=== PATIENT | male | born 1955 | race Caucasian/White ===

== ENCOUNTER 2016-08-14 07:10 | Inpatient (IN) ==
[2016-08-14] MEDS ORDERED: 0.9 % Sodium Chloride 1,000 ML IVC SCH (07:45)
[2016-08-14] MEDS ORDERED: *HR* Heparin 10,000 UNIT/10 ML VIAL ONE (08:08)
[2016-08-14] MEDS ORDERED: 0.9 % Sodium Chloride 1,000 ML ONE (08:08)
[2016-08-14] MEDS ORDERED: Nitroglycerin 1,000 MCG/10 ML VIAL IV ONE (08:08)
[2016-08-14] MEDS ORDERED: Heparin 1,000 UNITS/500 mL NS 0 ML ONE (08:08)
--- NOTE | 2016-08-14 08:40 | History & Physical Report ---
Date of Encounter: 08/14/16 Time of Encounter: 08:40 24 Hour HP Update - Instructions Instructions: If the History and Physical is less than 30 days old and was completed prior to A.M. admission and or procedure and has NOT been updated on calendar day of procedure please complete this update prior to performing procedure. - Update Patient reports changes in Medical Condition: No Changes in examination, assessment, or condition: No Changes in Medication: No Preop tests/diagnostics Reviewed: Yes Surgery Remains Indicated: Yes Consent for Planned Operative Procedure(s) Verified: Yes - Pre-Operative Checklist Preoperative Checklist Indicated: No Prophylactic Antibiotic Ordered: No Home Medications Include Beta Merle: Yes Beta Merle Taken Today (Day of Surgery): Yes Beta Merle Taken Yesterday (Day Prior to Surgery): Yes Is VTE Prophylaxis Indicated?: NO
[2016-08-14] MEDS ORDERED: *HR* FentaNYL (PF) 100 MCG/2 ML VIAL ONE (08:41)
[2016-08-14] MEDS ORDERED: *HR* Bivalirudin 250 MG VIAL IVC ONE (08:41)
[2016-08-14] MEDS ORDERED: *HR* Midazolam HCl 2 MG/2 ML VIAL ONE (08:41)
--- NOTE | 2016-08-14 08:41 | Pre-Sedation Evaluation ---
Pre-sedation evaluation - Pre-sedation checklist Date of procedure: 08/14/16 Procedure: [facility] Recent Vitals: Last Vital Signs Temp 98.1 F 08/14/16 07:47 Pulse 67 08/14/16 07:47 Resp 16 08/14/16 07:47 BP 175/89 08/14/16 07:47 Pulse Ox 99 08/14/16 07:47 H&P (including ROS) documented in medical record: Yes Previous reaction to sedatives/anesthetics: No Dietary Status: NPO after Midnight Airway Assessment: Patient can open mouth completely, TMJ function normal, Micrognathia (under-bite, receding chin) absent, Neck with adequate range of motion Dentition: No loose teeth or bridges Possible difficult airway: No ASA Classification *see protocol: CLASS II-Mild systemic disease Plan of Care: Pt appropriate candidate for procedure/moderate/conscious sedation , Risks/benefits of procedure/sedation discussed w/ patient/family
[2016-08-14] MEDS ORDERED: Ondansetron 4 MG/2 ML VIAL IVP PRN (09:34)
[2016-08-14] MEDS ORDERED: Acetaminophen 325 MG TABLET PO PRN (09:34)
[2016-08-14] MEDS ORDERED: Nitroglycerin 0.4 MG TAB.SUBL SL PRN (09:34)
[2016-08-14] MEDS ORDERED: Dextrose Gel 15 GM PO PRN ×2 (09:35)
[2016-08-14] MEDS ORDERED: *HR* Dextrose 50 % in Water (Syg) 50 ML SYRINGE IVP PRN (09:35)
[2016-08-14] MEDS ORDERED: D5% in Water 1,000 ML IVC PRN (09:35)
[2016-08-14] MEDS ORDERED: Nitroglycerin 25 MG/250 ML INFUS..BTL IVC SCH (09:45)
--- NOTE | 2016-08-14 10:59 | Invasive Diagnostic Lab ---
Name: Tai Bearden Date of Study: 08/14/2016 Date: 1955 Ht: 170.2 cm /67.0 in Medical Record#: [id number] Age: 61 Wt: 99.8 kg / 220.00 lb Account/Order#: [id number] Gender: Male BSA: 2.11 Order #: [id number] Fluoro Dose: 243 mGy BMI: 34.46 Procedure Physician: Elis Medina MD, FACC Referring MD: Scarlett Calles DO Referring MD: Procedures Performed: LEFT HEART CATH Indications: Unstable Angina Impressions: There is severe three vessel coronary artery disease. The left ventricle is normal and has normal contractility EF 60% Recommendations: Optimal medical therapy of patient's disease. Aggressive risk factor modification. Evaluate for coronary artery bypass surgery. History/Risk Factors: edema proteinuria dm bladder CA Diabetes Hypertension Dyslipidemia Procedure Access obtained in the right Femoral artery by percutaneous puncture Complications: None, None Contrast: Isovue 65ml Closure Device: MynxGrip Hemodynamics: Pressures Site Systolic/ A Wave Diastolic/ V Wave End Diastolic/ Mean HR AO 155 89 114 59 AO 157 84 112 58 AO 176 101 135 66 LV 148 19 18 68 LV 141 26 27 68 AO 145 74 110 67 AO 190 74 118 66 LV Ventriculography Ejection Method: LV Gram Ejection Fraction: 60% Wall Motion: ALEJANDRE Anterobasal Normal Anterolateral Normal Apical: Normal Inferoapical Normal Inferobasal Normal Coronary Dominance: right Lesion Findings/Interventions * Left Main Coronary Artery There is a 30% stenosis in the LMCA. * Left Anterior Descending There is a 95% stenosis in the Ostial LAD. There is a 85% stenosis in the Proximal LAD. There is a 30% stenosis in the Mid LAD. There is a 90% stenosis in the 1st Diagonal- large vessel. * Circumflex There is a 30% stenosis in the Proximal Circumflex. There is a 60% stenosis in the Mid Circumflex. * Right Coronary Artery There is a 40% stenosis in the Proximal RCA. There is a 100% stenosis in the Distal RCA- [employer]. R PDA fills via L to R collaterals. Updated by RT Rakesh (R) on 08/14/2016 9:33:01 AM Elis Medina MD, FACC electronically signed on 08/14/2016 10:54:03 AM with status of Final
--- NOTE | 2016-08-14 13:10 | Cardiothoracic Consult Note ---
Date of Encounter: 08/14/16 Time of Encounter: 13:01 Assessment and Plan (1) Coronary artery disease Current Visit: No Status: Ruled-out The patient is a 61-year-old type II diabetic, hypertensive man with hypercholesterolemia and a 6 month history of progressive shortness of breath and dyspnea on exertion. The patient underwent cardiac catheterization today was found to have severe three-vessel CAD an LVEF 60-65% (per echocardiogram). The patient has been recommended for CABG. I concur with this recommendation. The patient understands the procedure, alternatives, benefits, and risks and gives his informed consent. 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 No decision office for as timing of the operation has been determined as yet. The assessment and plan as outlined above was discussed with the patient and/or family members who expressed understanding and agreement. All questions were answered. Qualifiers: Coronary Disease-Associated Artery/Lesion type: [place] artery [place] vs. transplanted heart: [place] heart Associated angina: with stable angina Qualified Code(s): I25.118 - Atherosclerotic heart disease of [place] coronary artery with other forms of angina pectoris - History of Present Illness Consult date: 08/14/16 Requesting physician: Elis Medina Consult reason: CABG evaluation. Chief complaint: Shortness of breath. History of present illness: Mr. Bearden is a 61 year old type II diabetic, hypertensive man with hypercholesterolemia who has experienced increasing shortness of breath and dyspnea on exertion for the last several months. The patient underwent an echocardiogram in January 2016 which revealed an LVEF 60-65% with normal left ventricular size and systolic function. Subsequent stress test performed February 15, 2016 revealed an LVEF 67% with no definitive evidence of ischemia or infarct. 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 He underwent 2 cervical spine procedures to clear the osteomyelitis. He has had persistent shortness of breath and currently cannot climb one flight of stairs without experiencing profound shortness of breath and dyspnea on exertion. He denies any substernal chest pain , pressure, squeezing, or tightness. He also denies any diaphoresis, nausea, vomiting, or syncope. The patient underwent cardiac catheterization today was found to have severe three-vessel CAD. In particular the patient has a 95 percent ostial LAD lesion, an 85% proximal LAD lesion, a 90% proximal D1 lesion, 60% mid LCx lesion, and a completely occluded distal RCA which fills the PDA via [id number] collaterals and patient has been recommended for CABG. Past Med Surg Social Fam HX - Past Medical History Medical history: cancer, diabetes, hyperlipidemia, hypertension, peripheral artery disease, renal disease (CKD, Stage IIIB), venous stasis, other Psychiatric history: anxiety - Past Surgical History Surgical History: cancer surgery, orthopedic, other (C4/C5 corpectomy, C4-C7 anterior fusion), other (Left second and third toe amputation) - Social History Smoking Status: Former smoker Smokeless Tobacco Status: No Alcohol use: rarely Drug use: none Occupational status: employed Current living situation: Home - Independent Activity Level: Independent ambulation Recent Out of Country Travel Within the Last 8 Weeks: No Exposure or Possible Exposure to Illness During Travel: No - Family History Father Living Status: Hx Family Endocrine Disorder: Yes (DM) Mother Living Status: Hx Family Cardiac Disorders: No Hx Family Respiratory Disorders: No Hx Family Cancer: Yes (thyroid) Hx Family GI Disorders: No Hx Family Endocrine Disorder: No Medications and Allergies Atenolol [Tenormin] 50 mg PO BID 11/08/14 [History] Simvastatin [Zocor] 20 mg PO HS 11/08/14 [History] Furosemide [Lasix] 40 mg PO BID 01/26/16 [History] Gabapentin [Neurontin] 100 mg PO TID 01/26/16 [History] Insulin LISPRO [HumaLOG] 0 units SQ TIDAC vial 02/28/16 [Rx] Ammonium Lactate [Amlactin] 225 gm TP BID 08/14/16 [History] Insulin Glargine [Lantus] 20 unit SQ BID 08/14/16 [History] Loratadine [Claritin] 10 mg PO DAILY 08/14/16 [History] Allergies No Known Allergies Allergy (Verified 03/23/16 17:00) All Systems Review: A 10-system review of systems was performed and is negative for pertinent findings except as documented above in the HPI. Physical Examination General: Conversant, No Apparent Distress HEENT: Atraumatic, Normocephaly, Trachea midline Neck: No JVD, Normal carotid pulses Cardiac: Reg Rate and Rhythm, Normal S1 and S2, No Murmur Lungs: Normal Breath Sounds, No Wheeze, Rales, Rhonchi Neuro: Alert and responsive, No focal deficits noted Vascular: Normal capillary refill Abdomen: Soft, Non-tender Musculoskeletal: No Chest Wall Tenderness Extremities: No Clubbing, No Cyanosis, Other (2-3+ pitting edema from the knees to the toes in both lower extremities) Consult Discharge Plan - Plan Referrals: Eloy Calles DO [Primary Care Provider] -
--- NOTE | 2016-08-14 16:16 | Invasive Diagnostic Lab Proc ---
Name: Tai Bearden Date of Study: 08/14/2016 Date: 1955 Ht: 67.0in Medical Record#: [id number] Age: 61 Wt: 220.00lb Gender: Male BSA: 2.11 Order #: [id number] BMI: 34.46 Physicians Procedure Physician: Elis Medina MD, FACC Referring MD: Scarlett Calles DO Referring MD: Staff Name Position Time In Maryan Mercer RN Garde Manger 08:42 AM Carly Jimenez RN Nurse 08:42 AM Viji Villarreal RT (R) Monitor 08:42 AM Kira Cunningham RT (R) Scrub 08:42 AM Indications Indication Unstable Angina Procedures Performed Procedure L HRT ARTERY/VENTRICLE ANGIO Pre-Procedure Checklist Informed consent is complete signed and on chart. H\\T\\P is on chart. ID band is on and ID verified with patient. Patient NPO for procedure The procedure was described for the patient and questions were answered. Blood Pressure: 175/89 ECG is on chart. Rhythm: NSR Plan of Care Patient will tolerate the procedure without complications. Adequate level of comfort will be maintained. Hemodynamics will remain stable Patient will recover from procedure without complications. Respiratory function will be maintained. Cardiac rhythm will remain stable. Patient temperature will be maintained. Patient and/or family have verbalized understanding of the procedure. Patient Education Chief Complaint/Reason for Test: Cardiac Cath Developmental Category: Adult (18-64 years) Developmentally Appropriate for Age: Yes Learning Barriers: None Education Needs: Procedure Education Method: Verbal Information Taught: Cardiac Cath Educational Evaluation: Able to repeat information Intravenous Access Time IV Size Location DC'd Fluid/Drip Rate Units RN 08:12 AM Started with 20g 1 1/4" Lt Antecubital 0.9NaCl 100 ml/hr Renzo Scott RN Allergies No Known Allergies Vital Signs Time BP (mmHg) HR (bpm) O2 Sat. RR (bpm) LOC 08:12 AM 175 / 89 67 99 % 16 5 = Fully awake and oriented or at pre-proc level 08:45 AM / % 5 = Fully awake and oriented or at pre-proc level 08:45 AM / % 5 = Fully awake and oriented or at pre-proc level 09:00 AM / % 5 = Fully awake and oriented or at pre-proc level 08:49 AM 203 / 105 65 100 % 19 08:53 AM 186 / 102 63 99 % 26 08:58 AM 184 / 87 62 100 % 27 09:03 AM 184 / 86 57 100 % 33 09:09 AM 197 / 96 65 99 % 32 09:13 AM 207 / 107 66 99 % 32 09:16 AM 202 / 104 68 98 % 23 09:18 AM 206 / 95 % 09:30 AM 157 / 69 69 98 % 18 5 = Fully awake and oriented or at pre-proc level 10:00 AM 161 / 80 68 99 % 18 5 = Fully awake and oriented or at pre-proc level 10:36 AM 172 / 89 68 98 % 18 5 = Fully awake and oriented or at pre-proc level 10:51 AM 162 / 79 68 98 % 18 5 = Fully awake and oriented or at pre-proc level 11:00 AM 158 / 83 71 98 % 18 5 = Fully awake and oriented or at pre-proc level 11:18 AM 164 / 80 69 98 % 18 5 = Fully awake and oriented or at pre-proc level 11:41 AM 158 / 73 70 98 % 18 5 = Fully awake and oriented or at pre-proc level 12:00 PM 166 / 83 69 99 % 18 5 = Fully awake and oriented or at pre-proc level 12:30 PM 177 / 109 72 % 18 5 = Fully awake and oriented or at pre-proc level 01:00 PM 186 / 96 70 % 18 5 = Fully awake and oriented or at pre-proc level 02:00 PM 187 / 85 75 % 18 5 = Fully awake and oriented or at pre-proc level 02:50 PM 175 / 92 73 % 18 5 = Fully awake and oriented or at pre-proc level 03:00 PM 166 / 64 76 % 18 5 = Fully awake and oriented or at pre-proc level 04:00 PM 126 / 82 72 % 18 5 = Fully awake and oriented or at pre-proc level Procedural Medications Time Medication Dose Units Method Given By 08:43 AM Oxygen 2 L/min nasal cannula Maryan Mercer RN 08:45 AM Versed 2 mg Intravenous Maryan Mercer RN 08:45 AM Fentanyl 50 mcg Intravenous Maryan Mercer RN 09:00 AM Lidocaine 2% 10 ml Subcutaneous Elis Medina MD, FACC 09:12 AM Hydralazine 10 mg Intravenous Maryan Mercer RN 09:19 AM Hydralazine 10 mg Intravenous Ruslan, Maryan RN 03:05 PM Tylenol 650 mg Orally Soco Andrade RN Guillermo Score Preprocedure Postprocedure Activity 2- Moves 4 extremities sustained head lift Activity 2- Moves 4 extremities sustained head lift Circulation 2- SBP +/= 20 points of pre-anesthetic level Circulation 2- SBP +/= 20 points of pre-anesthetic level Consciousness 2- Awake and alert oriented x 3 Consciousness 2- Awake and alert oriented x 3 O2 Saturation 2- Able to maintain O2 satruation of 92% on room air O2 Saturation 2- Able to maintain O2 satruation of 92% on room air Respiratory 2- Able to deep breathe and cough well Respiratory 2- Able to deep breathe and cough well Total Score 10 Total Score 10 Contrast Agent: Isovue Diagnostic Contrast: 65 ml Total Contrast: 65 ml Fluoro Dose: 243 mGy Procedure Log Time Note Enter By 08:21 AM Risk for fall? Yes, Medications (change in amt./frequency,newly prescribed,potential combinations) [email or web address] 08:21 AM Evidence of mental, physical, or emotional abuse? No kkallner 08:21 AM Does patient have suicidal ideations? No kkallner 08:40 AM Maryan Mercer RN Position: Garde Manger Time in: 08:40 [email or web address] 08:40 AM Carly Jimenez RN Position: Nurse Time in: 08:40 dspell 08:40 AM Viji Villarreal RT (R) Position: Monitor Time in: 08:40 dspell 08:40 AM Kira Cunningham RT (R) Position: Scrub Time in: 08:40 dspellman 08:41 AM Case Start 08:41 AM Pt arrived to [facility] 2 at 08:41 dspellman 08:41 AM Physician arrived 08:41 dspell 08:41 AM Meet and greet completed dspell 08:41 AM Sign in performed according to hospital policy. dspell 08:41 AM Procedure start 08:41 dspell 08:42 AM Patient charges- Angio tray pack, Navilyst 3mm J, Pulse Oximetry and ACIST tubing and transducer dspell 08:42 AM IV Supplies used: J loop Angio Cath. dspell 08:43 AM Time: 08:43 Oxygen on at 2 L/min per nasal cannula by Maryan Mercer RN dspell 08:43 AM CathStat 08:45 AM Time: 08:45 Patient comfortable and pain free: Yes [email or web address] 08:45 AM Time: 08:45LOC: 5 = Fully awake and oriented or at pre-proc level dspellmarion 08:45 AM Time: 08:45 Versed 2 mg Intravenous [facility] AM Time: 08:45 Fentanyl 50 mcg Intravenous Given by Maryan Mercer RN [facility] 08:46 AM Vitals capture started with the following parameters, Patient=Adult, Interval=5 min, Initial Dhvzravr=285 mmHg, Deflation Rate=5 mmHg, Cuff placed on Left Arm 08:46 AM Recorded ECG: HR=66 Condition=Condition 1 08:47 AM Vitals capture stopped. 08:47 AM Vitals capture started with the following parameters, Patient=Adult, Interval=5 min, Initial Javrupqx=731 mmHg, Deflation Rate=5 mmHg, Cuff placed on Left Arm 08:48 AM Clinical Presentation: [facility] AM Noted: 3+ pitting edema bilateral lower extremities [facility] 08[facility]49 AM HR=65 bpm, AYQC=689/105 mmhg, YvQ9=267.0 %, Resp=19 B/min, Comment=NSR 08:52 AM NIBP STAT measurement started. 08:53 AM HR=63 bpm, VZXA=318/102 mmhg, SpO2=99.0 %, Resp=26 B/min, Comment=NSR 08:58 AM HR=62 bpm, STDK=388/87 mmhg, VnO5=198.0 %, Resp=27 B/min, Comment=NSR 09:00 AM Time: 08:45LOC: 5 = Fully awake and oriented or at pre-proc level [facility] AM Time: 08:45 Patient comfortable and pain free: Yes [facility] 09:00 AM Time out performed according to hospital policy [facility] 09:01 AM Time: 09:00 10 ml Lidocaine 2% to right groin Subcutaneous Given by Elis Medina MD, [facility] 09:01 AM Access obtained by percutaneous puncture. 5Fr 10cm Terumo [place] sheath placed in right Femoral artery. [id number] [facility] 09:01 AM 5Fr FL 4 catheter inserted over the wire [facility] 09:01 AM 0.035 145cm Navilyst 3mmJ wire [id number] dspell 09:01 AM LCA angiography performed in multiple views. dspell 09:02 AM Recorded Pressure: Ao, HR=59, Condition=Condition 1 (Aorta) Ao 155/89/114 09:02 AM Recorded Pressure: Ao, HR=58, Condition=Condition 1 (Aorta) Ao 157/84/112 09:03 AM Catheter removed dspell 09:03 AM HR=57 bpm, MUDR=647/86 mmhg, IyK2=412.0 %, Resp=33 B/min, Comment=NSR 09:03 AM 5Fr FR 4 catheter inserted over the wire [facility] ell 09:04 AM RCA angiography performed in multiple views. dspell 09:04 AM Recorded Pressure: Ao, HR=66, Condition=Condition 1 (Aorta) Ao 176/101/135 09:05 AM Catheter removed dspell 09:05 AM 5Fr Pigtail catheter inserted over the wire [facility] 09:06 AM Pressure channel 1 zeroed. 09:06 AM Recorded Pressure: LV, HR=68, Condition=Condition 1 (Left Ventricle) LV 148/19/18 09:06 AM Recorded Pressure: LV, Ao, HR=67, Condition=Condition 1 (Left Ventricle) LV 141/26/27, (Aorta) Ao 145/74/110 09:07 AM Bolus angiogram of left Ventricle complete: 8 ml/sec for a total of 24 [facility]ls ell 09:07 AM Catheter selectively placed in left ventricle dspell 09:07 AM Catheter removed dspell 09:08 AM Recorded Pressure: Ao, HR=66, Condition=Condition 1 (Aorta) Ao 190/74/118 09:08 AM Bolus angiogram of right Femoral complete: 4 ml/sec for a total of 7 mls [facility] 09:09 AM Procedure completed at 09:09 dspellmarion 09:09 AM HR=65 bpm, MGLQ=195/96 mmhg, SpO2=99.0 %, Resp=32 B/min, Comment=NSR 09:[address] [facility] AM Sign out completed: Radiation Dose 243.44 mGy Fluoro Time: 1.1 Isovue 370 - 200ml contrast 65 ml given by Elis Medina MD, [facility]. Complications: NoneCardiac Rehab Consult needed: YesConfirmed administered medications: Yes 09:11 AM Isovue 370 - 200ml,1 Bottle(s) used. dsp 09:11 AM Arterial sheath pulled, Mynx closure device used and was Successful [id number]. 09:11 AM Post ECG NSR dsp 09:12 AM Post Blood Pressure 197/96 dspell 09:12 AM Time: 09:12 Hydralazine 10 mg Intravenous Given by Maryan Mercer RN 09:13 AM HR=66 bpm, ZTYW=208/107 mmhg, SpO2=99.0 %, Resp=32 B/min, Comment=NSR 09:16 AM NIBP STAT measurement started. 09:16 AM HR=68 bpm, NPZF=480/104 mmhg, SpO2=98 %, Resp=23 B/min 09:17 AM Time: 09:00 Patient comfortable and pain free: Yes 09:17 AM Time: 09:00LOC: 5 = Fully awake and oriented or at pre-proc level dsp 09:17 AM Site status No bleeding/hematoma - Rt Groin as reported by Kira Cunningham RT (R) at 09:17 09:18 AM Opsite applied dsp 09:18 AM RLRX=708/95 mmhg 09:19 AM Time: 09:19 Hydralazine 10 mg Intravenous Given by Maryan Mercer RN 09:20 AM Information taught Cardiac Cath and Mynx 09:20 AM Education needs Procedure, Plan of Care, and Responsibilities of Patient in Care dspell 09:20 AM Learning barriers :None :20 AM Education Methods Verbal :20 AM Education evaluation Able to repeat information :21 AM Report given to Soco BROWN Pt taken to Holding room Room #1. 09:21 dspell 09:21 AM Patient out of room: 09:21 dspell 09:21 AM Family placed in no family available. dspell 09:21 AM Complications: None dsp 09:21 AM Fluoro Time: 1.1 dsp 09:21 AM Isovue 370 - 200ml contrast 65 ml given by [facility] 09:21 AM Radiation Dose 243.44 mGy dspellman 09:23 AM Coronary Dominance: right dspellman 09:23 AM Lesion found in LMCA. Pre Stenosis: 30 Pre MIGUEL Flow: dspellman 09:23 AM Left Main Coronary Artery with 30% stenosis dspellman 09:23 AM Lesion found in Ostial LAD. Pre Stenosis: 95 Pre MIGUEL Flow: dspellman 09:23 AM Lesion found in Proximal LAD. Pre Stenosis: 85 Pre MIGUEL Flow: dspellman 09:23 AM Lesion found in Mid LAD. Pre Stenosis: 30 Pre MIGUEL Flow: dspellman 09:24 AM Lesion found in 1st Diagonal. Pre Stenosis: 90 Pre MIGUEL Flow: dspellman 09:24 AM Lesion found in Proximal Circumflex. Pre Stenosis: 30 Pre MIGUEL Flow: dspellman 09:25 AM Lesion found in Mid Circumflex. Pre Stenosis: 60 Pre MIGUEL Flow: dspellman 09:25 AM Lesion found in Proximal RCA. Pre Stenosis: 40 Pre MIGUEL Flow: dspellman 09:25 AM Lesion found in Distal RCA. Pre Stenosis: 100 Pre MIGUEL Flow: dspellman 09:25 AM Proximal Left Anterior Descending Coronary Artery with 85% stenosis. If graft is supplying this territory, 0 % stenosis. dspellman 09:26 AM Mid/Distal Left Anterior Descending Coronary Artery and diagonal branches with 95% stenosis. If graft is supplying this area, 0 % stenosis dspellman 09:26 AM Circumflex, Obtuse Marginal, Left Posterior Descending, and Left Posterolateral Coronary Arteries with 30 % stenosis. If graft is supplying this area, 0 % stenosis dspellman 09:27 AM Right Coronary, Right Posterior Descending Arteries with Right Posterolateral and Acute Marginal branches with 100 % stenosis. If graft is supplying this area, 0 % stenosis dspellman 12:[address] Morales at bedside mprater 01:30 PM Florina Gamboa present conducting CABG education mprater 01:[address] elis Medina at bedside. Dr Medina educated patient on risks of being discharged home. Dr medina recommends patient be admitted to have CABG as an inpatient vs outpatient. mprater 01:55 PM Pt dressed sitting on bed Florina in room for education thenthorne 02:50 PM patient blood glucose 111. patient eating lunch tray. patient made a decision to stay an inpatient mprater 03:[address] Morales to inform him of patient willing to be admitted mprater 03:50 PM report called to Killian BROWN on 2NE mprater 04:09 PM Patient out of room: 16:09. Patient taken to his room in wheelchair by Juvenal Scott RN. Belongings with patient juana Complications Complication None None Hemodynamics Pressures Site Systolic/A Wave Diastolic/V Wave Mean AO 155 89 114 AO 157 84 112 AO 176 101 135 LV 148 19 18 LV 141 26 27 AO 145 74 110 AO 190 74 118 Post Procedure Information Blood Pressure: 197/96 mmHg Rhythm: NSR Post procedural instructions were given Surgery consult for CABG Closure Device Time Device Success/Fail 08/14/2016 9:27:00 AM MynxGrip Successful Site Checks Time Location Status Staff Sheath In? Note 09:17 AM Rt Groin No bleeding/hematoma Kira Cunningham RT (R) 09:28 AM Rt Groin No bleeding/ No Hematoma 10:00 AM Rt Groin No bleeding/ No Hematoma Renzo Scott RN 10:37 AM Rt Groin No bleeding/ No Hematoma Renzo Scott RN 10:50 AM Rt Groin No bleeding/ No Hematoma Renzo Scott RN 11:00 AM Rt Groin No bleeding/ No Hematoma Soco Andrade RN 11:18 AM Rt Groin No bleeding/ No Hematoma Soco Andrade RN 11:39 AM Rt Groin No bleeding/ No Hematoma Renzo Scott RN 12:10 PM Rt Groin No bleeding/ No Hematoma Soco Andrade RN 12:30 PM Rt Groin No bleeding/ No Hematoma Soco Andrade RN 01:00 PM Rt Groin No bleeding/ No Hematoma Soco Andrade RN 01:30 PM Rt Groin No bleeding/ No Hematoma Soco Andrade RN 02:04 PM Rt Groin No bleeding/ No Hematoma Renzo Scott RN 02:25 PM Rt Groin No bleeding/ No Hematoma Soco Andrade RN 02:50 PM Rt Groin No bleeding/ No Hematoma Soco Andrade RN 03:00 PM Rt Groin No bleeding/ No Hematoma Soco Andrade RN 04:00 PM Rt Groin No bleeding/ No Hematoma Soco Andrade RN Pulses Time Site Pre-Procedure Post-Procedure Note 08/14/2016 8:13:00 AM Bilateral radial 1+ 08/14/2016 8:14:00 AM Bilateral DP \\T\\ PT Doppler 08/14/2016 9:29:00 AM Bilateral DP \\T\\ PT Doppler 08/14/2016 10:00:00 AM Bilateral DP \\T\\ PT Doppler 08/14/2016 10:36:00 AM Bilateral DP \\T\\ PT Doppler 08/14/2016 10:50:00 AM Bilateral DP \\T\\ PT Doppler 08/14/2016 11:00:00 AM Bilateral DP \\T\\ PT Doppler 08/14/2016 11:18:00 AM Bilateral DP \\T\\ PT Doppler 08/14/2016 11:40:00 AM Bilateral DP \\T\\ PT Doppler 08/14/2016 1:00:00 PM Bilateral DP \\T\\ PT Doppler 08/14/2016 1:30:00 PM Bilateral DP \\T\\ PT Doppler 08/14/2016 3:00:00 PM Bilateral DP \\T\\ PT Doppler 08/14/2016 4:00:00 PM Bilateral DP \\T\\ PT Doppler Updated by Maryan Mercer RN on 08/14/2016 4:10:39 PM Maryan Mercer RN electronically signed on 08/14/2016 4:11:16 PM with status of Final
[2016-08-14] MEDS ORDERED: ceFAZolin 2,000 MG in D5% in Water 100 ML IVPB ONE (16:50)
[2016-08-14 17:44] LABS: Basophils # 0.1 K/mcL (0.0-0.2); Basophils % 0.6 %; Eosinophils # 0.1 K/mcL (0.0-0.6); Eosinophils % 1.1 %; Hematocrit 34.9 % (37.5-50.1); Hemoglobin 11.7 g/dL (12.9-16.9); Immature Granulocytes % 0.4 % (0-4); Lymphocytes # 0.8 K/mcL (0.6-4.6); Lymphocytes % 9.2 %; Mean Corpuscular HGB Conc 33.5 g/dL (31.6-35.5); Mean Corpuscular Volume 83.5 fL (83.0-100.0); Mean Platelet Volume 10.4 fL (9.4-12.4); Monocytes # 0.7 K/mcL (0.0-1.3); Monocytes % 8.6 %; Neutrophils # 6.7 K/mcL (1.6-8.9); Platelet Count 253 K/mcL (140-400); Red Blood Count 4.18 M/mcL (4.19-5.50); Segmented Neutrophils % 80.1 %
[2016-08-14 17:48] LABS: Chol/HDL Ratio 4.9 (0-4.9)
[2016-08-14] MEDS: *HR* Heparin 5,000 UNIT/ML VIAL SQ SCH (17:48)
[2016-08-14] MEDS: Insulin LISPRO 300 UNITS/3 ML VIAL SQ SCH ×2 (17:48)
[2016-08-14 17:59] LABS: INR 1.2; Prothrombin Time 13.3 Seconds (9.4-12.1)
[2016-08-14 18:07] LABS: Hemoglobin A1C 9.2 %
[2016-08-15] MEDS: *HR* Heparin 5,000 UNIT/ML VIAL SQ SCH ×2 (05:19→16:48)
[2016-08-15 05:28] LABS: Basophils # 0.1 K/mcL (0.0-0.2); Basophils % 0.6 %; Eosinophils # 0.1 K/mcL (0.0-0.6); Eosinophils % 1.4 %; Hemoglobin 11.9 g/dL (12.9-16.9); Immature Granulocytes % 0.4 % (0-4); Lymphocytes % 12.8 %; Mean Corpuscular HGB Conc 33.1 g/dL (31.6-35.5); Mean Corpuscular Hemoglobin 27.6 pg (28.0-33.3); Mean Corpuscular Volume 83.5 fL (83.0-100.0); Mean Platelet Volume 10.1 fL (9.4-12.4); Monocytes # 0.8 K/mcL (0.0-1.3); Monocytes % 10.4 %; Neutrophils # 5.9 K/mcL (1.6-8.9); Platelet Count 268 K/mcL (140-400); Red Blood Count 4.31 M/mcL (4.19-5.50); Red Cell Distribution Width 15.1 % (11.5-14.5); Segmented Neutrophils % 74.4 %
[2016-08-15 05:40] LABS: BUN/Creatinine Ratio 21 (6-26); Blood Urea Nitrogen 29 mg/dL (8-26); Calcium 8.8 mg/dL (8.6-10.8); Carbon Dioxide 18 mEq/L (19-29); Chloride 114 mEq/L (98-109); Glucose 71 mg/dL (70-99); Osmolality,Calculated 296 (280-300); Potassium 3.8 mEq/L (3.5-4.5); Sodium 141 mEq/L (136-145); eGFR For African Americans > 60 (> 60); eGFR For Non-African Americans 51 (> 60)
[2016-08-15] MEDS ORDERED: ceFAZolin 2,000 MG in D5% in Water 100 ML IVPB ONE (06:00)
--- NOTE | 2016-08-15 08:11 | Cardiothoracic Progress Note ---
Date of Encounter: 08/15/16 Time of Encounter: 08:10 - Assessment and plan (1) Coronary artery disease Current Visit: No Status: Ruled-out The patient is a 61-year-old type II diabetic, hypertensive man with hypercholesterolemia and a 6 month history of progressive shortness of breath and dyspnea on exertion. The patient underwent cardiac catheterization today was found to have severe three-vessel CAD an LVEF 60-65% (per echocardiogram). The patient has been recommended for CABG. I concur with this recommendation. The patient understands the procedure, alternatives, benefits, and risks and gives his informed consent. His creatinine remains stable after the cardiac catheterization. The CABG is tentatively scheduled for tomorrow morning. The assessment and plan as outlined above was discussed with the patient and/or family members who expressed understanding and agreement. All questions were answered. Qualifiers: Coronary Disease-Associated Artery/Lesion type: [place] artery [place] vs. transplanted heart: [place] heart Associated angina: with stable angina Qualified Code(s): I25.118 - Atherosclerotic heart disease of [place] coronary artery with other forms of angina pectoris - Subjective Interval history: The patient is resting comfortably in his hospital bed. He has no complaints of substernal chest pain or shortness of breath last night. Vital Signs, Last 4 Hours Temp Pulse Resp BP Pulse Ox 08/15/16 07:06 98.3 F 69 16 177/91 96 Clinical Data, last 8 Hours Output, Urine Amount 0 Weight 08/13/16 08/14/16 08/15/16 23:59 23:59 23:59 Weight 101.7 kg 102.2 kg - Physical Examination General: Conversant, No Apparent Distress Neck: No JVD, Normal carotid pulses Cardiac: Reg Rate and Rhythm, Normal S1 and S2, No Murmur Lungs: Normal Breath Sounds, No Wheeze, Rales, Rhonchi Neuro: Alert and responsive, No focal deficits noted Vascular: Normal capillary refill Extremities: No Clubbing, No Cyanosis, No Edema - Labs 08/15/16 05:03 08/15/16 05:03 Lab Results, Last 24 hours 08/14/16 08/14/16 08/15/16 17:21 17:21 05:03 WBC 8.4 8.0 Hgb 11.7 L 11.9 L Hct 34.9 L 36.0 L Plt Count 253 268 INR 1.2 APTT 28.0 Sodium Potassium Chloride Carbon Dioxide BUN Creatinine Glucose Calcium 08/15/16 05:03 WBC Hgb Hct Plt Count INR APTT Sodium 141 Potassium 3.8 Chloride 114 H Carbon Dioxide 18 L BUN 29 H Creatinine 1.41 H Glucose 71 Calcium 8.8 Consult Discharge Plan - Plan Referrals: Eloy Calles DO [Primary Care Provider] -
[2016-08-15] MEDS ORDERED: Chlorhexidine Rinse 15 ML MOUTHWASH MM SCH ×2 (09:00→21:00)
--- NOTE | 2016-08-15 10:52 | Cardiology Progress Note ---
Date of Encounter: 08/15/16 Time of Encounter: 10:45 Assessment and Plan (1) Coronary artery disease Current Visit: No Status: Ruled-out [facility] yesterday howed severe three-vessel CAD. 95% percent ostial LAD lesion, 85% proximal LAD lesion, 90% proximal D1 lesion, 60% mid LCx lesion, and occluded distal RCA which fills the PDA via [id number] collaterals. Seen by CT surgery, plan for CABG tomorrow. Pt denies any questions. Denies chest pain currently. Right femoral access site healing well. No bleeding, hematoma or ecchymosis noted. Continue ASA, Statin, BB, nitrate. Will schedule follow-up in 4-6 weeks. Qualifiers: Coronary Disease-Associated Artery/Lesion type: [place] artery [place] vs. transplanted heart: [place] heart Associated angina: with stable angina Qualified Code(s): I25.118 - Atherosclerotic heart disease of [place] coronary artery with other forms of angina pectoris (2) Chronic kidney disease, stage III (moderate) Current Visit: No Status: Chronic Renal function appears near baseline. Creatinine 1.41 s/p [facility]. (3) Essential hypertension Current Visit: Yes Status: Acute BP uncontrolled. Systolic BP 160s-180s/80s-100s. Will start Norvasc. Adjust antihypertensives as necessary. Discussion w patient/family: The assessment and plan as outlined above was discussed with the patient and/or family members who expressed understanding and agreement. All questions were answered. Thank you for involving us in the care of your patient. Please call with any questions. I will discuss all the above with Dr. Ang Medina and make changes as necessary. Subjective Principal diagnosis: CAD Interval history: Pt is s/p outpt [facility] yesterday--found to have severe [address] surgery consulted, planned for CABG tomorrow. Pt denies any chest pain. Denies any acute complaints this AM. Objective Vital Signs, Last 4 Hours Temp Pulse Resp BP Pulse Ox 08/15/16 07:06 98.3 F 69 16 177/91 96 Vital Signs Temp Pulse Resp BP Pulse Ox 08/15/16 07:06 98.3 F 69 16 177/91 96 08/15/16 04:00 98.4 F 66 16 160/78 98 08/15/16 00:07 97.8 F 69 16 171/66 97 08/14/16 19:48 97.6 F 71 16 166/86 96 08/14/16 16:30 97.9 F 68 16 160/102 97 Intake and Output 08/14/16 08/15/16 08/15/16 23:59 07:59 15:59 Intake Total 0 / 0 120 / 120 Output Total 0 / 0 Balance 0 / 0 120 / 120 Intake: Oral 0 / 0 120 / 120 Output: Urine 0 / 0 Other: Meal Breakfast Percent of Meal Consumed 100% Weight 101.7 kg 102.2 kg Blood Glucose* 264 81 Patient Weight 08/15/16 23:59 Weight 102.2 kg General: Conversant, No Apparent Distress HEENT: Atraumatic, Normocephaly, Mucus Membranes Moist Neck: No JVD, Normal carotid pulses Cardiac: Reg Rate and Rhythm, Normal S1 and S2, No Murmur Lungs: Normal Breath Sounds, No Wheeze, Rales, Rhonchi Neuro: Alert and responsive, No focal deficits noted Abdomen: Soft, Non-Tender Skin: Other (right femoral access site healing well. No bleeding, hematoma or ecchymosis noted.) Musculoskeletal: No Chest Wall Tenderness Extremities: No Clubbing, No Cyanosis, No Edema, Normal Pulses Results 08/15/16 05:03 08/15/16 05:03 Lab Results 08/14/16 08/14/16 08/15/16 17:21 17:21 05:03 WBC 8.4 8.0 Hgb 11.7 L 11.9 L Hct 34.9 L 36.0 L Plt Count 253 268 INR 1.2 APTT 28.0 Sodium Potassium Chloride Carbon Dioxide BUN Creatinine Glucose Calcium 08/15/16 05:03 WBC Hgb Hct Plt Count INR APTT Sodium 141 Potassium 3.8 Chloride 114 H Carbon Dioxide 18 L BUN 29 H Creatinine 1.41 H Glucose 71 Calcium 8.8 Short CBC 08/15/16 08/14/16 Range/Units 05:03 17:21 WBC 8.0 8.4 (4.3-11.1) K/mcL Hgb 11.9 L 11.7 L (12.9-16.9) g/dL Hct 36.0 L 34.9 L (37.5-50.1) % Plt Count 268 253 (140-400) K/mcL Neutrophils # 5.9 6.7 (1.6-8.9) K/mcL BMP 08/15/16 Range/Units 05:03 Sodium 141 (136-145) mEq/L Potassium 3.8 (3.5-4.5) mEq/L Chloride 114 H (98-109) mEq/L Carbon Dioxide 18 L (19-29) mEq/L BUN 29 H (8-26) mg/dL Creatinine 1.41 H (0.72-1.25) mg/dL Glucose 71 (70-99) mg/dL Calcium 8.8 (8.6-10.8) mg/dL Impressions Chest X-Ray 08/14/16 16:50 IMPRESSION: No evidence of acute cardiopulmonary disease. Borderline heart size. D/ / 08/14/2016 17:15:24 Danie Kirkland MD / dara Interpreting Provider: Danie Kirkland MD Active Medications Acetaminophen (Tylenol) 650 mg PO Q6HR PRN PRN Reason: Mild Pain Stop: 02/13/17 09:35 Aspirin (Aspirin) 81 mg PO DAILY [facility] Stop: 02/14/17 09:01 Atorvastatin Calcium (Lipitor) 80 mg PO HS [facility] Stop: 02/13/17 21:01 Last Admin: 08/14/16 20:06 Dose: 80 mg Chlorhexidine Gluconate (Chlorhexidine Rinse) 15 ml MM BID HER[facility]O Stop: 08/15/16 21:01 Dextrose/Water (Dextrose 50% (Syg)) 25 ml IVP AD PRN PRN Reason: Hypoglycemia Stop: 02/13/17 09:36 Glucagon (Glucagen) 1 mg IM ONCE PRN PRN Reason: Hypoglycemia Stop: 02/13/17 09:36 Glucose (Gluctose) 15 gm PO ONCE PRN PRN Reason: Hypoglycemia Stop: 02/13/17 09:36 Glucose (Gluctose) 30 gm PO ONCE PRN PRN Reason: Hypoglycemia Stop: 02/13/17 09:36 Heparin Sodium (Porcine) (Heparin) 5,000 unit SQ Q12HR HERMILO Stop: 02/13/17 18:01 Last Admin: 08/15/16 05:19 Dose: 5,000 unit Dextrose (Dextrose 5%) 1,000 mls @ 100 mls/hr IVC .Q10H PRN PRN Reason: HYPOGLYCEMIA Stop: 02/13/17 09:36 Insulin Human Lispro (Humalog) 0 units SQ TIDAC HERMILO PRN Reason: Protocol Stop: 02/13/17 11:31 Last Admin: 08/14/16 17:48 Dose: 10 units Isosorbide Mononitrate (Imdur) 30 mg PO DAILY [facility] Stop: 02/14/17 09:01 Metoprolol Tartrate (Lopressor) 25 mg PO BID [facility] Stop: 02/13/17 21:01 Last Admin: 08/14/16 20:06 Dose: 25 mg Nitroglycerin (Nitroglycerin) 0.4 mg SL Q5MIN PRN PRN Reason: Chest Pain Stop: 02/13/17 09:35 Ondansetron HCl (Zofran) 4 mg IVP Q6HR PRN; Protocol PRN Reason: Nausea And Vomiting Stop: 02/13/17 09:35 - Imaging and Cardiology Cardiac cath: report reviewed - EKG Interpretation EKG results cardiology: other (24 hour tele AVG HR 69, no significant pauses noted.) Consult Discharge Plan - Plan Referrals: Eloy Calles DO [Primary Care Provider] -
[2016-08-15] MEDS: Aspirin 81 MG TAB.CHEW PO SCH (12:21)
[2016-08-15] MEDS: Insulin LISPRO 300 UNITS/3 ML VIAL SQ SCH ×3 (12:21→16:47)
[2016-08-15] MEDS: Isosorbide MONOnitrate (24 HR) 30 MG TAB.ER.24H PO SCH (12:22)
[2016-08-15] MEDS: amLODIPine 5 MG TABLET PO SCH (12:22)
[2016-08-15 15:49] LABS: Hemoglobin A1C 9.1 %
--- NOTE | 2016-08-15 21:32 | Carotid Imaging Report ---
Carotid Duplex Patient Name:Tai Bearden Order Number:[id number] Procedure Date:08/15/2016 Date:4Age:61 yrs Gender:Male Lt BP:160 / 78 mmHg Rt.BP:162 / 80 mmHgHeart Rate: Location:[facility] Room #: 2NE27 Supervisor Logging:Ed Verenice Referring MD:Elis Medina MD, FACC Reading MD:Camilo García MD , FACS Primary Indications:Preoperation exam CABG Risk Factors Yes/No Hypertension Yes Diabetes Yes Hypercholesterolemia Yes Smoker Previous Yes Hx of CVA Yes Impressions: Findings: Right proximal ICA and mid ICA has a moderate, 40-59% stenosis. Findings: Left bifurcation has nonstenotic plaque. Recommendations: After imaging the patient returned to their room. Findings Carotid Duplex: Right: There is nonstenotic plaque in the right bifurcation. There is smooth homogeneous plaque. There is 40-59% stenosis in the right proximal internal carotid artery. There is smooth homogeneous plaque. There is 40-59% stenosis in the right mid internal carotid artery. Left: There is nonstenotic plaque in the left bifurcation. There is smooth homogeneous plaque. Carotid Results Right PSV EDV Assessment Proximal CCA 85 12 Mid CCA 71 13 Distal CCA 75 15 Bifurcation 83 19 Non Stenotic Plaque Proximal ICA 116 36 40-59% stenosis Mid ICA 116 38 40-59% stenosis Distal ICA 109 36 ECA 216 22 Vertebral Artery 41 12 Left PSV EDV Assessment Proximal CCA 75 16 Mid CCA 76 17 Distal CCA 77 15 Bifurcation 56 12 Non Stenotic Plaque Proximal ICA 79 18 Mid ICA 89 22 Distal ICA 71 23 ECA 165 13 Vertebral Artery 45 15 Ratio's Right ICA/CCA Ratio: 1.64 ICA/CCA Values: 116/71 Left ICA/CCA Ratio: 1.04 ICA/CCA Values: 79/76 Updated by Camilo García MD, FACS on 08/15/2016 9:28:30 PM Camilo García MD electronically signed on 08/15/2016 9:29:09 PM with status of Final
[2016-08-16] MEDS ORDERED: ceFAZolin 2,000 MG in D5% in Water 100 ML IVPB ONE ×2 (06:00)
[2016-08-16 06:39] LABS: Calcium 8.6 mg/dL (8.6-10.8); Potassium 4.1 mEq/L (3.5-4.5)
[2016-08-16] MEDS: *HR* Heparin 5,000 UNIT/ML VIAL SQ SCH ×2 (08:43→17:37)
[2016-08-16] MEDS: Insulin LISPRO 300 UNITS/3 ML VIAL SQ SCH ×3 (08:43→17:37)
[2016-08-16] MEDS: Isosorbide MONOnitrate (24 HR) 30 MG TAB.ER.24H PO SCH (08:44)
[2016-08-16] MEDS: amLODIPine 5 MG TABLET PO SCH (08:44)
[2016-08-16] MEDS: Aspirin 81 MG TAB.CHEW PO SCH (08:44)
--- NOTE | 2016-08-16 09:33 | Cardiothoracic Progress Note ---
Date of Encounter: 08/16/16 Time of Encounter: 09:32 - Assessment and plan (1) Coronary artery disease Current Visit: No Status: Ruled-out The patient is a 61-year-old type II diabetic, hypertensive man with hypercholesterolemia and a 6 month history of progressive shortness of breath and dyspnea on exertion. The patient underwent cardiac catheterization today was found to have severe three-vessel CAD an LVEF 60-65% (per echocardiogram). The patient has been recommended for CABG. I concur with this recommendation. The patient understands the procedure, alternatives, benefits, and risks and gives his informed consent. His creatinine remains stable after the cardiac catheterization. The CABG is tentatively scheduled for Wednesday, August 17, 2016. The assessment and plan as outlined above was discussed with the patient and/or family members who expressed understanding and agreement. All questions were answered. Qualifiers: Coronary Disease-Associated Artery/Lesion type: [place] artery [place] vs. transplanted heart: [place] heart Associated angina: with stable angina Qualified Code(s): I25.118 - Atherosclerotic heart disease of [place] coronary artery with other forms of angina pectoris - Subjective Interval history: The patient is resting comfortably in his hospital bed. He has no complaints of substernal chest pain or shortness of breath last night. Vital Signs, Last 4 Hours Temp Pulse Resp BP Pulse Ox 08/16/16 07:38 99.1 F 78 16 157/78 98 Clinical Data, last 8 Hours Output, Urine Amount 300 Output, Urine Amount 300 Weight 08/14/16 08/15/16 08/16/16 23:59 23:59 23:59 Weight 101.7 kg 102.2 kg 101.1 kg - Physical Examination General: Conversant, No Apparent Distress Neck: No JVD, Normal carotid pulses Cardiac: Reg Rate and Rhythm, Normal S1 and S2, No Murmur Lungs: Normal Breath Sounds, No Wheeze, Rales, Rhonchi Neuro: Alert and responsive, No focal deficits noted Vascular: Normal capillary refill Musculoskeletal: No Chest Wall Tenderness Extremities: No Clubbing, No Cyanosis, No Edema - Labs 08/15/16 05:03 08/16/16 05:46 Lab Results, Last 24 hours 08/16/16 05:46 Sodium 140 Potassium 4.1 Chloride 112 H Carbon Dioxide 19 BUN 28 H Creatinine 1.48 H Glucose 170 H Calcium 8.6 Consult Discharge Plan - Plan Referrals: Eloy Calles, [Primary Care Provider] - (please make after open heart)
--- NOTE | 2016-08-16 09:49 | Cardiology Progress Note ---
Date of Encounter: 08/16/16 Time of Encounter: 09:00 Assessment and Plan (1) Coronary artery disease Current Visit: Yes Status: Ruled-out [facility] 08/14/16 showed severe three-vessel CAD. 95% percent ostial LAD lesion, 85% proximal LAD lesion, 90% proximal D1 lesion, 60% mid LCx lesion, and occluded distal RCA which fills the PDA via [id number] collaterals. Seen by CT surgery, plan for CABG on 08/17/[address] Heaton. Will make NPO after MN tonight. Pt denies any questions. Denies chest pain currently. Right femoral access site healing well. No bleeding, hematoma or ecchymosis noted. Continue ASA, Statin, BB, nitrate. Will schedule follow-up in 4-6 weeks. Qualifiers: Coronary Disease-Associated Artery/Lesion type: [place] artery [place] vs. transplanted heart: [place] heart Associated angina: with stable angina Qualified Code(s): I25.118 - Atherosclerotic heart disease of [place] coronary artery with other forms of angina pectoris (2) Essential hypertension Current Visit: Yes Status: Acute BP improved with addition of Norvasc. Continue to monitor closely. (3) Chronic kidney disease, stage III (moderate) Current Visit: Yes Status: Chronic Renal function appears near baseline. Creatinine 1.41 s/p [facility]. Discussion w patient/family: The assessment and plan as outlined above was discussed with the patient and/or family members who expressed understanding and agreement. All questions were answered. Thank you for involving us in the care of your patient. Please call with any questions. The patient was discussed and reviewed with Dr. Ang Medina. Subjective Principal diagnosis: CAD Interval history: Seen and examined. He has no complaints this morning upon exam including chest pain/discomfort, dyspnea, palpitations, or dizziness. No issues with right groin cath site. Denies questions or concerns this morning. Plan for OHS tomorrow with Dr. Heaton. Objective Vital Signs, Last 4 Hours Temp Pulse Resp BP Pulse Ox 08/16/16 07:38 99.1 F 78 16 157/78 98 General: Conversant, No Apparent Distress HEENT: Atraumatic, Normocephaly, Mucus Membranes Moist Cardiac: Reg Rate and Rhythm, Normal S1 and S2 Lungs: Normal Breath Sounds Neuro: Alert and responsive Abdomen: Soft Skin: No rashes noted on visualized skin Extremities: Other (BLE edema, +1-2 to mid wells. ) Results 08/15/16 05:03 08/16/16 05:46 Lab Results 08/16/16 05:46 Sodium 140 Potassium 4.1 Chloride 112 H Carbon Dioxide 19 BUN 28 H Creatinine 1.48 H Glucose 170 H Calcium 8.6 Active Medications Acetaminophen (Tylenol) 650 mg PO Q6HR PRN PRN Reason: Mild Pain Stop: 02/13/17 09:35 Last Admin: 08/16/16 08:44 Dose: 650 mg Amlodipine Besylate (Norvasc) 5 mg PO DAILY [facility]O PRN Reason: Protocol Stop: 02/14/17 11:16 Last Admin: 08/16/16 08:44 Dose: 5 mg Aspirin (Aspirin) 81 mg PO DAILY [facility] Stop: 02/14/17 09:01 Last Admin: 08/16/16 08:44 Dose: 81 mg Atorvastatin Calcium (Lipitor) 80 mg PO HS [facility] Stop: 02/13/17 21:01 Last Admin: 08/15/16 20:37 Dose: 80 mg Chlorhexidine Gluconate (Chlorhexidine Rinse) 15 ml MM BID [facility] Stop: 08/17/16 09:01 Dextrose/Water (Dextrose 50% (Syg)) 25 ml IVP AD PRN PRN Reason: Hypoglycemia Stop: 02/13/17 09:36 Glucagon (Glucagen) 1 mg IM ONCE PRN PRN Reason: Hypoglycemia Stop: 02/13/17 09:36 Glucose (Gluctose) 15 gm PO ONCE PRN PRN Reason: Hypoglycemia Stop: 02/13/17 09:36 Glucose (Gluctose) 30 gm PO ONCE PRN PRN Reason: Hypoglycemia Stop: 02/13/17 09:36 Heparin Sodium (Porcine) (Heparin) 5,000 unit SQ Q12HR [facility] Stop: 02/13/17 18:01 Last Admin: 08/16/16 08:43 Dose: 5,000 unit Hydralazine HCl (Hydralazine) 10 mg IVP Q6HR PRN PRN Reason: Hypertension Stop: 02/14/17 15:30 Last Admin: 08/15/16 16:48 Dose: 10 mg Dextrose (Dextrose 5%) 1,000 mls @ 100 mls/hr IVC .Q10H PRN PRN Reason: HYPOGLYCEMIA Stop: 02/13/17 09:36 Cefazolin Sodium 2,000 mg/ (Dextrose) 100 mls @ 200 mls/hr IVPB PREOP ONE PRN Reason: Protocol Stop: 08/17/16 06:29 Insulin Human Lispro (Humalog) 0 units SQ TIDAC HERMILO PRN Reason: Protocol Stop: 02/13/17 11:31 Last Admin: 08/16/16 08:43 Dose: 4 units Isosorbide Mononitrate (Imdur) 30 mg PO DAILY [facility] Stop: 02/14/17 09:01 Last Admin: 08/16/16 08:44 Dose: 30 mg Metoprolol Tartrate (Lopressor) 25 mg PO BID [facility] Stop: 02/13/17 21:01 Last Admin: 08/16/16 08:44 Dose: 25 mg Nitroglycerin (Nitroglycerin) 0.4 mg SL Q5MIN PRN PRN Reason: Chest Pain Stop: 02/13/17 09:35 Ondansetron HCl (Zofran) 4 mg IVP Q6HR PRN; Protocol PRN Reason: Nausea And Vomiting Stop: 02/13/17 09:35 - Imaging and Cardiology Echo: report reviewed Cardiac cath: report reviewed Other Results: 12 hour tele: avg HR=76 SR. No significant events noted. - EKG Interpretation EKG results cardiology: personally reviewed Consult Discharge Plan - Plan Referrals: Eloy Calles DO [Primary Care Provider] - (please make after open heart)
[2016-08-16] MEDS: Chlorhexidine Rinse 15 ML MOUTHWASH MM SCH (21:19)
[2016-08-17] MEDS: *HR* Heparin 5,000 UNIT/ML VIAL SQ SCH ×2 (03:44→18:20)
[2016-08-17] MEDS ORDERED: ceFAZolin 2,000 MG in D5% in Water 100 ML IVPB ONE (06:00)
[2016-08-17] MEDS: Chlorhexidine Rinse 15 ML MOUTHWASH MM SCH ×2 (06:19→22:08)
[2016-08-17] MEDS ORDERED: *HR* Midazolam HCl 5 MG/5 ML VIAL IVP ONE ×2 (07:07→22:46)
[2016-08-17] MEDS ORDERED: *HR* FentaNYL (PF) 1,000 MCG/20 ML VIAL ONE (07:07)
[2016-08-17] MEDS ORDERED: *HR* Rocuronium Bromide 50 MG/5 ML VIAL ONE ×5 (07:09→23:58)
[2016-08-17] MEDS ORDERED: *HR* Norepinephrine 4 MG/4 ML VIAL IVC ONE ×2 (07:09→22:29)
[2016-08-17] MEDS ORDERED: Ondansetron 4 MG/2 ML VIAL ONE (07:09)
[2016-08-17] MEDS ORDERED: Dexamethasone 4 MG/ML VIAL ONE (07:09)
[2016-08-17] MEDS ORDERED: 0.9 % Sodium Chloride 300 ML ONE ×2 (07:09→22:29)
[2016-08-17] MEDS ORDERED: Esmolol 100 MG/10 ML VIAL IVP ONE (07:10)
[2016-08-17] MEDS ORDERED: *HR* Etomidate 20 MG/10 ML AMPUL IVP ONE (07:10)
[2016-08-17] MEDS ORDERED: *HR* Phenylephrine 10 MG/ML VIAL ONE ×2 (07:19→22:29)
[2016-08-17] MEDS ORDERED: [UNRECOGNIZED DRUG - OTHER] IV ONE (07:21)
[2016-08-17] MEDS ORDERED: WATER FOR INJ IV ONE (07:21)
[2016-08-17] MEDS ORDERED: Verapamil 5 MG/2 ML VIAL ONE (07:32)
[2016-08-17] MEDS ORDERED: *HR* Nitroprusside 50 MG VIAL IVC ONE (07:39)
[2016-08-17] MEDS ORDERED: Nitroglycerin 25 MG/250 ML INFUS..BTL IVC ONE ×2 (07:39→08:57)
[2016-08-17] MEDS ORDERED: Insulin Regular, Human 100 UNIT/ML ONE (07:40)
[2016-08-17] MEDS ORDERED: *HR* Phenylephrine 10 MG/ML VIAL IVC ONE (08:13)
[2016-08-17] MEDS ORDERED: Lidocaine 2% Syringe 100 MG/5 ML IV ONE (08:13)
[2016-08-17] MEDS ORDERED: Mannitol 25% vial 12.5 GM/50 ML VIAL IVP ONE (08:13)
[2016-08-17] MEDS ORDERED: *HR* Heparin 10,000 UNIT/10 ML VIAL IV ONE (08:13)
[2016-08-17] MEDS ORDERED: *HR* Magnesium Sulfate 2 GM/50 ML PIGGYBACK IVPB ONE (08:13)
[2016-08-17] MEDS ORDERED: Sodium Bicarbonate 50 MEQ/50 ML VIAL IVC ONE (08:13)
[2016-08-17] MEDS ORDERED: Albumin Human 25% 25 GM/100 ML IV.SOLN IV ONE (08:13)
[2016-08-17] MEDS ORDERED: Water for inj. (sterile) 10 ML IV ONE (08:27)
[2016-08-17] MEDS ORDERED: Albumin Human 5% 50.0 GM/1,000 ML VIAL ONE (08:57)
[2016-08-17] MEDS ORDERED: Protamine Sulfate 50 MG/5 ML VIAL IVP ONE ×3 (10:28→11:40)
[2016-08-17] MEDS ORDERED: *HR* Midazolam HCl 2 MG/2 ML VIAL ONE (11:37)
[2016-08-17] MEDS ORDERED: *HR* Propofol 200 MG/20 ML VIAL IVP ONE (11:37)
[2016-08-17] MEDS ORDERED: *HR* FentaNYL (PF) 100 MCG/2 ML VIAL ONE (11:37)
[2016-08-17] MEDS ORDERED: Heparin 1,000 UNITS/500 mL NS 500 ML ONE (11:42)
[2016-08-17] MEDS ORDERED: Lidocaine -MPF 4% 5 ML AMPUL ONE (11:42)
[2016-08-17] MEDS ORDERED: Lidocaine -MPF 2% 2 ML VIAL ONE (11:45)
[2016-08-17] MEDS ORDERED: *HR* Promethazine 25 MG/ML VIAL IVP PRN (12:05)
[2016-08-17] MEDS ORDERED: Naloxone 0.4 MG/ML INJ IVP PRN (12:05)
[2016-08-17] MEDS ORDERED: Insulin Regular, Human 100 UNIT/ML IV PRN (12:05)
[2016-08-17] MEDS ORDERED: Ondansetron 4 MG/2 ML VIAL IVP PRN (12:05)
[2016-08-17] MEDS ORDERED: *HR* Dextrose 50 % in Water (Syg) 50 ML SYRINGE IVP PRN ×2 (12:05→16:56)
[2016-08-17] MEDS ORDERED: Potassium Chloride 40 MEQ/200 ML BAG IVPB PRN (12:05)
--- NOTE | 2016-08-17 12:33 | Operative Note ---
Date of procedure: 08/17/16 Procedure in Detail: August 17, 2016. Preoperative diagnosis. Coronary artery disease. Postoperative diagnosis. Same. Procedures. Coronary artery bypass grafting 3 with the left internal mammary artery to the LAD and the aorta to the diagonal branch and obtuse marginal branch of the circumflex with saphenous vein. Surgeon. Dr. Aquiles Heaton. Asst. Ang Holley. The patient is a 61-year-old gentleman with a history of diabetes. He presented with coronary artery disease. He does have mild chronic renal failure with creatinine up to 1.65. Cardiac catheterization revealed triple vessel disease and he was referred for surgery. He was brought to the operating room. A [place] catheter was placed and he did have pulmonary artery pressures as high as 65 systolic. He was prepped and draped in standard fashion. The right greater saphenous vein was harvested from below the right knee to the right groin. This was done through 2 small incisions using the scope. These incisions were subsequently closed with a deep layer of 0 Vicryl and 2-0 Vicryl subcuticular stitch. Standard median sternotomy was performed. The left internal mammary artery retractor was inserted and the left internal mammary artery was harvested in standard fashion using the [place] electrocoagulation. This was found to be an adequate vessel with adequate pulse and flow. Mammary retractor was removed and the standard sternal portfolio specialist was inserted. Pericardium was opened in the midline and suspended with 2-0 silk stay sutures. Double pursestring of 20 [place] was placed in the aorta for the aortic cannulation site. A pursestring of 20 [place] was placed in the right atrial appendage for the venous uptake. The patient was heparinized. The aorta was cannulated without difficulty. 2 stage venous uptake cannula was inserted through the right atrial appendage the patient was placed on cardiopulmonary bypass and cooled to 34.9. Pursestring of 4-0 silk was placed in the aorta and the cardioplegia needle was inserted through here. This was also used as an active and passive aortic vent. The aorta was crossclamped and a liter of cardioplegia was given antegrade. Topical cooling with iced saline slush was also done. Attention was first turned to the right coronary artery. The posterior descending branch was too small and diffusely diseased for grafting. Attention was next turned to the obtuse marginal branch of the circumflex. This was dissected free with the [place] blade and opened with a [place] blade and the [place] scissors. This had a lumen of 1-1/2 mm with mild to moderate diffuse disease. A standard end-to-side anastomosis was constructed using the saphenous vein and a 7-0 Prolene. At this point the patient received additional antegrade cardioplegia and topical cooling. Attention was next turned to the diagonal branch. This was dissected free with the [place] blade and opened with a [place] blade and the [place] scissors. This had a lumen of 1-1/2 mm with mild to moderate diffuse disease. Standard end-to-side anastomosis was constructed using the saphenous vein and a 7-0 Prolene. When this is completed, the patient received the last dose of antegrade cardioplegia and topical cooling with iced saline slush.attention was turned to the LAD. The LAD was dissected free with a [place] blade and opened with the [place] blade and the [place] scissors. This had a lumen of 1-1/2 mm with mild to moderate diffuse disease. Mammary pedicle was harvested. Tonsil clamp was placed distally and it was divided with the [place] scissors. Distal end was tied off with a 2-0 silk suture. Proximal end was trimmed and brought into the wound. A standard end-to-side anastomosis was constructed using the mammary artery and a 7-0 Prolene. When this is completed, the previously placed bulldog clamp was removed. Hemostasis was good. We did place FloSeal around the distal anastomosis. Pedicle was tacked to the surface of the heart using 2 interrupted 5-0 silk sutures. Cross-clamp was removed and rewarming was begun. Total cross-clamp time was 46 minutes. A side- biting clamp was placed on the aorta and the cardioplegia needle was removed. 2 holes were made in the aorta using the [place] blade and the 4.0 mm aortic punch. 2 proximal anastomoses were constructed in standard fashion using the saphenous veins and 5-0 Prolene's. The circumflex anastomosis was superior and the diagonal anastomosis was inferior. When this was completed, the side-biting clamp was removed. Grafts were de-aired using a #25-gauge needle and the previously placed bulldog clamps were removed. Distal anastomoses were inspected and found to be hemostatic. Proximal anastomoses were marked with a marker from [employer]. Atrial and ventricular pacing wires were left. The patient was paced in the DDD mode. A total of 3 chest tubes were left. A 32 right angle chest tube in the left pleural space. A 32 right chest tube in the pericardial well. A 42 mediastinal chest tube. The patient was weaned from bypass and protamine was given. Hemostasis was good and hemodynamics were good. Pericardium was left open. Sternum was closed with #7 sternal wires in simple and [id number] fashion. Fascia was run with #1 Vicryl. Subcutaneous tissues with 2-0 Vicryl. Skin was closed with a 3-0 Vicryl subcuticular stitch. The patient tolerated procedure well and was returned intensive care unit in satisfactory and stable condition. Total bypass time was 82 minutes. Total cross -clamp time was 46 minutes. He been cooled to 34.9.
[2016-08-17] MEDS: Nitroglycerin 25 MG/250 ML INFUS..BTL IVC SCH ×2 (12:45→20:27)
[2016-08-17 12:58] LABS: ABG Base Excess -2.1 mEq/L (-2.0 to 3.0); ABG HCO3 23.2 mEQ/L (21-27); ABG Oxygen Saturation 97 % (95-98); ABG PCO2 41 mmHg (35-45); ABG PO2 92 mmHg (85-104); ABG TCO2 24.5 mEq/L (20-26); Basophils % 0.1 %; Blood Gas FiO2 50 %; Blood Gas PEEP 5 cm H2O; Blood Gas Respiration Rate 10; Blood Gas VT 600 cc; Eosinophils % 0.2 %; Hematocrit 25.1 % (37.5-50.1); Hemoglobin 8.3 g/dL (12.9-16.9); Immature Granulocytes % 0.7 % (0-4); Lymphocytes # 0.5 K/mcL (0.6-4.6); Lymphocytes % 3.7 %; Mean Corpuscular HGB Conc 33.1 g/dL (31.6-35.5); Mean Corpuscular Hemoglobin 28.3 pg (28.0-33.3); Mean Corpuscular Volume 85.7 fL (83.0-100.0); Monocytes # 1.3 K/mcL (0.0-1.3); Monocytes % 9.3 %; Platelet Count 141 K/mcL (140-400); Red Blood Count 2.93 M/mcL (4.19-5.50); Red Cell Distribution Width 14.3 % (11.5-14.5)
[2016-08-17 13:01] LABS: ABG PH 7.36 pH Units (7.32-7.45)
[2016-08-17 13:05] LABS: INR 1.6
[2016-08-17 13:10] LABS: BUN/Creatinine Ratio 18 (6-26); Blood Urea Nitrogen 23 mg/dL (8-26); Calcium 7.4 mg/dL (8.6-10.8); Carbon Dioxide 22 mEq/L (19-29); Chloride 113 mEq/L (98-109); Glucose 104 mg/dL (70-99); Magnesium 2.4 mg/dL (1.6-2.6); Osmolality,Calculated 298 (280-300); Potassium 3.8 mEq/L (3.5-4.5); Sodium 142 mEq/L (136-145); eGFR For African Americans > 60 (> 60); eGFR For Non-African Americans 57 (> 60)
[2016-08-17 13:13] LABS: Prothrombin Time 17.4 Seconds (9.4-12.1)
[2016-08-17] MEDS: 0.9 % Sodium Chloride 1,000 ML IVC SCH (13:22)
[2016-08-17] MEDS: Insulin LISPRO 300 UNITS/3 ML VIAL SQ SCH ×3 (13:22→17:19)
[2016-08-17] MEDS: Isosorbide MONOnitrate (24 HR) 30 MG TAB.ER.24H PO SCH (13:23)
[2016-08-17] MEDS: amLODIPine 5 MG TABLET PO SCH (13:23)
[2016-08-17] MEDS: Aspirin 81 MG TAB.CHEW PO SCH (13:23)
[2016-08-17] MEDS: Insulin Human Regular 100 UNIT in 0.9 % Sodium Chloride 100 ML IVC SCH (13:45)
[2016-08-17 14:03] LABS: ABG PCO2 36 mmHg (35-45); ABG PH 7.41 pH Units (7.32-7.45); ABG PO2 526 mmHg (85-104)
[2016-08-17 14:04] LABS: ABG Base Excess -1.5 mEq/L (-2.0 to 3.0); ABG Glucose 240 mg/dL (60-95); ABG HCO3 22.8 mEQ/L (21-27); ABG Hematocrit 32 % (35-51); ABG Ionized Calcium 1.21 mmol/L (1.15-1.35); ABG Oxygen Saturation 100 % (95-98); ABG TCO2 23.9 mEq/L (20-26)
[2016-08-17 14:07] LABS: ABG Base Excess -2.7 mEq/L (-2.0 to 3.0); ABG Glucose 227 mg/dL (60-95); ABG HCO3 21.6 mEQ/L (21-27); ABG Hematocrit 26 % (35-51); ABG Oxygen Saturation 100 % (95-98); ABG PCO2 34 mmHg (35-45); ABG PH 7.41 pH Units (7.32-7.45); ABG PO2 525 mmHg (85-104); ABG TCO2 22.6 mEq/L (20-26)
[2016-08-17 14:08] LABS: ABG Ionized Calcium 1.18 mmol/L (1.15-1.35)
[2016-08-17] MEDS ORDERED: 0.9 % Sodium Chloride 500 ML ONE (14:08)
[2016-08-17 14:09] LABS: ABG HCO3 21.1 mEQ/L (21-27); ABG PCO2 34 mmHg (35-45); ABG PO2 513 mmHg (85-104); ABG TCO2 22.1 mEq/L (20-26)
[2016-08-17 14:10] LABS: ABG Base Excess -3.3 mEq/L (-2.0 to 3.0); ABG Glucose 211 mg/dL (60-95); ABG Hematocrit 24 % (35-51); ABG Ionized Calcium 1.14 mmol/L (1.15-1.35); ABG Oxygen Saturation 100 % (95-98)
[2016-08-17 14:12] LABS: ABG Base Excess -1.8 mEq/L (-2.0 to 3.0); ABG Glucose 210 mg/dL (60-95); ABG HCO3 22.9 mEQ/L (21-27); ABG Hematocrit 18 % (35-51); ABG Ionized Calcium 0.98 mmol/L (1.15-1.35); ABG Oxygen Saturation 100 % (95-98); ABG PCO2 37 mmHg (35-45); ABG PO2 555 mmHg (85-104)
[2016-08-17 14:14] LABS: ABG Base Excess -1.1 mEq/L (-2.0 to 3.0); ABG Glucose 218 mg/dL (60-95); ABG HCO3 23.5 mEQ/L (21-27); ABG Hematocrit 18 % (35-51); ABG Oxygen Saturation 100 % (95-98); ABG PCO2 37 mmHg (35-45); ABG PH 7.41 pH Units (7.32-7.45); ABG PO2 492 mmHg (85-104); ABG TCO2 24.6 mEq/L (20-26)
[2016-08-17 14:15] LABS: ABG Ionized Calcium 0.97 mmol/L (1.15-1.35)
[2016-08-17 14:16] LABS: ABG HCO3 23.6 mEQ/L (21-27); ABG PCO2 39 mmHg (35-45); ABG PH 7.39 pH Units (7.32-7.45); ABG PO2 397 mmHg (85-104); ABG TCO2 24.8 mEq/L (20-26)
[2016-08-17 14:17] LABS: ABG Base Excess -1.2 mEq/L (-2.0 to 3.0); ABG Glucose 164 mg/dL (60-95); ABG Hematocrit 23 % (35-51); ABG Ionized Calcium 0.99 mmol/L (1.15-1.35); ABG Oxygen Saturation 100 % (95-98)
[2016-08-17] MEDS ORDERED: DESMOPRESSIN IVPB STA (14:20)
[2016-08-17] MEDS ORDERED: SODIUM CHLORIDE 0.9% IVPB STA (14:20)
--- NOTE | 2016-08-17 14:55 | Anesthesia Evaluation Post Op ---
Date of Encounter: 08/17/16 Time of Encounter: 14:52 - Vital Signs Vital Signs: 95/50 On Levophed, transfusing - Lungs Lungs: Clear Ascult./Percussion, Rales - Airway Airway: Intubated - Cardiovascular Regular Rate - Mental Status Mental Status: Sedated - Nausea Vomiting Nausea Vomiting: Unable to assess - Hydration Hydration: Alexander catheter (Patient in in ICU. He is hypotensive on norepinephrine gtt. Chest X-Ray shows possible bleeding L chest. Increased chest tube output. Getting pRBC and FFP transfusions now. Will continue to follow. May need to go back to OR.)
[2016-08-17] MEDS ORDERED: 0.9 % Sodium Chloride 250 ML ONE ×4 (15:16→21:05)
[2016-08-17] MEDS ORDERED: Calcium Gluconate 1,000 MG in D5% in Water 100 ML IVPB STA (15:27)
[2016-08-17] MEDS: *HR* Morphine 2 MG/ML SYRINGE IVP PRN ×2 (15:38→20:44)
[2016-08-17 16:24] LABS: ABG Base Excess -5.5 mEq/L (-2.0 to 3.0); ABG Oxygen Saturation 99 % (95-98); ABG PCO2 38 mmHg (35-45); ABG PH 7.33 pH Units (7.32-7.45); ABG PO2 132 mmHg (85-104); ABG TCO2 21.2 mEq/L (20-26)
[2016-08-17 16:33] LABS: Blood Gas FiO2 50 %
[2016-08-17] MEDS: ceFAZolin 2,000 MG in D5% in Water 100 ML IVPB SCH (17:19)
[2016-08-17] MEDS: Norepinephrine 4 MG in D5% in Water 250 ML IVC SCH ×2 (17:20→22:46)
[2016-08-17 19:30] LABS: Basophils % 0.1 %; Hematocrit 23.5 % (37.5-50.1); Immature Granulocytes % 0.6 % (0-4); Lymphocytes # 0.5 K/mcL (0.6-4.6); Lymphocytes % 2.9 %; Mean Corpuscular Hemoglobin 29.1 pg (28.0-33.3); Mean Corpuscular Volume 85.5 fL (83.0-100.0); Mean Platelet Volume 9.7 fL (9.4-12.4); Monocytes # 1.4 K/mcL (0.0-1.3); Monocytes % 8.6 %; Neutrophils # 14.1 K/mcL (1.6-8.9); Platelet Count 268 K/mcL (140-400); Red Blood Count 2.75 M/mcL (4.19-5.50); Segmented Neutrophils % 87.8 %
[2016-08-17 19:35] LABS: INR 1.4; Prothrombin Time 15.3 Seconds (9.4-12.1)
[2016-08-17 19:38] LABS: Activated Partial Thrombo Time 28.8 Seconds (26.0-36.0)
[2016-08-17] MEDS ORDERED: Calcium Gluconate 1,000 MG in D5% in Water 100 ML IVPB ONE (19:39)
[2016-08-17] MEDS ORDERED: Furosemide 40 MG/4 ML VIAL ONE (19:40)
[2016-08-17] MEDS ORDERED: Furosemide 40 MG/4 ML VIAL IVP STA (19:40)
[2016-08-17 19:42] LABS: Calcium 7.8 mg/dL (8.6-10.8); Potassium 4.4 mEq/L (3.5-4.5)
[2016-08-17 20:27] LABS: ABG Base Excess -2.2 mEq/L (-2.0 to 3.0); ABG HCO3 22.2 mEQ/L (21-27); ABG Oxygen Saturation 97 % (95-98); ABG PCO2 35 mmHg (35-45); ABG PH 7.41 pH Units (7.32-7.45); ABG PO2 86 mmHg (85-104); ABG TCO2 23.3 mEq/L (20-26); Blood Gas FiO2 30 %
--- NOTE | 2016-08-17 20:39 | Event Note ---
Date of Encounter: 08/17/16 Time of Encounter: 20:36 The patient had oozing from his chest tubes. We did give the patient platelets, cryoprecipitate, fresh frozen plasma and desmopressin. The patient is in a sinus rhythm with a heart rate of 72. Pulmonary artery systolic pressures have come down from 65-50. Blood pressure is 130 to 140 systolic. Cardiac index is come up to 2.7. Chest x-ray is stable. The mediastinum is not widened. Hemoglobin is 8 and we will give 2 units of packed red blood cells. The patient is awake and alert and shows no signs of cardiac tamponade. I have watched the patient for over 2 hours and he is putting out less than 150 mL per hour. The patient is stable and shows no signs of cardiac tamponade. We will continue to monitor him.
[2016-08-17] MEDS ORDERED: Water for inj. (sterile) 20 ML IV ONE (23:16)
[2016-08-17] MEDS ORDERED: *HR* FentaNYL (PF) 250 MCG/5 ML VIAL ONE (23:28)
--- NOTE | 2016-08-18 00:03 | Anesthesia Evaluation PreOp ---
Date of Encounter: 08/17/16 Time of Encounter: 22:50 - Past History Cardiac History: AR, HTN, Cardiac Surgery, Pacemaker/ICD Pulmonary History: SANJUANITA Dx Other Medical History: Renal, Bleeding, Diabetes Type II Anesthesia History: No Prior Anesthetic Complications Alcohol Use: rarely Drug use: none Medications and Allergies Atenolol [Tenormin] 50 mg PO BID 11/08/14 [History] Simvastatin [Zocor] 20 mg PO HS 11/08/14 [History] Furosemide [Lasix] 40 mg PO DAILY 01/26/16 [History] Gabapentin [Neurontin] 100 mg PO TID 01/26/16 [History] Insulin LISPRO [HumaLOG] 0 units SQ TIDAC vial 02/28/16 [Rx] Ammonium Lactate [Amlactin] 1 appl TP BID 08/14/16 [History] Insulin Glargine [Lantus] 20 unit SQ BID 08/14/16 [History] Loratadine [Claritin] 10 mg PO DAILY 08/14/16 [History] Allergies No Known Allergies Allergy (Verified 03/23/16 17:00) - Meds/Allergy Pre-op Review Medications Reviewed: Yes Allergies Reviewed: Yes Beta Blockers on Current Med List: Yes Anesthesia Results - Labs 08/17/16 19:20 08/17/16 19:20 Anesthesia Exam 132/54, 100%, 85 Blood glucose: 116 NPO (# of Hours): >8h - HEENT Mallampati: Intubated - PRINTED CIRCUIT BOARDS LAMINATOR PRINTED CIRCUIT BOARDS LAMINATOR Motor: Normal RUE, Normal LUE, Normal RLE, Normal LLE - Cardiac Rhythm: Regular - Pulmonary Breath Sounds: bilateral Clear Respiratory Effort: Symmetrical Anesthesia Assess/Plan ASA Score: 4, E Modified Harrison Scale for Level of Consciousness: Cooperative, oriented, and tranquil Anesthetic Plan: General Autologous Blood: Yes Monitoring Plan: Standard Monitors, A-Line, CVC, PAC Recovery Plan: ICU Anes Supervising Prov Stmt: Sarai Howard
[2016-08-18 00:06] LABS: Basophils % 0.1 %; Hematocrit 23.3 % (37.5-50.1); Hemoglobin 7.8 g/dL (12.9-16.9); Immature Granulocytes % 0.3 % (0-4); Lymphocytes # 0.4 K/mcL (0.6-4.6); Lymphocytes % 3.3 %; Mean Corpuscular HGB Conc 33.5 g/dL (31.6-35.5); Mean Corpuscular Hemoglobin 28.9 pg (28.0-33.3); Mean Corpuscular Volume 86.3 fL (83.0-100.0); Mean Platelet Volume 10.3 fL (9.4-12.4); Monocytes # 1.5 K/mcL (0.0-1.3); Monocytes % 12.6 %; Neutrophils # 10.1 K/mcL (1.6-8.9); Platelet Count 149 K/mcL (140-400); Red Cell Distribution Width 14.2 % (11.5-14.5); Segmented Neutrophils % 83.7 %
[2016-08-18 00:12] LABS: INR 1.3
[2016-08-18 00:15] LABS: Activated Partial Thrombo Time 26.4 Seconds (26.0-36.0)
[2016-08-18 00:16] LABS: Prothrombin Time 14.6 Seconds (9.4-12.1)
--- NOTE | 2016-08-18 00:45 | Operative Note ---
Date of procedure: 08/18/16 Procedure in Detail: Preoperative diagnosis. Postoperative bleeding. Postoperative diagnosis. Same. Procedure. Reexplore chest with evacuation of clot. Surgeon. Dr. Aquiles Heaton. The patient is a 61-year-old gentleman with renal failure and pulmonary hypertension who earlier in the day underwent coronary artery bypass grafting, utilizing his left internal mammary artery. Postoperatively he had excessive bleeding. He did receive platelets, fresh frozen plasma, cryoprecipitate and desmopressin. He remained hemodynamically stable and showed no signs of cardiac tamponade. The bleeding appeared to slow. However, it picked up again and he was putting out over 200 mL an hour. Because of this, we elected to reexplore his chest. He was brought back to the operating room where he underwent a general anesthetic. The old chest tubes and pacing wires were removed. His chest was prepped and draped in standard fashion. The old incision was opened with a 10 blade. The sternal wires were cut and removed with the news wire photo operator. The patient had a small amount of clot in the mediastinum and around the heart. This was evacuated. All sites were inspected. There was no bleeding from the aortic cannulation site, the 2 proximal anastomoses, the venous uptake site, the pacing wire sites, the 3 distal anastomoses, the 2 vein grafts and the CHUN graft. The CHUN retractor was inserted. A large amount of clot was evacuated from the left chest. There was some oozing from the CHUN bed and this was controlled with the Bovie electrocoagulation. The CHUN retractor was removed and a thorough inspection was again done around the heart and no bleeding points were found. A pair of ventricular pacing wires was placed. 3 chest tubes were placed. A 32 angle chest tube to the left pleural space. A 32 right angle chest tube to the pericardial well. A 42 mediastinal chest tube. The sternal edges were bovied and bone wax was applied. There was some oozing from the sternal edges. The sternum was closed with #7 sternal wires in simple and figure -of-eight fashion. Fascia was run with #1 Vicryl. Subcutaneous tissues were closed with a 2-0 Vicryl. Skin was closed with a 3-0 Vicryl subcuticular stitch. The patient tolerated procedure well and was returned intensive care unit in satisfactory and stable condition.
[2016-08-18 01:00] LABS: ABG Base Excess -4.8 mEq/L (-2.0 to 3.0); ABG HCO3 20.5 mEQ/L (21-27); ABG Oxygen Saturation 97 % (95-98); ABG PCO2 38 mmHg (35-45); ABG PH 7.34 pH Units (7.32-7.45); ABG PO2 91 mmHg (85-104); ABG TCO2 21.7 mEq/L (20-26); Blood Gas FiO2 30 %; Hematocrit 28.7 % (37.5-50.1); Mean Corpuscular HGB Conc 33.8 g/dL (31.6-35.5); Mean Corpuscular Hemoglobin 28.8 pg (28.0-33.3); Mean Corpuscular Volume 85.2 fL (83.0-100.0); Mean Platelet Volume 10.1 fL (9.4-12.4); Platelet Count 125 K/mcL (140-400); Red Blood Count 3.37 M/mcL (4.19-5.50); Red Cell Distribution Width 14.1 % (11.5-14.5)
[2016-08-18] MEDS ORDERED: niCARdipine 40 MG/200 ML MLS IVC ONE (01:07)
[2016-08-18 01:11] LABS: INR 1.3; Prothrombin Time 14.1 Seconds (9.4-12.1)
[2016-08-18 01:12] LABS: Calcium 7.5 mg/dL (8.6-10.8)
[2016-08-18 01:14] LABS: Activated Partial Thrombo Time 43.8 Seconds (26.0-36.0)
[2016-08-18 01:18] LABS: Hemoglobin 9.7 g/dL (12.9-16.9)
[2016-08-18] MEDS: ceFAZolin 2,000 MG in D5% in Water 100 ML IVPB SCH (01:23)
[2016-08-18] MEDS: *HR* Morphine 2 MG/ML SYRINGE IVP PRN ×2 (01:24→04:00)
[2016-08-18] MEDS: niCARdipine 40 MG/200 ML MLS IVC SCH ×2 (01:24→15:58)
[2016-08-18] MEDS ORDERED: 0.9 % Sodium Chloride 250 ML ONE ×2 (01:26→02:11)
[2016-08-18 01:29] LABS: Lymphocytes # 0.7 K/mcL (0.6-4.6); Monocytes # 1.7 K/mcL (0.0-1.3); Neutrophils # 9.8 K/mcL (1.6-8.9); Platelet Estimate Normal (Normal)
[2016-08-18] MEDS: Insulin Human Regular 100 UNIT in 0.9 % Sodium Chloride 100 ML IVC SCH (01:39)
[2016-08-18] MEDS: 0.9 % Sodium Chloride 1,000 ML IVC SCH ×3 (03:12→23:17)
[2016-08-18] MEDS: Nitroglycerin 25 MG/250 ML INFUS..BTL IVC SCH ×2 (03:12→15:58)
[2016-08-18 04:09] LABS: Hematocrit 26.9 % (37.5-50.1); Hemoglobin 9.2 g/dL (12.9-16.9); Mean Corpuscular HGB Conc 34.2 g/dL (31.6-35.5); Mean Corpuscular Hemoglobin 29.3 pg (28.0-33.3); Mean Corpuscular Volume 85.7 fL (83.0-100.0); Mean Platelet Volume 10.7 fL (9.4-12.4); Platelet Count 136 K/mcL (140-400); Red Blood Count 3.14 M/mcL (4.19-5.50); Red Cell Distribution Width 14.6 % (11.5-14.5)
[2016-08-18 04:10] LABS: ABG Base Excess -6.1 mEq/L (-2.0 to 3.0); ABG HCO3 20.2 mEQ/L (21-27); ABG Oxygen Saturation 89 % (95-98); ABG PCO2 43 mmHg (35-45); ABG PH 7.28 pH Units (7.32-7.45); ABG PO2 64 mmHg (85-104); ABG TCO2 21.5 mEq/L (20-26)
[2016-08-18 04:11] LABS: Blood Gas FiO2 41 %
[2016-08-18 04:20] LABS: INR 1.3
[2016-08-18 04:22] LABS: Activated Partial Thrombo Time 25.9 Seconds (26.0-36.0)
[2016-08-18 04:27] LABS: Calcium 7.5 mg/dL (8.6-10.8); Magnesium 1.7 mg/dL (1.6-2.6); Potassium 5.3 mEq/L (3.5-4.5)
[2016-08-18 04:28] LABS: Prothrombin Time 13.8 Seconds (9.4-12.1)
[2016-08-18 04:40] LABS: Lymphocytes # 0.6 K/mcL (0.6-4.6); Monocytes # 1.1 K/mcL (0.0-1.3); Neutrophils # 12.2 K/mcL (1.6-8.9); Platelet Estimate Normal (Normal)
--- NOTE | 2016-08-18 05:22 | Anesthesia Evaluation Post Op ---
Date of Encounter: 08/18/16 Time of Encounter: 05:24 - Vital Signs Vital Signs: 140/65, 93%, 4L N/C - Lungs Lungs: Clear Ascult./Percussion - Airway Airway: Non-obstructed - Cardiovascular Regular Rate - Mental Status Mental Status: Alert & Oriented, Answers Appropriately - Pain Pain Scale: 3 - Nausea Vomiting Nausea Vomiting: Not Present - Hydration Hydration: Ice chips, Alexander catheter (Patient in in ICU. He is hypotensive on norepinephrine gtt. Chest X-Ray shows possible bleeding L chest. Increased chest tube output. Getting pRBC and FFP transfusions now. Will continue to follow. May need to go back to OR.) Notes: 08/18/16 05:20 Patient is doing well this morning. He self extubated some time ago. He has since done well on N/C but may need intermittent CPAP/BIPAP c/w diagnosis of SANJUANITA. He is now hemodynamically stable and off all vasopressors and dilators. He denies any recall of prior surgeries. He does recall time while intubated, which was difficult for him.
[2016-08-18] MEDS: *HR* Heparin 5,000 UNIT/ML VIAL SQ SCH (06:05)
--- NOTE | 2016-08-18 08:05 | Cardiothoracic Progress Note ---
Date of Encounter: 08/18/16 Time of Encounter: 08:03 - Assessment and plan (1) Diabetes mellitus Current Visit: Yes Status: Chronic The assessment and plan as outlined above was discussed with the patient and/or family members who expressed understanding and agreement. All questions were answered. We will leave the patient in the ICU today. We will maintain the insulin drip until tomorrow morning. We will remove the Lentner-Louis catheter. We will use intermittent BiPAP for presumed sleep apnea. We will start Lasix for fluid overload. The patient does have the usual, expected acute postoperative blood loss anemia and did received numerous blood products yesterday. Qualifiers: Diabetes mellitus type: type 2 Diabetes mellitus complication status: with skin complications Diabetes mellitus complication detail: with foot ulcer Diabetes mellitus superintendent terminal insulin use: with long-term use Qualified Code(s) : E11.621 - Type 2 diabetes mellitus with foot ulcer - Subjective Interval history: The patient is extubated and on no drips. He has no significant complaints other than mild postoperative pain. Vital Signs, Last 4 Hours Temp Pulse Resp BP Pulse Ox 08/18/16 07:44 98.2 F 98 26 124/53 100 08/18/16 06:51 98 26 118/52 100 08/18/16 06:03 100 08/18/16 06:00 98.2 F 103 28 120/53 100 08/18/16 05:48 26 119/54 100 08/18/16 05:00 98.1 F 105 26 119/57 93 08/18/16 04:22 105 Oxgyen Flow Rate Oxygen Flow Rate (LPM) 2.5 Clinical Data, last 8 Hours Output, Chest Tube Drainage 0 Amount [Mediastinal #1] Output, Chest Tube Drainage 0 Amount [Mediastinal #1] Output, Chest Tube Drainage 20 Amount [Mediastinal #1] Output, Chest Tube Drainage 50 Amount [Mediastinal #1] Output, Chest Tube Drainage 18 Amount [Mediastinal #1] Output, Chest Tube Drainage 0 Amount [Mediastinal #1] Output, Chest Tube Drainage 10 Amount [Mediastinal #1] Output, Chest Tube Drainage 25 Amount [Mediastinal #1] Output, Chest Tube Drainage 30 Amount [Mediastinal #1] Output, Chest Tube Drainage 85 Amount [Mediastinal #1] Output, Chest Tube Drainage 30 Amount [Mediastinal #1] Output, Chest Tube Drainage 10 Amount [Mediastinal #2] Output, Chest Tube Drainage 10 Amount [Mediastinal #2] Output, Chest Tube Drainage 30 Amount [Mediastinal #2] Output, Chest Tube Drainage 30 Amount [Mediastinal #2] Output, Chest Tube Drainage 40 Amount [Mediastinal #2] Output, Chest Tube Drainage 10 Amount [Mediastinal #2] Output, Chest Tube Drainage 16 Amount [Mediastinal #2] Output, Chest Tube Drainage 20 Amount [Mediastinal #2] Output, Chest Tube Drainage 10 Amount [Mediastinal #2] Output, Chest Tube Drainage 13 Amount [Mediastinal #2] Output, Chest Tube Drainage 15 Amount [Mediastinal #2] Output, Chest Tube Drainage 30 Amount [Mediastinal #3] Output, Chest Tube Drainage 70 Amount [Mediastinal #3] Output, Chest Tube Drainage 40 Amount [Mediastinal #3] Output, Chest Tube Drainage 40 Amount [Mediastinal #3] Output, Chest Tube Drainage 240 Amount [Mediastinal #3] Output, Chest Tube Drainage 30 Amount [Mediastinal #3] Output, Chest Tube Drainage 20 Amount [Mediastinal #3] Output, Chest Tube Drainage 16 Amount [Mediastinal #3] Output, Chest Tube Drainage 10 Amount [Mediastinal #3] Output, Chest Tube Drainage 10 Amount [Mediastinal #3] Output, Chest Tube Drainage 142 Amount [Mediastinal #3] Output, Urine Amount (Catheter 125 ) Weight 08/16/16 08/17/16 08/18/16 23:59 23:59 23:59 Weight 101.1 kg 100.4 kg Lungs are clear to percussion and auscultation. Heart is in a normal sinus rhythm. All incisions are healing well without signs of infection and the sternum is stable. Cardiac index is 2.7. Chest x-ray reveals no collections and no pneumothorax. Chest tube drainage is minimal. - Labs 08/18/16 04:00 08/18/16 04:00 Lab Results, Last 24 hours 08/17/16 08/17/16 08/17/16 12:45 12:45 12:45 WBC 14.0 H D Hgb 8.3 L D Hct 25.1 L Plt Count 141 INR 1.6 APTT 32.0 Sodium 142 Potassium 3.8 Chloride 113 H Carbon Dioxide 22 BUN 23 Creatinine 1.27 H Glucose 104 H Calcium 7.4 L Magnesium 2.4 08/17/16 08/17/16 08/17/16 19:20 19:20 19:20 WBC 16.1 H Hgb 8.0 L Hct 23.5 L Plt Count 268 D INR 1.4 APTT 28.8 Sodium 141 Potassium 4.4 Chloride 111 H Carbon Dioxide 21 BUN 28 H Creatinine 1.78 H Glucose 187 H Calcium 7.8 L Magnesium 08/17/16 08/17/16 08/18/16 23:45 23:45 00:48 WBC 12.1 H Hgb 7.8 L Hct 23.3 L Plt Count 149 INR 1.3 APTT 26.4 Sodium 141 Potassium 5.0 H Chloride 112 H Carbon Dioxide 18 L BUN 28 H Creatinine 1.69 H Glucose 144 H Calcium 7.5 L Magnesium 08/18/16 08/18/16 08/18/16 00:48 00:48 04:00 WBC 12.2 H 13.9 H Hgb 9.7 L D 9.2 L Hct 28.7 L 26.9 L Plt Count 125 L 136 L INR 1.3 APTT 43.8 H D Sodium Potassium Chloride Carbon Dioxide BUN Creatinine Glucose Calcium Magnesium 08/18/16 08/18/16 04:00 04:00 WBC Hgb Hct Plt Count INR 1.3 APTT 25.9 L Sodium 140 Potassium 5.3 H Chloride 110 H Carbon Dioxide 17 L BUN 29 H Creatinine 1.86 H Glucose 247 H Calcium 7.5 L Magnesium 1.7 - VTE Documentation of Mechanical Device: Graduated compression elastic hosiery Consult Discharge Plan - Plan Referrals: Malcom Ramírez CNP [Advanced Practice Nurse] - 09/19/16 1:00 pm (Cardiology Followup) Eloy Calles DO [Primary Care Provider] - (please make after open heart)
[2016-08-18] MEDS ORDERED: 0.9 % Sodium Chloride 500 ML ONE (08:13)
[2016-08-18] MEDS: amLODIPine 5 MG TABLET PO SCH (08:25)
[2016-08-18] MEDS: Isosorbide MONOnitrate (24 HR) 30 MG TAB.ER.24H PO SCH (08:25)
[2016-08-18] MEDS: Aspirin 81 MG TAB.CHEW PO SCH (08:25)
[2016-08-18] MEDS: Chlorhexidine Rinse 15 ML MOUTHWASH MM SCH ×2 (08:25→19:45)
[2016-08-18] MEDS: Insulin LISPRO 300 UNITS/3 ML VIAL SQ SCH ×3 (08:26→17:12)
[2016-08-18] MEDS: *HR* OxyCODONE/APAP 5/325 TABLET PO PRN (08:37)
[2016-08-18] MEDS: Furosemide 40 MG/4 ML VIAL IVP SCH ×2 (09:57→17:18)
[2016-08-18] MEDS: Norepinephrine 4 MG in D5% in Water 250 ML IVC SCH (17:12)
[2016-08-19 04:52] LABS: Hematocrit 20.7 % (37.5-50.1); Mean Corpuscular HGB Conc 32.4 g/dL (31.6-35.5); Mean Corpuscular Hemoglobin 28.5 pg (28.0-33.3); Mean Corpuscular Volume 88.1 fL (83.0-100.0); Mean Platelet Volume 10.9 fL (9.4-12.4); Platelet Count 132 K/mcL (140-400); Red Blood Count 2.35 M/mcL (4.19-5.50); Red Cell Distribution Width 15.5 % (11.5-14.5)
[2016-08-19 04:53] LABS: Nucleated Red Blood Cells 0.1 /100 WBC (0)
[2016-08-19 05:00] LABS: Hemoglobin 6.7 g/dL (12.9-16.9)
[2016-08-19 05:03] LABS: Potassium 4.9 mEq/L (3.5-4.5)
[2016-08-19 05:04] LABS: Calcium 7.7 mg/dL (8.6-10.8)
[2016-08-19 05:42] LABS: Lymphocytes # 0.5 K/mcL (0.6-4.6); Monocytes # 1.1 K/mcL (0.0-1.3); Neutrophils # 11.9 K/mcL (1.6-8.9); Platelet Estimate Normal (Normal)
[2016-08-19] MEDS: *HR* OxyCODONE/APAP 5/325 TABLET PO PRN ×2 (06:22→21:01)
[2016-08-19 07:00] LABS: Hematocrit 20.6 % (37.5-50.1); Hemoglobin 6.9 g/dL (12.9-16.9); Mean Corpuscular HGB Conc 33.5 g/dL (31.6-35.5); Mean Corpuscular Hemoglobin 29.5 pg (28.0-33.3); Mean Platelet Volume 11.5 fL (9.4-12.4); Nucleated Red Blood Cells 0.1 /100 WBC (0); Platelet Count 140 K/mcL (140-400); Red Blood Count 2.34 M/mcL (4.19-5.50); Red Cell Distribution Width 15.7 % (11.5-14.5)
[2016-08-19 07:18] LABS: Eosinophils # 0.3 K/mcL (0.0-0.6); Lymphocytes # 1.4 K/mcL (0.6-4.6); Monocytes # 0.3 K/mcL (0.0-1.3); Neutrophils # 11.9 K/mcL (1.6-8.9)
[2016-08-19 07:19] LABS: Anisocytosis 2+ (Not Present); Large Platelets Present (Not Present); Microcytosis Present (Not Present); Platelet Estimate Normal (Normal)
--- NOTE | 2016-08-19 08:30 | Cardiothoracic Progress Note ---
Date of Encounter: 08/19/16 Time of Encounter: 08:28 - Assessment and plan (1) Diabetes mellitus Current Visit: Yes Status: Chronic I discontinued the chest tubes. We will check a stat portable chest x-ray. I will discontinue his A-line, Alexander and IV fluids. We will give him 2 units packed red blood cells for hemoglobin of 6.9. We will leave him in the ICU today and hopefully transfer him to the floor tomorrow. Qualifiers: Diabetes mellitus type: type 2 Diabetes mellitus complication status: with skin complications Diabetes mellitus complication detail: with foot ulcer Diabetes mellitus group home insulin use: with group home use Qualified Code(s) : E11.621 - Type 2 diabetes mellitus with foot ulcer - Subjective Interval history: The patient is sitting in a chair and has no complaints. Vital Signs, Last 4 Hours Temp Pulse Resp BP Pulse Ox 08/19/16 08:09 87 14 114/48 93 08/19/16 07:36 98.3 F 08/19/16 06:00 89 14 103/53 93 08/19/16 05:00 85 15 120/48 98 Oxgyen Flow Rate Oxygen Flow Rate (LPM) 2 Clinical Data, last 8 Hours Output, Chest Tube Drainage 0 Amount [Mediastinal #1] Output, Chest Tube Drainage 0 Amount [Mediastinal #1] Output, Chest Tube Drainage 0 Amount [Mediastinal #2] Output, Chest Tube Drainage 30 Amount [Mediastinal #2] Output, Chest Tube Drainage 100 Amount [Mediastinal #3] Output, Chest Tube Drainage 50 Amount [Mediastinal #3] Weight 08/17/16 08/18/16 08/19/16 23:59 23:59 23:59 Weight 100.4 kg Lungs are clear to percussion and auscultation. Heart is in a normal sinus rhythm. All incisions are healing well without signs of infection and the sternum is stable. Chest tube drainage is minimal and there is no air leak. - Labs 08/19/16 06:37 08/19/16 04:40 Lab Results, Last 24 hours 08/19/16 08/19/16 08/19/16 04:40 04:40 06:37 WBC 13.5 H 13.8 H Hgb 6.7 L D 6.9 L Hct 20.7 L 20.6 L Plt Count 132 L 140 Sodium 139 Potassium 4.9 H Chloride 109 Carbon Dioxide 18 L BUN 40 H D Creatinine 2.16 H Glucose 142 H Calcium 7.7 L - VTE Documentation of Mechanical Device: Graduated compression elastic hosiery Consult Discharge Plan - Plan Referrals: Malcom Ramírez, SPARK TESTER [Advanced Practice Nurse] - 09/19/16 1:00 pm (Cardiology Followup) Eloy Calles DO [Primary Care Provider] - (please make after open heart)
[2016-08-19] MEDS ORDERED: Dextrose Gel 15 GM PO PRN ×2 (08:37)
[2016-08-19] MEDS ORDERED: *HR* Dextrose 50 % in Water (Syg) 50 ML SYRINGE IVP PRN (08:37)
[2016-08-19] MEDS ORDERED: D5% in Water 1,000 ML IVC PRN (08:37)
[2016-08-19] MEDS: niCARdipine 40 MG/200 ML MLS IVC SCH ×4 (08:45→17:10)
[2016-08-19] MEDS: Nitroglycerin 25 MG/250 ML INFUS..BTL IVC SCH ×3 (08:45→15:50)
[2016-08-19] MEDS ORDERED: Furosemide 40 MG/4 ML VIAL IVP ONE (09:02)
[2016-08-19] MEDS: Aspirin 81 MG TAB.CHEW PO SCH (09:06)
[2016-08-19] MEDS: Chlorhexidine Rinse 15 ML MOUTHWASH MM SCH ×2 (09:12→19:16)
[2016-08-19] MEDS ORDERED: 0.9 % Sodium Chloride 500 ML ONE (10:47)
[2016-08-19] MEDS: Insulin LISPRO 300 UNITS/3 ML VIAL SQ SCH ×2 (12:04→15:52)
--- NOTE | 2016-08-19 12:28 | Electrocardiograph Report ---
[address] [address] Test Date: 2016-08-17 Pat Name: Tai Bearden Department: 109 Room: [facility] Gender: M Control System Manager: HERNESTO : 1955 Requested By: Aquiles Heaton Order Number: [id number] Reading MD: Ang Medina Measurements Intervals Jennings Rate: 80 P: 131 IA: 167 QRS: 52 QRSD: 167 T: 246 QT: 485 QTc: 520 Interpretive Statements ELECTRONIC ATRIAL PACEMAKER ELECTRONIC VENTRICULAR PACEMAKER ABNORMAL RHYTHM ECG Electronically Signed On 08-19-2016 12:27:05 EDT by Ang Medina
--- NOTE | 2016-08-19 12:39 | Electrocardiograph Report ---
[address] [address] Test Date: 2016-08-18 Pat Name: Tai Bearden Department: 109 Room: [facility] Gender: M Hospice Case Manager: NADYA : 1955 Requested By: Aquiles Heaton Order Number: [id number] Reading MD: Ang Medina Measurements Intervals Viola Rate: 94 P: 50 OK: 189 QRS: -11 QRSD: 93 T: 29 QT: 403 QTc: 455 Interpretive Statements SINUS RHYTHM NONSPECIFIC T-WAVE ABNORMALITY Electronically Signed On 08-19-2016 12:37:38 EDT by Ang Medina
[2016-08-19] MEDS ORDERED: 0.9 % Sodium Chloride 250 ML ONE (14:08)
[2016-08-19] MEDS: Norepinephrine 4 MG in D5% in Water 250 ML IVC SCH (17:10)
[2016-08-19] MEDS ORDERED: Furosemide 20 MG/2 ML VIAL IVP ONE (17:12)
[2016-08-19] MEDS ORDERED: Furosemide 40 MG/4 ML VIAL ONE (17:14)
[2016-08-19] MEDS ORDERED: Insulin LISPRO 300 UNITS/3 ML VIAL SQ SCH (21:00)
[2016-08-19] MEDS ORDERED: Insulin DETEMIR 100 UNIT/ML X5UNITS SQ SCH (21:00)
[2016-08-20 05:32] LABS: Basophils # 0.1 K/mcL (0.0-0.2); Basophils % 0.4 %; Eosinophils # 0.2 K/mcL (0.0-0.6); Eosinophils % 1.3 %; Hematocrit 24.9 % (37.5-50.1); Hemoglobin 8.3 g/dL (12.9-16.9); Immature Granulocytes % 0.7 % (0-4); Lymphocytes # 0.9 K/mcL (0.6-4.6); Lymphocytes % 7.2 %; Mean Corpuscular HGB Conc 33.3 g/dL (31.6-35.5); Mean Corpuscular Hemoglobin 29.6 pg (28.0-33.3); Mean Corpuscular Volume 88.9 fL (83.0-100.0); Mean Platelet Volume 10.4 fL (9.4-12.4); Monocytes # 1.2 K/mcL (0.0-1.3); Monocytes % 10.3 %; Neutrophils # 9.6 K/mcL (1.6-8.9); Nucleated Red Blood Cells 0.3 /100 WBC (0); Platelet Count 134 K/mcL (140-400); Segmented Neutrophils % 80.1 %
[2016-08-20] MEDS: Nitroglycerin 25 MG/250 ML INFUS..BTL IVC SCH ×2 (07:53→07:56)
[2016-08-20] MEDS: Chlorhexidine Rinse 15 ML MOUTHWASH MM SCH ×3 (07:56→19:55)
[2016-08-20] MEDS: Aspirin 81 MG TAB.CHEW PO SCH ×2 (07:56→10:46)
[2016-08-20] MEDS: niCARdipine 40 MG/200 ML MLS IVC SCH (07:56)
[2016-08-20] MEDS: Insulin LISPRO 300 UNITS/3 ML VIAL SQ SCH ×4 (07:57→19:57)
--- NOTE | 2016-08-20 08:33 | Cardiothoracic Progress Note ---
Date of Encounter: 08/20/16 Time of Encounter: 08:31 - Assessment and plan (1) Diabetes mellitus Current Visit: Yes Status: Chronic Creatinine is stable at 2.16. Preoperatively, it had been as high as 1.65. I will increase the patient's Lopressor dosage to 50 mg by mouth twice a day. We will transfer the patient to the floor. Qualifiers: Diabetes mellitus type: type 2 Diabetes mellitus complication status: with skin complications Diabetes mellitus complication detail: with foot ulcer Diabetes mellitus telegraph repeater technician insulin use: with telegraph repeater technician use Qualified Code(s) : E11.621 - Type 2 diabetes mellitus with foot ulcer - Subjective Interval history: The patient has no complaints other than mild postoperative pain. Vital Signs, Last 4 Hours Temp Pulse Resp BP Pulse Ox 08/20/16 08:00 98.3 F 92 14 125/68 97 08/20/16 06:00 86 14 151/69 97 08/20/16 05:00 83 14 147/70 100 Oxgyen Flow Rate Oxygen Flow Rate (LPM) 2 Clinical Data, last 8 Hours Output, Urine Amount 350 Output, Urine Amount 300 Lungs are clear to percussion and auscultation. Heart is in a normal sinus rhythm. All incisions are healing well without signs of infection and the sternum is stable. Chest x-ray reveals no pneumothorax. - Labs 08/20/16 04:55 08/20/16 04:55 Lab Results, Last 24 hours 08/20/16 08/20/16 04:55 04:55 WBC 12.0 H Hgb 8.3 L Hct 24.9 L Plt Count 134 L Sodium 138 Potassium 4.0 Chloride 108 Carbon Dioxide 21 BUN 51 H D Creatinine 2.16 H Glucose 208 H Calcium 8.0 L - VTE Documentation of Mechanical Device: Graduated compression elastic hosiery Consult Discharge Plan - Plan Referrals: Malcom Ramírez, KAYLA [Advanced Practice Nurse] - 09/19/16 1:00 pm (Cardiology Followup) Eloy Calles DO [Primary Care Provider] - (please make after open heart)
[2016-08-20] MEDS ORDERED: Nitroglycerin 0.4 MG TAB.SUBL SL PRN (08:43)
[2016-08-20] MEDS ORDERED: Naloxone 0.4 MG/ML INJ IVP PRN (08:43)
[2016-08-20] MEDS ORDERED: *HR* Morphine 2 MG/ML SYRINGE IVP PRN (08:43)
[2016-08-20] MEDS ORDERED: Ondansetron 4 MG/2 ML VIAL IVP PRN (08:43)
[2016-08-20] MEDS ORDERED: Dextrose Gel 15 GM PO PRN ×2 (08:43)
[2016-08-20] MEDS ORDERED: D5% in Water 1,000 ML IVC PRN (08:43)
[2016-08-20] MEDS ORDERED: *HR* Dextrose 50 % in Water (Syg) 50 ML SYRINGE IVP PRN (08:43)
[2016-08-20] MEDS ORDERED: Acetaminophen 325 MG TABLET PO PRN (08:43)
[2016-08-20] MEDS: *HR* OxyCODONE/APAP 5/325 TABLET PO PRN ×3 (10:45→21:22)
[2016-08-20] MEDS: Gabapentin 100 MG CAPSULE PO SCH ×3 (10:52→19:55)
[2016-08-20] MEDS: Loratadine 10 MG TABLET PO SCH (10:52)
[2016-08-20] MEDS: *HR* Heparin 5,000 UNIT/ML VIAL SQ SCH (19:01)
[2016-08-20] MEDS ORDERED: Insulin DETEMIR 100 UNIT/ML X5UNITS SQ SCH (21:00)
[2016-08-21] MEDS: *HR* OxyCODONE/APAP 5/325 TABLET PO PRN ×3 (02:54→21:23)
[2016-08-21 04:14] LABS: Calcium 8.1 mg/dL (8.6-10.8); Potassium 4.3 mEq/L (3.5-4.5)
[2016-08-21 04:23] LABS: Basophils % 0.2 %; Eosinophils # 0.2 K/mcL (0.0-0.6); Eosinophils % 1.5 %; Hematocrit 25.7 % (37.5-50.1); Hemoglobin 8.3 g/dL (12.9-16.9); Immature Granulocytes % 0.7 % (0-4); Immature Platelets 6.2 % (1.1-6.1); Lymphocytes # 0.8 K/mcL (0.6-4.6); Lymphocytes % 6.1 %; Mean Corpuscular HGB Conc 32.3 g/dL (31.6-35.5); Mean Corpuscular Hemoglobin 28.8 pg (28.0-33.3); Mean Corpuscular Volume 89.2 fL (83.0-100.0); Mean Platelet Volume 10.6 fL (9.4-12.4); Monocytes # 1.3 K/mcL (0.0-1.3); Monocytes % 10.3 %; Neutrophils # 10.1 K/mcL (1.6-8.9); Nucleated Red Blood Cells 0.3 /100 WBC (0); Platelet Count 193 K/mcL (140-400); Red Blood Count 2.88 M/mcL (4.19-5.50); Red Cell Distribution Width 15.1 % (11.5-14.5); Segmented Neutrophils % 81.2 %
[2016-08-21] MEDS: *HR* Heparin 5,000 UNIT/ML VIAL SQ SCH ×2 (05:41→18:58)
--- NOTE | 2016-08-21 08:06 | Cardiothoracic Progress Note ---
Date of Encounter: 08/21/16 Time of Encounter: 08:04 - Assessment and plan (1) Diabetes mellitus Current Visit: Yes Status: Chronic Creatinine is trending back towards preoperative values. He was as high as 1.65 preoperatively and now is 1.79. The patient is awaiting a bed on the floor. Hopefully, he can be discharged to rehabilitation on or Saturday. Qualifiers: Diabetes mellitus type: type 2 Diabetes mellitus complication status: with skin complications Diabetes mellitus complication detail: with foot ulcer Diabetes mellitus senior care insulin use: with long term care administrator use Qualified Code(s) : E11.621 - Type 2 diabetes mellitus with foot ulcer - Subjective Interval history: The patient has no complaints. Vital Signs, Last 4 Hours Temp 08/21/16 04:46 97.9 F Oxgyen Flow Rate Oxygen Flow Rate (LPM) 2 Clinical Data, last 8 Hours Output, Urine Amount 200 Weight 08/19/16 08/20/16 08/21/16 23:59 23:59 23:59 Weight 108.499 kg Lungs are clear to percussion and auscultation. Heart is in a normal sinus rhythm. All incisions are healing well without signs of infection and the sternum is stable. - Labs 08/21/16 04:15 08/21/16 03:37 Lab Results, Last 24 hours 08/21/16 08/21/16 03:37 04:15 WBC 12.5 H Hgb 8.3 L Hct 25.7 L Plt Count 193 Sodium 136 Potassium 4.3 Chloride 107 Carbon Dioxide 21 BUN 48 H Creatinine 1.79 H Glucose 179 H Calcium 8.1 L - VTE Documentation of Mechanical Device: Graduated compression elastic hosiery Consult Discharge Plan - Plan Referrals: Malcom Ramírez CNP [Advanced Practice Nurse] - 09/19/16 1:00 pm (Cardiology Followup) Aquiles Heaton MD [Partnered Physician] - 09/20/16 1:00 pm Eloy Calles DO [Primary Care Provider] - (please make after open heart)
[2016-08-21] MEDS: Chlorhexidine Rinse 15 ML MOUTHWASH MM SCH ×2 (08:29→21:26)
[2016-08-21] MEDS: Gabapentin 100 MG CAPSULE PO SCH ×3 (08:33→21:24)
[2016-08-21] MEDS: Aspirin 81 MG TAB.CHEW PO SCH (08:34)
[2016-08-21] MEDS: Insulin LISPRO 300 UNITS/3 ML VIAL SQ SCH ×4 (08:35→21:25)
[2016-08-21] MEDS: Loratadine 10 MG TABLET PO SCH (08:40)
[2016-08-21 14:33] LABS: ABG Base Excess -2.9 mEq/L (-2.0 to 3.0); ABG Glucose 116 mg/dL (60-95); ABG HCO3 21.8 mEQ/L (21-27); ABG Hematocrit 22 % (35-51); ABG Ionized Calcium 1.08 mmol/L (1.15-1.35); ABG Oxygen Saturation 100 % (95-98); ABG PCO2 36 mmHg (35-45); ABG PH 7.39 pH Units (7.32-7.45); ABG PO2 431 mmHg (85-104); ABG TCO2 22.9 mEq/L (20-26)
[2016-08-21] MEDS: Insulin DETEMIR 100 UNIT/ML X5UNITS SQ SCH (21:43)
[2016-08-22 04:42] LABS: Basophils % 0.5 %; Eosinophils # 0.2 K/mcL (0.0-0.6); Eosinophils % 2.3 %; Hematocrit 25.6 % (37.5-50.1); Hemoglobin 8.2 g/dL (12.9-16.9); Immature Granulocytes % 0.8 % (0-4); Lymphocytes # 0.6 K/mcL (0.6-4.6); Lymphocytes % 7.6 %; Mean Corpuscular Hemoglobin 28.8 pg (28.0-33.3); Mean Corpuscular Volume 89.8 fL (83.0-100.0); Mean Platelet Volume 10.2 fL (9.4-12.4); Monocytes # 1.1 K/mcL (0.0-1.3); Monocytes % 14.6 %; Neutrophils # 5.5 K/mcL (1.6-8.9); Nucleated Red Blood Cells 0.3 /100 WBC (0); Platelet Count 215 K/mcL (140-400); Red Blood Count 2.85 M/mcL (4.19-5.50); Red Cell Distribution Width 14.8 % (11.5-14.5); Segmented Neutrophils % 74.2 %
[2016-08-22 04:55] LABS: Calcium 8.1 mg/dL (8.6-10.8); Potassium 3.8 mEq/L (3.5-4.5)
[2016-08-22] MEDS: *HR* Heparin 5,000 UNIT/ML VIAL SQ SCH ×2 (06:13→18:16)
[2016-08-22] MEDS: *HR* OxyCODONE/APAP 5/325 TABLET PO PRN ×2 (07:25→21:09)
[2016-08-22] MEDS: Gabapentin 100 MG CAPSULE PO SCH ×3 (07:25→21:10)
[2016-08-22] MEDS: Chlorhexidine Rinse 15 ML MOUTHWASH MM SCH ×2 (07:25→21:09)
[2016-08-22] MEDS: Loratadine 10 MG TABLET PO SCH (07:26)
[2016-08-22] MEDS: Aspirin 81 MG TAB.CHEW PO SCH (07:26)
[2016-08-22] MEDS: Insulin LISPRO 300 UNITS/3 ML VIAL SQ SCH ×4 (07:32→21:11)
--- NOTE | 2016-08-22 07:37 | Cardiothoracic Progress Note ---
Date of Encounter: 08/22/16 Time of Encounter: 07:36 - Assessment and plan (1) Diabetes mellitus Current Visit: Yes Status: Chronic I will give the patient 1 dose of IV Lasix. We will change his Lopressor to Tenormin which is what he was on at home. Hopefully, he can be discharged to an extended care facility in 1-2 days. Qualifiers: Diabetes mellitus type: type 2 Diabetes mellitus complication status: with skin complications Diabetes mellitus complication detail: with foot ulcer Diabetes mellitus jail insulin use: with watermaster use Qualified Code(s) : E11.621 - Type 2 diabetes mellitus with foot ulcer - Subjective Interval history: The patient complains of generalized weakness and fatigue. Vital Signs, Last 4 Hours Temp Pulse Resp BP Pulse Ox 08/22/16 07:26 98.9 F 84 18 156/84 97 08/22/16 04:55 16 100 08/22/16 04:08 98.1 F 73 18 144/79 100 08/22/16 04:00 78 Oxgyen Flow Rate Oxygen Flow Rate (LPM) 0 Clinical Data, last 8 Hours Output, Urine Amount 375 Weight 08/20/16 08/21/16 08/22/16 23:59 23:59 23:59 Weight 108.6 kg Lungs have scattered rhonchi. Heart is in a normal sinus rhythm. All incisions are healing well without signs of infection and the sternum is stable. Chest x- ray is improved. - Labs 08/22/16 04:10 08/22/16 04:10 Lab Results, Last 24 hours 08/22/16 08/22/16 04:10 04:10 WBC 7.4 Hgb 8.2 L Hct 25.6 L Plt Count 215 Sodium 137 Potassium 3.8 Chloride 108 Carbon Dioxide 23 BUN 44 H Creatinine 1.48 H Glucose 59 L Calcium 8.1 L - VTE Documentation of Mechanical Device: Graduated compression elastic hosiery Consult Discharge Plan - Plan Referrals: Malcom Ramírez CNP [Advanced Practice Nurse] - 09/19/16 1:00 pm (Cardiology Followup) Aquiles Heaton MD [Partnered Physician] - 09/20/16 1:00 pm Eloy Calles DO [Primary Care Provider] - (please make after open heart)
[2016-08-22] MEDS ORDERED: Furosemide 40 MG/4 ML VIAL IVP ONE (07:39)
[2016-08-22] MEDS: Insulin DETEMIR 100 UNIT/ML X5UNITS SQ SCH ×2 (08:47→21:11)
[2016-08-23 04:17] LABS: Hematocrit 25.4 % (37.5-50.1); Hemoglobin 8.2 g/dL (12.9-16.9); Lymphocytes # 0.7 K/mcL (0.6-4.6); Mean Corpuscular HGB Conc 32.3 g/dL (31.6-35.5); Mean Corpuscular Hemoglobin 29.1 pg (28.0-33.3); Mean Corpuscular Volume 90.1 fL (83.0-100.0); Mean Platelet Volume 10.2 fL (9.4-12.4); Nucleated Red Blood Cells 0.5 /100 WBC (0); Platelet Count 221 K/mcL (140-400); Red Blood Count 2.82 M/mcL (4.19-5.50); Red Cell Distribution Width 14.8 % (11.5-14.5)
[2016-08-23] MEDS: *HR* Heparin 5,000 UNIT/ML VIAL SQ SCH ×2 (05:13→18:30)
[2016-08-23 05:36] LABS: BUN/Creatinine Ratio 30 (6-26); Blood Urea Nitrogen 40 mg/dL (8-26); Carbon Dioxide 19 mEq/L (19-29); Chloride 113 mEq/L (98-109); Glucose 75 mg/dL (70-99); Osmolality,Calculated 298 (280-300); Potassium 3.5 mEq/L (3.5-4.5); Sodium 140 mEq/L (136-145); eGFR For African Americans > 60 (> 60); eGFR For Non-African Americans 55 (> 60)
[2016-08-23 06:04] LABS: Monocytes # 0.6 K/mcL (0.0-1.3); Neutrophils # 4.8 K/mcL (1.6-8.9); Platelet Estimate Normal (Normal)
[2016-08-23] MEDS: Insulin LISPRO 300 UNITS/3 ML VIAL SQ SCH ×4 (08:39→21:57)
[2016-08-23] MEDS: Aspirin 81 MG TAB.CHEW PO SCH (08:54)
[2016-08-23] MEDS: *HR* OxyCODONE/APAP 5/325 TABLET PO PRN (08:54)
[2016-08-23] MEDS: Loratadine 10 MG TABLET PO SCH (08:55)
[2016-08-23] MEDS: Gabapentin 100 MG CAPSULE PO SCH ×3 (08:55→21:56)
[2016-08-23] MEDS ORDERED: Furosemide 40 MG/4 ML VIAL IVP ONE (08:59)
[2016-08-23] MEDS ORDERED: MOM Conc 10 ML UD.LIQ PO PRN (09:00)
[2016-08-23] MEDS: Chlorhexidine Rinse 15 ML MOUTHWASH MM SCH ×2 (09:01→21:56)
--- NOTE | 2016-08-23 09:23 | Cardiothoracic Progress Note ---
Date of Encounter: 08/23/16 Time of Encounter: 09:21 - Assessment and plan (1) Diabetes mellitus Current Visit: Yes Status: Chronic Creatinine continues to improve. We will give him milk of magnesia for constipation. Hopefully, he can be discharged to an extended care facility tomorrow. Qualifiers: Diabetes mellitus type: type 2 Diabetes mellitus complication status: with skin complications Diabetes mellitus complication detail: with foot ulcer Diabetes mellitus custodial insulin use: with watermelon inspector use Qualified Code(s) : E11.621 - Type 2 diabetes mellitus with foot ulcer - Subjective Interval history: The patient complains of mild constipation. He is slowly gaining strength. Vital Signs, Last 4 Hours Temp Pulse Resp BP Pulse Ox 08/23/16 08:52 18 95 08/23/16 08:20 62 08/23/16 07:49 98.1 F 62 18 135/79 Oxgyen Flow Rate Oxygen Flow Rate (LPM) 0 Clinical Data, last 8 Hours Output, Urine Amount 150 Output, Urine Amount 0 Weight 08/21/16 08/22/16 08/23/16 23:59 23:59 23:59 Weight 108.6 kg 109 kg Lungs are clear to percussion and auscultation. Heart is in a normal sinus rhythm. All incisions are healing well without signs of infection and the sternum is stable. - Labs 08/23/16 03:20 08/23/16 03:20 Lab Results, Last 24 hours 08/23/16 08/23/16 03:20 03:20 WBC 6.2 Hgb 8.2 L Hct 25.4 L Plt Count 221 Sodium 140 Potassium 3.5 Chloride 113 H Carbon Dioxide 19 BUN 40 H Creatinine 1.32 H Glucose 75 Calcium 7.0 L - VTE Documentation of Mechanical Device: Graduated compression elastic hosiery Consult Discharge Plan - Plan Referrals: Malcom Ramírez CNP [Advanced Practice Nurse] - 09/19/16 1:00 pm (Cardiology Followup) Aquiles Heaton MD [Partnered Physician] - 09/20/16 1:00 pm Eloy Calles DO [Primary Care Provider] - (please make after open heart)
[2016-08-23] MEDS: Insulin DETEMIR 100 UNIT/ML X5UNITS SQ SCH ×2 (09:31→21:57)
[2016-08-24] MEDS: *HR* Heparin 5,000 UNIT/ML VIAL SQ SCH (05:36)
[2016-08-24 06:02] LABS: Basophils % 0.3 %; Eosinophils # 0.2 K/mcL (0.0-0.6); Eosinophils % 2.3 %; Hematocrit 27.5 % (37.5-50.1); Immature Granulocytes % 1.8 % (0-4); Lymphocytes # 0.7 K/mcL (0.6-4.6); Lymphocytes % 7.9 %; Mean Corpuscular HGB Conc 32.7 g/dL (31.6-35.5); Mean Corpuscular Volume 88.7 fL (83.0-100.0); Mean Platelet Volume 9.4 fL (9.4-12.4); Monocytes # 1.2 K/mcL (0.0-1.3); Monocytes % 12.8 %; Platelet Count 292 K/mcL (140-400); Red Cell Distribution Width 14.4 % (11.5-14.5); Segmented Neutrophils % 74.9 %
[2016-08-24 06:12] LABS: BUN/Creatinine Ratio 33 (6-26); Blood Urea Nitrogen 45 mg/dL (8-26); Carbon Dioxide 20 mEq/L (19-29); Chloride 109 mEq/L (98-109); Glucose 82 mg/dL (70-99); Osmolality,Calculated 299 (280-300); Sodium 139 mEq/L (136-145); eGFR For African Americans > 60 (> 60); eGFR For Non-African Americans 53 (> 60)
[2016-08-24 06:13] LABS: Calcium 8.4 mg/dL (8.6-10.8)
[2016-08-24] MEDS: Insulin LISPRO 300 UNITS/3 ML VIAL SQ SCH (07:51)
[2016-08-24] MEDS: Aspirin 81 MG TAB.CHEW PO SCH (08:05)
[2016-08-24] MEDS: Loratadine 10 MG TABLET PO SCH (08:05)
[2016-08-24] MEDS: Chlorhexidine Rinse 15 ML MOUTHWASH MM SCH (08:05)
[2016-08-24] MEDS: Gabapentin 100 MG CAPSULE PO SCH (08:05)
[2016-08-24 08:09] VITALS: BP 124/68
--- NOTE | 2016-08-24 08:48 | Discharge Summary ---
Date of Encounter: 08/24/16 Time of Encounter: 08:42 - Discharge Diagnosis (1) Diabetes mellitus Priority: Primary Status: Chronic Qualifiers: Diabetes mellitus type: type 2 Diabetes mellitus complication status: with skin complications Diabetes mellitus complication detail: with foot ulcer Diabetes mellitus termite renewal inspector insulin use: with detention use Qualified Code(s) : E11.621 - Type 2 diabetes mellitus with foot ulcer - Discharge Medications Prescriptions: OxyCODONE/APAP 5/325 [Percocet 5/325 MG] 1 each PO Q4HR PRN #30 tablet PRN Reason: Severe Pain Home Medications: Atenolol [Tenormin] 50 mg PO BID 11/08/14 [History] Simvastatin [Zocor] 20 mg PO HS 11/08/14 [History] Furosemide [Lasix] 40 mg PO DAILY 01/26/16 [History] Gabapentin [Neurontin] 100 mg PO TID 01/26/16 [History] Insulin LISPRO [HumaLOG] 0 units SQ TIDAC vial 02/28/16 [Rx] Ammonium Lactate [Amlactin] 1 appl TP BID 08/14/16 [History] Insulin Glargine [Lantus] 20 unit SQ BID 08/14/16 [History] Loratadine [Claritin] 10 mg PO DAILY 08/14/16 [History] Aspirin 81 mg PO DAILY tab.chew 08/24/16 [Rx] Insulin LISPRO [HumaLOG] 0 units SQ HS vial 08/24/16 [Rx] Insulin LISPRO [HumaLOG] 0 units SQ TIDAC vial 08/24/16 [Rx] OxyCODONE/APAP 5/325 [Percocet 5/325 MG] 1 each PO Q4HR PRN #30 tablet 08/24/16 [Rx] Allergies/Adverse Reactions: Allergies No Known Allergies Allergy (Verified 03/23/16 17:00) Date of admission: 08/15/16 15:17 Primary care physician: Eloy Calles Consults: 08/14/16 09:34 Consult to Cardiothoracic Surgery [CONS] Routine Consulting Provider: Cardiothoracic Surgery Benita Reason for Consult: 3VCAD, eval for CABG Call Completed: Yes 08/17/16 12:06 Consult to Cardiac Rehabilitation-Phase1 [CONS] Routine Comment: Reason for Consult: Post open heart Call Completed: Yes Consult to Boiler Technician [CONS] Routine Reason for SW Consult: open heart 08/20/16 08:43 Consult for Pharmacy Education [CONS] Routine Reason for Consult: Post-Op Heart Call Completed: Yes Consult to Occupational Therapy [CONS] Routine Comment: Evaluate, develop and implement POC Reason for Consult: Post-Op Heart Consult to Physical Therapy [CONS] Routine Comment: Evaluate, develop and implement POC Reason for Consult: Post open heart 08/20/16 18:05 Consult to Boiler Technician [CONS] Routine Reason for SW Consult: Discharge planning. Home has flight of 12 stairs Procedure(s) Performed: August 17, 2016. Coronary artery bypass grafting 3, utilizing the left internal mammary artery. Aug 18 2016. Return to the operating room for reexploration of the chest for postoperative bleeding. Discharging clinician: Aquiles Heaton Anticipated date of discharge: 08/24/16 - Patient Status Disposition: Transfer Inpatient Rehab Fac Condition: Fair Functional capacity at discharge: independent ambulation Overall status at discharge: patient is progressing back to baseline - Discharge Instructions Follow Up With: Malcom Ramírez CNP [Advanced Practice Nurse] - 09/19/16 1:00 pm (Cardiology Followup) Aquiles Heaton MD [Partnered Physician] - 09/20/16 1:00 pm Eloy Calles DO [Primary Care Provider] - (please make after open heart) - Hospital Course Hospital course: Mr. Bearden is a 61 year old male The patient is a 61-year-old gentleman with a history of diabetes on insulin, hypertension and hypercholesterolemia. He presented with shortness of breath and dyspnea on exertion. He did undergo a pulmonary workup. Cardiac catheterization was done and revealed triple-vessel disease. Preoperatively, his creatinine was as high as 1.65. On August 17, 2016, I took him to the operating room for coronary artery bypass grafting 3, utilizing his left internal mammary artery. Postoperatively, the patient had excessive bleeding. He did receive cryoprecipitate, fresh frozen plasma, platelets and desmopressin. He persisted with chest tube output of 200 mL per hour. On August, I took him back to the operating room for reexploration of the chest. He was found to have oozing from his sternum and mammary artery bed. Postoperatively, he did well. Creatinine went as high as 2.1, but by the time of discharge it was back under 1.4. He did have the usual, expected acute postoperative blood loss anemia. His chest tubes were removed and chest x-ray revealed no pneumothorax. He otherwise did well and on August 24 was discharged to an extended care facility. At that time, he was afebrile. Lungs were clear to percussion and auscultation. Heart was in a normal sinus rhythm. All incisions were healing well without signs of infection and the sternum was stable. It should be noted that when the [place] catheter was placed at the original surgery, he had pulmonary hypertension with PA systolic pressures of 65. The patient's prescriptions are on the [email or web address]. I did give him a prescription for Percocet for pain. I did check the [employer] automated Rx reporting system. I gave him a 1 week supply, with no refills. Appropriate precautions were given. He was to return to his previous diabetic diet. He was to avoid heavy lifting for a total of 3 months after surgery, but to walk as much as possible. He was to avoid driving for a total of 4 weeks after surgery. He was to follow up and see me in the office in 4 weeks as directed. He was to follow-up with his primary care doctor and supervisor drying and softening as directed. He was to call sooner for any difficulties. - Time Spent with Patient Total time spent providing and/or coordinating discharge services: Physical Examination Vital Signs, Last 4 Hours Temp Pulse Resp BP Pulse Ox 08/24/16 08:09 66 08/24/16 08:06 97.7 F 69 18 124/68 99 08/24/16 05:00 97.5 F L 66 19 124/61 98 Open Heart Registry Aspirin Cont/Prescribed at DC: Yes Beta Merle Cont/Prescribed at DC: Yes Statin Cont/Prescribed at DC: Yes WILLIAM/ARB Cont/Prescribed at DC: Not indicated - VTE Documentation of Mechanical Device: Graduated compression elastic hosiery
--- NOTE | 2016-08-24 08:59 | Physician Discharge Referral ---
ExtendedCare Referral Info Transfer To: [facility] Provider in Charge: Aquiles Heaton Provider in Charge after Transfer: Other Institutional Level of Care: Intermediate - MR - Diagnosis (1) Diabetes mellitus Priority: Primary Status: Chronic Expected Duration of Placement: 2-3 weeks Prognosis: Fair Aware of Diagnosis: Patient, Family Aware of Prognosis: Patient, Family - Transfer Medications Prescriptions: OxyCODONE/APAP 5/325 [Percocet 5/325 MG] 1 each PO Q4HR PRN #30 tablet PRN Reason: Severe Pain Home Medications: Atenolol [Tenormin] 50 mg PO BID 11/08/14 [History] Simvastatin [Zocor] 20 mg PO HS 11/08/14 [History] Furosemide [Lasix] 40 mg PO DAILY 01/26/16 [History] Gabapentin [Neurontin] 100 mg PO TID 01/26/16 [History] Insulin LISPRO [HumaLOG] 0 units SQ TIDAC vial 02/28/16 [Rx] Ammonium Lactate [Amlactin] 1 appl TP BID 08/14/16 [History] Insulin Glargine [Lantus] 20 unit SQ BID 08/14/16 [History] Loratadine [Claritin] 10 mg PO DAILY 08/14/16 [History] Aspirin 81 mg PO DAILY tab.chew 08/24/16 [Rx] Insulin LISPRO [HumaLOG] 0 units SQ HS vial 08/24/16 [Rx] Insulin LISPRO [HumaLOG] 0 units SQ TIDAC vial 08/24/16 [Rx] OxyCODONE/APAP 5/325 [Percocet 5/325 MG] 1 each PO Q4HR PRN #30 tablet 08/24/16 [Rx] Allergies/Adverse Reactions: Allergies No Known Allergies Allergy (Verified 03/23/16 17:00) - Respiratory Orders Smoking Cessation: Smoking cessation has been advised. For more information, call the [place] Tobacco Quit Line at 6-433-RZJP-NOW. - Ancillary Orders May use pressure relief devices daily prn, May go on ELYSSA w/family/respon republican w /meds at nurse discretion PRN, May have alcoholic beverages, May consult with Dentist, Ibm Mainframe Systems Programmer, Congressional Assistant PRN - Mobility Orders Ambulate - Rehabiliation Orders Rehab Potential: Good Rehab Orders: Sternal Precautions, ROM Exercises, Evaluation for Physical Therapy, Evaluation for Occupational Therapy - Treatments Skin tear care topically daily PRN per policy, May check for fecal impaction rectally daily PRN, Fleet enema rectally every other day PRN cleansing purposes - Diet Orders No Concentrated Sweets CERTIFICATION: I certify that the transfer of the above named patient to an Extended Care Facility is necessary for the continuing treatment of the diagnosis listed. The above information is true and accurate reflection of patient's current condition. Confidential - Redisclosure prohibited without a patient's written consent.
[2016-08-24] MEDS: Insulin DETEMIR 100 UNIT/ML X5UNITS SQ SCH (09:01)
== END 2016-08-24 11:31 | DRG 166 ==
LOC: INVDIALAB 07:10 → 2NENU 16:27 → ICNU 08-17 10:40 → 2NNU 08-21 14:06
PROVIDERS: ADMIT Internal Medicine Interventional Cardiology; ATTEND Thoracic Surgery (Cardiothoracic Vascular Surgery)

== ENCOUNTER 2016-12-20 10:36 | Inpatient (IN) ==
[2016-12-20] MEDS ORDERED: Lidocaine -MPF 1% 2 ML VIAL ID ONE (10:51)
[2016-12-20] MEDS ORDERED: Clindamycin 900 MG/50 ML 900 MG/50 ML IV.SOLN IVPB ONE (10:51)
[2016-12-20] MEDS ORDERED: Albuterol 2.5 MG/3 ML NEBULIZER ONE (10:53)
[2016-12-20] MEDS ORDERED: Ringers Solution, Lactated 1,000 ML IVC SCH (11:00)
[2016-12-20] MEDS ORDERED: *HR* FentaNYL (PF) 100 MCG/2 ML VIAL ONE (11:01)
[2016-12-20] MEDS ORDERED: *HR* Propofol 200 MG/20 ML VIAL IVP ONE (11:01)
[2016-12-20] MEDS ORDERED: Lidocaine -MPF 2% 2 ML VIAL ONE (11:01)
[2016-12-20] MEDS ORDERED: Ketorolac 30 MG/ML VIAL ONE (11:01)
[2016-12-20] MEDS ORDERED: *HR* Midazolam HCl 2 MG/2 ML VIAL ONE (11:01)
[2016-12-20] MEDS ORDERED: Dexamethasone 4 MG/ML VIAL ONE (11:01)
[2016-12-20] MEDS ORDERED: Ondansetron 4 MG/2 ML VIAL ONE (11:01)
--- NOTE | 2016-12-20 11:02 | Anesthesia Evaluation PreOp ---
Date of Encounter: 12/20/16 Time of Encounter: 11:00 - Past History Planned Operation: podiatry Cardiac History: [place], HTN, Hyperlipidemia, Cardiac Surgery (s/p CABG 08/2016) Pulmonary History: COPD, SANJUANITA Dx MEDICINE TECH History: Denies Any Significant HX Other Medical History: Renal (renal insufficiency, bladder CA), Diabetes Type II (Hgb A1C 9.1) Alcohol Use: rarely Drug use: none Medications and Allergies Atenolol [Tenormin] 50 mg PO BID 11/08/14 [History] Simvastatin [Zocor] 20 mg PO HS 11/08/14 [History] Furosemide [Lasix] 40 mg PO DAILY 01/26/16 [History] Gabapentin [Neurontin] 100 mg PO TID 01/26/16 [History] Insulin LISPRO [HumaLOG] 0 units SQ TIDAC vial 02/28/16 [Rx] Insulin Glargine [Lantus] 20 unit SQ BID 08/14/16 [History] Loratadine [Claritin] 10 mg PO DAILY 08/14/16 [History] Aspirin 81 mg PO DAILY tab.chew 08/24/16 [Rx] Insulin LISPRO [HumaLOG] 0 units SQ HS vial 08/24/16 [Rx] 3 Allergy/AdvReac Type Severity Reaction Status Date / Time No Known Allergies Allergy Verified 03/23/16 17:00 - Meds/Allergy Pre-op Review Medications Reviewed: Yes Allergies Reviewed: Yes Beta Blockers on Current Med List: Yes (2411) Anesthesia Results - Labs Laboratory Tests 11/02/16 12/05/16 12/05/16 11:03 08:45 12:50 WBC 8.0 Hgb 11.5 L Hct 37.1 L Sodium 137 Potassium 4.8 H Chloride 106 Carbon Dioxide 21 BUN 42 H Creatinine 2.27 H Glucose 311 H - Imaging EKG: report reviewed, image reviewed (sinus louann, 1st degree AV block) Additional studies: LVEF 60%, no ischemia, normal wall motion all segments Anesthesia Exam - HEENT Pupil (Motor): Pupils equal Mallampati: II Teeth: Normal Oral Opening: Greater than 3 - Cardiac Rhythm: Regular Murmur: None - Pulmonary Breath Sounds: bilateral Clear Respiratory Effort: Symmetrical Anesthesia Assess/Plan ASA Score: 3 Anesthetic Plan: General, MAC Monitoring Plan: Standard Monitors (Patient consented for both MAC and GA because it's uncertain what anesthetic requirements Dr. Cruz re) Recovery Plan: PACU
[2016-12-20] MEDS: Albuterol 2.5 MG/3 ML NEBULIZER IH ONE ×2 (11:03→11:04)
[2016-12-20] MEDS ORDERED: Bupivacaine/Clonidine Syringe 1 EACH SYRINGE ONE (12:28)
--- NOTE | 2016-12-20 12:29 | History & Physical Report ---
Date of Encounter: 12/20/16 Time of Encounter: 12:29 24 Hour HP Update - Instructions Instructions: If the History and Physical is less than 30 days old and was completed prior to A.M. admission and or procedure and has NOT been updated on calendar day of procedure please complete this update prior to performing procedure. - Update Patient reports changes in Medical Condition: No Changes in examination, assessment, or condition: No Changes in Medication: No Preop tests/diagnostics Reviewed: Yes Pre-Op MRSA Screen: Negative Surgery Remains Indicated: Yes Consent for Planned Operative Procedure(s) Verified: Yes
[2016-12-20] MEDS ORDERED: Propofol 500 MG/50 ML INFUS..BTL ONE (12:58)
--- NOTE | 2016-12-20 14:46 | Orthopedic Operative Note ---
Date of procedure: 12/20/16 Pre-op diagnosis: Deformity of metatarsal #2 left foot with associated foot ulcer Post-op diagnosis: same Procedure: 12/20/16 14:37 #1: Resection of distal aspect metatarsal #2, left foot #2 debridement of ulceration down to deep fascia and placement of wound VAC left foot Implants: None Complications: None Anesthesia: MAC, local Local Anesthetics: 0.25% Sensorcaine HCL SubQ (cc) Surgeon: nAg Cruz Estimated blood loss (cc): 5 Tourniquet Time (Minutes): 0 Specimen: Tissue cultures and swab cultures left foot Condition: stable Disposition: floor Procedure in Detail: 12/20/16 14:39 Details in summary of procedure: Patient presents today for resection of the distal aspect the second metatarsal left foot to resolve the ulceration unfortunately the ulcer on the plantar aspect of his left foot has regressed with necrotic tissue within the center of the wound and odor but without obvious cellulitis or purulence. I observed animal hair soiled contaminants etc. within the wound. Patient also presented with a wound on the distal aspect of the fourth toe left foot which is a recent development within last 24 hours. Patient states he did blister and he remove the "top of it". Left foot hygiene is suboptimal. We discussed risks versus benefits as well as alternatives to surgical intervention today again, in light of recent developments regression of the ulceration. Patient was brought to the surgical suite in a sign in procedure was performed. The left foot is elevated on a foam block. The patient was positioned properly safely securely. Anesthetic timeout was taken. Left ankle was prepped with alcohol 3 times and it ankle block was carried out without difficulty. No tourniquet was used. The left foot was then prepped and draped in usual sterile manner. Surgical timeout was taken. That juncture the foot was dried with sterile towel leading the Betadine intact. Skin prep was used to prepare the skin around the periwound area the plantar aspect of the distal left forefoot. An OpSite was then placed to seal the wound. At that juncture Lezius incision was made over the dorsal distal aspect of the second metatarsal sharpened down to the periosteum. Distal aspect was exposed using a McGlamry elevator and tenotomy scissors and pickups. An osteotomy was made dorsal to plantar using a command power saw. The bone was of normal color texture density that remained. Distal portion of the bone was unremarkable. The wound was flushed copious amounts sterile saline. There is no evidence of communication to the plantar ulceration. The wound was thoroughly irrigated. At that juncture the wound was dried and suctioned afforded complete visualization of the anatomic structures/capsule the distal metatarsal. No purulent drainage or evidence of deep infection was noted. That juncture the wound was sprayed with PRP and the deep fascia was closed with several interrupted sutures of 3-0 Vicryl and skin closed with 20 and 3-0 Prolene. The OpSite on plantar aspect left foot was then removed. The wound was irrigated with saline. Using a pickup and scissor all necrotic tissue was debrided down to the deep fascia. Remaining wound was then aggressively debrided with an ultrasonic Misonix debrider. The wound was notably freely without necessitating use of Bovie ligature. Satisfied with a very clean wound with granulation tissue the wound was thoroughly irrigated again and inspected. It was then sprayed with PRP and platelet poor plasma. It was held intact with a dry Ray-Kayla sponge for 5 minutes. That juncture a wound VAC was applied according to protocol and found to function properly. Contents of the ulceration was sent for tissue culture as well as swab cultures which are performed immediately after debridement of the wound. There was no evidence of abscess formation or active purulent drainage. Estimated blood loss less than 5 mL hemostasis was achieved with both wounds prior to closure. There was no active bleeding necessitating use of a ligature and only judicious use of a Bovie. Wound was dressed dorsally with 4 x 4's Kerlix. Wound VAC was noted to function properly. Patient tolerated procedure well and was sent to holding room in good condition with vital signs stable. Estimated blood loss less than 5 mL
[2016-12-20] MEDS: Clindamycin 600 MG/50 ML 600 MG/50 ML IV.SOLN IVPB SCH ×2 (17:17→23:37)
[2016-12-20] MEDS ORDERED: Ondansetron 4 MG/2 ML VIAL IVP PRN (19:11)
[2016-12-20] MEDS ORDERED: *HR* Morphine 2 MG/ML SYRINGE IVP PRN (19:11)
[2016-12-20] MEDS ORDERED: Naloxone 0.4 MG/ML INJ IVP PRN (19:11)
[2016-12-20] MEDS ORDERED: *HR* HYDROcodone/Acet 5/325 mg TABLET PO PRN (19:11)
[2016-12-20] MEDS ORDERED: Acetaminophen 325 MG TABLET PO PRN (19:11)
[2016-12-20] MEDS ORDERED: Dextrose Gel 15 GM PO PRN ×2 (19:16)
[2016-12-20] MEDS ORDERED: *HR* Dextrose 50 % in Water (Syg) 50 ML SYRINGE IVP PRN (19:16)
[2016-12-20] MEDS ORDERED: D5% in Water 1,000 ML IVC PRN (19:16)
[2016-12-20] MEDS: Gabapentin 100 MG CAPSULE PO SCH (20:31)
[2016-12-20] MEDS: Pantoprazole 40 MG VIAL IVP SCH (20:31)
[2016-12-20] MEDS ORDERED: SIMVASTATIN 20 MG PO SCH (21:00)
[2016-12-20] MEDS ORDERED: Insulin LISPRO 300 UNITS/3 ML VIAL SQ SCH (21:00)
--- NOTE | 2016-12-20 21:29 | Internal Medicine Consult Note ---
<BarrerajosecatrachoFrank curry - Last Filed: 12/20/16 22:11> Date of Encounter: 12/20/16 Time of Encounter: 20:00 - Assessment and Plan (1) Diabetic foot ulcer Current Visit: Yes Status: Chronic Assessment and plan: Patient presents post-operatively with surgical intervention on left foot from diabetic foot ulcer on the plantar aspect which was found to have necrotic tissue in the center of the wound with odor but without obvious cellulitis or purulence. Patient was also found to have a wound on the distal aspect of the fourth toe of the left foot which is reportedly a recent development last 24 hours. Patient placed on IV clindamycin with IV Linezolid added for infection coverage. Patient has hx of MRSA previously. Patient to be followed by Dr. Cruz. Qualifiers: Diabetic foot ulcer location: midfoot Diabetes mellitus type: type 2 Laterality: left Non-pressure ulcer stage: with necrosis of muscle Qualified Code(s): E11.621 - Type 2 diabetes mellitus with foot ulcer; L97.423 - Non-pressure chronic ulcer of left heel and midfoot with necrosis of muscle (2) HTN (hypertension) Current Visit: Yes Status: Chronic Assessment and plan: Patient presents with history of chronic HTN. Will monitor patient and VS and continue Lopressor. Will hold Vasotec for 24-48 hours to monitor renal function. Qualifiers: Hypertension type: essential hypertension Qualified Code(s): I10 - Essential (primary) hypertension (3) HLD (hyperlipidemia) Current Visit: Yes Status: Chronic Assessment and plan: Patient presents wth history of chronic hyperlipidemia. Lipid panel ordered in a.m. labs and will continue patient's Zocor. Qualifiers: Hyperlipidemia type: pure hypercholesterolemia Qualified Code(s): E78.00 - Pure hypercholesterolemia, unspecified; E78.0 - Pure hypercholesterolemia (4) Diabetes Current Visit: Yes Status: Chronic Assessment and plan: Patient presents with history of chronic diabetes that is not well-controlled. Will continue patient's insulin and add low-dose correction sliding scale and hypoglycemia protocol. Blood glucose monitoring ACHS. A1c ordered in a.m. labs. Diabetic diet ordered. Diabetic education consult placed. Qualifiers: Diabetes mellitus type: type 2 Diabetes mellitus complication status: with circulatory complication Diabetes mellitus complication detail: with peripheral angiopathy with gangrene Diabetes mellitus alf insulin use: with alf use Qualified Code(s): E11.52 - Type 2 diabetes mellitus with diabetic peripheral angiopathy with gangrene; Z79.4 - USP (current) use of insulin (5) Anemia Current Visit: Yes Status: Chronic Assessment and plan: Patient presents with history of chronic anemia. Patient denies any unusual bleeding or blood loss. Will monitor H/H in follow-up labs. Qualifiers: Anemia type: other cause Other causes of anemia: other cause, not classified Qualified Code(s): D64.89 - Other specified anemias (6) Chronic kidney disease, stage III (moderate) Current Visit: Yes Status: Chronic Assessment and plan: Patient presents with CKD, stage III wit current GFR of 29. Will use IV fluids judiciously if warranted and avoid nephrotoxic agents. Will hold patient's lasix , potassium, and Vasotec to monitor renal function over the next 24-48 hours. Nephrology consult placed. (7) Coronary artery disease Current Visit: Yes Status: Chronic Assessment and plan: Patient presents with history of chronic coronary artery disease. Patient placed on continuous cardiac telemetry and we will continue patient's metoprolol , Zocor and aspirin therapy.. Qualifiers: Coronary Disease-Associated Artery/Lesion type: [place] artery [place] vs. transplanted heart: [place] heart Associated angina: with stable angina Qualified Code(s): I25.118 - Atherosclerotic heart disease of [place] coronary artery with other forms of angina pectoris (8) DVT prophylaxis Current Visit: Yes Status: Acute Assessment and plan: Bilateral SCDs placed on patient's LEs for DVT prophylaxis post-surgery. Internal Medicine - CN: HPI - Data of Consult Patient: new to practice Consult date: 12/20/16 Requesting Physician: Ang Cruz, - Consult Narrative Reason for consult: Medical Management History of present illness: Mr. Bearden is a 61 year old male with medical history of diabetes controlled by insulin, hypertension, COPD, CAD bladder cancer, and chronic decubitus ulcers presents for direct admit following surgical procedure on his left foot from diabetic foot ulcer on the plantar aspect which was found to have necrotic tissue in the center of the wound with odor but without obvious cellulitis or purulence. Patient was also found to have a wound on the distal aspect of the fourth toe of the left foot which is reportedly a recent development last 24 hours. Patient reports constipation but denies chest pain, dyspnea, fatigue, weakness, recent illness, palpitations, fever, chills, nausea, vomiting, dizziness, lightheadedness, abdominal pain, vision changes, presyncope, or syncope. On examination, patient's heart rate is RRR lungs are clear on auscultation. Patient's vital signs were 90 8.6F, heart rate of 75 bpm, respiratory rate of 18, BP 150/69, and SPO2 99% on room air. Patient was placed on IV clindamycin by Dr. Cruz post-procedure for infection coverage. Patient has previous history of MRSA but was found to be negative in pre-op testing. Patient is hemodynamically stable and reports no acute distress on examination. Information taken from patient, chart reviewed, previous medical records and imaging. Mr. Bearden is at high risk for infection based on status of the wound, history of MRSA, and risk factors and will be placed as inpatient status. Time spent with patient greater than 40 minutes. Past Med Surg Social Fam HX - Past Medical History Source: patient, old records reviewed Medical history: cancer, COPD, coronary artery disease, diabetes, hyperlipidemia , hypertension, renal disease, other Psychiatric history: no psych history - Past Surgical History Surgical History: cancer surgery, coronary bypass (CABG), orthopedic, other, other (Podiatric surgery to left foot) - Social History Smoking Status: Never smoker Smokeless Tobacco Status: No Alcohol use: occasionally Drug use: none Current living situation: Home Activity Level: Independent ambulation Recent Out of Country Travel Within the Last 8 Weeks: No Exposure or Possible Exposure to Illness During Travel: No - Family History Father Adopted: No Race: Family Member Ethnicity: Non- Living Status: Age at : 79 Cause of : Stroke Hx Family Cardiac Disorders: Yes (Stroke, HTN) Hx Family Endocrine Disorder: Yes (DM) Hx Family Neuromuscular Disorders: Yes Mother Race: Family Member Ethnicity: Non- Living Status: Age at : 82 Cause of : Stroke Hx Family Cardiac Disorders: Yes (Stroke) Hx Family Neurologic Disorders: Yes (CVA) Hx Family Medical Disorders: Yes (Obesity) Brother Race: Family Member Ethnicity: Non- Living Status: Still Living Hx Family Endocrine Disorder: Yes (DM) - Constitutional Constitutional: as per HPI - EENT Eyes: as per HPI Ears: as per HPI Nose, mouth and throat: as per HPI - Breasts Breasts: as per HPI - Cardiovascular Cardiovascular ROS IM: as per HPI - Respiratory Respiratory: as per HPI - Gastrointestinal Gastrointestinal: as per HPI, constipation - Genitourinary Genitourinary ROS male: as per HPI - Musculoskeletal Musculoskeletal ROS IM: as per HPI - Integumentary Integumentary IM: skin ulcer (Left foot) - Neurological Neurological ROS: as per HPI - Psychiatric Psychiatric: as per HPI - Endocrine Endocrine IM: as per HPI - Hematologic/Lymphatic Hematologic/Lymphatic: as per HPI - Allergic/Immunologic Allergic/Immunologic: as per HPI Internal Medicine - CN: Meds Simvastatin [Zocor] 20 mg PO HS 11/08/14 [History] Gabapentin [Neurontin] 100 mg PO TID 01/26/16 [History] Insulin LISPRO [HumaLOG] 0 units SQ TIDAC vial 02/28/16 [Rx] Aspirin 81 mg PO DAILY tab.chew 08/24/16 [Rx] Albuterol Sulfate [Ventolin Hfa] 2 puff IH Q4-6H PRN 12/20/16 [History] Enalapril Maleate [Vasotec] 2.5 mg PO DAILY 12/20/16 [History] Furosemide [Lasix] 40 mg PO BID 12/20/16 [History] Insulin Glargine,Hum.rec.anlog [Basaglar Kwikpen U-100] 24 unit SQ BID 12/20/16 [History] Metoprolol Succinate 100 mg PO DAILY 12/20/16 [History] Potassium Chloride 20 meq PO DAILY 12/20/16 [History] Tiotropium [place] [Spiriva Respimat] 1 puff IH DAILY 12/20/16 [History] 3 Allergy/AdvReac Type Severity Reaction Status Date / Time No Known Allergies Allergy Verified 12/20/16 12:11 Internal Medicine - CN: Exam - Constitutional Vitals: Temp Pulse Resp BP Pulse Ox 98.6 F 75 18 150/69 99 12/20/16 19:15 12/20/16 19:15 12/20/16 19:15 12/20/16 19:15 12/20/16 19:15 General appearance IM: Present: cooperative, A&O X 3, pleasant, no acute distress, obese, answers questions appropriately - Head Head exam: Present: atraumatic - Eye Eye exam: Present: normal appearance, PERRL, conjuntiva pink, sclera anicteric Pupils: Present: normal accommodation, PERRL - ENT ENT exam: Present: mucous membranes dry, normal exam - Expanded ENT Exam Mouth exam: Present: normal external inspection Throat exam: Present: normal inspection - Neck Neck exam general surgery: Present: normal inspection, supple, trachea midline - Respiratory Respiratory exam: Present: CTAB - Cardiovascular Cardiovascular exam IM: Present: irregular rhythm, +S1, +S2 - GI/Abdominal GI/Abdominal exam IM: Present: normal bowel sounds, soft, no peritoneal signs - Rectal Rectal exam: Present: deferred - Additional comments: exam deferred. - Extremities Exam Extremities exam IM: Present: warm, radial pulses palpable and symmetrical - Expanded Lower Extremities Exam Foot/Toe exam: Present: swelling, tenderness (Distal aspect of the second metatarsal of the left foot) - Back Exam Back exam: Present: normal inspection - Neurological Exam Neurological exam: Present: CN II-XII intact, oriented X3, no focal deficits, strengths equal and symetr throughout - Psychiatric Psychiatric exam: Present: normal affect, normal mood - Skin Skin exam IM: Present: dry, intact Internal Medicine - CN: Reslt - Impressions Impressions Foot X-Ray 12/20/16 14:32 IMPRESSION: No osseous destructive changes of osteomyelitis. Scattered soft tissue gas within the stump distal to the 2nd metatarsal may be postoperative. Soft tissue swelling dorsally. Otherwise stable left foot series. D/ / Ole Zaidi MD / Ole Zaidi MD Interpreting Provider: Ole Zaidi MD - Diagnostic Studies Other Images Additional comments: Impressions Foot X-Ray 12/20/16 14:32 IMPRESSION: No osseous destructive changes of osteomyelitis. Scattered soft tissue gas within the stump distal to the 2nd metatarsal may be postoperative. Soft tissue swelling dorsally. Otherwise stable left foot series. D/ / Ole Zaidi MD / Ole Zaidi MD Interpreting Provider: Ole Zaidi MD Consult Discharge Plan - Plan Referrals: Eloy Calles, [Primary Care Provider] - <Juan Luis Chávez - Last Filed: 12/20/16 23:50> Date of Encounter: 12/20/16 Time of Encounter: 22:55 Internal Medicine - CN: HPI - Data of Consult Requesting Physician: Ang Cruz, Internal Medicine - CN: Exam - Constitutional Vitals: Temp Pulse Resp BP Pulse Ox 98.6 F 75 18 150/69 99 12/20/16 19:15 12/20/16 19:15 12/20/16 19:15 12/20/16 19:15 12/20/16 19:15 General appearance IM: Present: cooperative, A&O X 3, pleasant, no acute distress - Respiratory Respiratory exam: Present: CTAB. Absent: chest wall tenderness, rales, rhonchi , wheezes - Cardiovascular Cardiovascular exam IM: Present: +S1, +S2. Absent: systolic murmur - GI/Abdominal GI/Abdominal exam IM: Present: normal bowel sounds, soft. Absent: hepatomegaly , splenomegaly, tenderness - Extremities Exam Extremities exam IM: Present: warm. Absent: calf tenderness, pedal edema Additional comments: left foot with wound vac in place and post-op dressing - Psychiatric Psychiatric exam: Present: normal affect, normal mood - Skin Skin exam IM: Present: dry, warm Internal Medicine - CN: Reslt - EKG Data -: EKG Interpreted by Myself EKG shows normal: sinus rhythm - EKG Data Prior EKG available for review: no EKG comments: 12/20/16 23:41 Sinus rhythm; subtle ST-T depression laterally; borderline LVH/high voltage criteria - Impressions Impressions Foot X-Ray 12/20/16 14:32 IMPRESSION: No osseous destructive changes of osteomyelitis. Scattered soft tissue gas within the stump distal to the 2nd metatarsal may be postoperative. Soft tissue swelling dorsally. Otherwise stable left foot series. D/ / Ole Zaidi MD / Ole Zaidi MD Interpreting Provider: Ole Zaidi MD - Attending Attestation I discussed the patient [place], PMH, ROS, lab data, and exam findings with Otoniel Idzakovich, [employer]. I also reviewed old records and particularly his old wound culture results. I then saw and examined patient independently as well. He feels well post-op and denies any issues. He is refusing to wear his telemetry , but after reviewing his EKG and cardiac history, I was able to convince him to wear telemetry. He denies any cardiac issues, particularly no chest pain or SOB. He had CABG this past August and feels "great" since his surgery. I agree with the antibiotic choices, and we can deescalate once culture results are available. I recommend holding off Vancomycin right now until culture results available. I also agree with nephrology consultation as his kidney function is worse than baseline (12/05/16). No labs have been drawn yet today, but we will order them and follow his kidney function. Other than my above comments and noted exam findings, I agree with Otoniel's assessment and plan.
[2016-12-20] MEDS: Insulin DETEMIR 100 UNIT/ML X5UNITS SQ SCH (21:32)
[2016-12-21 04:48] LABS: Basophils % 0.3 %; Eosinophils # 0.1 K/mcL (0.0-0.6); Eosinophils % 1.1 %; Hematocrit 32.3 % (37.5-50.1); Hemoglobin 10.7 g/dL (12.9-16.9); Immature Granulocytes % 0.2 % (0-4); Lymphocytes % 9.1 %; Mean Corpuscular HGB Conc 33.1 g/dL (31.6-35.5); Mean Corpuscular Hemoglobin 27.1 pg (28.0-33.3); Mean Corpuscular Volume 81.8 fL (83.0-100.0); Mean Platelet Volume 10.2 fL (9.4-12.4); Monocytes # 1.2 K/mcL (0.0-1.3); Monocytes % 11.6 %; Neutrophils # 8.2 K/mcL (1.6-8.9); Platelet Count 226 K/mcL (140-400); Red Blood Count 3.95 M/mcL (4.19-5.50); Red Cell Distribution Width 13.9 % (11.5-14.5); Segmented Neutrophils % 77.7 %
[2016-12-21 04:57] LABS: INR 1.3; Prothrombin Time 14.3 Seconds (9.4-12.1)
[2016-12-21 05:00] LABS: Activated Partial Thrombo Time 28.1 Seconds (26.0-36.0)
[2016-12-21 05:03] LABS: Calcium 8.5 mg/dL (8.6-10.8); Potassium 4.3 mEq/L (3.5-4.5)
[2016-12-21 05:05] LABS: Chol/HDL Ratio 4.2 (0-4.9)
[2016-12-21] MEDS: Clindamycin 600 MG/50 ML 600 MG/50 ML IV.SOLN IVPB SCH ×2 (07:39→16:32)
[2016-12-21] MEDS ORDERED: NON-FORMULARY MEDICATION 1 EACH EACH (Metoprolol Succinate [Metoprolol Succinate] 100 MG) PO SCH (09:00)
[2016-12-21] MEDS ORDERED: NON-FORMULARY MEDICATION 1 EACH EACH (Tiotropium Bromide [Spiriva Respimat] 1 PUFF) IH SCH (09:00)
[2016-12-21] MEDS: Pantoprazole 40 MG VIAL IVP SCH (09:09)
[2016-12-21] MEDS: Gabapentin 100 MG CAPSULE PO SCH ×3 (09:09→22:30)
[2016-12-21] MEDS: Aspirin 81 MG TAB.CHEW PO SCH (09:10)
[2016-12-21] MEDS: Metoprolol XL (24 HR) Succ 50 MG TAB.ER.24H PO SCH (09:10)
[2016-12-21] MEDS: Insulin LISPRO 300 UNITS/3 ML VIAL SQ SCH ×4 (09:11→22:30)
[2016-12-21] MEDS: SPIRIVA RESPIMAT IH SCH (09:24)
[2016-12-21] MEDS: Insulin DETEMIR 100 UNIT/ML X5UNITS SQ SCH ×2 (09:27→22:30)
--- NOTE | 2016-12-21 10:25 | Nephrology Consult Note ---
Date of Encounter: 12/21/16 Time of Encounter: 09:55 Assessment and Plan (1) Chronic kidney disease, stage III (moderate) Current Visit: Yes Status: Chronic S/P I&D and wound vac placement on left foot yesterday. Currently on Clindamycin coverage. CKD 3, baseline creatinine 1.3-1.6 in setting of diabetes. Today creat 1.46. Will monitor, avoid nephrotoxins. History of Present Illness - Reason for Consult Chronic Kidney Disease - History of Present Illness Mr. Bearden is a 61 year old male with CKD 3, baseline creatinine 1.3-1.6 in setting of diabetes, just seen in office in past few weeks. Other PMH- hypertension, COPD, CAD bladder cancer, and chronic decubitus foot ulcer, prior history of MRSA, recent testing negative. Mr. Bearden presented as direct admit for surgical procedure of left foot ulcer. S/P I&D and wound vac placement on left foot yesterday. Currently on Clindamycin coverage. This morning creatinine at patients baseline 1.46, GFR 49. Documented urine output 775cc. He states his pain is under good control. Past Med Surg Social Fam HX - Past Medical History Medical history: cancer, COPD, coronary artery disease, diabetes, hyperlipidemia , hypertension, renal disease, other Psychiatric history: no psych history - Past Surgical History Surgical History: cancer surgery, coronary bypass (CABG), orthopedic, other, other (Podiatric surgery to left foot) - Social History Smoking Status: Never smoker Smokeless Tobacco Status: No Alcohol use: occasionally Drug use: none - Family History Brother Race: Family Member Ethnicity: Non- Living Status: Still Living Hx Family Endocrine Disorder: Yes (DM) Father Adopted: No Race: Family Member Ethnicity: Non- Living Status: Age at : 79 Cause of : Stroke Hx Family Cardiac Disorders: Yes (Stroke, HTN) Hx Family Respiratory Disorders: No Hx Family Cancer: No Hx Family GI Disorders: Yes (Gastric bypass) Hx Family Endocrine Disorder: Yes (DM) Hx Family Neuromuscular Disorders: Yes Hx Family Neurologic Disorders: Yes (CVA) Hx Family HEENT Disorders: No Hx Family Autoimmune Disorders: No Mother Race: Family Member Ethnicity: Non- Living Status: Age at : 82 Cause of : Stroke Hx Family Cardiac Disorders: Yes (Stroke) Hx Family Respiratory Disorders: No Hx Family Cancer: Yes (thyroid) Hx Family GI Disorders: No Hx Family Endocrine Disorder: No Hx Family Neurologic Disorders: Yes (CVA) Hx Family Medical Disorders: Yes (Obesity) Medications and Allergies Simvastatin [Zocor] 20 mg PO HS 11/08/14 [History] Gabapentin [Neurontin] 100 mg PO TID 01/26/16 [History] Insulin LISPRO [HumaLOG] 0 units SQ TIDAC vial 02/28/16 [Rx] Aspirin 81 mg PO DAILY tab.chew 08/24/16 [Rx] Albuterol Sulfate [Ventolin Hfa] 2 puff IH Q4-6H PRN 12/20/16 [History] Enalapril Maleate [Vasotec] 2.5 mg PO DAILY 12/20/16 [History] Furosemide [Lasix] 40 mg PO BID 12/20/16 [History] Insulin Glargine,Hum.rec.anlog [Basaglar Kwikpen U-100] 24 unit SQ BID 12/20/16 [History] Metoprolol Succinate 100 mg PO DAILY 12/20/16 [History] Potassium Chloride 20 meq PO DAILY 12/20/16 [History] Tiotropium [place] [Spiriva Respimat] 1 puff IH DAILY 12/20/16 [History] 3 Allergy/AdvReac Type Severity Reaction Status Date / Time No Known Allergies Allergy Verified 12/20/16 12:11 Review of Systems All Systems: reviewed and no additional remarkable complaints except as stated Exam - Vital Signs Vital signs: Initial Vital Signs Resp Pulse Ox 18 97 12/20/16 11:04 12/20/16 11:04 Vital Signs - Last 8 Hours Temp Pulse Resp BP Pulse Ox 12/21/16 09:06 98.9 F 68 14 131/69 12/21/16 05:37 100.1 F H 88 17 117/78 97 Intake and Output 12/20/16 12/21/16 12/21/16 23:59 07:59 15:59 Intake Total 850 / 850 150 / 150 50 / 50 Output Total 775 / 775 450 / 450 Balance 75 / 75 -300 / -300 50 / 50 Intake: IV Fluids 350 / 350 50 / 50 50 / 50 Cleocin Premix 600 MG/50 50 / 50 50 / 50 50 / 50 ML 600 mg In 50 ml @ 50 mls/hr IVPB Q8HR [facility] Rx#: [id number] Zyvox Premix 600mg/300mL 300 / 300 600 mg In 300 ml @ 150 mls/hr IVPB Q12H HERMILO Rx#: [id number] Oral 500 / 500 100 / 100 Output: Urine 775 / 775 425 / 425 Wound Drainage Left Foot Other: Blood Glucose* 241 120 - General Appearance General appearance: well-developed, well-nourished, appears started age EENT: mucous membranes moist Neck: no JVD Respiratory: clear Cardiology: no edema, regular rate, regular rhythm Gastrointestinal: normoactive bowel sounds, no tenderness Integumentary: warm and dry Neurologic: alert and oriented x3 Psychiatric: mood/affect appropriate, cooperative Results - Lab Results 12/21/16 04:32 12/21/16 04:32 Most recent lab results Calcium 8.5 mg/dL (8.6-10.8) L 12/21/16 04:32 Magnesium 2.0 mg/dL (1.6-2.6) 12/21/16 04:32 Consult Discharge Plan - Plan Referrals: Eloy Calles DO [Primary Care Provider] -
--- NOTE | 2016-12-21 12:04 | Event Note ---
Date of Encounter: 12/21/16 Time of Encounter: 11:55 Notified diabetic management at 11:55 regarding patient's placement status. Patient's original status was outpatient in a bed and was changed to inpatient status due to being placed on clindamycin IV post surgical intervention for infection coverage for necrotic foot ulcer. Patient also has history of MRSA in the past. IV linezolid added to patient's medications for infection coverage in addition to IV clindamycin. Patient was started on linezolid late yesterday evening. Patient changed to observation status and will not be discharged today due to concerns regarding efficacy from continuation of IV antibiotic therapy and the risks for increasing infection stemming from early discontinuation of this antibiotic therapy.
--- NOTE | 2016-12-21 13:35 | Internal Med Progress Note ---
Date of Encounter: 12/21/16 Time of Encounter: 13:34 - Assessment and plan (1) Diabetic foot ulcer Current Visit: Yes Status: Chronic Assessment and plan: POD #1: resection of distal aspect of metatarsal #2 of left foot continue IV abx f/u wound cultures consider ID consult for longterm abx management pain control wound care as per podiatry Qualifiers: Diabetic foot ulcer location: midfoot Diabetes mellitus type: type 2 Laterality: left Non-pressure ulcer stage: with necrosis of muscle Qualified Code(s): E11.621 - Type 2 diabetes mellitus with foot ulcer; L97.423 - Non-pressure chronic ulcer of left heel and midfoot with necrosis of muscle (2) Diabetes mellitus Current Visit: No Status: Chronic Assessment and plan: noted to remain hyperglycemic increased to medium dose insulin sliding scale algorithm monitor FS and BG ADA diet Qualifiers: Diabetes mellitus type: type 2 Diabetes mellitus complication status: with skin complications Diabetes mellitus complication detail: with foot ulcer Diabetes mellitus 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 transplanted heart: [place] heart Associated angina: with stable angina Qualified Code(s): I25.118 - Atherosclerotic heart disease of [place] coronary artery with other forms of angina pectoris (4) Chronic kidney disease, stage III (moderate) Current Visit: Yes Status: Chronic Assessment and plan: renal function at baseline nephrology on board (5) HTN (hypertension) Current Visit: Yes Status: Chronic Assessment and plan: BP within acceptable range continue home medications Qualifiers: Hypertension type: essential hypertension Qualified Code(s): I10 - Essential (primary) hypertension (6) Obesity (BMI 30.0-34.9) Current Visit: No Status: Acute (7) DVT prophylaxis Current Visit: Yes Status: Acute Assessment and plan: Heparin SQ - Subjective Interval history: Pateint is 61y/o male admitted for left foot surgery. Medicine was consulted for management of patient's co-morbidities. Patient seen and examined at bedside. Resting comfortably in bed and reports of feeling well at this time. POD #1: resection of distal aspect of metatarsal #2 of left foot. Tolerated the procedure well and denies any pain at this time. No overnight issues reported. - Constitutional Vitals: Temp Pulse Resp BP Pulse Ox 98.7 F 65 14 116/64 95 12/21/16 13:25 12/21/16 13:25 12/21/16 13:25 12/21/16 13:25 12/21/16 13:25 General appearance: Present: cooperative, A&O X 3, pleasant, no acute distress, obese - Head Head exam: Present: atraumatic, normocephalic - Eye Eye exam: Present: conjuntiva pink, sclera anicteric - Respiratory Respiratory exam: Present: CTAB. Absent: respiratory distress, wheezes - Cardiovascular Cardiovascular exam: Present: RRR, +S1, +S2. Absent: diastolic murmur, gallop, rubs, systolic murmur - GI/Abdominal GI/Abdominal exam: Present: normal bowel sounds, soft, no peritoneal signs. Absent: distended, tenderness - Extremities Exam Extremities exam: Present: warm, radial pulses palpable and symmetrical (left foot wound vac intact). Absent: calf tenderness - Neurological Exam Neurological exam: Present: alert, oriented X3 - Psychiatric Psychiatric exam: Present: normal affect, normal mood Internal Medicine: Result - Labs CBC & Chem 7: 12/21/16 04:32 12/21/16 04:32 Labs: Short CBC 12/21/16 Range/Units 04:32 WBC 10.6 (4.3-11.1) K/mcL Hgb 10.7 L (12.9-16.9) g/dL Hct 32.3 L (37.5-50.1) % Plt Count 226 (140-400) K/mcL Neutrophils # 8.2 (1.6-8.9) K/mcL BMP 12/21/16 04:32 Sodium 133 L Potassium 4.3 Chloride 104 Carbon Dioxide 22 BUN 37 H Creatinine 1.46 H Glucose 87 Calcium 8.5 L - ABG Interpretation ABG results: PT/INR, D-dimer PT 14.3 Seconds (9.4-12.1) H 12/21/16 04:32 - Impressions Impressions Foot X-Ray 12/20/16 14:32 IMPRESSION: No osseous destructive changes of osteomyelitis. Scattered soft tissue gas within the stump distal to the 2nd metatarsal may be postoperative. Soft tissue swelling dorsally. Otherwise stable left foot series. D/ / Ole Zaidi MD / Ole Zaidi MD Interpreting Provider: Ole Zaidi MD - VTE Documentation of Mechanical Device: Intermittent pneumatic compression device Consult Discharge Plan - Plan Referrals: Eloy Calles DO [Primary Care Provider] -
[2016-12-21] MEDS: *HR* Heparin 5,000 UNIT/ML VIAL SQ SCH (16:53)
--- NOTE | 2016-12-21 17:44 | Podiatry Progress Note ---
Date of Encounter: 12/21/16 Time of Encounter: 12:30 - Assessment and Plan (1) Diabetic foot ulcer associated with type 2 diabetes mellitus Current Visit: No Status: Acute Assessment: Postoperative day #1, no nausea, vomiting fever chills. No complaints of pain. Wound VAC functioning properly wound healing uneventfully cultures pending. Plan: Continue broad spectrum antibiotics until such time cultures are returned and confirmed and we can refine her antibiotic therapy accordingly , with an eye toward his overall kidney function. Will change wound VAC, tomorrow 12/22/2016 and evaluate wound at that time. Patient will likely need long-term intravenous antibiotics 3-6 weeks depending upon his response. He will also likely need use of a wound VAC or 3-6 weeks as well. Qualifiers: Diabetic foot ulcer location: other Laterality: left Non-pressure ulcer stage: with necrosis of muscle Qualified Code(s): E11.621 - Type 2 diabetes mellitus with foot ulcer; L97.523 - Non-pressure chronic ulcer of other part of left foot with necrosis of muscle Subjective Principal diagnosis: Postoperative day #1 Interval history: #1 patient underwent debridement of distal metatarsal, #2 metatarsal left foot #2 debridement of ulceration plantar aspect #2 metatarsal, left foot #3 placement of wound VAC #4 cultures were taken intraoperatively tissue and swab pending Objective - Vital Signs Vital Signs: Vital Signs Temp Pulse Resp BP Pulse Ox 12/21/16 15:36 98.2 F 63 15 124/68 97 12/21/16 13:25 98.7 F 65 14 116/64 95 12/21/16 09:06 98.9 F 68 14 131/69 12/21/16 05:37 100.1 F H 88 17 117/78 97 12/20/16 23:15 100.9 F H 82 19 166/77 98 12/20/16 19:15 98.6 F 75 18 150/69 99 Intake and Output 12/21/16 12/21/16 12/21/16 07:59 15:59 23:59 Intake Total 150 / 150 350 / 350 50 / 50 Output Total 450 / 450 275 / 275 Balance -300 / -300 350 / 350 -225 / -225 Intake: IV Fluids 50 / 50 350 / 350 50 / 50 Cleocin Premix 600 MG/50 50 / 50 50 / 50 50 / 50 ML 600 mg In 50 ml @ 50 mls/hr IVPB Q8HR [facility] Rx#: [id number] Zyvox Premix 600mg/300mL 300 / 300 600 mg In 300 ml @ 150 mls/hr IVPB Q12H [facility] Rx#: [id number] Oral 100 / 100 Output: Urine 425 / 425 250 / 250 Wound Drainage Left Foot Other: Blood Glucose* 192 196 - Exam Exam: #1 wound VAC intact functioning properly Incision: Present: healing, clean and dry Capillary Refill: less than 3 seconds - Lab Result Diagrams: 12/21/16 04:32 12/21/16 04:32 Labs: Abnormal lab results RBC 3.95 M/mcL (4.19-5.50) L 12/21/16 04:32 Hgb 10.7 g/dL (12.9-16.9) L 12/21/16 04:32 Hct 32.3 % (37.5-50.1) L 12/21/16 04:32 MCV 81.8 fL (83.0-100.0) L 12/21/16 04:32 MCH 27.1 pg (28.0-33.3) L 12/21/16 04:32 ESR 109 mm/hr (0-10) H 12/21/16 04:32 PT 14.3 Seconds (9.4-12.1) H 12/21/16 04:32 Sodium 133 mEq/L (136-145) L 12/21/16 04:32 BUN 37 mg/dL (8-26) H 12/21/16 04:32 Creatinine 1.46 mg/dL (0.72-1.25) H 12/21/16 04:32 Est GFR ( Amer) 59 (> 60) L 12/21/16 04:32 Est GFR (Non-Af Amer) 49 (> 60) L 12/21/16 04:32 POC Glucose 241 (58-89) H 12/20/16 20:46 Calcium 8.5 mg/dL (8.6-10.8) L 12/21/16 04:32 HDL Cholesterol 26 mg/dL (40-59) L 12/21/16 04:32 Microbiology, Last 48 Hours 12/20/16 16:48 Wound Culture - Preliminary Left Foot 12/20/16 16:48 Surgical Biopsy Culture - Preliminary Left Foot Proteus mirabilis - VTE Documentation of Mechanical Device: Intermittent pneumatic compression device Consult Discharge Plan - Plan Referrals: Eloy Calles DO [Primary Care Provider] -
[2016-12-22] MEDS: Clindamycin 600 MG/50 ML 600 MG/50 ML IV.SOLN IVPB SCH ×3 (00:42→15:44)
[2016-12-22] MEDS: *HR* Heparin 5,000 UNIT/ML VIAL SQ SCH ×2 (05:14→17:24)
[2016-12-22 05:30] LABS: Basophils % 0.4 %; Eosinophils # 0.2 K/mcL (0.0-0.6); Eosinophils % 2.7 %; Hematocrit 27.8 % (37.5-50.1); Immature Granulocytes % 0.3 % (0-4); Lymphocytes # 0.9 K/mcL (0.6-4.6); Lymphocytes % 13.1 %; Mean Corpuscular HGB Conc 32.7 g/dL (31.6-35.5); Mean Corpuscular Volume 82.5 fL (83.0-100.0); Mean Platelet Volume 9.6 fL (9.4-12.4); Monocytes # 0.8 K/mcL (0.0-1.3); Monocytes % 11.1 %; Neutrophils # 4.9 K/mcL (1.6-8.9); Platelet Count 190 K/mcL (140-400); Red Blood Count 3.37 M/mcL (4.19-5.50); Red Cell Distribution Width 13.8 % (11.5-14.5); Segmented Neutrophils % 72.4 %
[2016-12-22 05:32] LABS: Hemoglobin 9.1 g/dL (12.9-16.9)
[2016-12-22 06:08] LABS: Calcium 8.6 mg/dL (8.6-10.8); Phosphorous 3.4 mg/dL (2.3-4.7); Potassium 4.2 mEq/L (3.5-4.5)
[2016-12-22] MEDS: Insulin LISPRO 300 UNITS/3 ML VIAL SQ SCH ×4 (07:49→21:21)
[2016-12-22] MEDS: Furosemide 40 MG TABLET PO SCH ×2 (09:07→09:08)
[2016-12-22] MEDS: Aspirin 81 MG TAB.CHEW PO SCH (09:07)
[2016-12-22] MEDS: Metoprolol XL (24 HR) Succ 50 MG TAB.ER.24H PO SCH (09:07)
[2016-12-22] MEDS: Pantoprazole 40 MG VIAL IVP SCH (09:07)
[2016-12-22] MEDS: Gabapentin 100 MG CAPSULE PO SCH ×3 (09:07→21:21)
[2016-12-22] MEDS: SPIRIVA RESPIMAT IH SCH (09:08)
[2016-12-22] MEDS: Insulin DETEMIR 100 UNIT/ML X5UNITS SQ SCH ×2 (09:08→21:21)
--- NOTE | 2016-12-22 09:10 | Nephrology Progress Note ---
Date of Encounter: 12/22/16 Time of Encounter: 08:30 - Assessment and Plan (1) Chronic kidney disease, stage III (moderate) Current Visit: Yes Status: Chronic S/P I&D and wound vac placement left foot. Currently on Clindamycin coverage. CKD 3, baseline creatinine 1.3-1.6 in setting of diabetes. Today creat 1.95, documented urine output 675 cc. Will monitor, if renal fct continues to worsen will start IV hydration. Avoid nephrotoxins. Subjective Principal diagnosis: Postoperative day #1 Interval history: S/P I&D left foot. Eating breakfast. States pain controlled. No new complaints. Objective - Vital Signs Vital signs: Vital Signs Temp Pulse Resp BP Pulse Ox 12/22/16 07:14 98.6 F 60 14 136/75 98 12/22/16 05:26 98.6 F 60 18 123/60 95 12/22/16 01:17 97.8 F 61 19 132/67 97 12/21/16 20:53 98.1 F 64 18 131/61 94 12/21/16 15:36 98.2 F 63 15 124/68 97 12/21/16 13:25 98.7 F 65 14 116/64 95 Intake and Output 12/21/16 12/22/16 12/22/16 23:59 07:59 15:59 Intake Total 50 / 50 500 / 500 480 / 480 Output Total 275 / 275 900 / 900 Balance -225 / -225 -400 / -400 480 / 480 Intake: IV Fluids 50 / 50 Cleocin Premix 600 MG/50 50 / 50 ML 600 mg In 50 ml @ 50 mls/hr IVPB Q8HR [facility] Rx#: [id number] Oral 500 / 500 480 / 480 Output: Urine 250 / 250 900 / 900 Wound Drainage 25 / 25 Left Foot 25 / 25 Other: Meal Breakfast Percent of Meal Consumed 100% Blood Glucose* 168 63 - General Appearance General appearance: Present: well-developed, well-nourished, appears started age EENT: Present: mucous membranes moist Neck: Present: no JVD Respiratory: Present: clear Cardiology: Present: edema, regular rate, regular rhythm Additional Comments: mild edema LE Gastrointestinal: Present: normoactive bowel sounds, no tenderness Integumentary: Present: warm and dry Neurologic: Present: alert and oriented x3 Psychiatric: Present: mood/affect appropriate, cooperative - Lab 12/22/16 05:20 12/22/16 05:20 Most recent lab results Calcium 8.6 mg/dL (8.6-10.8) 12/22/16 05:20 Phosphorus 3.4 mg/dL (2.3-4.7) 12/22/16 05:20 Magnesium 2.0 mg/dL (1.6-2.6) 12/22/16 05:20 - VTE Documentation of Mechanical Device: Intermittent pneumatic compression device Consult Discharge Plan - Plan Referrals: Eloy Calles DO [Primary Care Provider] -
--- NOTE | 2016-12-22 09:15 | Podiatry Progress Note ---
Date of Encounter: 12/22/16 Time of Encounter: 09:12 - Assessment and Plan (1) Diabetic foot ulcer associated with type 2 diabetes mellitus Current Visit: No Status: Acute Assessment: Postoperative day #1, no nausea, vomiting fever chills. No complaints of pain. Wound VAC functioning properly wound healing uneventfully cultures pending. Plan: Continue broad spectrum antibiotics until such time cultures are returned and confirmed and we can refine her antibiotic therapy accordingly , with an eye toward his overall kidney function. Will change wound VAC, tomorrow 12/22/2016 and evaluate wound at that time. Patient will likely need long-term intravenous antibiotics 3-6 weeks depending upon his response. He will also likely need use of a wound VAC or 3-6 weeks as well. Dictation for 12/22/2016 Assessment: #1 postoperative day #2 wound VAC functioning properly. Minimal edema. No nausea vomiting fever chills chest pain or shortness of breath #2 initial cultures revealed Proteus with gram-positive cocci identification pending. Proteus mirabilis is pansensitive. Plan: #1 change wound VAC out today #2 continue present broad-spectrum antibiotic therapy until identification of gram-positive cocci. #3 patient will likely need post discharge intravenous antibiotics and wound care and possibly wound VAC. Qualifiers: Diabetic foot ulcer location: other Laterality: left Non-pressure ulcer stage: with necrosis of muscle Qualified Code(s): E11.621 - Type 2 diabetes mellitus with foot ulcer; L97.523 - Non-pressure chronic ulcer of other part of left foot with necrosis of muscle Subjective Principal diagnosis: Postoperative day 2 Interval history: #1 patient underwent debridement of distal metatarsal, #2 metatarsal left foot #2 debridement of ulceration plantar aspect #2 metatarsal, left foot #3 placement of wound VAC #4 cultures were taken intraoperatively tissue and swab pending Patient without complaints of pain nausea vomiting fever chills shortness of breath. Objective - Vital Signs Vital Signs: Vital Signs Temp Pulse Resp BP Pulse Ox 12/22/16 07:14 98.6 F 60 14 136/75 98 12/22/16 05:26 98.6 F 60 18 123/60 95 12/22/16 01:17 97.8 F 61 19 132/67 97 12/21/16 20:53 98.1 F 64 18 131/61 94 12/21/16 15:36 98.2 F 63 15 124/68 97 12/21/16 13:25 98.7 F 65 14 116/64 95 Intake and Output 12/21/16 12/22/16 12/22/16 23:59 07:59 15:59 Intake Total 50 / 50 500 / 500 480 / 480 Output Total 275 / 275 900 / 900 Balance -225 / -225 -400 / -400 480 / 480 Intake: IV Fluids 50 / 50 Cleocin Premix 600 MG/50 50 / 50 ML 600 mg In 50 ml @ 50 mls/hr IVPB Q8HR [facility] Rx#: [id number] Oral 500 / 500 480 / 480 Output: Urine 250 / 250 900 / 900 Wound Drainage Left Foot Other: Meal Breakfast Percent of Meal Consumed 100% Blood Glucose* 168 63 - Exam Exam: Wound VAC intact functioning properly will need to be changed out today. Cultures revealed Proteus gram-positive cocci identification pending Incision: Present: clean and dry - Lab Result Diagrams: 12/22/16 05:20 12/22/16 05:20 Labs: Abnormal lab results RBC 3.37 M/mcL (4.19-5.50) L 12/22/16 05:20 Hgb 9.1 g/dL (12.9-16.9) L D 12/22/16 05:20 Hct 27.8 % (37.5-50.1) L 12/22/16 05:20 MCV 82.5 fL (83.0-100.0) L 12/22/16 05:20 MCH 27.0 pg (28.0-33.3) L 12/22/16 05:20 ESR >= 130 mm/hr (0-10) H 12/22/16 05:20 PT 14.3 Seconds (9.4-12.1) H 12/21/16 04:32 Sodium 133 mEq/L (136-145) L 12/22/16 05:20 BUN 37 mg/dL (8-26) H 12/22/16 05:20 Creatinine 1.95 mg/dL (0.72-1.25) H 12/22/16 05:20 Est GFR ( Amer) 42 (> 60) L 12/22/16 05:20 Est GFR (Non-Af Amer) 35 (> 60) L 12/22/16 05:20 POC Glucose 120 (58-89) H 12/21/16 09:05 HDL Cholesterol 26 mg/dL (40-59) L 12/21/16 04:32 Microbiology, Last 48 Hours 12/20/16 16:48 Surgical Biopsy Culture - Preliminary Left Foot Proteus mirabilis 12/20/16 16:48 Wound Culture - Preliminary Left Foot - VTE Documentation of Mechanical Device: Intermittent pneumatic compression device Consult Discharge Plan - Plan Referrals: Eloy Calles DO [Primary Care Provider] -
--- NOTE | 2016-12-22 14:18 | Internal Med Progress Note ---
Date of Encounter: 12/22/16 Time of Encounter: 14:16 - Assessment and plan (1) Diabetic foot ulcer Current Visit: Yes Status: Chronic Assessment and plan: POD #2: resection of distal aspect of metatarsal #2 of left foot continue IV abx f/u wound cultures consider ID consult for usp abx management pain control wound care as per podiatry Qualifiers: Diabetic foot ulcer location: midfoot Diabetes mellitus type: type 2 Laterality: left Non-pressure ulcer stage: with necrosis of muscle Qualified Code(s): E11.621 - Type 2 diabetes mellitus with foot ulcer; L97.423 - Non-pressure chronic ulcer of left heel and midfoot with necrosis of muscle (2) Diabetes mellitus Current Visit: No Status: Chronic Assessment and plan: BG better controlled continue medium dose insulin sliding scale algorithm monitor FS and BG ADA diet Qualifiers: Diabetes mellitus type: type 2 Diabetes mellitus complication status: with skin complications Diabetes mellitus complication detail: with foot ulcer Diabetes mellitus dedicated intermodal truck driver insulin use: with dedicated intermodal truck driver use Qualified Code(s) : E11.621 - Type 2 diabetes mellitus with foot ulcer (3) Coronary artery disease Current Visit: Yes Status: Chronic Assessment and plan: continue home medications Qualifiers: Coronary Disease-Associated Artery/Lesion type: [place] artery [place] vs. transplanted heart: [place] heart Associated angina: with stable angina Qualified Code(s): I25.118 - Atherosclerotic heart disease of [place] coronary artery with other forms of angina pectoris (4) Chronic kidney disease, stage III (moderate) Current Visit: Yes Status: Chronic Assessment and plan: renal function at baseline nephrology on board continue to hold Lisinopril (5) HTN (hypertension) Current Visit: Yes Status: Chronic Assessment and plan: BP within acceptable range despite holding lisinopril will continue to monitor Qualifiers: Hypertension type: essential hypertension Qualified Code(s): I10 - Essential (primary) hypertension (6) Obesity (BMI 30.0-34.9) Current Visit: No Status: Acute (7) DVT prophylaxis Current Visit: Yes Status: Acute Assessment and plan: Heparin SQ - Subjective Interval history: Pateint is 61y/o male admitted for left foot surgery. Medicine was consulted for management of patient's co-morbidities. Patient seen and examined at bedside. Resting comfortably in bed and reports of feeling well at this time. POD #2: resection of distal aspect of metatarsal #2 of left foot. No overnight issues reported. Pt encouraged to get out of bed to chair. Patient may need usp abx therapy and states he would not like to go to ECF after discharge even if he needs IV abx. - Constitutional Vitals: Temp Pulse Resp BP Pulse Ox 98.6 F 57 18 112/59 98 12/22/16 11:51 12/22/16 11:51 12/22/16 11:51 12/22/16 11:51 12/22/16 11:51 General appearance: Present: cooperative, A&O X 3, pleasant, no acute distress, obese - Head Head exam: Present: atraumatic, normocephalic - Eye Eye exam: Present: conjuntiva pink, sclera anicteric - Respiratory Respiratory exam: Absent: respiratory distress, wheezes - Cardiovascular Cardiovascular exam: Present: RRR, +S1, +S2. Absent: diastolic murmur, gallop, rubs, systolic murmur - GI/Abdominal GI/Abdominal exam: Present: normal bowel sounds, soft, no peritoneal signs. Absent: distended, tenderness - Extremities Exam Extremities exam: Present: pedal edema, warm, radial pulses palpable and symmetrical. Absent: calf tenderness (left foot wound vac intact ) - Neurological Exam Neurological exam: Present: alert, oriented X3 - Psychiatric Psychiatric exam: Present: normal affect, normal mood Internal Medicine: Result - Labs CBC & Chem 7: 12/22/16 05:20 12/22/16 05:20 Labs: Short CBC 12/22/16 Range/Units 05:20 WBC 6.7 (4.3-11.1) K/mcL Hgb 9.1 L D (12.9-16.9) g/dL Hct 27.8 L (37.5-50.1) % Plt Count 190 (140-400) K/mcL Neutrophils # 4.9 (1.6-8.9) K/mcL BMP 12/22/16 05:20 Sodium 133 L Potassium 4.2 Chloride 104 Carbon Dioxide 22 BUN 37 H Creatinine 1.95 H Glucose 78 Calcium 8.6 - ABG Interpretation ABG results: PT/INR, D-dimer PT 14.3 Seconds (9.4-12.1) H 12/21/16 04:32 - VTE Documentation of Mechanical Device: Intermittent pneumatic compression device Consult Discharge Plan - Plan Referrals: Eloy Calles DO [Primary Care Provider] -
[2016-12-23 04:51] LABS: Basophils % 0.6 %; Eosinophils # 0.2 K/mcL (0.0-0.6); Eosinophils % 2.7 %; Hemoglobin 10.4 g/dL (12.9-16.9); Immature Granulocytes % 0.2 % (0-4); Lymphocytes # 0.9 K/mcL (0.6-4.6); Lymphocytes % 13.3 %; Mean Corpuscular HGB Conc 33.5 g/dL (31.6-35.5); Mean Corpuscular Hemoglobin 27.3 pg (28.0-33.3); Mean Corpuscular Volume 81.4 fL (83.0-100.0); Mean Platelet Volume 10.4 fL (9.4-12.4); Monocytes # 0.7 K/mcL (0.0-1.3); Neutrophils # 4.8 K/mcL (1.6-8.9); Platelet Count 230 K/mcL (140-400); Red Blood Count 3.81 M/mcL (4.19-5.50); Red Cell Distribution Width 13.5 % (11.5-14.5); Segmented Neutrophils % 72.2 %
[2016-12-23 05:02] LABS: Calcium 8.5 mg/dL (8.6-10.8); Magnesium 2.2 mg/dL (1.6-2.6); Phosphorous 3.9 mg/dL (2.3-4.7); Potassium 4.4 mEq/L (3.5-4.5)
[2016-12-23] MEDS: SPIRIVA RESPIMAT IH SCH (08:42)
--- NOTE | 2016-12-23 08:42 | Nephrology Progress Note ---
Date of Encounter: 12/23/16 Time of Encounter: 08:15 - Assessment and Plan (1) Chronic kidney disease, stage III (moderate) Current Visit: Yes Status: Chronic S/P I&D and wound vac placement left foot. Currently on Clindamycin coverage. ERIN/CKD 3, baseline creatinine 1.3-1.6 in setting of diabetes. Today creat 1.98 , documented urine output 2050 cc. Will monitor, if renal fct continues to worsen will start IV hydration. Avoid nephrotoxins. Subjective Principal diagnosis: Postoperative day 2 Interval history: S/P I&D left foot. States pain controlled. No new complaints. Objective - Vital Signs Vital signs: Vital Signs Temp Pulse Resp BP Pulse Ox 12/23/16 04:06 26 99 12/23/16 01:52 26 98 12/23/16 00:48 98.1 F 56 17 127/64 99 12/22/16 20:37 97.5 F L 62 15 143/61 98 12/22/16 15:41 97.8 F 62 14 144/84 98 12/22/16 11:51 98.6 F 57 18 112/59 98 Intake and Output 12/22/16 12/23/16 12/23/16 23:59 07:59 15:59 Intake Total 290 / 290 Output Total 900 / 900 0 / 0 Balance -610 / -610 0 / 0 Intake: Oral 290 / 290 Output: Urine 900 / 900 Wound Drainage 0 / 0 Left Foot 0 / 0 Other: Meal Dinner Percent of Meal Consumed 100% Weight 98.883 kg Blood Glucose* 258 Patient Weight 12/23/16 23:59 Weight 98.883 kg - General Appearance General appearance: Present: well-developed, well-nourished, appears started age EENT: Present: mucous membranes moist Neck: Present: no JVD Respiratory: Present: clear Cardiology: Present: edema, regular rate, regular rhythm Additional Comments: mild pitting LE Gastrointestinal: Present: normoactive bowel sounds, no tenderness Integumentary: Present: warm and dry Neurologic: Present: alert and oriented x3 Psychiatric: Present: mood/affect appropriate, cooperative - Lab 12/23/16 04:00 12/23/16 04:00 Most recent lab results Calcium 8.5 mg/dL (8.6-10.8) L 12/23/16 04:00 Phosphorus 3.9 mg/dL (2.3-4.7) 12/23/16 04:00 Magnesium 2.2 mg/dL (1.6-2.6) 12/23/16 04:00 - VTE Documentation of Mechanical Device: Intermittent pneumatic compression device Consult Discharge Plan - Plan Referrals: Eloy Calles DO [Primary Care Provider] -
[2016-12-23] MEDS: Insulin LISPRO 300 UNITS/3 ML VIAL SQ SCH ×4 (08:49→23:10)
[2016-12-23] MEDS: *HR* Heparin 5,000 UNIT/ML VIAL SQ SCH ×2 (08:49→17:18)
[2016-12-23] MEDS: Aspirin 81 MG TAB.CHEW PO SCH (08:49)
[2016-12-23] MEDS: Metoprolol XL (24 HR) Succ 50 MG TAB.ER.24H PO SCH (08:50)
[2016-12-23] MEDS: Gabapentin 100 MG CAPSULE PO SCH ×3 (08:50→23:09)
[2016-12-23] MEDS: Furosemide 40 MG TABLET PO SCH ×2 (08:50→23:09)
[2016-12-23] MEDS: Pantoprazole 40 MG VIAL IVP SCH (08:50)
[2016-12-23] MEDS: Insulin DETEMIR 100 UNIT/ML X5UNITS SQ SCH ×2 (10:27→23:09)
--- NOTE | 2016-12-23 11:42 | Podiatry Progress Note ---
Date of Encounter: 12/23/16 Time of Encounter: 11:38 - Assessment and Plan (1) Diabetic foot ulcer associated with type 2 diabetes mellitus Current Visit: No Status: Acute Assessment: Postoperative day #1, no nausea, vomiting fever chills. No complaints of pain. Wound VAC functioning properly wound healing uneventfully cultures pending. Plan: Continue broad spectrum antibiotics until such time cultures are returned and confirmed and we can refine her antibiotic therapy accordingly , with an eye toward his overall kidney function. Will change wound VAC, tomorrow 12/22/2016 and evaluate wound at that time. Patient will likely need long-term intravenous antibiotics 3-6 weeks depending upon his response. He will also likely need use of a wound VAC or 3-6 weeks as well. Dictation for 12/22/2016 Assessment: #1 postoperative day #2 wound VAC functioning properly. Minimal edema. No nausea vomiting fever chills chest pain or shortness of breath #2 initial cultures revealed Proteus with gram-positive cocci identification pending. Proteus mirabilis is pansensitive. Plan: #1 change wound VAC out today #2 continue present broad-spectrum antibiotic therapy until identification of gram-positive cocci. #3 patient will likely need post discharge intravenous antibiotics and wound care and possibly wound VAC. Dictation for 12/23/2016 Assessment: #1 postoperative day #3. No complications healing uneventfully. We have 5 separate bacteria that are identified except for gram-positive cocci identification. Hopefully this will be MSSA and we can rifle antibiotics to single agent, with minimum nephrotoxicity. #2 patient will need long-term IV antibiotics at home with wound VAC changes Saturday #3 anticipated identification of gram-positive cocci with the next 24 hours Qualifiers: Diabetic foot ulcer location: other Laterality: left Non-pressure ulcer stage: with necrosis of muscle Qualified Code(s): E11.621 - Type 2 diabetes mellitus with foot ulcer; L97.523 - Non-pressure chronic ulcer of other part of left foot with necrosis of muscle Subjective Principal diagnosis: Postoperative day 3 Interval history: No complaints of chest pain or shortness of breath fever chills nausea or vomiting. Wound VAC functioning. Objective - Vital Signs Vital Signs: Vital Signs Temp Pulse Resp BP Pulse Ox 12/23/16 10:30 98.4 F 63 18 121/67 98 09/17/17 08:40 98 12/23/16 08:39 98.7 F 60 17 143/77 98 12/23/16 04:06 26 99 12/23/16 01:52 26 98 12/23/16 00:48 98.1 F 56 17 127/64 99 12/22/16 20:37 97.5 F L 62 15 143/61 98 12/22/16 15:41 97.8 F 62 14 144/84 98 12/22/16 11:51 98.6 F 57 18 112/59 98 Intake and Output 12/22/16 12/23/16 12/23/16 23:59 07:59 15:59 Intake Total 590 / 590 480 / 480 Output Total 900 / 900 0 / 0 Balance -310 / -310 0 / 0 480 / 480 Intake: IV Fluids 300 / 300 Zyvox Premix 600mg/300mL 300 / 300 600 mg In 300 ml @ 150 mls/hr IVPB Q12H [facility] Rx#: [id number] Oral 290 / 290 480 / 480 Output: Urine 900 / 900 Wound Drainage 0 / 0 Left Foot 0 / 0 Other: Meal Dinner Breakfast Percent of Meal Consumed 100% 100% Weight 98.883 kg Blood Glucose* 258 123 Patient Weight 12/23/16 23:59 Weight 98.883 kg - Exam Exam: Decreased edema and erythema of the left foot since surgery. Wound VAC intact. Small superficial abrasion toe #4 healing uneventfully - Lab Result Diagrams: 12/23/16 04:00 12/23/16 04:00 Labs: Abnormal lab results RBC 3.81 M/mcL (4.19-5.50) L 12/23/16 04:00 Hgb 10.4 g/dL (12.9-16.9) L 12/23/16 04:00 Hct 31.0 % (37.5-50.1) L 12/23/16 04:00 MCV 81.4 fL (83.0-100.0) L 12/23/16 04:00 MCH 27.3 pg (28.0-33.3) L 12/23/16 04:00 ESR >= 130 mm/hr (0-10) H 12/22/16 05:20 PT 14.3 Seconds (9.4-12.1) H 12/21/16 04:32 Sodium 131 mEq/L (136-145) L 12/23/16 04:00 BUN 39 mg/dL (8-26) H 12/23/16 04:00 Creatinine 1.98 mg/dL (0.72-1.25) H 12/23/16 04:00 Est GFR ( Amer) 42 (> 60) L 12/23/16 04:00 Est GFR (Non-Af Amer) 34 (> 60) L 12/23/16 04:00 Glucose 219 mg/dL (70-99) H 12/23/16 04:00 POC Glucose 258 (58-89) H 12/22/16 20:32 Calcium 8.5 mg/dL (8.6-10.8) L 12/23/16 04:00 HDL Cholesterol 26 mg/dL (40-59) L 12/21/16 04:32 Microbiology, Last 48 Hours 12/20/16 16:48 Surgical Biopsy Culture - Preliminary Left Foot Proteus mirabilis Enterobacter cloacae complex Aeromonas hydrophila/caviae Corynebacterium striatum Gram Positive Cocci 12/20/16 16:48 Wound Culture - Preliminary Left Foot - VTE Documentation of Mechanical Device: Intermittent pneumatic compression device Consult Discharge Plan - Plan Referrals: Eloy Calles DO [Primary Care Provider] -
--- NOTE | 2016-12-23 13:39 | Internal Med Progress Note ---
Date of Encounter: 12/23/16 Time of Encounter: 13:37 - Assessment and plan (1) Diabetic foot ulcer Current Visit: Yes Status: Chronic Assessment and plan: POD #3: resection of distal aspect of metatarsal #2 of left foot continue IV abx f/u wound cultures consider ID consult for residential abx management pain control wound care as per podiatry Qualifiers: Diabetic foot ulcer location: midfoot Diabetes mellitus type: type 2 Laterality: left Non-pressure ulcer stage: with necrosis of muscle Qualified Code(s): E11.621 - Type 2 diabetes mellitus with foot ulcer; L97.423 - Non-pressure chronic ulcer of left heel and midfoot with necrosis of muscle (2) Diabetes mellitus Current Visit: No Status: Chronic Assessment and plan: Noted to be hyperglycemic today increased to high dose sliding scale insulin algorithm monitor FS and BG ADA diet will adjust levemir dosage as per the 24 hour required insulin coverage Qualifiers: Diabetes mellitus type: type 2 Diabetes mellitus complication status: with skin complications Diabetes mellitus complication detail: with foot ulcer Diabetes mellitus medical terminologist insulin use: with residential use Qualified Code(s) : E11.621 - Type 2 diabetes mellitus with foot ulcer (3) Coronary artery disease Current Visit: Yes Status: Chronic Assessment and plan: continue home medications Qualifiers: Coronary Disease-Associated Artery/Lesion type: [place] artery [place] vs. transplanted heart: [place] heart Associated angina: with stable angina Qualified Code(s): I25.118 - Atherosclerotic heart disease of [place] coronary artery with other forms of angina pectoris (4) Chronic kidney disease, stage III (moderate) Current Visit: Yes Status: Chronic Assessment and plan: renal function worsened from previous day nephrology on board continue to hold Lisinopril (5) HTN (hypertension) Current Visit: Yes Status: Chronic Assessment and plan: BP within acceptable range despite holding lisinopril will continue to monitor Qualifiers: Hypertension type: essential hypertension Qualified Code(s): I10 - Essential (primary) hypertension (6) Obesity (BMI 30.0-34.9) Current Visit: No Status: Chronic (7) DVT prophylaxis Current Visit: Yes Status: Acute Assessment and plan: Heparin SQ - Subjective Interval history: Pateint is 61y/o male admitted for left foot surgery. Medicine was consulted for management of patient's co-morbidities. Patient seen and examined at bedside. Resting comfortably in chair and reports of feeling well at this time. POD #3: resection of distal aspect of metatarsal # 2 of left foot. No overnight issues reported. Patient may need medical terminologist abx therapy and states he would not like to go to ECF after discharge even if he needs IV abx. - Constitutional Vitals: Temp Pulse Resp BP Pulse Ox 98.4 F 63 18 121/67 98 12/23/16 10:30 12/23/16 10:30 12/23/16 10:30 12/23/16 10:30 12/23/16 10:30 General appearance: Present: cooperative, A&O X 3, pleasant, no acute distress, obese - Head Head exam: Present: atraumatic, normocephalic - Eye Eye exam: Present: conjuntiva pink, sclera anicteric - Respiratory Respiratory exam: Present: CTAB. Absent: accessory muscle use, rales, rhonchi, wheezes - Cardiovascular Cardiovascular exam: Present: RRR, +S1, +S2. Absent: diastolic murmur, gallop, rubs, systolic murmur - GI/Abdominal GI/Abdominal exam: Present: normal bowel sounds, soft, no peritoneal signs. Absent: distended, tenderness - Extremities Exam Extremities exam: Present: pedal edema, warm, radial pulses palpable and symmetrical. Absent: calf tenderness (left foot wound vac intact ) - Neurological Exam Neurological exam: Present: alert, oriented X3 - Psychiatric Psychiatric exam: Present: normal affect, normal mood Internal Medicine: Result - Labs CBC & Chem 7: 12/23/16 04:00 12/23/16 04:00 Labs: Short CBC 12/23/16 Range/Units 04:00 WBC 6.6 (4.3-11.1) K/mcL Hgb 10.4 L (12.9-16.9) g/dL Hct 31.0 L (37.5-50.1) % Plt Count 230 (140-400) K/mcL Neutrophils # 4.8 (1.6-8.9) K/mcL BMP 12/23/16 04:00 Sodium 131 L Potassium 4.4 Chloride 102 Carbon Dioxide 22 BUN 39 H Creatinine 1.98 H Glucose 219 H Calcium 8.5 L - ABG Interpretation ABG results: PT/INR, D-dimer PT 14.3 Seconds (9.4-12.1) H 12/21/16 04:32 - VTE Documentation of Mechanical Device: Intermittent pneumatic compression device Consult Discharge Plan - Plan Referrals: Eloy Calles DO [Primary Care Provider] -
[2016-12-23] MEDS: Linezolid 600 MG TABLET PO SCH (23:09)
[2016-12-24] MEDS: *HR* Heparin 5,000 UNIT/ML VIAL SQ SCH ×2 (04:56→17:32)
[2016-12-24 06:07] LABS: Basophils % 0.4 %; Eosinophils # 0.2 K/mcL (0.0-0.6); Eosinophils % 2.8 %; Hematocrit 32.7 % (37.5-50.1); Hemoglobin 10.7 g/dL (12.9-16.9); Immature Granulocytes % 0.3 % (0-4); Lymphocytes # 0.9 K/mcL (0.6-4.6); Lymphocytes % 13.3 %; Mean Corpuscular HGB Conc 32.7 g/dL (31.6-35.5); Mean Corpuscular Hemoglobin 26.6 pg (28.0-33.3); Mean Corpuscular Volume 81.3 fL (83.0-100.0); Mean Platelet Volume 9.8 fL (9.4-12.4); Monocytes # 0.7 K/mcL (0.0-1.3); Monocytes % 10.3 %; Platelet Count 258 K/mcL (140-400); Red Blood Count 4.02 M/mcL (4.19-5.50); Red Cell Distribution Width 13.4 % (11.5-14.5); Segmented Neutrophils % 72.9 %
[2016-12-24 06:16] LABS: Calcium 8.7 mg/dL (8.6-10.8); Magnesium 2.1 mg/dL (1.6-2.6); Phosphorous 3.7 mg/dL (2.3-4.7); Potassium 4.7 mEq/L (3.5-4.5)
[2016-12-24] MEDS: Insulin LISPRO 300 UNITS/3 ML VIAL SQ SCH ×3 (08:18→17:32)
--- NOTE | 2016-12-24 09:04 | Nephrology Progress Note ---
Date of Encounter: 12/24/16 Time of Encounter: 08:50 - Assessment and Plan (1) Chronic kidney disease, stage III (moderate) Current Visit: Yes Status: Chronic S/P I&D and wound vac placement left foot. Currently on Clindamycin coverage. ERIN/CKD 3, baseline creatinine 1.3-1.6 in setting of diabetes. Today creat 1.95 , documented urine output 2050 cc. Will monitor. Avoid nephrotoxins. Subjective Principal diagnosis: Postoperative day 3 Interval history: S/P I&D left foot. States pain controlled. No new complaints. Objective - Vital Signs Vital signs: Vital Signs Temp Pulse Resp BP Pulse Ox 12/24/16 04:07 98.0 F 71 18 141/73 96 12/24/16 00:29 98.4 F 66 18 150/70 96 12/23/16 20:09 98.2 F 61 18 154/70 98 12/23/16 15:56 98.1 F 61 16 113/64 98 12/23/16 10:30 98.4 F 63 18 121/67 98 Intake and Output 12/23/16 12/24/16 12/24/16 23:59 07:59 15:59 Intake Total 200 / 200 200 / 200 240 / 240 Balance 200 / 200 200 / 200 240 / 240 Intake: Oral 200 / 200 200 / 200 240 / 240 Other: Meal Breakfast Percent of Meal Consumed 95% # Voids 1 Weight 99 kg Blood Glucose* 226 108 Patient Weight 12/24/16 23:59 Weight 99 kg - General Appearance General appearance: Present: well-developed, well-nourished, appears started age EENT: Present: mucous membranes moist Neck: Present: no JVD Respiratory: Present: clear Cardiology: Present: edema, regular rate, regular rhythm Additional Comments: mild Gastrointestinal: Present: normoactive bowel sounds, no tenderness Integumentary: Present: warm and dry Neurologic: Present: alert and oriented x3 Psychiatric: Present: mood/affect appropriate, cooperative - Lab 12/24/16 05:52 12/24/16 05:52 Most recent lab results Calcium 8.7 mg/dL (8.6-10.8) 12/24/16 05:52 Phosphorus 3.7 mg/dL (2.3-4.7) 12/24/16 05:52 Magnesium 2.1 mg/dL (1.6-2.6) 12/24/16 05:52 - VTE Documentation of Mechanical Device: Intermittent pneumatic compression device Consult Discharge Plan - Plan Referrals: Eloy Calles DO [Primary Care Provider] -
[2016-12-24] MEDS: Gabapentin 100 MG CAPSULE PO SCH ×2 (09:47→17:32)
[2016-12-24] MEDS: Linezolid 600 MG TABLET PO SCH (09:47)
[2016-12-24] MEDS: Aspirin 81 MG TAB.CHEW PO SCH (09:48)
[2016-12-24] MEDS: Metoprolol XL (24 HR) Succ 50 MG TAB.ER.24H PO SCH (09:48)
[2016-12-24] MEDS: Insulin DETEMIR 100 UNIT/ML X5UNITS SQ SCH (09:48)
[2016-12-24] MEDS: SPIRIVA RESPIMAT IH SCH (09:48)
[2016-12-24] MEDS: Furosemide 40 MG TABLET PO SCH (09:49)
--- NOTE | 2016-12-24 15:14 | Podiatry Progress Note ---
Date of Encounter: 12/24/16 Time of Encounter: 12:30 - Assessment and Plan (1) Diabetic foot ulcer Current Visit: Yes Status: Chronic Assessment: Postoperative day #4. Wound vac changed at bedside, no complications, healing uneventfully. 25 mls of brown drainage observed to canister. Small black simplace wound vac sponge applied, connected to intermittent suction, Rise 2 minutes, Fall 10 minutes. WBC: 6.3, a febrile Wound culture: Proteus mirabilis, Enterobacter Cloacae, Aeromonas Hydrophila/ Caviae, Corynebacterium Striatum, Enterococcus Avium. Plan: Patient will need long-term IV antibiotics at home with wound VAC changes Saturday. Wound vac changed today. Infectious disease consulted for antibiotic therapy. Will need a 1 week follow up in wound care with Dr. Cruz. Qualifiers: Qualified Code(s): E11.621 - Type 2 diabetes mellitus with foot ulcer; L97.423 - Non-pressure chronic ulcer of left heel and midfoot with necrosis of muscle (2) Cellulitis and abscess of foot Current Visit: No Status: Acute (3) Diabetes Current Visit: Yes Status: Chronic Qualifiers: Qualified Code(s): E10.621 - Type 1 diabetes mellitus with foot ulcer; L97.509 - Non-pressure chronic ulcer of other part of unspecified foot with unspecified severity Subjective Principal diagnosis: Postoperative day 3 Interval history: Patient is s/p Resection of distal aspect metatarsal #2, left foot and debridement of ulceration down to deep fascia and placement of wound VAC left foot by Dr. Cruz on 12/20/16. Patient is sitting up in chair with wound vac intact to left foot, 25 mls of brown drainage observed to canister. No c/o pain , no fever or chills. Objective - Vital Signs Vital Signs: Vital Signs Temp Pulse Resp BP Pulse Ox 12/24/16 11:09 98.7 F 59 18 129/76 97 12/24/16 09:07 98.7 F 74 15 117/57 98 12/24/16 04:07 98.0 F 71 18 141/73 96 12/24/16 00:29 98.4 F 66 18 150/70 96 12/23/16 20:09 98.2 F 61 18 154/70 98 12/23/16 15:56 98.1 F 61 16 113/64 98 Intake and Output 12/23/16 12/24/16 12/24/16 23:59 07:59 15:59 Intake Total 200 / 200 200 / 200 360 / 360 Balance 200 / 200 200 / 200 360 / 360 Intake: Oral 200 / 200 200 / 200 360 / 360 Other: Meal Lunch Percent of Meal Consumed 100% # Voids 1 Weight 99 kg Blood Glucose* 226 250 Patient Weight 12/24/16 23:59 Weight 99 kg - Exam Exam: General appearance: alert awake oriented X 3. Calm and pleasant, no acute distress.. Vascular: Non palpable pedal pulse secondary to swelling, No evidence of cyanosis, pallor or rubor, Edema graded at 2+/4, Skin Temperature warm, No calf pain with manual compression. capillary refill time is immediate to digits. Postop Exam: S/P Sutures intact to incision line, no signs of dehiscence. Full-thickness ulceration to sub #2 metatarsal head measuring 1.7 cm in length by 1cm in width by 1 cm in depth, base of wound is red, surrounding edges are connected, no probe to bone, no ligament or tendon, no periwound erythema, no streaking, no ascending cellulitis. - Lab Result Diagrams: 12/24/16 05:52 12/24/16 05:52 Labs: Abnormal lab results RBC 4.02 M/mcL (4.19-5.50) L 12/24/16 05:52 Hgb 10.7 g/dL (12.9-16.9) L 12/24/16 05:52 Hct 32.7 % (37.5-50.1) L 12/24/16 05:52 MCV 81.3 fL (83.0-100.0) L 12/24/16 05:52 MCH 26.6 pg (28.0-33.3) L 12/24/16 05:52 ESR >= 130 mm/hr (0-10) H 12/22/16 05:20 PT 14.3 Seconds (9.4-12.1) H 12/21/16 04:32 Sodium 135 mEq/L (136-145) L 12/24/16 05:52 Potassium 4.7 mEq/L (3.5-4.5) H 12/24/16 05:52 BUN 42 mg/dL (8-26) H 12/24/16 05:52 Creatinine 1.95 mg/dL (0.72-1.25) H 12/24/16 05:52 Est GFR ( Amer) 42 (> 60) L 12/24/16 05:52 Est GFR (Non-Af Amer) 35 (> 60) L 12/24/16 05:52 Glucose 153 mg/dL (70-99) H 12/24/16 05:52 POC Glucose 226 (58-89) H 12/23/16 20:50 HDL Cholesterol 26 mg/dL (40-59) L 12/21/16 04:32 Microbiology, Last 48 Hours 12/20/16 16:48 Wound Culture - Final Left Foot Proteus mirabilis Enterobacter cloacae complex Aeromonas hydrophila/caviae 12/20/16 16:48 Surgical Biopsy Culture - Preliminary Left Foot Proteus mirabilis Enterobacter cloacae complex Aeromonas hydrophila/caviae Corynebacterium striatum Enterococcus avium - VTE Documentation of Mechanical Device: Intermittent pneumatic compression device Consult Discharge Plan - Plan Referrals: Eloy Calles DO [Primary Care Provider] -
--- NOTE | 2016-12-24 15:31 | Infectious Disease Consult ---
Date of Encounter: 12/24/16 Time of Encounter: 15:31 Assessment and Plan (1) Left foot infection Status: Acute Assessment and plan: Location: Left foot. Causative organism: P. mirabilis, Enterobacter cloacae, Aeromonas hydrophilia, and Corynebacterium striatum. Secondary to non-healing foot ulcer. Status post resection of the distal aspect of metatarsal #2 left foot and debridement of ulceration to deep fascia with wound VAC placement 12/20/[address] Cruz. Operative note reviewed. Will discuss with Dr. Cruz. ESR >130. CRP not checked. Discontinue Zyvox. Start Vancomycin IV. Pharmacy to dose. Goal trough ~15. Start Levaquin 750mg IV daily. Duration of treatment depends on the clinical picture. Monitor renal function and for drug toxicity and dose-adjust antibiotics. Will likely need a few weeks of IV Vancomycin, but we can probably switch the Levaquin to PO when ready for discharge. (2) Toe ulcer due to DM Status: Acute Assessment and plan: Location: Left foot 4th toe. Status post debridement 12/20/[address] Cruz. Continue wound care per Podiatry's recommendations. Qualifiers: Diabetes mellitus type: type 2 Laterality: left Non-pressure ulcer stage : limited to breakdown of skin Qualified Code(s): E11.621 - Type 2 diabetes mellitus with foot ulcer; L97.521 - Non-pressure chronic ulcer of other part of left foot limited to breakdown of skin (3) Diabetic foot ulcer associated with type 2 diabetes mellitus Status: Acute Assessment and plan: Uncontrolled. HgbA1C 9% in November. Recommend aggressive glucose monitoring and control to promote wound healing and prevent re-infection. Management per the hospitalist team. Qualifiers: Diabetic foot ulcer location: other Laterality: left Non-pressure ulcer stage: with necrosis of muscle Qualified Code(s): E11.621 - Type 2 diabetes mellitus with foot ulcer; L97.523 - Non-pressure chronic ulcer of other part of left foot with necrosis of muscle (4) Obesity (BMI 30.0-34.9) Status: Acute Infectious Disease HPI - Data of Consult Patient: known to practice within the last 3 years Consult date: 12/24/16 Requesting Physician: Ang Cruz, Primary Care Provider: Eloy Calles - Consult Narrative Reason for consult: Left foot infection History of present illness: Mr. Bearden is a 61 year old male with a past medical history of COPD, CAD, diabetes, hyperlipidemia, chronic kidney disease stage III. The patient was managed the hospital December 20 for left foot infection. We are consulted December 24 for antibiotic recommendations regarding left foot infection. The patient's a 61-year-old male, well-nourished infectious disease service as we were consulted on his case back in 2015. That time, the patient had right foot necrotizing fasciitis and was treated with 6 weeks of IV antibiotics followed by 6 weeks of oral antibiotics. The patient states that he has had a chronic wound to the distal aspect of metatarsal #2 on the left foot. He's been following with Dr. Solaresle was scheduled for an osteotomy on the day of admission. Apparently, there was noted to be wound regression of a left foot plantar wound and a new wound to the distal aspect of the fourth toe. He underwent resection of the distal aspect of metatarsal #2 of the left foot and debridement of ulceration to deep fascia with wound VAC placement. Upon arrival, patient was afebrile. He did spike a low -grade fever 100.9 postoperatively. He has been afebrile since then. His revealed a normal white blood cell count. He does have chronic kidney disease and nephrology has been consulted and is following. His renal function has remained at baseline. On admission, the patient started on IV clindamycin and IV Zyvox. Clindamycin was discontinued 2 days ago, but he continues to be on Zyvox. Intraoperative cultures were obtained And grew Proteus mirabilis, Enterobacter cloacae, Aeromonas hydrophila, corynebacterium striatum, and enterococcus avium. We've been asked to evaluate and make further recommendations. During my exam today, the patient states that overall he feels well. He denies any fevers or chills or rigors. He denies any headache or neck pain. He denies any congestion, earache, or sore throat. He denies any chest pain, shortness of breath, or cough. He denies any nausea, vomiting, diarrhea, or constipation. He denies abdominal pain or appetite changes. He denies any urinary complaints. He denies any pain at surgical site and states the dressing was just changed by the podiatry team. He denies any odor or drainage prior to surgery. He states that the wound was caused by an overgrowth of bone and has been there for some time now. CC: Ang Cruz, Past Med Surg Social Fam HX - Past Medical History Attestation: Yes The following information was validated with the patient. Source: patient, old records reviewed, nursing notes reviewed Medical history: cancer, COPD, coronary artery disease, diabetes, hyperlipidemia , hypertension, renal disease, other Psychiatric history: no psych history - Past Surgical History Surgical History: cancer surgery, coronary bypass (CABG), orthopedic, other, other (Podiatric surgery to left foot) - Social History Smoking Status: Never smoker Smokeless Tobacco Status: No Alcohol use: occasionally Drug use: none Occupational status: unemployed Current living situation: Home - Independent Activity Level: Independent ambulation Recent Out of Country Travel Within the Last 8 Weeks: No Exposure or Possible Exposure to Illness During Travel: No - Family History Brother Race: Family Member Ethnicity: Non- Living Status: Still Living Hx Family Endocrine Disorder: Yes (DM) Father Adopted: No Race: Family Member Ethnicity: Non- Living Status: Age at : 79 Cause of : Stroke Hx Family Cardiac Disorders: Yes (Stroke, HTN) Hx Family Respiratory Disorders: No Hx Family Cancer: No Hx Family GI Disorders: Yes (Gastric bypass) Hx Family Endocrine Disorder: Yes (DM) Hx Family Neuromuscular Disorders: Yes Hx Family Neurologic Disorders: Yes (CVA) Hx Family HEENT Disorders: No Hx Family Autoimmune Disorders: No Mother Race: Family Member Ethnicity: Non- Living Status: Age at : 82 Cause of : Stroke Hx Family Cardiac Disorders: Yes (Stroke) Hx Family Respiratory Disorders: No Hx Family Cancer: Yes (thyroid) Hx Family GI Disorders: No Hx Family Endocrine Disorder: No Hx Family Neurologic Disorders: Yes (CVA) Hx Family Medical Disorders: Yes (Obesity) Infectious Disease-CN:Meds Simvastatin [Zocor] 20 mg PO HS 11/08/14 [History] Gabapentin [Neurontin] 100 mg PO TID 01/26/16 [History] Insulin LISPRO [HumaLOG] 0 units SQ TIDAC vial 02/28/16 [Rx] Aspirin 81 mg PO DAILY tab.chew 08/24/16 [Rx] Albuterol Sulfate [Ventolin Hfa] 2 puff IH Q4-6H PRN 12/20/16 [History] Enalapril Maleate [Vasotec] 2.5 mg PO DAILY 12/20/16 [History] Furosemide [Lasix] 40 mg PO BID 12/20/16 [History] Insulin Glargine,Hum.rec.anlog [Basaglar Kwikpen U-100] 24 unit SQ BID 12/20/16 [History] Metoprolol Succinate 100 mg PO DAILY 12/20/16 [History] Potassium Chloride 20 meq PO DAILY 12/20/16 [History] Tiotropium [place] [Spiriva Respimat] 1 puff IH DAILY 12/20/16 [History] 3 Allergy/AdvReac Type Severity Reaction Status Date / Time No Known Allergies Allergy Verified 12/20/16 12:11 All systems: reviewed and no additional remarkable complaints except as stated Exam - Constitutional Vitals: Temp Pulse Resp BP Pulse Ox 98.7 F 59 18 129/76 97 12/24/16 11:09 12/24/16 11:09 12/24/16 11:09 12/24/16 11:09 12/24/16 11:09 General appearance: cooperative, no acute distress, obese - Head Head exam: Present: atraumatic, normal inspection, normocephalic - Eye Eye exam: Present: EOMI, normal appearance, PERRL Pupils: Present: normal accommodation - ENT ENT exam: Present: mucous membranes moist - Neck Neck exam: Present: normal inspection - Respiratory Respiratory exam: Present: CTAB. Absent: rales, respiratory distress, rhonchi, wheezes - Cardiovascular Cardiovascular exam: Present: RRR, +S1, +S2 - GI/Abdominal GI/Abdominal exam: Present: distended (obese), normal bowel sounds, soft. Absent: tenderness - Extremities Exam Extremities exam: Present: pedal edema (1+ BLE). Absent: joint swelling, tenderness Additional comments: Left foot wound VAC dressing intact. Sponge well-compressed. No drainage noted. No tenderness noted on palpation. - Neurological Exam Neurological exam: Present: alert, oriented X3, no focal deficits - Psychiatric Psychiatric exam: Present: normal affect, normal mood - Skin Skin exam: Present: dry, intact, normal color, warm Infectious Disease CN: Results - Labs CBC & Chem 7: 12/25/16 07:34 12/25/16 07:34 Cultures: Cultures 12/20/16 16:48 Wound Culture - Final Left Foot Proteus mirabilis Enterobacter cloacae complex Aeromonas hydrophila/caviae 12/20/16 16:48 Surgical Biopsy Culture - Preliminary Left Foot Proteus mirabilis Enterobacter cloacae complex Aeromonas hydrophila/caviae Corynebacterium striatum Enterococcus avium - VTE Documentation of Mechanical Device: Intermittent pneumatic compression device Consult Discharge Plan - Plan Referrals: Eloy Calles DO [Primary Care Provider] -
--- NOTE | 2016-12-24 16:16 | Internal Med Progress Note ---
Date of Encounter: 12/24/16 Time of Encounter: 16:13 - Assessment and plan (1) Diabetic foot ulcer Current Visit: Yes Status: Chronic Assessment and plan: POD #4: resection of distal aspect of metatarsal #2 of left foot continue IV abx f/u wound cultures ID on board pain control wound care as per podiatry Qualifiers: Diabetic foot ulcer location: midfoot Diabetes mellitus type: type 2 Laterality: left Non-pressure ulcer stage: with necrosis of muscle Qualified Code(s): E11.621 - Type 2 diabetes mellitus with foot ulcer; L97.423 - Non-pressure chronic ulcer of left heel and midfoot with necrosis of muscle (2) Diabetes mellitus Current Visit: No Status: Chronic Assessment and plan: BG better controlled continue high dose sliding scale insulin algorithm monitor FS and BG ADA diet Qualifiers: Diabetes mellitus type: type 2 Diabetes mellitus complication status: with skin complications Diabetes mellitus complication detail: with foot ulcer 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 transplanted heart: [place] heart Associated angina: with stable angina Qualified Code(s): I25.118 - Atherosclerotic heart disease of [place] coronary artery with other forms of angina pectoris (4) Chronic kidney disease, stage III (moderate) Current Visit: Yes Status: Chronic Assessment and plan: renal function unchanged from previous day nephrology on board continue to hold Lisinopril (5) HTN (hypertension) Current Visit: Yes Status: Chronic Assessment and plan: BP within acceptable range despite holding lisinopril will continue to monitor Qualifiers: Hypertension type: essential hypertension Qualified Code(s): I10 - Essential (primary) hypertension (6) Obesity (BMI 30.0-34.9) Current Visit: No Status: Chronic (7) DVT prophylaxis Current Visit: Yes Status: Acute Assessment and plan: Heparin SQ - Subjective Interval history: Pateint is 61y/o male admitted for left foot surgery. Medicine was consulted for management of patient's co-morbidities. Patient seen and examined at bedside. Resting comfortably in chair and reports of feeling well at this time. POD #4: resection of distal aspect of metatarsal # 2 of left foot. No overnight issues reported. Patient may need retirement abx therapy and states he would not like to go to ECF after discharge even if he needs IV abx. - Constitutional Vitals: Temp Pulse Resp BP Pulse Ox 98.7 F 59 18 129/76 97 12/24/16 11:09 12/24/16 11:09 12/24/16 11:09 12/24/16 11:09 12/24/16 11:09 General appearance: Present: cooperative, A&O X 3, pleasant, no acute distress, obese - Head Head exam: Present: atraumatic, normocephalic - Eye Eye exam: Present: conjuntiva pink, sclera anicteric - Respiratory Respiratory exam: Present: CTAB. Absent: respiratory distress, wheezes - Cardiovascular Cardiovascular exam: Present: RRR, +S1, +S2. Absent: diastolic murmur, gallop, rubs, systolic murmur - GI/Abdominal GI/Abdominal exam: Present: normal bowel sounds, soft, no peritoneal signs. Absent: distended, tenderness - Extremities Exam Extremities exam: Present: warm, radial pulses palpable and symmetrical (left foot wound vac intact). Absent: calf tenderness - Neurological Exam Neurological exam: Present: alert, oriented X3 - Psychiatric Psychiatric exam: Present: normal affect, normal mood Internal Medicine: Result - Labs CBC & Chem 7: 12/24/16 05:52 12/24/16 05:52 Labs: Short CBC 12/24/16 Range/Units 05:52 WBC 6.8 (4.3-11.1) K/mcL Hgb 10.7 L (12.9-16.9) g/dL Hct 32.7 L (37.5-50.1) % Plt Count 258 (140-400) K/mcL Neutrophils # 5.0 (1.6-8.9) K/mcL BMP 12/24/16 05:52 Sodium 135 L Potassium 4.7 H Chloride 108 Carbon Dioxide 20 BUN 42 H Creatinine 1.95 H Glucose 153 H Calcium 8.7 - ABG Interpretation ABG results: PT/INR, D-dimer PT 14.3 Seconds (9.4-12.1) H 12/21/16 04:32 - VTE Documentation of Mechanical Device: Intermittent pneumatic compression device Consult Discharge Plan - Plan Referrals: Eloy Calles DO [Primary Care Provider] -
[2016-12-24] MEDS ORDERED: Vancomycin 1,500 MG in D5% in Water 250 ML IVPB SCH (17:00)
[2016-12-24] MEDS ORDERED: Vancomycin 1,250 MG in D5% in Water 250 ML IVPB SCH (17:00)
[2016-12-24] MEDS: Levofloxacin 750 MG/150 ML 750 MG/150 ML BAG IVPB SCH (17:32)
--- NOTE | 2016-12-24 21:01 | Electrocardiograph Report ---
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
[2016-12-25] MEDS: Furosemide 40 MG TABLET PO SCH ×3 (00:30→17:39)
[2016-12-25] MEDS: Insulin LISPRO 300 UNITS/3 ML VIAL SQ SCH ×5 (00:30→21:19)
[2016-12-25] MEDS: Gabapentin 100 MG CAPSULE PO SCH ×4 (00:30→21:18)
[2016-12-25] MEDS: Insulin DETEMIR 100 UNIT/ML X5UNITS SQ SCH ×3 (00:30→21:20)
[2016-12-25] MEDS: *HR* Heparin 5,000 UNIT/ML VIAL SQ SCH ×2 (06:39→17:25)
[2016-12-25 08:05] LABS: Calcium 8.8 mg/dL (8.6-10.8); Phosphorous 3.8 mg/dL (2.3-4.7); Potassium 5.1 mEq/L (3.5-4.5)
[2016-12-25 08:10] LABS: Basophils % 0.5 %; Eosinophils # 0.1 K/mcL (0.0-0.6); Eosinophils % 1.8 %; Hematocrit 32.9 % (37.5-50.1); Hemoglobin 10.6 g/dL (12.9-16.9); Immature Granulocytes % 0.4 % (0-4); Lymphocytes # 0.8 K/mcL (0.6-4.6); Lymphocytes % 10.5 %; Mean Corpuscular HGB Conc 32.2 g/dL (31.6-35.5); Mean Corpuscular Hemoglobin 26.5 pg (28.0-33.3); Mean Corpuscular Volume 82.3 fL (83.0-100.0); Mean Platelet Volume 9.8 fL (9.4-12.4); Monocytes # 0.6 K/mcL (0.0-1.3); Monocytes % 8.7 %; Neutrophils # 5.7 K/mcL (1.6-8.9); Platelet Count 286 K/mcL (140-400); Red Cell Distribution Width 13.5 % (11.5-14.5); Segmented Neutrophils % 78.1 %
[2016-12-25] MEDS: Aspirin 81 MG TAB.CHEW PO SCH (09:51)
[2016-12-25] MEDS: Metoprolol XL (24 HR) Succ 50 MG TAB.ER.24H PO SCH (09:51)
[2016-12-25] MEDS: SPIRIVA RESPIMAT IH SCH (09:52)
--- NOTE | 2016-12-25 09:55 | Nephrology Progress Note ---
Date of Encounter: 12/25/16 Time of Encounter: 09:15 - Assessment and Plan (1) Chronic kidney disease, stage III (moderate) Current Visit: Yes Status: Chronic S/P I&D and wound vac placement left foot. I&D on board. Currently on Levaquin and Vanco coverage. ERIN/CKD 3, baseline creatinine 1.3-1.6 in setting of diabetes. Rnal fct slowly improving, creat 1.77, documented urine output 775 cc. Will monitor. Avoid nephrotoxins. Subjective Principal diagnosis: Postoperative day 3 Interval history: S/P I&D left foot. States pain controlled. No new complaints. Objective - Vital Signs Vital signs: Vital Signs Temp Pulse Resp BP Pulse Ox 12/25/16 07:03 98.5 F 65 18 123/57 98 12/25/16 05:02 97.9 F 63 15 147/81 98 12/24/16 20:50 98.4 F 58 15 136/78 99 12/24/16 16:32 98.7 F 62 15 135/78 97 12/24/16 11:09 98.7 F 59 18 129/76 97 Intake and Output 12/24/16 12/25/16 12/25/16 23:59 07:59 15:59 Intake Total 240 / 240 480 / 480 Output Total 500 / 500 750 / 750 Balance -260 / -260 -750 / -750 480 / 480 Intake: Oral 240 / 240 480 / 480 Output: Urine 500 / 500 750 / 750 Wound Drainage 0 / 0 Left Foot 0 / 0 Other: Meal Dinner Breakfast Percent of Meal Consumed 100% 100% Blood Glucose* 202 71 - General Appearance General appearance: Present: well-developed, well-nourished, appears started age EENT: Present: mucous membranes moist Neck: Present: no JVD Respiratory: Present: clear Cardiology: Present: edema, regular rate, regular rhythm Gastrointestinal: Present: normoactive bowel sounds, no tenderness Integumentary: Present: warm and dry Neurologic: Present: alert and oriented x3 Psychiatric: Present: mood/affect appropriate, cooperative - Lab 12/25/16 07:34 12/25/16 07:34 Most recent lab results Calcium 8.8 mg/dL (8.6-10.8) 12/25/16 07:34 Phosphorus 3.8 mg/dL (2.3-4.7) 12/25/16 07:34 Magnesium 2.0 mg/dL (1.6-2.6) 12/25/16 07:34 - VTE Documentation of Mechanical Device: Venous foot pump, device Consult Discharge Plan - Plan Referrals: Eloy Calles DO [Primary Care Provider] -
--- NOTE | 2016-12-25 14:42 | Infectious Disease Progress No ---
Date of Encounter: 12/25/16 Time of Encounter: 14:40 - Assessment and Plan (1) Left foot infection Current Visit: Yes Status: Acute Location: Left foot. Causative organism: P. mirabilis, Enterobacter cloacae, Aeromonas hydrophilia, and Corynebacterium striatum. Anaerobic culture is positive as well. Secondary to non-healing foot ulcer. Status post resection of the distal aspect of metatarsal #2 left foot and debridement of ulceration to deep fascia with wound VAC placement 12/20/[address] Cruz. Operative note reviewed. Will discuss with Dr. Cruz. ESR >130. CRP not checked. Continue Vancomycin IV. Pharmacy to dose. Goal trough ~15. Continue Levaquin 750mg IV daily. Start metronidazole 500mg PO TID. Duration of treatment depends on the clinical picture. I spoke with Dr. Cruz regarding intra-operative findings. No evidence of OM, but more likely extensive soft tissue infection. Monitor renal function and for drug toxicity and dose-adjust antibiotics. Will likely need a few weeks of IV Vancomycin, but we can probably switch the Levaquin to PO when ready for discharge. Wound care and activity restrictions per the podiatry team. client services specialist consulted for discharge planning. (2) Toe ulcer due to DM Current Visit: No Status: Acute Location: Left foot 4th toe. Status post debridement 12/20/[address] Cruz. Continue wound care per Podiatry's recommendations. Qualifiers: Diabetes mellitus type: type 2 Laterality: left Non-pressure ulcer stage : limited to breakdown of skin Qualified Code(s): E11.621 - Type 2 diabetes mellitus with foot ulcer; L97.521 - Non-pressure chronic ulcer of other part of left foot limited to breakdown of skin (3) Diabetic foot ulcer associated with type 2 diabetes mellitus Current Visit: No Status: Acute Uncontrolled. HgbA1C 9% in November. Recommend aggressive glucose monitoring and control to promote wound healing and prevent re-infection. Management per the hospitalist team. Qualifiers: Diabetic foot ulcer location: other Laterality: left Non-pressure ulcer stage: with necrosis of muscle Qualified Code(s): E11.621 - Type 2 diabetes mellitus with foot ulcer; L97.523 - Non-pressure chronic ulcer of other part of left foot with necrosis of muscle (4) Obesity (BMI 30.0-34.9) Current Visit: No Status: Acute - Subjective Interval history: Patient seen and examined. No acute events noted overnight. Patient resting quietly in the bedside chair. Denies complaints. Denies fevers or chills. Denies chest pain, shortness of breath, or cough. Denies nausea, vomiting, or diarrhea. Denies abdominal pain or urinary complaints. States his appetite is good. Denies pain at the surgical site. Denies oral thrush. Infect Dis PN-Objective Data - Labs CBC & Chem 7: 12/25/16 07:34 12/25/16 07:34 Labs: Laboratory Results - last 24 hr 12/24/16 12/24/16 12/24/16 08:06 11:11 20:58 WBC RBC Hgb Hct MCV MCH MCHC RDW Plt Count MPV Immature Gran % Seg Neutrophils % Lymphocytes % Monocytes % Eosinophils % Basophils % Neutrophils # Lymphocytes # Monocytes # Eosinophils # Basophils # Sodium Potassium Chloride Carbon Dioxide BUN Creatinine Est GFR ( Amer) Est GFR (Non-Af Amer) BUN/Creatinine Ratio Glucose POC Glucose 108 H 250 H 202 H Calculated Osmolality Calcium Phosphorus Magnesium 12/25/16 12/25/16 12/25/16 07:04 07:34 07:34 WBC 7.4 RBC 4.00 L Hgb 10.6 L Hct 32.9 L MCV 82.3 L MCH 26.5 L MCHC 32.2 RDW 13.5 Plt Count 286 MPV 9.8 Immature Gran % 0.4 Seg Neutrophils % 78.1 Lymphocytes % 10.5 Monocytes % 8.7 Eosinophils % 1.8 Basophils % 0.5 Neutrophils # 5.7 Lymphocytes # 0.8 Monocytes # 0.6 Eosinophils # 0.1 Basophils # 0.0 Sodium 137 Potassium 5.1 H Chloride 108 Carbon Dioxide 20 BUN 37 H Creatinine 1.77 H Est GFR ( Amer) 47 L Est GFR (Non-Af Amer) 39 L BUN/Creatinine Ratio 21 Glucose 97 POC Glucose 71 Calculated Osmolality 293 Calcium 8.8 Phosphorus 3.8 Magnesium 2.0 Cultures: Cultures 12/20/16 16:48 Surgical Biopsy Culture - Preliminary Left Foot Proteus mirabilis Enterobacter cloacae complex Aeromonas hydrophila/caviae Corynebacterium striatum Enterococcus avium 12/20/16 16:48 Wound Culture - Final Left Foot Proteus mirabilis Enterobacter cloacae complex Aeromonas hydrophila/caviae 12/20/16 16:48 Anaerobic Culture - Preliminary Left Foot Anaerobic Gram Negative [place] Anaerobic Gram Negative Gas[place]#2 Exam - Constitutional Vitals: Temp Pulse Resp BP Pulse Ox 98.5 F 60 18 134/77 97 12/25/16 11:29 12/25/16 11:29 12/25/16 11:29 12/25/16 11:29 12/25/16 11:29 General appearance: cooperative, no acute distress, obese - Head Head exam: Present: atraumatic, normal inspection, normocephalic - Eye Eye exam: Present: EOMI, normal appearance, PERRL Pupils: Present: normal accommodation - ENT ENT exam: Present: mucous membranes moist - Neck Neck exam: Present: normal inspection - Respiratory Respiratory exam: Present: CTAB. Absent: rales, respiratory distress, rhonchi, wheezes - Cardiovascular Cardiovascular exam: Present: RRR, +S1, +S2 - GI/Abdominal GI/Abdominal exam: Present: normal bowel sounds, soft. Absent: distended, tenderness - Extremities Exam Extremities exam: Present: pedal edema (1+ BLE) Additional comments: Left foot wound VAC noted with dressing intact and sponge well-compressed. - Neurological Exam Neurological exam: Present: alert, oriented X3, no focal deficits - Psychiatric Psychiatric exam: Present: normal affect, normal mood - Skin Skin exam: Present: dry, intact, normal color, warm - Additional findings Additional findings: Midline noted to the RUE with transparent dressing C/D/I. - VTE Documentation of Mechanical Device: Intermittent pneumatic compression device Consult Discharge Plan - Plan Referrals: Eloy Calles DO [Primary Care Provider] -
--- NOTE | 2016-12-25 16:20 | Podiatry Progress Note ---
Date of Encounter: 12/25/16 Time of Encounter: 12:00 - Assessment and Plan (1) Diabetic foot ulcer Current Visit: Yes Status: Chronic Assessment: Postoperative day #5. Wound intact to left foot, surrounding skin is pink warm and dry. WBC: 7.4, a febrile Wound culture: Proteus mirabilis, Enterobacter Cloacae, Aeromonas Hydrophila/ Caviae, Corynebacterium Striatum, Enterococcus Avium. Plan: Patient will need long-term IV antibiotics at home with wound VAC changes Saturday. Wound vac due to be changed tomorrow. Infectious disease following, currently on IV Vancomycin and IV Levaquin. Upon discharge ID recommends continuing IV Vancomycin and IV Levaquin can most likely be switched to oral Levaquin Will need a 1 week follow up in wound care with Dr. Cruz. kennel worker coordinating discharge planning. Patient would like to go home with home health care. Awaiting insurance authorization, insurance may only approve ECF. Qualifiers: Diabetic foot ulcer location: midfoot Diabetes mellitus type: type 2 Laterality: left Non-pressure ulcer stage: with necrosis of muscle Qualified Code(s): E11.621 - Type 2 diabetes mellitus with foot ulcer; L97.423 - Non-pressure chronic ulcer of left heel and midfoot with necrosis of muscle (2) Cellulitis and abscess of foot Current Visit: No Status: Acute (3) Diabetes Current Visit: Yes Status: Chronic Qualifiers: Diabetes mellitus type: type 1 Diabetes mellitus complication status: with skin complications Diabetes mellitus complication detail: with foot ulcer Qualified Code(s): E10.621 - Type 1 diabetes mellitus with foot ulcer; L97.509 - Non-pressure chronic ulcer of other part of unspecified foot with unspecified severity Subjective Principal diagnosis: Postoperative day 3 Interval history: Patient is s/p Resection of distal aspect metatarsal #2, left foot and debridement of ulceration down to deep fascia and placement of wound VAC left foot by Dr. Cruz on 12/20/16. Patient is sitting up in chair with wound vac intact to left foot, no drainage observed to canister. No c/o pain, no fever or chills. Objective - Vital Signs Vital Signs: Vital Signs Temp Pulse Resp BP Pulse Ox 12/25/16 15:29 98.9 F 60 18 155/82 98 12/25/16 11:29 98.5 F 60 18 134/77 97 12/25/16 07:03 98.5 F 65 18 123/57 98 12/25/16 05:02 97.9 F 63 15 147/81 98 12/24/16 20:50 98.4 F 58 15 136/78 99 12/24/16 16:32 98.7 F 62 15 135/78 97 Intake and Output 12/25/16 12/25/16 12/25/16 07:59 15:59 23:59 Intake Total 600 / 600 Output Total 750 / 750 625 / 625 Balance -750 / -750 -25 / -25 Intake: Oral 600 / 600 Output: Urine 750 / 750 625 / 625 Other: Meal Lunch Percent of Meal Consumed 100% Blood Glucose* 71 211 - Exam Exam: General appearance: alert awake oriented X 3. Calm and pleasant, no acute distress.. Vascular: Non palpable pedal pulse secondary to swelling, No evidence of cyanosis, pallor or rubor, Edema graded at 2+/4, Skin Temperature warm, No calf pain with manual compression. capillary refill time is immediate to digits. Postop Exam: S/P Sutures intact to incision line, no signs of dehiscence. Wound vac, small black simplace intact to left foot, scant amount of serous drainage observed to tubing, no periwound erythema, no streaking, no ascending cellulitis. - Lab Result Diagrams: 12/25/16 07:34 12/25/16 07:34 Labs: Abnormal lab results RBC 4.00 M/mcL (4.19-5.50) L 12/25/16 07:34 Hgb 10.6 g/dL (12.9-16.9) L 12/25/16 07:34 Hct 32.9 % (37.5-50.1) L 12/25/16 07:34 MCV 82.3 fL (83.0-100.0) L 12/25/16 07:34 MCH 26.5 pg (28.0-33.3) L 12/25/16 07:34 ESR >= 130 mm/hr (0-10) H 12/22/16 05:20 PT 14.3 Seconds (9.4-12.1) H 12/21/16 04:32 Potassium 5.1 mEq/L (3.5-4.5) H 12/25/16 07:34 BUN 37 mg/dL (8-26) H 12/25/16 07:34 Creatinine 1.77 mg/dL (0.72-1.25) H 12/25/16 07:34 Est GFR ( Amer) 47 (> 60) L 12/25/16 07:34 Est GFR (Non-Af Amer) 39 (> 60) L 12/25/16 07:34 HDL Cholesterol 26 mg/dL (40-59) L 12/21/16 04:32 Microbiology, Last 48 Hours 12/20/16 16:48 Surgical Biopsy Culture - Preliminary Left Foot Proteus mirabilis Enterobacter cloacae complex Aeromonas hydrophila/caviae Corynebacterium striatum Enterococcus avium 12/20/16 16:48 Wound Culture - Final Left Foot Proteus mirabilis Enterobacter cloacae complex Aeromonas hydrophila/caviae 12/20/16 16:48 Anaerobic Culture - Preliminary Left Foot Anaerobic Gram Negative Gas[place] Anaerobic Gram Negative Gasper#2 - VTE Documentation of Mechanical Device: Intermittent pneumatic compression device Consult Discharge Plan - Plan Referrals: Eloy Calles DO [Primary Care Provider] -
[2016-12-25] MEDS: Vancomycin 1,500 MG in D5% in Water 250 ML IVPB SCH (17:25)
[2016-12-25] MEDS: metroNIDAZOLE 500 MG TABLET PO SCH ×2 (17:25→21:20)
[2016-12-26] MEDS: *HR* Heparin 5,000 UNIT/ML VIAL SQ SCH ×2 (06:17→17:39)
[2016-12-26] MEDS: Metoprolol XL (24 HR) Succ 50 MG TAB.ER.24H PO SCH (10:04)
[2016-12-26] MEDS: Gabapentin 100 MG CAPSULE PO SCH ×3 (10:04→20:58)
[2016-12-26] MEDS: metroNIDAZOLE 500 MG TABLET PO SCH ×3 (10:04→20:58)
[2016-12-26] MEDS: Furosemide 40 MG TABLET PO SCH ×2 (10:04→20:58)
[2016-12-26] MEDS: Aspirin 81 MG TAB.CHEW PO SCH (10:04)
--- NOTE | 2016-12-26 10:49 | Nephrology Progress Note ---
Date of Encounter: 12/26/16 Time of Encounter: 10:47 - Assessment and Plan (1) Acute kidney injury Current Visit: No Status: Acute Patient has acute kidney injury superimposed on stage III chronic kidney disease. His renal function is improved back to his previous baseline. He has mild hyperkalemia. I am going to discontinue his potassium supplement. (2) Diabetic foot ulcer associated with type 2 diabetes mellitus Current Visit: No Status: Acute Qualifiers: Diabetic foot ulcer location: other Laterality: left Non-pressure ulcer stage: with necrosis of muscle Qualified Code(s): E11.621 - Type 2 diabetes mellitus with foot ulcer; L97.523 - Non-pressure chronic ulcer of other part of left foot with necrosis of muscle (3) Chronic kidney disease, stage III (moderate) Current Visit: Yes Status: Chronic Subjective Principal diagnosis: Postoperative day 3 Interval history: Patient has no new complaints. From a renal perspective he is close to his baseline. His serum creatinine is improved steadily over the past few days. He has a mild elevation in his potassium. Objective - Vital Signs Vital signs: Vital Signs Temp Pulse Resp BP Pulse Ox 12/26/16 06:59 97.9 F 66 18 136/78 98 12/26/16 04:25 97.5 F L 62 18 126/66 98 12/26/16 00:47 97.9 F 69 17 111/52 98 12/25/16 19:16 98.3 F 62 18 136/60 97 12/25/16 15:29 98.9 F 60 18 155/82 98 12/25/16 11:29 98.5 F 60 18 134/77 97 Intake and Output 12/25/16 12/26/16 12/26/16 23:59 07:59 15:59 Intake Total 800 / 800 Output Total 175 / 175 1949 Balance -175 / -175 -1150 / -1150 Intake: Oral 800 / 800 Output: Urine 175 / 175 1949 Other: # Bowel Movements 1 Blood Glucose* 223 85 - General Appearance Exam: Patient is alert and oriented. In no acute distress. Vital signs are stable. Lungs clear to auscultation. Heart regular rate and rhythm. Abdomen is benign. There is some lower extremity swelling. There is a wound VAC on the left foot. - Lab 12/25/16 07:34 12/25/16 07:34 Most recent lab results Calcium 8.8 mg/dL (8.6-10.8) 12/25/16 07:34 Phosphorus 3.8 mg/dL (2.3-4.7) 12/25/16 07:34 Magnesium 2.0 mg/dL (1.6-2.6) 12/25/16 07:34 - VTE Documentation of Mechanical Device: Intermittent pneumatic compression device Consult Discharge Plan - Plan Referrals: Eloy Calles DO [Primary Care Provider] -
[2016-12-26] MEDS: Insulin LISPRO 300 UNITS/3 ML VIAL SQ SCH ×5 (11:48→21:07)
[2016-12-26] MEDS: SPIRIVA RESPIMAT IH SCH (11:48)
[2016-12-26] MEDS: Insulin DETEMIR 100 UNIT/ML X5UNITS SQ SCH ×2 (11:55→21:02)
--- NOTE | 2016-12-26 13:44 | Infectious Disease Progress No ---
Date of Encounter: 12/26/16 Time of Encounter: 13:42 - Assessment and Plan (1) Left foot infection Current Visit: Yes Status: Acute Location: Left foot. Causative organism: P. mirabilis, Enterobacter cloacae, Aeromonas hydrophilia, and Corynebacterium striatum. Anaerobic culture is positive as well. Secondary to non-healing foot ulcer. Status post resection of the distal aspect of metatarsal #2 left foot and debridement of ulceration to deep fascia with wound VAC placement 12/20/[address] Cruz. Operative note reviewed. Will discuss with Dr. Cruz. ESR >130. CRP not checked. Continue Vancomycin IV. Pharmacy to dose. Goal trough ~15. Continue Levaquin 750mg IV daily. Continue metronidazole 500mg PO TID. Duration of treatment depends on the clinical picture. I spoke with Dr. Cruz regarding intra-operative findings. No evidence of OM, but more likely extensive soft tissue infection. Monitor renal function and for drug toxicity and dose-adjust antibiotics. Will likely need a few weeks of IV Vancomycin, but we can probably switch the Levaquin to PO when ready for discharge. Wound care and activity restrictions per the podiatry team. financial services representative consulted for discharge planning. (2) Toe ulcer due to DM Current Visit: No Status: Acute Location: Left foot 4th toe. Status post debridement 12/20/[address] Cruz. Continue wound care per Podiatry's recommendations. Qualifiers: Diabetes mellitus type: type 2 Laterality: left Non-pressure ulcer stage : limited to breakdown of skin Qualified Code(s): E11.621 - Type 2 diabetes mellitus with foot ulcer; L97.521 - Non-pressure chronic ulcer of other part of left foot limited to breakdown of skin (3) Diabetic foot ulcer associated with type 2 diabetes mellitus Current Visit: No Status: Acute Uncontrolled. HgbA1C 9% in November. Recommend aggressive glucose monitoring and control to promote wound healing and prevent re-infection. Management per the hospitalist team. Qualifiers: Diabetic foot ulcer location: other Laterality: left Non-pressure ulcer stage: with necrosis of muscle Qualified Code(s): E11.621 - Type 2 diabetes mellitus with foot ulcer; L97.523 - Non-pressure chronic ulcer of other part of left foot with necrosis of muscle (4) Obesity (BMI 30.0-34.9) Current Visit: No Status: Acute - Subjective Interval history: Patient seen and examined. No acute events noted overnight. Patient resting quietly in the bedside chair. Denies complaints. Denies fevers or chills. Denies chest pain, shortness of breath, or cough. Denies nausea, vomiting, or diarrhea. Denies abdominal pain or urinary complaints. States his appetite is good. Denies pain at the surgical site. Denies oral thrush. Infect Dis PN-Objective Data - Labs CBC & Chem 7: 12/25/16 07:34 12/25/16 07:34 Labs: Laboratory Results - last 24 hr 12/24/16 12/25/16 12/25/16 16:18 11:30 20:43 POC Glucose 151 H 211 H 223 H Cultures: Cultures 12/20/16 16:48 Surgical Biopsy Culture - Preliminary Left Foot Proteus mirabilis Enterobacter cloacae complex Aeromonas hydrophila/caviae Corynebacterium striatum Enterococcus avium 12/20/16 16:48 Wound Culture - Final Left Foot Proteus mirabilis Enterobacter cloacae complex Aeromonas hydrophila/caviae 12/20/16 16:48 Anaerobic Culture - Preliminary Left Foot Anaerobic Gram Negative Gasper Anaerobic Gram Negative Gasper#2 Exam - Constitutional Vitals: Temp Pulse Resp BP Pulse Ox 98.6 F 58 18 129/76 97 12/26/16 11:21 12/26/16 11:21 12/26/16 11:21 12/26/16 11:21 12/26/16 11:21 General appearance: cooperative, no acute distress, obese - Head Head exam: Present: atraumatic, normal inspection, normocephalic - Eye Eye exam: Present: EOMI, normal appearance, PERRL Pupils: Present: normal accommodation - ENT ENT exam: Present: mucous membranes moist - Neck Neck exam: Present: normal inspection - Respiratory Respiratory exam: Present: CTAB. Absent: rales, respiratory distress, rhonchi, wheezes - Cardiovascular Cardiovascular exam: Present: RRR, +S1, +S2 - GI/Abdominal GI/Abdominal exam: Present: distended (obese), normal bowel sounds, soft. Absent: tenderness - Extremities Exam Extremities exam: Present: pedal edema (2+ BLE). Absent: joint swelling, tenderness Additional comments: Left foot surgical site with wound VAC dressing intact and sponge well- compressed. Scant dark serous drainage noted in the tubing. No erythema, tenderness, or warmth noted. 2+ edema of the left foot noted. - Neurological Exam Neurological exam: Present: alert, oriented X3, no focal deficits - Psychiatric Psychiatric exam: Present: normal affect, normal mood - Skin Skin exam: Present: dry, intact, normal color, warm - VTE Documentation of Mechanical Device: Intermittent pneumatic compression device Consult Discharge Plan - Plan Referrals: Eloy Calles DO [Primary Care Provider] -
--- NOTE | 2016-12-26 15:28 | Internal Med Progress Note ---
Date of Encounter: 12/26/16 Time of Encounter: 15:00 - Assessment and plan (1) Diabetic foot ulcer Status: Acute Assessment and plan: Patient presented with left second toe diabetic foot ulcer. Podiatry on board, underwent Resection of distal aspect metatarsal #2, left foot, debridement of ulceration down to deep fascia and placement of wound VAC left foot. Intraoperative wound culture grows Proteus, Enterobacter, enterococcus avium and anaerobic gram-negative rods. Infectious diseases is on board, recommend few weeks of IV vancomycin along with Levaquin and Flagyl, which can be changed to oral forms at discharge. Local wound care and wound vac instructions per primary team Qualifiers: Diabetic foot ulcer location: midfoot Diabetes mellitus type: type 2 Laterality: left Non-pressure ulcer stage: with necrosis of muscle Qualified Code(s): E11.621 - Type 2 diabetes mellitus with foot ulcer; L97.423 - Non-pressure chronic ulcer of left heel and midfoot with necrosis of muscle (2) Diabetes mellitus Status: Chronic Assessment and plan: Patient noted to have uncontrolled diabetes with elevated blood sugars. Continue basal bolus insulin regimen, we will add nutritional insulin to his regimen. Noted to have tightly controlled fasting blood glucose. Diabetic diet. Qualifiers: Diabetes mellitus type: type 2 Diabetes mellitus complication status: with skin complications Diabetes mellitus complication detail: with foot ulcer Diabetes mellitus watermelon inspector insulin use: with watermelon inspector use Qualified Code(s) : E11.621 - Type 2 diabetes mellitus with foot ulcer (3) Hypertension Status: Chronic Qualifiers: Hypertension type: essential hypertension Qualified Code(s): I10 - Essential (primary) hypertension (4) Hyperlipidemia Status: Chronic Qualifiers: Hyperlipidemia type: unspecified Qualified Code(s): E78.5 - Hyperlipidemia , unspecified (5) Obesity (BMI 30.0-34.9) Status: Chronic (6) Chronic kidney disease, stage III (moderate) Status: Chronic Assessment and plan: Serum creatinine noted to be at baseline. Nephrology follow-up noted. (7) Coronary artery disease Status: Chronic Qualifiers: Coronary Disease-Associated Artery/Lesion type: [place] artery [place] vs. transplanted heart: [place] heart Associated angina: with stable angina Qualified Code(s): I25.118 - Atherosclerotic heart disease of [place] coronary artery with other forms of angina pectoris - Subjective Interval history: Denies new complaints; no chest pain, dyspnea; reports having elevated blood sugars at home, difficult to control; on wound vac to left foot; left foot pain is controlled and he is able to ambulate; - Constitutional Vitals: Temp Pulse Resp BP Pulse Ox 97.8 F 65 18 125/77 99 12/26/16 15:03 12/26/16 15:03 12/26/16 15:03 12/26/16 15:03 12/26/16 15:03 General appearance: Present: cooperative, A&O X 3, obese, answers questions appropriately - Respiratory Respiratory exam: Present: CTAB. Absent: accessory muscle use, rales, rhonchi, wheezes - Cardiovascular Cardiovascular exam: Present: RRR, +S1, +S2. Absent: diastolic murmur, gallop, rubs, systolic murmur - GI/Abdominal GI/Abdominal exam: Present: normal bowel sounds, soft, no peritoneal signs. Absent: distended, tenderness - Extremities Exam Extremities exam: Present: warm, radial pulses palpable and symmetrical. Absent : calf tenderness, cyanotic, pedal edema Additional comments: left foot- s/p 2nd and 3rd toe amputation with wound vac in place, draining minimal serosanguineous fluid; surrounding edema and erythema; Internal Medicine: Result - Labs CBC & Chem 7: 12/25/16 07:34 12/27/16 01:26 - ABG Interpretation ABG results: PT/INR, D-dimer PT 14.3 Seconds (9.4-12.1) H 12/21/16 04:32 - VTE Documentation of Mechanical Device: Intermittent pneumatic compression device Consult Discharge Plan - Plan Additional Instructions: If symptoms worsen, you develop fever or you have any concerns, please call your home care nurse, your PCP or 's office. Referrals: Jennifer Anderson CNP [Advanced Practice Nurse] - 01/03/17 8:00 am Ang Cruz DPM [Partnered Physician] - 01/04/17 3:25 pm Eloy Calles DO [Primary Care Provider] - 01/03/17 10:00 am Prescriptions: Levofloxacin [Levaquin] 500 mg PO Q48H #4 tablet metroNIDAZOLE [Flagyl] 500 mg PO TID #21 tablet Vancomycin [Vancocin] 1,250 mg IV Q24H #3 vial
--- NOTE | 2016-12-26 15:31 | Internal Med Progress Note ---
Date of Encounter: 12/25/16 Time of Encounter: 16:45 - Assessment and plan (1) Diabetic foot ulcer Current Visit: Yes Status: Chronic Assessment and plan: Patient presented with left second toe diabetic foot ulcer. Podiatry on board, underwent Resection of distal aspect metatarsal #2, left foot, debridement of ulceration down to deep fascia and placement of wound VAC left foot. Intraoperative wound culture grows Proteus, Enterobacter, enterococcus avium and gram-negative rods. Infectious diseases is on board, recommend few weeks of IV vancomycin along with Levaquin and Flagyl, which can be changed to oral forms at discharge. Continue supportive care and pain control. Qualifiers: Diabetic foot ulcer location: midfoot Diabetes mellitus type: type 2 Laterality: left Non-pressure ulcer stage: with necrosis of muscle Qualified Code(s): E11.621 - Type 2 diabetes mellitus with foot ulcer; L97.423 - Non-pressure chronic ulcer of left heel and midfoot with necrosis of muscle (2) Diabetes mellitus Current Visit: Yes Status: Chronic Assessment and plan: Patient noted to have uncontrolled diabetes with elevated blood sugars. We will increase basal insulin, increase sliding scale to high dose regimen and continue close monitoring of blood sugars. Diabetic diet. Qualifiers: Diabetes mellitus type: type 2 Diabetes mellitus complication status: with skin complications Diabetes mellitus complication detail: with foot ulcer Diabetes mellitus moth exterminator insulin use: with moth exterminator use Qualified Code(s) : E11.621 - Type 2 diabetes mellitus with foot ulcer (3) Hypertension Current Visit: Yes Status: Chronic Qualifiers: Hypertension type: essential hypertension Qualified Code(s): I10 - Essential (primary) hypertension (4) Hyperlipidemia Current Visit: Yes Status: Chronic Qualifiers: Hyperlipidemia type: unspecified Qualified Code(s): E78.5 - Hyperlipidemia , unspecified (5) Obesity (BMI 30.0-34.9) Current Visit: Yes Status: Chronic (6) Chronic kidney disease, stage III (moderate) Current Visit: Yes Status: Chronic Assessment and plan: Serum creatinine noted to be at baseline. Nephrology follow-up noted. (7) Coronary artery disease Current Visit: Yes Status: Chronic Qualifiers: Coronary Disease-Associated Artery/Lesion type: [place] artery [place] vs. transplanted heart: [place] heart Associated angina: with stable angina Qualified Code(s): I25.118 - Atherosclerotic heart disease of [place] coronary artery with other forms of angina pectoris - Subjective Interval history: No fever, chills, chest pain or dyspnea. Left foot pain is well controlled. Patient wishes to be discharged home with home health versus prison. - Constitutional Vitals: Temp Pulse Resp BP Pulse Ox 97.8 F 65 18 125/77 99 12/26/16 15:03 12/26/16 15:03 12/26/16 15:03 12/26/16 15:03 12/26/16 15:03 General appearance: Present: cooperative, A&O X 3, obese, answers questions appropriately - Respiratory Respiratory exam: Present: CTAB. Absent: accessory muscle use, rales, rhonchi, wheezes - Cardiovascular Cardiovascular exam: Present: RRR, +S1, +S2. Absent: diastolic murmur, gallop, rubs, systolic murmur - GI/Abdominal GI/Abdominal exam: Present: normal bowel sounds, soft, no peritoneal signs. Absent: distended, tenderness - Extremities Exam Extremities exam: Present: pedal edema, warm, radial pulses palpable and symmetrical. Absent: calf tenderness, cyanotic Additional comments: Left foot surgical dressing intact - Neurological Exam Neurological exam: Present: CN II-XII intact, oriented X3, no focal deficits. Absent: pronater drift, facial droop, speech deficit Internal Medicine: Result - Labs CBC & Chem 7: 12/25/16 07:34 12/25/16 07:34 - ABG Interpretation ABG results: PT/INR, D-dimer PT 14.3 Seconds (9.4-12.1) H 12/21/16 04:32 - VTE Documentation of Mechanical Device: Intermittent pneumatic compression device Consult Discharge Plan - Plan Referrals: Eloy Calles DO [Primary Care Provider] -
[2016-12-26] MEDS: Vancomycin 1,500 MG in D5% in Water 250 ML IVPB SCH (17:41)
[2016-12-26] MEDS: Levofloxacin 750 MG/150 ML 750 MG/150 ML BAG IVPB SCH (17:42)
--- NOTE | 2016-12-26 21:44 | Podiatry Progress Note ---
Date of Encounter: 12/26/16 Time of Encounter: 16:30 - Assessment and Plan (1) Diabetic foot ulcer Current Visit: Yes Status: Chronic Assessment: Postoperative day #6. Wound intact to left foot, surrounding skin is pink warm and dry. Wound vac changed at bedside, incision line well approximated, ulcer is healing, no complications. Wound culture: Proteus mirabilis, Enterobacter Cloacae, Aeromonas Hydrophila/ Caviae, Corynebacterium Striatum, Enterococcus Avium. Plan: Patient will need long-term IV antibiotics at home with wound VAC changes Saturday. Wound vac changed today. Infectious disease following, currently on IV Vancomycin, IV Levaquin, PO Flagyl. Upon discharge ID recommends continuing IV Vancomycin, PO Flagyl and IV Levaquin can most likely be switched to oral Levaquin Will need a 1 week follow up in wound care with Dr. Cruz. head worker coordinating discharge planning. Patient would like to go home with home health care. Awaiting insurance authorization. Qualifiers: Diabetic foot ulcer location: midfoot Diabetes mellitus type: type 2 Laterality: left Non-pressure ulcer stage: with necrosis of muscle Qualified Code(s): E11.621 - Type 2 diabetes mellitus with foot ulcer; L97.423 - Non-pressure chronic ulcer of left heel and midfoot with necrosis of muscle (2) Cellulitis and abscess of foot Current Visit: No Status: Acute (3) Diabetes Current Visit: Yes Status: Chronic Qualifiers: Diabetes mellitus type: type 1 Diabetes mellitus complication status: with skin complications Diabetes mellitus complication detail: with foot ulcer Qualified Code(s): E10.621 - Type 1 diabetes mellitus with foot ulcer; L97.509 - Non-pressure chronic ulcer of other part of unspecified foot with unspecified severity Subjective Principal diagnosis: Postoperative day 3 Interval history: Patient is s/p Resection of distal aspect metatarsal #2, left foot and debridement of ulceration down to deep fascia and placement of wound VAC left foot by Dr. Cruz on 12/20/16. Patient is sitting up in chair with wound vac intact to left foot, 20 mls of serous drainage observed to canister. No c/o pain , no fever or chills. Patient states he fells well and wants to go home. Objective - Vital Signs Vital Signs: Vital Signs Temp Pulse Resp BP Pulse Ox 12/26/16 18:49 98.7 F 70 17 157/70 99 12/26/16 15:03 97.8 F 65 18 125/77 99 12/26/16 11:21 98.6 F 58 18 129/76 97 12/26/16 06:59 97.9 F 66 18 136/78 98 12/26/16 04:25 97.5 F L 62 18 126/66 98 12/26/16 00:47 97.9 F 69 17 111/52 98 Intake and Output 12/26/16 12/26/16 12/26/16 07:59 15:59 23:59 Intake Total 800 / 800 440 / 440 240 / 240 Output Total 1949 300 / 300 575 / 575 Balance -1150 / -1150 140 / 140 -335 / -335 Intake: Oral 800 / 800 440 / 440 240 / 240 Output: Urine 1949 300 / 300 500 / 500 Wound Drainage 75 / 75 Left Foot 75 / 75 Other: Meal Lunch Dinner Percent of Meal Consumed 100% 100% Blood Glucose* 85 299 188 - Lab Result Diagrams: 12/25/16 07:34 12/25/16 07:34 Labs: Abnormal lab results RBC 4.00 M/mcL (4.19-5.50) L 12/25/16 07:34 Hgb 10.6 g/dL (12.9-16.9) L 12/25/16 07:34 Hct 32.9 % (37.5-50.1) L 12/25/16 07:34 MCV 82.3 fL (83.0-100.0) L 12/25/16 07:34 MCH 26.5 pg (28.0-33.3) L 12/25/16 07:34 ESR >= 130 mm/hr (0-10) H 12/22/16 05:20 PT 14.3 Seconds (9.4-12.1) H 12/21/16 04:32 Potassium 5.1 mEq/L (3.5-4.5) H 12/25/16 07:34 BUN 37 mg/dL (8-26) H 12/25/16 07:34 Creatinine 1.77 mg/dL (0.72-1.25) H 12/25/16 07:34 Est GFR ( Amer) 47 (> 60) L 12/25/16 07:34 Est GFR (Non-Af Amer) 39 (> 60) L 12/25/16 07:34 POC Glucose 155 (58-89) H 12/26/16 16:17 HDL Cholesterol 26 mg/dL (40-59) L 12/21/16 04:32 Microbiology, Last 48 Hours 12/20/16 16:48 Surgical Biopsy Culture - Preliminary Left Foot Proteus mirabilis Enterobacter cloacae complex Aeromonas hydrophila/caviae Corynebacterium striatum Enterococcus avium 12/20/16 16:48 Wound Culture - Final Left Foot Proteus mirabilis Enterobacter cloacae complex Aeromonas hydrophila/caviae 12/20/16 16:48 Anaerobic Culture - Preliminary Left Foot Anaerobic Gram Negative Gas[place] Anaerobic Gram Negative [place]#2 - VTE Documentation of Mechanical Device: Intermittent pneumatic compression device Consult Discharge Plan - Plan Referrals: Eloy Calles DO [Primary Care Provider] -
[2016-12-27 02:02] LABS: Albumin 2.8 g/dL (3.5-5.0); Albumin/Globulin Ratio 0.6 (1.1-2.2); Bilirubin,Total 0.3 mg/dL (0.2-1.2); Globulin 4.6 g/dL (2.4-3.5); Potassium 4.5 mEq/L (3.5-4.5); Total Protein 7.4 g/dL (6.0-8.3)
[2016-12-27] MEDS: *HR* Heparin 5,000 UNIT/ML VIAL SQ SCH ×3 (06:11→17:44)
--- NOTE | 2016-12-27 09:13 | Sepsis Event Note ---
Sepsis Event Note - Evaluation Sepsis Screen: No Definite Risk - Focused Exam Vital Signs: Vital Signs Temp Pulse Resp BP Pulse Ox 12/27/16 07:07 98.1 F 67 16 133/77 99 12/27/16 04:23 98.0 F 60 17 123/64 99 12/26/16 23:31 98.0 F 62 17 157/74 100
[2016-12-27] MEDS: Insulin LISPRO 300 UNITS/3 ML VIAL SQ SCH ×7 (09:25→20:30)
[2016-12-27] MEDS: Gabapentin 100 MG CAPSULE PO SCH ×3 (09:34→20:33)
[2016-12-27] MEDS: Metoprolol XL (24 HR) Succ 50 MG TAB.ER.24H PO SCH (09:34)
[2016-12-27] MEDS: metroNIDAZOLE 500 MG TABLET PO SCH ×3 (09:34→20:33)
[2016-12-27] MEDS: Aspirin 81 MG TAB.CHEW PO SCH (09:34)
[2016-12-27] MEDS: Furosemide 40 MG TABLET PO SCH ×2 (09:41→20:33)
[2016-12-27] MEDS: Insulin DETEMIR 100 UNIT/ML X5UNITS SQ SCH ×2 (09:41→20:33)
[2016-12-27] MEDS: SPIRIVA RESPIMAT IH SCH (09:43)
--- NOTE | 2016-12-27 10:43 | Nephrology Progress Note ---
Date of Encounter: 12/27/16 Time of Encounter: 10:25 - Assessment and Plan (1) Chronic kidney disease, stage III (moderate) Current Visit: Yes Status: Chronic S/P I&D and wound vac placement left foot. I&D on board. ERIN/CKD 3, baseline creatinine 1.3-1.6 in setting of diabetes. Rnal fct slowly improving, creat 1.80 , Will monitor. Avoid nephrotoxins. Will follow in office if discharged. Subjective Principal diagnosis: Postoperative day 3 Interval history: S/P I&D left foot. States thinks will be discharged home today. Objective - Vital Signs Vital signs: Vital Signs Temp Pulse Resp BP Pulse Ox 12/27/16 07:07 98.1 F 67 16 133/77 99 12/27/16 04:23 98.0 F 60 17 123/64 99 12/26/16 23:31 98.0 F 62 17 157/74 100 12/26/16 18:49 98.7 F 70 17 157/70 99 12/26/16 15:03 97.8 F 65 18 125/77 99 12/26/16 11:21 98.6 F 58 18 129/76 97 Intake and Output 12/26/16 12/27/16 12/27/16 23:59 07:59 15:59 Intake Total 240 / 240 600 / 600 760 / 760 Output Total 575 / 575 300 / 300 Balance -335 / -335 300 / 300 760 / 760 Intake: IV Fluids 400 / 400 Levaquin Premix 750mg/150 mL 150 / 150 750 mg In 150 ml @ 100 mls/hr IVPB Q48H [facility] Rx#:[id number] Vancocin 1,500 MG In Dextrose 5 250 / 250 % 250 ML @ 166.67 mls/hr IVPB Q24H [facility] Rx#:[id number] Oral 240 / 240 600 / 600 360 / 360 Output: Urine 500 / 500 300 / 300 Wound Drainage 75 / 75 Left Foot 75 / 75 Other: Meal Dinner Breakfast Percent of Meal Consumed 100% 100% # Voids 2 Blood Glucose* 188 65 - General Appearance General appearance: Present: well-developed, well-nourished, appears started age EENT: Present: mucous membranes moist Neck: Present: no JVD Respiratory: Present: clear Cardiology: Present: edema, regular rate, regular rhythm Additional Comments: 1+ Gastrointestinal: Present: normoactive bowel sounds, no tenderness Integumentary: Present: warm and dry Neurologic: Present: alert and oriented x3 Psychiatric: Present: mood/affect appropriate, cooperative - Lab 12/25/16 07:34 12/27/16 01:26 Most recent lab results Calcium 9.0 mg/dL (8.6-10.8) 12/27/16 01:26 Phosphorus 3.8 mg/dL (2.3-4.7) 12/25/16 07:34 Magnesium 2.0 mg/dL (1.6-2.6) 12/25/16 07:34 - VTE Documentation of Mechanical Device: Intermittent pneumatic compression device Consult Discharge Plan - Plan Referrals: Eloy Calles DO [Primary Care Provider] -
--- NOTE | 2016-12-27 16:13 | Internal Med Progress Note ---
Date of Encounter: 12/27/16 Time of Encounter: 16:10 - Assessment and plan (1) Diabetic foot ulcer Current Visit: Yes Status: Chronic Assessment and plan: Patient presented with left second toe diabetic foot ulcer. Podiatry on board, underwent Resection of distal aspect metatarsal #2, left foot, debridement of ulceration down to deep fascia and placement of wound VAC left foot. Intraoperative wound culture grows Proteus, Enterobacter, enterococcus avium and gram-negative rods. Infectious diseases is on board, recommend few weeks of IV vancomycin along with Levaquin and Flagyl, which can be changed to oral forms at discharge. Patient to be discharged on IV Vancomycin for at least 3 more weeks, to be followed by ID and Nephrology in clinic, to monitor renal function closely; Will need Levaquin PO 500mg [id number] and Flagyl 500mg PO TID for 1 week Local wound care and wound vac instructions per primary team Qualifiers: Diabetic foot ulcer location: midfoot Diabetes mellitus type: type 2 Laterality: left Non-pressure ulcer stage: with necrosis of muscle Qualified Code(s): E11.621 - Type 2 diabetes mellitus with foot ulcer; L97.423 - Non-pressure chronic ulcer of left heel and midfoot with necrosis of muscle (2) Diabetes mellitus Current Visit: Yes Status: Chronic Assessment and plan: Patient noted to have uncontrolled diabetes with elevated blood sugars. Blood sugars noted to be better controlled today; recommend to decrease night time dose of basal insulin to 18units, and increase day time basal insulin to 30units at home; continue sliding scale. Diabetic diet. 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 insulin use: with middle or intermediate school principal use Qualified Code(s) : E11.621 - Type 2 diabetes mellitus with foot ulcer (3) Hypertension Current Visit: Yes Status: Chronic Qualifiers: Hypertension type: essential hypertension Qualified Code(s): I10 - Essential (primary) hypertension (4) Hyperlipidemia Current Visit: Yes Status: Chronic Qualifiers: Hyperlipidemia type: unspecified Qualified Code(s): E78.5 - Hyperlipidemia , unspecified (5) Obesity (BMI 30.0-34.9) Current Visit: Yes Status: Chronic (6) Chronic kidney disease, stage III (moderate) Current Visit: Yes Status: Chronic (7) Coronary artery disease Current Visit: Yes Status: Chronic Qualifiers: Coronary Disease-Associated Artery/Lesion type: [place] artery [place] vs. transplanted heart: [place] heart Associated angina: with stable angina Qualified Code(s): I25.118 - Atherosclerotic heart disease of [place] coronary artery with other forms of angina pectoris - Subjective Interval history: No fever, chills, chest pain or dyspnea. Left foot pain is well controlled. Patient wishes to be discharged home today; wound vac has been changed yesterday ; - Constitutional Vitals: Temp Pulse Resp BP Pulse Ox 98.1 F 72 16 143/74 99 12/27/16 10:55 12/27/16 10:55 12/27/16 10:55 12/27/16 10:55 12/27/16 10:55 General appearance: Present: cooperative, A&O X 3, obese, answers questions appropriately - Respiratory Respiratory exam: Present: CTAB. Absent: accessory muscle use, rales, rhonchi, wheezes - Extremities Exam Extremities exam: Present: warm, radial pulses palpable and symmetrical. Absent : calf tenderness, cyanotic, pedal edema Additional comments: left foot dressing clean and dry, in surgical boot Internal Medicine: Result - Labs CBC & Chem 7: 12/25/16 07:34 12/27/16 01:26 Labs: BMP 12/27/16 01:26 Sodium 137 Potassium 4.5 Chloride 107 Carbon Dioxide 22 BUN 45 H Creatinine 1.80 H Glucose 80 Calcium 9.0 Liver Function 12/27/16 Range/Units 01:26 Total Bilirubin 0.3 (0.2-1.2) mg/dL AST 20 (5-34) Units/L ALT 22 (0-55) Units/L Alkaline Phosphatase 133 H (38-126) Units/L Albumin 2.8 L (3.5-5.0) g/dL - ABG Interpretation ABG results: PT/INR, D-dimer PT 14.3 Seconds (9.4-12.1) H 12/21/16 04:32 - VTE Documentation of Mechanical Device: Intermittent pneumatic compression device Consult Discharge Plan - Plan Referrals: Eloy Calles DO [Primary Care Provider] -
--- NOTE | 2016-12-27 16:17 | Discharge Summary ---
Date of Encounter: 12/27/16 Time of Encounter: 16:00 - Discharge Diagnosis (1) Left foot infection Priority: Primary Status: Acute Comments: Assessment: Patient s/p Plan: Patient will go home on wound vac therapy. Black graunfoam to be changed MWF per [facility] team. Patient to have sponge removed and wound bed to be cleansed with saline and reapplied. Intermittent suction rise 2 minutes fall 10. Patient will need 1 week follow up in wound care with [facility] and patient to monitor for signs and symptoms of infection or complication, call with any concerns Get weekly CBC, BUN/Cr, ESR, CRP, and Vanc trough every Saturday. Weekly midline care. Follow up with ID 01/03/17 at 0800 Patient to be discharged on IV Vancomycin for at least 3 more weeks, to be followed by ID and Nephrology in clinic, to monitor renal function closely; Will need Levaquin PO 500mg [id number] and Flagyl 500mg PO TID for 1 week Local wound care and wound vac instructions per primary team (2) Chronic kidney disease, stage III (moderate) Priority: Secondary Status: Chronic Comments: Will follow up with nephrology outpatient. Patient has baseline creatine 1.3-1.6 Stable at this time Please continue to avoid nephrotoxins (3) Diabetes mellitus Priority: Secondary Status: Chronic Comments: Strict glucose control to promote healing and prevent complication Patient noted to have uncontrolled diabetes with elevated blood sugars. Blood sugars noted to be better controlled today; recommend to decrease night time dose of basal insulin to 18units, and increase day time basal insulin to 30units at home; continue sliding scale. Diabetic diet. Qualifiers: Diabetes mellitus type: type 2 Diabetes mellitus complication status: with skin complications Diabetes mellitus complication detail: with foot ulcer Diabetes mellitus mcfp insulin use: with mcfp use Qualified Code(s) : E11.621 - Type 2 diabetes mellitus with foot ulcer (4) Diabetic foot ulcer Priority: Secondary Status: Acute Qualifiers: Diabetic foot ulcer location: midfoot Diabetes mellitus type: type 2 Laterality: left Non-pressure ulcer stage: with necrosis of muscle Qualified Code(s): E11.621 - Type 2 diabetes mellitus with foot ulcer; L97.423 - Non-pressure chronic ulcer of left heel and midfoot with necrosis of muscle - Discharge Medications Prescriptions: Levofloxacin [Levaquin] 500 mg PO Q48H #4 tablet metroNIDAZOLE [Flagyl] 500 mg PO TID #21 tablet Vancomycin [Vancocin] 1,250 mg IV Q24H #3 vial Home Medications: Simvastatin [Zocor] 20 mg PO HS 11/08/14 [History] Gabapentin [Neurontin] 100 mg PO TID 01/26/16 [History] Aspirin 81 mg PO DAILY tab.chew 08/24/16 [Rx] Albuterol Sulfate [Ventolin Hfa] 2 puff IH Q4-6H PRN 12/20/16 [History] Enalapril Maleate [Vasotec] 2.5 mg PO DAILY 12/20/16 [History] Furosemide [Lasix] 40 mg PO BID 12/20/16 [History] Insulin Glargine,Hum.rec.anlog [Basaglar Kwikpen U-100] 18 unit SQ BID 12/20/16 [History] Metoprolol Succinate 100 mg PO DAILY 12/20/16 [History] Potassium Chloride 20 meq PO DAILY 12/20/16 [History] Tiotropium [place] [Spiriva Respimat] 1 puff IH DAILY 12/20/16 [History] Vancomycin [Vancocin] 1,250 mg IV Q24H #3 vial 12/27/16 [Rx] Insulin LISPRO [HumaLOG] 30 units SQ TIDAC 12/28/16 [History] Levofloxacin [Levaquin] 500 mg PO Q48H #4 tablet 12/28/16 [Rx] metroNIDAZOLE [Flagyl] 500 mg PO TID #21 tablet 12/28/16 [Rx] Allergies/Adverse Reactions: 3 Allergy/AdvReac Type Severity Reaction Status Date / Time No Known Allergies Allergy Verified 12/20/16 12:11 Procedures and tests throughout hospitalization: 12/20 #1: Resection of distal aspect metatarsal #2, left foot #2 debridement of ulceration down to deep fascia and placement of wound VAC left foot. Microbiology 12/20/16 16:48 Left Foot Surgical Biopsy Culture - Final Proteus mirabilis Enterobacter cloacae complex Aeromonas hydrophila/caviae Corynebacterium striatum Enterococcus avium 12/20/16 16:48 Left Foot Wound Culture - Final Proteus mirabilis Enterobacter cloacae complex Aeromonas hydrophila/caviae 12/20/16 16:48 Left Foot Anaerobic Culture - Final Bacteroides ovatus Labs on day of discharge: Labs from last 24 hours 12/27/16 12/27/16 12/26/16 15:42 01:26 21:05 Sodium 137 Potassium 4.5 Chloride 107 Carbon Dioxide 22 BUN 45 H Creatinine 1.80 H Est GFR ( Amer) 47 L Est GFR (Non-Af Amer) 38 L BUN/Creatinine Ratio 25 Glucose 80 POC Glucose 188 H Calculated Osmolality 295 Calcium 9.0 Total Bilirubin 0.3 AST 20 ALT 22 Alkaline Phosphatase 133 H Serum Total Protein 7.4 Albumin 2.8 L Globulin 4.6 H Albumin/Globulin Ratio 0.6 L Vancomycin Trough 19.8 12/26/16 12/26/16 12/26/16 16:17 11:22 07:00 Sodium Potassium Chloride Carbon Dioxide BUN Creatinine Est GFR ( Amer) Est GFR (Non-Af Amer) BUN/Creatinine Ratio Glucose POC Glucose 155 H 299 H 85 Calculated Osmolality Calcium Total Bilirubin AST ALT Alkaline Phosphatase Serum Total Protein Albumin Globulin Albumin/Globulin Ratio Vancomycin Trough 12/25/16 16:30 Sodium Potassium Chloride Carbon Dioxide BUN Creatinine Est GFR ( Amer) Est GFR (Non-Af Amer) BUN/Creatinine Ratio Glucose POC Glucose 134 H Calculated Osmolality Calcium Total Bilirubin AST ALT Alkaline Phosphatase Serum Total Protein Albumin Globulin Albumin/Globulin Ratio Vancomycin Trough Preliminary micro results at discharge 12/20/16 16:48 Surgical Biopsy Culture - Preliminary Left Foot Proteus mirabilis Enterobacter cloacae complex Aeromonas hydrophila/caviae Corynebacterium striatum Enterococcus avium 12/20/16 16:48 Anaerobic Culture - Preliminary Left Foot Anaerobic Gram Negative Gasper Anaerobic Gram Negative Gasper#2 - Impressions ITS Impressions Foot X-Ray 12/20/16 14:32 IMPRESSION: No osseous destructive changes of osteomyelitis. Scattered soft tissue gas within the stump distal to the 2nd metatarsal may be postoperative. Soft tissue swelling dorsally. Otherwise stable left foot series. D/ / Ole Zaidi MD / Ole Zaidi MD Interpreting Provider: Ole Zaidi MD Date of admission: 12/26/16 14:53 Primary care physician: Eloy Calles Consults: 12/20/16 14:36 Consult to PICC team [Consult to Invasive Line Access Team] [CONS] Stat Reason for Consult: Diabetic foot ulcer Line Type: PICC PICC line indications: USP Med/Antibiotic Time Notified: 14:16 Call Completed: No 12/20/16 15:01 Consult to Pastoral Services [CONS] Routine Comment: 12/20/16 15:44 Consult to Anode Machine Operator [CONS] Routine Reason for SW Consult: Discharge needs 12/20/16 16:11 Consult to Hospitalist [CONS] Routine Consulting Provider: Hospitalist Jeet Reason for Consult: Medical management Call Completed: Yes 12/20/16 19:36 Consult to Correctional Classification Counselor [CONS] Routine Comment: Reason for Consult: Patient needs education regarding his diabetes and neuropathy relative to his current diabetic foot ulcer that required surgical intervention. 12/20/16 22:11 Consult to Nephrology [CONS] Routine Consulting Provider: Kidney & HTN Spclst YENNY Reason for Consult: Patient has hx of CKD stage III and current GFR of 29. Patient is post-surgery for diabetic foot ulcer and in need of nephrology assessment regarding continuation of patient's medications which may impact current renal status. Call Completed: No 12/21/16 12:50 Consult to Invasive Line Access Team [CONS] Routine Reason for Consult: detention medication zyvox and clindamycin-both with PH acceptable for midline. Line Type: Midline 12/21/16 13:30 Consult to Infectious Diseases [CONS] Routine Consulting Provider: Infectious Disease Benita Reason for Consult: infected foot ulcer Call Completed: Yes Discharging clinician: Radha Preciado Anticipated date of discharge: 12/27/16 - Patient Status Disposition: Home Health Service Condition: Good Functional capacity at discharge: uses cane/walker Overall status at discharge: patient is progressing back to baseline - Discharge Instructions Follow Up With: Jennifer Anderson CNP [Advanced Practice Nurse] - 01/03/17 8:00 am Ang Cruz DPM [Partnered Physician] - 01/04/17 3:25 pm Eloy Calles DO [Primary Care Provider] - 01/03/17 10:00 am Additional Instructions: If symptoms worsen, you develop fever or you have any concerns, please call your home care nurse, your PCP or 's office. - Diet and Activity Activity: other (May be protective partial weight bearing to heel only. Patient to wear post operative shoe with ambulation) Diet: diabetic diet - Hospital Course Hospital course: Mr. Bearden is a 61 year old male who was admitted on 12/20 for #1: Resection of distal aspect metatarsal #2, left foot #2 debridement of ulceration down to deep fascia and placement of wound VAC left foot. note states that "patient presents today for resection of the distal aspect the second metatarsal left foot to resolve the ulceration unfortunately the ulcer on the plantar aspect of his left foot has regressed with necrotic tissue within the center of the wound and odor but without obvious cellulitis or purulence. I observed animal hair soiled contaminants etc. within the wound. Patient also presented with a wound on the distal aspect of the fourth toe left foot which is a recent development within last 24 hours. Patient states he did blister and he remove the "top of it". Left foot hygiene is suboptimal. We discussed risks versus benefits as well as alternatives to surgical intervention today again, in light of recent developments regression of the ulceration. Patient underwent surgery and was released to floor for observation. Patient was stable. Internal medicine and nephrology was consulted to follow for medial care. Internal medicine assumed care of antibiotic coverage, DM monitoring and control as well as HTN, HLD, chronic anemia, CAD, hx DVT. Nephrology followed monitoring renal function which stayed stable and was slowly improving on discharge. Patient has known hx of CKD stage III. Patient was admitted to await cultures and monitor renal function as well as tightly control glucose. Patient was started on clindamycin IV and linezolid per internal medicine. Patient was started on high sliding scale insulin and better glucose control was noted. Patients wound vac was changed every MWF as documented and was without complication. ID was consulted for antibiotic management. 12/24 wound cultures were finalized and positive for : Proteus mirabilis, Enterobacter Cloacae, Aeromonas Hydrophila/Caviae, Corynebacterium Striatum, Enterococcus Avium. Jennifer Anderson CNP noted following ESR >130. CRP not checked. Zyvox discontinued. Continue Vancomycin IV. Pharmacy to dose. Goal trough ~15.Continue Levaquin 750mg IV daily. Continue metronidazole 500mg PO TID. Duration of treatment depends on the clinical picture. I spoke with Dr. Cruz regarding intra-operative findings. No evidence of OM, but more likely extensive soft tissue infection. Monitor renal function and for drug toxicity and dose-adjust antibiotics. Will likely need a few weeks of IV Vancomycin, but we can probably switch the Levaquin to PO when ready for discharge. Patient is stable. VS and labwork are stable. Patient has [facility] set up for IV antibiotic therapy and wound vac changes. Patient will be discharged on IV Vancomycin for at least 3 more weeks, Levaquin PO 500mg [id number] and Flagyl 500mg PO TID for 1 week. Prescriptions were provided. he will need weekly CBC, BUN/Cr, ESR, CRP, and Vanc trough every Saturday, which were ordered., Renal function will need to be monitored closely. Weekly midline care and to Follow up with ID 01/03/17 at 0800. Patient is to follow up with nephrology. Patient will need wound vac changes [facility] and these orders were also placed. Patient will follow up in wound care clinic. Recommendations were made to decrease night time dose of basal insulin to 18units, and increase day time basal insulin to 30units at home; continue sliding scale. Diabetic diet.Patient feels ready to go home and is without question or concerns. Time spent discussing smoking cessation with patient: more than 10 minutes - Time Spent with Patient Total time spent providing and/or coordinating discharge services: Less than 30 minutes - VTE Documentation of Mechanical Device: Intermittent pneumatic compression device
--- NOTE | 2016-12-27 16:47 | Physician Discharge Referral ---
Home Health/Hosp Referral Info Attending Provider: Nancy Provider in Charge Post Discharge: PCP - Diagnosis (1) Toe ulcer due to DM Status: Acute - Respiratory Orders Smoking Cessation: Smoking cessation has been advised. For more information, call the [place] Tobacco Quit Line at 7-763-EWDI-NOW. - Dressing/Wound Care Type of Dressing/Treatments w/Frequency: Black foam change mon, wed, fri. Intermittent suction 125mmhg. - Diet/Nutrition Diet/Nutrition Orders: Regular - Activity Activity Orders: Ambulate - Services Needed Following services are medically necessary services: Nursing, Home Infusion - Transfer Medications Home Medications: Simvastatin [Zocor] 20 mg PO HS 11/08/14 [History] Gabapentin [Neurontin] 100 mg PO TID 01/26/16 [History] Insulin LISPRO [HumaLOG] 0 units SQ TIDAC vial 02/28/16 [Rx] Aspirin 81 mg PO DAILY tab.chew 08/24/16 [Rx] Albuterol Sulfate [Ventolin Hfa] 2 puff IH Q4-6H PRN 12/20/16 [History] Enalapril Maleate [Vasotec] 2.5 mg PO DAILY 12/20/16 [History] Furosemide [Lasix] 40 mg PO BID 12/20/16 [History] Insulin Glargine,Hum.rec.anlog [Basaglar Kwikpen U-100] 24 unit SQ BID 12/20/16 [History] Metoprolol Succinate 100 mg PO DAILY 12/20/16 [History] Potassium Chloride 20 meq PO DAILY 12/20/16 [History] Tiotropium [place] [Spiriva Respimat] 1 puff IH DAILY 12/20/16 [History] Allergies/Adverse Reactions: 3 Allergy/AdvReac Type Severity Reaction Status Date / Time No Known Allergies Allergy Verified 12/20/16 12:11 Certification: Further, I certify that my clinical findings support that this patient is homebound (i.e. absences from home require considerable and taxing effort and are for medical reasons or episcopal services or infrequently or short duration when for other reasons) because: Homebound Reason: Patient requires assistance of a person or device to safely leave home Attestation: My signature below is to certify that this patient is under my care and that I, or nurse practitioner, or a physician's energy assistant working with me, has a face-to -face encounter with this patient.
[2016-12-27] MEDS ORDERED: Vancomycin 1,250 MG in D5% in Water 250 ML IVPB SCH (17:20)
[2016-12-28 04:59] VITALS: BP 113/69
[2016-12-28] MEDS: *HR* Heparin 5,000 UNIT/ML VIAL SQ SCH (05:04)
[2016-12-28] MEDS: Furosemide 40 MG TABLET PO SCH (09:41)
[2016-12-28] MEDS: Insulin LISPRO 300 UNITS/3 ML VIAL SQ SCH ×2 (09:41)
[2016-12-28] MEDS: SPIRIVA RESPIMAT IH SCH (09:42)
[2016-12-28] MEDS: Metoprolol XL (24 HR) Succ 50 MG TAB.ER.24H PO SCH (09:53)
[2016-12-28] MEDS: Aspirin 81 MG TAB.CHEW PO SCH (09:54)
[2016-12-28] MEDS: metroNIDAZOLE 500 MG TABLET PO SCH (09:54)
[2016-12-28] MEDS: Gabapentin 100 MG CAPSULE PO SCH (09:54)
[2016-12-28] MEDS: Insulin DETEMIR 100 UNIT/ML X5UNITS SQ SCH (09:54)
--- NOTE | 2016-12-28 10:07 | Infectious Disease Progress No ---
Date of Encounter: 12/28/16 Time of Encounter: 10:05 - Assessment and Plan (1) Left foot infection Current Visit: Yes Status: Acute Location: Left foot. Causative organism: P. mirabilis, Enterobacter cloacae, Aeromonas hydrophilia, and Corynebacterium striatum. Anaerobic culture is positive as well. Secondary to non-healing foot ulcer. Status post resection of the distal aspect of metatarsal #2 left foot and debridement of ulceration to deep fascia with wound VAC placement 12/20/[address] Cruz. Operative note reviewed. Will discuss with Dr. Cruz. ESR >130. CRP not checked. Continue Vancomycin IV. Pharmacy to dose. Goal trough ~15. Continue Levaquin 750mg IV daily. Continue metronidazole 500mg PO TID. Duration of treatment depends on the clinical picture. I spoke with Dr. Cruz regarding intra-operative findings. No evidence of OM, but more likely extensive soft tissue infection. Monitor renal function and for drug toxicity and dose-adjust antibiotics. Will likely need a few weeks of IV Vancomycin, but we can probably switch the Levaquin to PO when ready for discharge. Wound care and activity restrictions per the podiatry team. banking services officer consulted for discharge planning. Get weekly CBC, BUN/Cr, ESR, CRP, and Vanc trough every Saturday. Weekly midline care. Follow up with ID 01/03/17 at 0800. (2) Toe ulcer due to DM Current Visit: No Status: Acute Location: Left foot 4th toe. Status post debridement 12/20/[address] Cruz. Continue wound care per Podiatry's recommendations. Qualifiers: Diabetes mellitus type: type 2 Laterality: left Non-pressure ulcer stage : limited to breakdown of skin Qualified Code(s): E11.621 - Type 2 diabetes mellitus with foot ulcer; L97.521 - Non-pressure chronic ulcer of other part of left foot limited to breakdown of skin (3) Diabetic foot ulcer associated with type 2 diabetes mellitus Current Visit: No Status: Acute Uncontrolled. HgbA1C 9% in November. Recommend aggressive glucose monitoring and control to promote wound healing and prevent re-infection. Management per the hospitalist team. Qualifiers: Diabetic foot ulcer location: other Laterality: left Non-pressure ulcer stage: with necrosis of muscle Qualified Code(s): E11.621 - Type 2 diabetes mellitus with foot ulcer; L97.523 - Non-pressure chronic ulcer of other part of left foot with necrosis of muscle (4) Obesity (BMI 30.0-34.9) Current Visit: No Status: Acute - Subjective Interval history: Patient seen and examined. No acute events noted overnight. Patient resting quietly in the bedside chair. Denies complaints. Denies fevers or chills. Denies chest pain, shortness of breath, or cough. Denies nausea, vomiting, or diarrhea. States stools are loose. Denies abdominal pain or urinary complaints. States his appetite is good. Denies pain at the surgical site. Denies oral thrush. Infect Dis PN-Objective Data - Labs CBC & Chem 7: 12/25/16 07:34 12/27/16 01:26 Labs: Laboratory Results - last 24 hr 12/27/16 12/27/16 12/27/16 07:13 11:01 15:42 POC Glucose 65 182 H Vancomycin Trough 19.8 12/27/16 12/28/16 20:28 07:39 POC Glucose 280 H 61 Vancomycin Trough Cultures: Cultures 12/20/16 16:48 Anaerobic Culture - Final Left Foot Bacteroides ovatus 12/20/16 16:48 Surgical Biopsy Culture - Preliminary Left Foot Proteus mirabilis Enterobacter cloacae complex Aeromonas hydrophila/caviae Corynebacterium striatum Enterococcus avium 12/20/16 16:48 Wound Culture - Final Left Foot Proteus mirabilis Enterobacter cloacae complex Aeromonas hydrophila/caviae Exam - Constitutional Vitals: Temp Pulse Resp BP Pulse Ox 98.9 F 62 18 113/69 96 12/28/16 04:58 12/28/16 04:58 12/28/16 04:58 12/28/16 04:58 12/28/16 04:58 General appearance: average body habitus, cooperative, no acute distress - Head Head exam: Present: atraumatic, normal inspection, normocephalic - Eye Eye exam: Present: EOMI, normal appearance, PERRL Pupils: Present: normal accommodation - ENT ENT exam: Present: mucous membranes moist - Neck Neck exam: Present: normal inspection - Respiratory Respiratory exam: Present: CTAB. Absent: rales, respiratory distress, rhonchi, wheezes - Cardiovascular Cardiovascular exam: Present: RRR, +S1, +S2 - GI/Abdominal GI/Abdominal exam: Present: normal bowel sounds, soft. Absent: distended, tenderness - Extremities Exam Extremities exam: Present: pedal edema (1+ BLE). Absent: joint swelling, tenderness Additional comments: Wound VAC noted to the left foot with dressing intact and sponge well- compressed. - Neurological Exam Neurological exam: Present: alert, oriented X3, no focal deficits - Psychiatric Psychiatric exam: Present: normal affect, normal mood - Skin Skin exam: Present: dry, intact, normal color, warm - Additional findings Additional findings: Midline noted to the RUE with transparent dressing C/D/I. - VTE Documentation of Mechanical Device: Intermittent pneumatic compression device Consult Discharge Plan - Plan Referrals: Ang Cruz DPM [Partnered Physician] - Eloy Calles DO [Primary Care Provider] - Jennifer Anderson CNP [Advanced Practice Nurse] - 01/03/17 8:00 am Prescriptions: Vancomycin [Vancocin] 1,250 mg IV Q24H #3 vial
--- NOTE | 2016-12-28 12:03 | Nephrology Progress Note ---
Date of Encounter: 12/28/16 Time of Encounter: 11:25 - Assessment and Plan (1) Chronic kidney disease, stage III (moderate) Current Visit: Yes Status: Chronic S/P I&D and wound vac placement left foot. I&D on board. ERIN/CKD 3, baseline creatinine 1.3-1.6 in setting of diabetes. Will follow in office if discharged. Subjective Principal diagnosis: Postoperative day 3 Interval history: S/P I&D left foot. States to be discharged home today. Objective - Vital Signs Vital signs: Vital Signs Temp Pulse Resp BP Pulse Ox 12/28/16 04:58 98.9 F 62 18 113/69 96 12/28/16 00:22 98.7 F 71 16 156/75 95 12/27/16 19:26 97.8 F 64 17 129/81 12/27/16 16:23 98.1 F 73 16 155/76 98 Intake and Output 12/27/16 12/28/16 12/28/16 23:59 07:59 15:59 Intake Total 250 / 250 800 / 800 Output Total 475 / 475 700 / 700 0 / 0 Balance -225 / -225 100 / 100 0 / 0 Intake: IV Fluids 250 / 250 Vancocin 1,250 MG In Dextrose 5 250 / 250 % 250 ML @ 166.67 mls/hr IVPB Q24H [facility] Rx#:[id number] Oral 800 / 800 Output: Urine 475 / 475 700 / 700 Wound Drainage 0 / 0 0 / 0 Left Foot 0 / 0 Left Toe - 4th Digit 0 / 0 0 / 0 Other: Blood Glucose* 280 61 - General Appearance General appearance: Present: well-developed, well-nourished, appears started age EENT: Present: mucous membranes moist Neck: Present: no JVD Respiratory: Present: clear Cardiology: Present: edema, regular rate, regular rhythm Gastrointestinal: Present: normoactive bowel sounds, no tenderness Integumentary: Present: warm and dry Psychiatric: Present: mood/affect appropriate, cooperative - Lab 12/25/16 07:34 12/27/16 01:26 Most recent lab results Calcium 9.0 mg/dL (8.6-10.8) 12/27/16 01:26 Phosphorus 3.8 mg/dL (2.3-4.7) 12/25/16 07:34 Magnesium 2.0 mg/dL (1.6-2.6) 12/25/16 07:34 - VTE Documentation of Mechanical Device: Intermittent pneumatic compression device Consult Discharge Plan - Plan Referrals: Jennifer Anderson CNP [Advanced Practice Nurse] - 01/03/17 8:00 am Ang Cruz DPM [Partnered Physician] - 01/04/17 3:25 pm Eloy Calles DO [Primary Care Provider] - Prescriptions: Vancomycin [Vancocin] 1,250 mg IV Q24H #3 vial
[2016-12-28] MEDS ORDERED: Aminoglycoside Consult 1 EACH MC ONE (12:14)
[2016-12-28] MEDS ORDERED: levoFLOXacin 750 MG TABLET PO SCH (17:00)
== END 2016-12-28 12:15 | disposition home health service (06) | DRG 364 ==
LOC: SAMDAY 10:36 → 3NENU 14:27 → SUATTDRO 19:11 → INTOOBSV 19:11 → 3NENU 19:11
PROVIDERS: ADMIT Podiatrist Foot Surgery; ATTEND Internal Medicine

== ENCOUNTER 2017-05-21 20:56 | Inpatient (IN) ==
[2017-05-21 22:00] LABS: Basophils # 0.1 K/mcL (0.0-0.2); Basophils % 0.6 %; Eosinophils # 0.1 K/mcL (0.0-0.6); Eosinophils % 0.9 %; Hematocrit 35.7 % (37.5-50.1); Hemoglobin 11.5 g/dL (12.9-16.9); Immature Granulocytes % 0.3 % (0-4); Lymphocytes # 1.1 K/mcL (0.6-4.6); Lymphocytes % 10.2 %; Mean Corpuscular HGB Conc 32.2 g/dL (31.6-35.5); Mean Corpuscular Hemoglobin 27.8 pg (28.0-33.3); Mean Corpuscular Volume 86.2 fL (83.0-100.0); Mean Platelet Volume 10.5 fL (9.4-12.4); Monocytes # 0.8 K/mcL (0.0-1.3); Monocytes % 7.6 %; Neutrophils # 8.8 K/mcL (1.6-8.9); Platelet Count 310 K/mcL (140-400); Red Blood Count 4.14 M/mcL (4.19-5.50); Red Cell Distribution Width 12.8 % (11.5-14.5); Segmented Neutrophils % 80.4 %
[2017-05-21 22:11] LABS: INR 1.2
[2017-05-21 22:19] LABS: Calcium 9.1 mg/dL (8.6-10.3); Potassium 4.7 mEq/L (3.5-5.1)
[2017-05-21 22:20] LABS: VBG HCO3 22 mEq/L (21-27); VBG PCO2 45 mmHg (41-51); VBG PH 7.31 pH Units (7.32-7.42); VBG PO2 53 mmHg (25-50)
[2017-05-21] MEDS ORDERED: *HR* Heparin 5,000 UNIT/ML VIAL IVP PRN ×3 (22:23→23:38)
[2017-05-21] MEDS ORDERED: *HR* Heparin 5,000 UNIT/ML VIAL IVP ONE ×2 (22:23→23:38)
--- NOTE | 2017-05-21 22:50 | Emergency Department Note ---
Disposition Clinical Impression: Elevated troponin Disposition: Admitted As Inpatient Condition: Undetermined General Adult HPI - General Chief complaint: ED Shortness of Breath/Dyspnea Stated complaint: JULIANA Time Seen by Provider: 05/21/17 21:08 Source: patient Nursing Notes Reviewed: Yes Vital Signs Reviewed: Yes - History of Present Illness HPI Narrative: This is a 59 through male presents with concern for dyspnea on exertion. He has a history of coronary artery disease and recently had coronary artery bypass grafting. This was performed here at [facility]. He denies having provocative testing performed following cardiac surgery. He reports that initially he was getting better in terms of activity and was participating in cardiac rehabilitation. Recently began disconnect and has trouble with ambulating due to dyspnea. He has minimal baseline lower extremity edema. He has no current chest pain. General: No acute distress HEENT: Pupils equal and reactive to light, extraoccular muscle movement is normal, TMS are clear bilaterally. Heart: Murmur is present Lungs: lungs clear, no wheezing, rales or ronchi. ABD: SNT, no focal areas or tenderness, no guarding or rebound tenderness. Extremities: No cyanosis, clubbing or edema Neuro: CN 2-12 in tact, no focal deficit. strength 5/5. Medical decision-making This is a male patient with a significant cardiac history presenting with dyspnea on exertion and concern for possible underlying cardiac causes of exertional mediated dyspnea. His EKG on arrival shows sinus bradycardia with first-degree AV block and ST segment changes in leads 1, 2, aVL, V5, V6, normal intervals. There is evidence of ischemia on EKG. He was found to have elevated cardiac biomarkers. He is subsequently heparinized. He has no current chest pain. Plan to admit to the hospital service for cardiac evaluation. Critical care performed:35 Time is exclusive of separately billable procedures. Time includes: direct patient care, patient reassessment, coordination of patient care, interpretation of data (laboratory data, radiology data, and respiratory data), review of patient's medical records, medical consultation and documentation of patient care. Procedures included in critical care time:0 Procedures excluded from critical care time: 0 Pain Scale: 0 - Related Data Home Medications Medication Instructions Recorded Confirmed Albuterol Sulfate [Ventolin Hfa] 2 puff IH Q4-6H PRN 12/20/16 05/21/17 Furosemide [Lasix] 40 mg PO DAILY 12/20/16 05/21/17 Insulin Glargine,Hum.rec.anlog 26 unit SQ BID 12/20/16 05/21/17 [Basaglar Kwikpen U-100] Insulin LISPRO [HumaLOG] 0 units SQ TID 12/28/16 05/21/17 Aspirin Enteric Coated [Aspirin EC] 81 mg PO DAILY 05/21/17 05/21/17 Chlorhexidine Rinse 15 ml MM BID 05/21/17 05/21/17 Enalapril Maleate [Vasotec] 5 mg PO DAILY 05/21/17 05/21/17 Allergies Allergy/AdvReac Type Severity Reaction Status Date / Time No Known Allergies Allergy Verified 05/21/17 21:04 All systems ED: reviewed and negative except as stated. Review of Systems: As Per HPI Past Medical History - Past Medical History Medical history: Reports: cancer, COPD, coronary artery disease, diabetes, hyperlipidemia, hypertension, renal disease, other Surgical history: Reports: cancer surgery, coronary bypass (CABG), orthopedic, other, other (Podiatric surgery to left foot) Psychiatric history: Reports: no psych history - Social History Smoking Status: Never smoker Smokeless Tobacco Status: No Alcohol use: Reports: occasionally Drug use: Reports: none Physical Exam - General General appearance: alert, in no apparent distress Course Vital Signs Temperature 97.4 F L 05/21/17 21:02 Pulse Rate 57 05/21/17 21:02 Respiratory Rate 16 05/21/17 21:02 Blood Pressure 159/83 05/21/17 21:02 O2 Sat by Pulse Oximetry 100 05/21/17 21:02 Temperature 97.4 F L 05/21/17 21:02 Pulse Rate 58 05/21/17 22:29 Respiratory Rate 16 05/21/17 22:29 Blood Pressure 156/87 05/21/17 22:29 O2 Sat by Pulse Oximetry 100 05/21/17 22:29 Oxygen Delivery Oxygen Delivery Room Air Medical Decision Making - Lab Data Result diagrams: 05/21/17 21:49 05/21/17 21:49 Lab Results 05/21/17 05/21/17 05/21/17 Range/Units 21:49 21:49 21:49 WBC 11.0 (4.3-11.1) K/mcL RBC 4.14 L (4.19-5.50) M/mcL Hgb 11.5 L (12.9-16.9) g/dL Hct 35.7 L (37.5-50.1) % MCV 86.2 (83.0-100.0) fL MCH 27.8 L (28.0-33.3) pg MCHC 32.2 (31.6-35.5) g/dL RDW 12.8 (11.5-14.5) % Plt Count 310 (140-400) K/mcL MPV 10.5 (9.4-12.4) fL Immature Gran % 0.3 (0-4) % Seg Neutrophils % 80.4 % Lymphocytes % 10.2 % Monocytes % 7.6 % Eosinophils % 0.9 % Basophils % 0.6 % Neutrophils # 8.8 (1.6-8.9) K/mcL Lymphocytes # 1.1 (0.6-4.6) K/mcL Monocytes # 0.8 (0.0-1.3) K/mcL Eosinophils # 0.1 (0.0-0.6) K/mcL Basophils # 0.1 (0.0-0.2) K/mcL PT 13.0 H (9.4-12.1) Seconds INR 1.2 APTT 27.6 (26.0-36.0) Seconds VBG pH (7.32-7.42) pH Units VBG pCO2 (41-51) mmHg VBG pO2 (25-50) mmHg VBG HCO3 (21-27) mEq/L Sodium 138 (136-145) mEq/L Potassium 4.7 (3.5-5.1) mEq/L Chloride 110 H (98-107) mEq/L Carbon Dioxide 20 L (23-29) mEq/L BUN 32 H (8-23) mg/dL Creatinine 1.48 H (0.70-1.30) mg/dL Est GFR ( Amer) 58 L (> 60) Est GFR (Non-Af Amer) 48 L (> 60) BUN/Creatinine Ratio 22 (6-26) Glucose 125 H (70-105) mg/dL Calculated Osmolality 294 (280-300) Lactic Acid (0.5-2.2) mmol/L Calcium 9.1 (8.6-10.3) mg/dL Troponin I (< 0.04) ng/mL B-Natriuretic Peptide (Less than 100) pg/mL 05/21/17 05/21/17 05/21/17 Range/Units 21:49 21:49 21:49 WBC (4.3-11.1) K/mcL RBC (4.19-5.50) M/mcL Hgb (12.9-16.9) g/dL Hct (37.5-50.1) % MCV (83.0-100.0) fL MCH (28.0-33.3) pg MCHC (31.6-35.5) g/dL RDW (11.5-14.5) % Plt Count (140-400) K/mcL MPV (9.4-12.4) fL Immature Gran % (0-4) % Seg Neutrophils % % Lymphocytes % % Monocytes % % Eosinophils % % Basophils % % Neutrophils # (1.6-8.9) K/mcL Lymphocytes # (0.6-4.6) K/mcL Monocytes # (0.0-1.3) K/mcL Eosinophils # (0.0-0.6) K/mcL Basophils # (0.0-0.2) K/mcL PT (9.4-12.1) Seconds INR APTT (26.0-36.0) Seconds VBG pH (7.32-7.42) pH Units VBG pCO2 (41-51) mmHg VBG pO2 (25-50) mmHg VBG HCO3 (21-27) mEq/L Sodium (136-145) mEq/L Potassium (3.5-5.1) mEq/L Chloride (98-107) mEq/L Carbon Dioxide (23-29) mEq/L BUN (8-23) mg/dL Creatinine (0.70-1.30) mg/dL Est GFR ( Amer) (> 60) Est GFR (Non-Af Amer) (> 60) BUN/Creatinine Ratio (6-26) Glucose (70-105) mg/dL Calculated Osmolality (280-300) Lactic Acid 0.9 (0.5-2.2) mmol/L Calcium (8.6-10.3) mg/dL Troponin I 0.65 H* (< 0.04) ng/mL B-Natriuretic Peptide 679 H (Less than 100) pg/mL 05/21/17 Range/Units 22:17 WBC (4.3-11.1) K/mcL RBC (4.19-5.50) M/mcL Hgb (12.9-16.9) g/dL Hct (37.5-50.1) % MCV (83.0-100.0) fL MCH (28.0-33.3) pg MCHC (31.6-35.5) g/dL RDW (11.5-14.5) % Plt Count (140-400) K/mcL MPV (9.4-12.4) fL Immature Gran % (0-4) % Seg Neutrophils % % Lymphocytes % % Monocytes % % Eosinophils % % Basophils % % Neutrophils # (1.6-8.9) K/mcL Lymphocytes # (0.6-4.6) K/mcL Monocytes # (0.0-1.3) K/mcL Eosinophils # (0.0-0.6) K/mcL Basophils # (0.0-0.2) K/mcL PT (9.4-12.1) Seconds INR APTT (26.0-36.0) Seconds VBG pH 7.31 L (7.32-7.42) pH Units VBG pCO2 45 (41-51) mmHg VBG pO2 53 H (25-50) mmHg VBG HCO3 22 (21-27) mEq/L Sodium (136-145) mEq/L Potassium (3.5-5.1) mEq/L Chloride (98-107) mEq/L Carbon Dioxide (23-29) mEq/L BUN (8-23) mg/dL Creatinine (0.70-1.30) mg/dL Est GFR ( Amer) (> 60) Est GFR (Non-Af Amer) (> 60) BUN/Creatinine Ratio (6-26) Glucose (70-105) mg/dL Calculated Osmolality (280-300) Lactic Acid (0.5-2.2) mmol/L Calcium (8.6-10.3) mg/dL Troponin I (< 0.04) ng/mL B-Natriuretic Peptide (Less than 100) pg/mL Attestation Statement - Attestation Attestation: Spoke with Dr. Sanchez in cardiology, they will see the patient in the am.
[2017-05-21 22:51] LABS: Activated Partial Thrombo Time 27.6 Seconds (26.0-36.0)
[2017-05-21] MEDS: Heparin 25,000 UNIT/500 ML D5W 25,000 UNIT/500 ML BAG IVC SCH (23:19)
--- NOTE | 2017-05-21 23:21 | Internal Med History&Physical ---
Date of Encounter: 05/21/17 Time of Encounter: 23:18 Assessment and Plan (1) NSTEMI (non-ST elevated myocardial infarction) Current visit: Yes Status: Acute Patient with exertional shortness of breath likely anginal equivalent has some chest pain this evening troponin significantly elevated Consistent with non-STEMI will starton stopped on heparin drip and consult cardiology and keep nothing by mouth after midnight consult for possible some graft closure (2) COPD (chronic obstructive pulmonary disease) Current visit: Yes Status: Chronic Chronic no active wheezing on exam Qualifiers: COPD type: emphysema Emphysema type: unspecified Qualified Code(s): J43.9 - Emphysema, unspecified (3) CHF (congestive heart failure) Current visit: Yes Status: Acute Patient with exertion or shortness of breath and some leg edema LANDMAN 679 clusters on IV Lasix and consult nephrology as well for follow-up Qualifiers: Heart failure type: diastolic Heart failure chronicity: acute Qualified Code(s): I50.31 - Acute diastolic (congestive) heart failure (4) Diabetes mellitus Current visit: No Status: Chronic Chronic with prior diabetic foot ulcer resume home medication and place on sliding scale Qualifiers: Diabetes mellitus type: type 2 Diabetes mellitus complication status: with skin complications Diabetes mellitus complication detail: with foot ulcer Diabetes mellitus mapping editor insulin use: with detention use Qualified Code(s) : E11.621 - Type 2 diabetes mellitus with foot ulcer (5) Hyperlipidemia Current visit: No Status: Chronic Chronic check an a.m. Qualifiers: Hyperlipidemia type: pure hypercholesterolemia Qualified Code(s): E78.00 - Pure hypercholesterolemia, unspecified; E78.0 - Pure hypercholesterolemia (6) Hypertension Current visit: No Status: Chronic Chronic and uncontrolled we will adjust blood pressure meds Qualifiers: Hypertension type: essential hypertension Qualified Code(s): I10 - Essential (primary) hypertension (7) Obesity (BMI 30.0-34.9) Current visit: No Status: Chronic Chronic Internal Medicine - H&P: HPI Chief complaint: chest pain and exertional sob Admitted From: Emergency Dept Plans for Post Hospital Care: Home History of present illness: Mr. Bearden is a 62 year old male Patient with history of CAD CABG of three-vessel May last year. Patient also has history of hypertension, diabetes, high cholesterol, anemia, CkD stage III, COPD. Patient underwent cardiac rehabilitation about 3 times a week which is now completed . But in the last month experiencing exertional shortness of breath and this evening developed chest pain lasted a few minutes and resolved without nitroglycerin and that he came into the emergency room emergency room evaluation troponin was 0.65 BNP 679 denies recurrent chest pain his main concern is that shortness of breath especially with exertion which is new in the last month he said this is similar symptom he had prior to CABG some leg edema Past Med Surg Social Fam HX - Past Medical History Medical history: cancer, COPD, coronary artery disease, diabetes, hyperlipidemia , hypertension, renal disease, other Psychiatric history: no psych history - Past Surgical History Surgical History: cancer surgery, coronary bypass (CABG), orthopedic, other, other (Podiatric surgery to left foot) - Social History Smoking Status: Never smoker Smokeless Tobacco Status: No Alcohol use: occasionally Drug use: none - Family History Brother Family Member Ethnicity: Non- Living Status: Still Living Hx Family Endocrine Disorder: Yes (DM) Father Adopted: No Family Member Ethnicity: Non- Living Status: Hx Family Cardiac Disorders: Yes (Stroke, HTN) Hx Family Respiratory Disorders: No Hx Family Cancer: No Hx Family GI Disorders: Yes (Gastric bypass) Hx Family Endocrine Disorder: Yes (DM) Hx Family Neuromuscular Disorders: Yes Hx Family Neurologic Disorders: Yes (CVA) Hx Family HEENT Disorders: No Hx Family Autoimmune Disorders: No Mother Family Member Ethnicity: Non- Living Status: Hx Family Cardiac Disorders: Yes (Stroke) Hx Family Respiratory Disorders: No Hx Family Cancer: Yes (thyroid) Hx Family GI Disorders: No Hx Family Endocrine Disorder: No Hx Family Neurologic Disorders: Yes (CVA) Internal Medicine - H&P: Meds Albuterol Sulfate [Ventolin Hfa] 2 puff IH Q4-6H PRN 12/20/16 [History] Furosemide [Lasix] 40 mg PO DAILY 12/20/16 [History] Insulin Glargine,Hum.rec.anlog [Basaglar Kwikpen U-100] 26 unit SQ BID 12/20/16 [History] Insulin LISPRO [HumaLOG] 0 units SQ TID 12/28/16 [History] Aspirin Enteric Coated [Aspirin EC] 81 mg PO DAILY 05/21/17 [History] Chlorhexidine Rinse 15 ml MM BID 05/21/17 [History] Enalapril Maleate [Vasotec] 5 mg PO DAILY 05/21/17 [History] 3 Allergy/AdvReac Type Severity Reaction Status Date / Time No Known Allergies Allergy Verified 05/21/17 21:04 All Systems PM: A 10-system review of systems was performed and is negative for pertinent findings except as documented above in the HPI. - Constitutional Constitutional: no chills, no fever(s), no night sweats - EENT Eyes: no change in vision, no discharge, no pain, no photophobia Ears: no ear discharge, no ear pain, no tinnitus Nose, mouth and throat: no dysphagia, no nasal discharge, no neck pain, no sore throat - Cardiovascular Cardiovascular ROS IM: chest pain, dyspnea, dyspnea on exertion - Respiratory Respiratory: dyspnea on exertion - Gastrointestinal Gastrointestinal: no abdominal pain, no diarrhea, no hematemesis, no hematochezia, no melena, no nausea, no vomiting - Musculoskeletal Musculoskeletal ROS IM: no numbness, no tingling - Integumentary Integumentary IM: no rash, no unusual bruising - Neurological Neurological ROS: no confusion, no convulsions, no focal weakness, no numbness, no tingling, no tremor(s) - Constitutional Vitals: Temp Pulse Resp BP Pulse Ox 97.4 F L 58 16 156/87 100 05/21/17 21:02 05/21/17 22:29 05/21/17 22:29 05/21/17 22:29 05/21/17 22:29 - Eye Eye exam: Present: PERRL, conjuntiva pink, sclera anicteric Pupils: Present: PERRL - Neck Neck exam general surgery: Present: supple, trachea midline. Absent: lymphadenopathy - Respiratory Respiratory exam: Present: CTAB. Absent: accessory muscle use, rales, rhonchi, wheezes - Cardiovascular Cardiovascular exam: Present: RRR, +S1, +S2. Absent: diastolic murmur, gallop, rubs, systolic murmur - GI/Abdominal GI/Abdominal exam: Present: normal bowel sounds, soft, no peritoneal signs. Absent: distended, tenderness - Extremities Exam Extremities exam: Present: warm, radial pulses palpable and symmetrical. Absent : calf tenderness, cyanotic, pedal edema Internal Med - H&P Results - Labs CBC & Chem 7: 05/21/17 21:49 05/21/17 21:49
[2017-05-21] MEDS ORDERED: Mag Hydrox/Al Hydrox/Simeth 30 ML UDC PO PRN (23:33)
[2017-05-21] MEDS ORDERED: Acetaminophen 325 MG TABLET PO PRN (23:33)
[2017-05-21] MEDS ORDERED: Ondansetron 4 MG/2 ML VIAL IVP PRN (23:33)
[2017-05-21] MEDS ORDERED: Naloxone 0.4 MG/ML INJ IVP PRN (23:33)
[2017-05-21] MEDS ORDERED: Heparin 25,000 UNIT/500 ML D5W 25,000 UNIT/500 ML BAG IVC SCH (23:45)
[2017-05-22 00:36] LABS: Hemoglobin 11.3 g/dL (12.9-16.9); Mean Corpuscular HGB Conc 33.2 g/dL (31.6-35.5); Mean Corpuscular Hemoglobin 28.1 pg (28.0-33.3); Mean Corpuscular Volume 84.6 fL (83.0-100.0); Mean Platelet Volume 10.5 fL (9.4-12.4); Platelet Count 312 K/mcL (140-400); Red Blood Count 4.02 M/mcL (4.19-5.50); Red Cell Distribution Width 12.8 % (11.5-14.5)
[2017-05-22 00:45] LABS: INR 1.3; Prothrombin Time 13.9 Seconds (9.4-12.1)
[2017-05-22 00:47] LABS: Alanine Aminotransferase 57 Units/L (7-52); Albumin 3.6 g/dL (3.5-5.7); Albumin/Globulin Ratio 1.1 (1.1-2.2); Alkaline Phosphatase 162 Units/L (34-104); Aspartate Amino Transferase 52 Units/L (13-39); BUN/Creatinine Ratio 23 (6-26); Bilirubin,Total 0.5 mg/dL (0.3-1.0); Blood Urea Nitrogen 33 mg/dL (8-23); Calcium 8.9 mg/dL (8.6-10.3); Carbon Dioxide 19 mEq/L (23-29); Chloride 112 mEq/L (98-107); Chol/HDL Ratio 2.8 (0-4.9); Cholesterol 86 mg/dL (< 200); Globulin 3.4 g/dL (2.4-3.5); Glucose 103 mg/dL (70-105); HDL Cholesterol 31 mg/dL (40-59); LDL Cholesterol,Calculated 48 mg/dL (0-99); Osmolality,Calculated 298 (280-300); Potassium 4.3 mEq/L (3.5-5.1); Sodium 140 mEq/L (136-145); Triglycerides 36 mg/dL (< 150); eGFR For African Americans > 60 (> 60); eGFR For Non-African Americans 50 (> 60)
[2017-05-22 01:02] LABS: Activated Partial Thrombo Time 162.5 Seconds (26.0-36.0)
[2017-05-22 01:08] LABS: Heparin anti-factor XA UFH 0.72 IU/mL (0.30-0.70)
[2017-05-22] MEDS ORDERED: *HR* Dextrose 50 % in Water (Syg) 50 ML SYRINGE ONE (07:52)
[2017-05-22] MEDS: Chlorhexidine Rinse 15 ML MOUTHWASH MM SCH ×2 (07:54→22:54)
[2017-05-22] MEDS: amLODIPine 5 MG TABLET PO SCH (07:54)
[2017-05-22] MEDS: Aspirin Enteric Coated 81 MG Tablet PO SCH (07:54)
[2017-05-22] MEDS: Isosorbide MONOnitrate (24 HR) 60 MG TAB.ER.24H PO SCH (07:54)
[2017-05-22] MEDS ORDERED: D5% in Water 1,000 ML IVC PRN (08:09)
[2017-05-22] MEDS ORDERED: Dextrose Gel 15 GM/37.5 ML TUBE PO PRN ×2 (08:09)
[2017-05-22] MEDS ORDERED: *HR* Dextrose 50 % in Water (Syg) 50 ML SYRINGE IVP PRN (08:09)
[2017-05-22] MEDS: *HR* Heparin 5,000 UNIT/ML VIAL IVP PRN ×2 (10:11→17:25)
--- NOTE | 2017-05-22 10:14 | Nephrology Consult Note ---
Date of Encounter: 05/22/17 Time of Encounter: 09:00 Assessment and Plan (1) Chronic kidney disease, stage III (moderate) Current Visit: No Status: Chronic Chest pain, CHF, cardiology consulted. CKD 3 in setting of diabetic nephropathy , Baseline creat 1.3-1.6. Today creat 1.44. Avoid nephrotoxins, I&O, will continue to monitor. History of Present Illness - Reason for Consult Chronic Kidney Disease - History of Present Illness Mr. Bearden is a 62 year old male well known to practice with CKD 3, in setting of diabetic nephropathy, baseline creat 1.3-1.6. Other PMH-cancer, COPD, coronary artery disease, diabetes, hyperlipidemia, hypertension, renal disease, ERIN, cancer surgery, coronary bypass (CABG), orthopedic, other, other ( Podiatric surgery to left foot). Mr. Bearden presented to ER yesterday with dyspnea worsening with activity and mild substernal chest pain. Trop 0.65, started on Heparin drip. Cardiology consulted. CXR- Small left pleural effusion and associated atelectasis. BMP 679, given IV Lasix. This morning he states breathing much easier, denies chest pain, trace LE edema. Past Med Surg Social Fam HX - Past Medical History Medical history: cancer, COPD, coronary artery disease, diabetes, hyperlipidemia , hypertension, renal disease, other Psychiatric history: no psych history - Past Surgical History Surgical History: cancer surgery, coronary bypass (CABG), orthopedic, other, other - Social History Smoking Status: Never smoker Smokeless Tobacco Status: No Alcohol use: occasionally Drug use: none - Family History Brother Family Member Ethnicity: Non- Living Status: Still Living Hx Family Endocrine Disorder: Yes (DM) Father Adopted: No Family Member Ethnicity: Non- Living Status: Hx Family Cardiac Disorders: Yes (Stroke, HTN) Hx Family Respiratory Disorders: No Hx Family Cancer: No Hx Family GI Disorders: Yes (Gastric bypass) Hx Family Endocrine Disorder: Yes (DM) Hx Family Neuromuscular Disorders: Yes Hx Family Neurologic Disorders: Yes (CVA) Hx Family HEENT Disorders: No Hx Family Autoimmune Disorders: No Mother Family Member Ethnicity: Non- Living Status: Hx Family Cardiac Disorders: Yes (Stroke) Hx Family Respiratory Disorders: No Hx Family Cancer: Yes (thyroid) Hx Family GI Disorders: No Hx Family Endocrine Disorder: No Hx Family Neurologic Disorders: Yes (CVA) Medications and Allergies Albuterol Sulfate [Ventolin Hfa] 2 puff IH Q4-6H PRN 12/20/16 [History] Furosemide [Lasix] 40 mg PO DAILY 12/20/16 [History] Insulin Glargine,Hum.rec.anlog [Basaglar Kwikpen U-100] 26 unit SQ BID 12/20/16 [History] Insulin LISPRO [HumaLOG] 0 units SQ TID 12/28/16 [History] Aspirin Enteric Coated [Aspirin EC] 81 mg PO DAILY 05/21/17 [History] Chlorhexidine Rinse 15 ml MM BID 05/21/17 [History] Enalapril Maleate [Vasotec] 5 mg PO DAILY 05/21/17 [History] 3 Allergy/AdvReac Type Severity Reaction Status Date / Time No Known Allergies Allergy Verified 05/21/17 21:04 Review of Systems All Systems: reviewed and no additional remarkable complaints except as stated Exam - Vital Signs Vital signs: Initial Vital Signs Temp Pulse Resp BP Pulse Ox 97.4 F L 57 16 159/83 100 05/21/17 21:02 05/21/17 21:02 05/21/17 21:02 05/21/17 21:02 05/21/17 21:02 Vital Signs - Last 8 Hours Temp Pulse Resp BP Pulse Ox 05/22/17 07:37 97.6 F 57 16 161/79 98 05/22/17 03:24 97.8 F 56 18 149/72 98 Intake and Output 05/21/17 05/22/17 05/22/17 23:59 07:59 15:59 Intake Total 271.7 / 271.7 25 / 25 Output Total 200 / 200 0 / 0 Balance 71.7 / 71.7 25 / 25 Intake: IV Fluids 35.7 / 35.7 Heparin 25,000 UNIT/500 ML D5W 35.7 / 35.7 25,000 unit In 500 ml @ 11 UNIT /KG/HR 19.958 mls/hr IVC .Q24H [facility] Rx#:[id number] Oral 236 / 236 25 / 25 Output: Urine 200 / 200 0 / 0 Other: Meal cereal Breakfast Percent of Meal Consumed 100% 0% Weight 93.497 kg Blood Glucose* 62 91 Patient Weight 05/22/17 23:59 Weight 93.497 kg - General Appearance General appearance: well-developed, well-nourished, appears started age EENT: mucous membranes moist Neck: no JVD Respiratory: clear Cardiology: regular rate, regular rhythm Additional Comments: trace LE edema Gastrointestinal: normoactive bowel sounds, no tenderness Integumentary: warm and dry Neurologic: alert and oriented x3 Results - Lab Results 05/22/17 00:22 05/22/17 00:22 Most recent lab results Calcium 8.9 mg/dL (8.6-10.3) 05/22/17 00:22 Magnesium 2.0 mg/dL (1.6-2.6) 05/22/17 00:22 Consult Discharge Plan - Plan Referrals: Eloy Calles DO [Primary Care Provider] -
--- NOTE | 2017-05-22 12:11 | Electrocardiograph Report ---
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
--- NOTE | 2017-05-22 13:57 | Cardiology Consult Note ---
<Xena Linares - Last Filed: 05/22/17 13:47> Date of Encounter: 05/22/17 Time of Encounter: 10:00 Assessment and Plan (1) CHF (congestive heart failure) Current Visit: Yes Status: Acute Per cardiology: -Suspected diastolic CHF. -BNP 679. -Chest x-ray with small pleural effusion. -Admitted with increased shortness of breath. -Currently net positive 440ml. -Appears volume overload on exam. -Will give lasix 40mg IV x1. -Strict i/os, fluid restriction, daily weights. Qualifiers: Heart failure type: diastolic Heart failure chronicity: acute Qualified Code(s): I50.31 - Acute diastolic (congestive) heart failure (2) Elevated troponin Current Visit: Yes Status: Acute Per cardiology: -Troponins 0.65, 0.6, 0.54, 0.47. -On heparin drip. -ECG with new T wave inversions inferior and lateral leads. -Denies chest pain. -TTE pending. -Further recommendations pending TTE. -Will make NPO after midnight for possible LHC in am. (3) Coronary artery disease Current Visit: No Status: Chronic Per cardiology: -Known CAD s.p CABG x3 08/2016 with CHUN to LAD, SVG to diagonal 1, SVG to OM. -ON asa, heparin drip. -NOt on statin due to currently elevated LFTs. NOt on beta bridget due to bradycardia. -TTE pending. -Will continue to monitor. Qualifiers: Coronary Disease-Associated Artery/Lesion type: [place] artery [place] vs. transplanted heart: [place] heart Associated angina: without angina Qualified Code(s): I25.10 - Atherosclerotic heart disease of [place] coronary artery without angina pectoris (4) PAF (paroxysmal atrial fibrillation) Current Visit: Yes Status: Acute Per cardiology: -Telemetry reviewed with one epiosde of atrial fibrillation, strips reviewed with . -Currently SR. -not on AV [place] blockers due to bradycardia. -Denies previous history of PAF. -[id number] score 3 (HTN, DM, vascular disease). Currently on heparin drip. -Continue heparin drip. 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 -Will contineu to monitor. Discussion w patient/family: The assessment and plan as outlined above was discussed with the patient who expressed understanding and agreement. All questions were answered. Thank you for involving us in the care of your patient. Please call with any questions. Discussed and reviewed with . History of Present Illness Consult date: 05/21/17 Requesting physician: Dagoberto Grace Consult reason: elevated troponin Chief complaint: shortness of breath History of present illness: Mr. Bearden is a 62 year old male with a relevant past medical history of CAD s/ p CABG x3 vessels 2017, HTN, CKD, DMII. Patient presented to [facility] with complaints of increased shortness of breath. Patient reports shortness of breath occurs with exertion. States he had one episode of chest pain while sitting. Denies exertional chest pain. Patient denies fatigue. Patient denies palpitations or fluttering. Denies history of atrial fibrillation. Patient reports prior to CABG, his symptoms were similar to current symptoms. Patient denies bleeding or blood loss. Past Med Surg Social Fam HX - Past Medical History Attestation: Yes The following information was validated with the patient. Source: patient, old records reviewed Medical history: cancer, COPD, coronary artery disease, diabetes, hyperlipidemia , hypertension, renal disease, other Psychiatric history: no psych history - Past Surgical History Surgical History: cancer surgery, coronary bypass (CABG), orthopedic, other, other - Social History Smoking Status: Never smoker Smokeless Tobacco Status: No Alcohol use: occasionally Drug use: none - Family History Brother Family Member Ethnicity: Non- Living Status: Still Living Hx Family Endocrine Disorder: Yes (DM) Father Adopted: No Family Member Ethnicity: Non- Living Status: Hx Family Cardiac Disorders: Yes (Stroke, HTN) Hx Family Respiratory Disorders: No Hx Family Cancer: No Hx Family GI Disorders: Yes (Gastric bypass) Hx Family Endocrine Disorder: Yes (DM) Hx Family Neuromuscular Disorders: Yes Hx Family Neurologic Disorders: Yes (CVA) Hx Family HEENT Disorders: No Hx Family Autoimmune Disorders: No Mother Family Member Ethnicity: Non- Living Status: Hx Family Cardiac Disorders: Yes (Stroke) Hx Family Respiratory Disorders: No Hx Family Cancer: Yes (thyroid) Hx Family GI Disorders: No Hx Family Endocrine Disorder: No Hx Family Neurologic Disorders: Yes (CVA) Medications and Allergies Albuterol Sulfate [Ventolin Hfa] 2 puff IH Q4-6H PRN 12/20/16 [History] Furosemide [Lasix] 40 mg PO DAILY 12/20/16 [History] Insulin Glargine,Hum.rec.anlog [Basaglar Kwikpen U-100] 26 unit SQ BID 12/20/16 [History] Insulin LISPRO [HumaLOG] 0 units SQ TID 12/28/16 [History] Aspirin Enteric Coated [Aspirin EC] 81 mg PO DAILY 05/21/17 [History] Chlorhexidine Rinse 15 ml MM BID 05/21/17 [History] Enalapril Maleate [Vasotec] 5 mg PO DAILY 05/21/17 [History] 3 Allergy/AdvReac Type Severity Reaction Status Date / Time No Known Allergies Allergy Verified 05/21/17 21:04 All Systems Review: A 10-system review of systems was performed and is negative for pertinent findings except as documented above in the HPI. - Cardiovascular Cardiovascular: as per HPI, chest pain at rest, dyspnea on exertion, leg edema Physical Examination Vital Signs, Last 4 Hours Temp Pulse Resp BP Pulse Ox 05/22/17 11:28 98.2 F 57 16 136/69 98 General: Conversant, No Apparent Distress HEENT: Atraumatic, Normocephaly, Mucus Membranes Moist Neck: No JVD, Normal carotid pulses Cardiac: Reg Rate and Rhythm, Normal S1 and S2, No Murmur Lungs: Normal Breath Sounds, No Wheeze, Rales, Rhonchi Neuro: Alert and responsive, No focal deficits noted Abdomen: Soft, Non-Tender Skin: No rashes noted on visualized skin Musculoskeletal: No Chest Wall Tenderness Extremities: No Clubbing, No Cyanosis, Normal Pulses, Other (2+ bilateral lower extremity pitting edema. ) Results 05/22/17 00:22 05/22/17 00:22 Lab Results Impressions Chest X-Ray 05/21/17 21:31 IMPRESSION: 1. Small left pleural effusion and associated atelectasis. D/ / Cole Cheema MD / Cole Cheema MD Interpreting Provider: Cole Cheema MD Active Medications Acetaminophen (Tylenol) 650 mg PO Q6HR PRN PRN Reason: Mild Pain/Fever Stop: 11/20/17 23:34 Al Hydrox/Mg Hydrox/Simethicone (Maalox) 15 ml PO Q6HR PRN PRN Reason: Dyspepsia Stop: 11/20/17 23:34 Amlodipine Besylate (Norvasc) 10 mg PO DAILY HERMILO PRN Reason: Protocol Stop: 11/21/17 09:01 Last Admin: 05/22/17 07:54 Dose: 10 mg Aspirin (Aspirin Ec) 81 mg PO DAILY HERMILO Stop: 11/21/17 09:01 Last Admin: 05/22/17 07:54 Dose: 81 mg Chlorhexidine Gluconate (Chlorhexidine Rinse) 15 ml MM BID HERMILO Stop: 11/21/17 09:01 Last Admin: 05/22/17 07:54 Dose: 15 ml Dextrose/Water (Dextrose 50% (Syg)) 25 ml IVP AD PRN PRN Reason: Hypoglycemia Stop: 11/21/17 08:10 Last Admin: 05/22/17 08:00 Dose: 25 ml Glucagon (Glucagen) 1 mg IM ONCE PRN PRN Reason: Hypoglycemia Stop: 11/21/17 08:10 Glucose (Gluctose) 15 gm PO ONCE PRN PRN Reason: Hypoglycemia Stop: 11/21/17 08:10 Glucose (Gluctose) 30 gm PO ONCE PRN PRN Reason: Hypoglycemia Stop: 11/21/17 08:10 Heparin Sodium (Porcine) (Heparin) 4,000 unit IVP Q6HR PRN PRN Reason: SEE COMMENTS Stop: 11/20/17 22:24 Last Admin: 05/22/17 10:11 Dose: 4,000 unit Heparin Sodium (Porcine) (Heparin) 2,000 unit IVP Q6H PRN PRN Reason: SEE COMMENTS Stop: 11/20/17 22:24 Heparin Sodium/Dextrose (Heparin 25,000 Unit/500 Ml D5w) 25,000 unit in 500 mls @ 19.958 mls/hr IVC .Q24H HERMILO; 11 UNIT/KG/HR PRN Reason: Protocol Stop: 11/20/17 22:31 Last Titration: 05/22/17 10:12 Dose: 12.12 unit/kg/hr, 22 mls/hr Dextrose (Dextrose 5%) 1,000 mls @ 100 mls/hr IVC .Q10H PRN PRN Reason: HYPOGLYCEMIA Stop: 11/21/17 08:10 Insulin Human Lispro (Humalog) 0 units SQ HS HERMILO PRN Reason: Protocol Stop: 11/21/17 21:01 Insulin Human Lispro (Humalog) 0 units SQ TIDAC HERMILO PRN Reason: Protocol Stop: 11/21/17 16:31 Isosorbide Mononitrate (Imdur) 60 mg PO DAILY HERMILO Stop: 11/21/17 09:01 Last Admin: 05/22/17 07:54 Dose: 60 mg Naloxone HCl (Narcan) 0.4 mg IVP Q2MIN PRN PRN Reason: SEE COMMENTS Stop: 11/20/17 23:34 Ondansetron HCl (Zofran) 4 mg IVP Q8HR PRN PRN Reason: Nausea And Vomiting Stop: 11/20/17 23:34 Laboratory Tests 05/21/17 05/21/17 05/22/17 21:49 21:49 00:22 WBC Hgb Creatinine 1.44 H AST 52 H ALT 57 H Troponin I 0.65 H* B-Natriuretic Peptide 679 H 05/22/17 05/22/17 05/22/17 00:22 00:22 06:43 WBC 11.9 H Hgb 11.3 L Creatinine AST ALT Troponin I 0.60 H* 0.54 H* B-Natriuretic Peptide 05/22/17 11:53 WBC Hgb Creatinine AST ALT Troponin I 0.47 H* B-Natriuretic Peptide - Imaging and Cardiology Chest Xray: report reviewed Echo: pending, report reviewed Cardiac cath: report reviewed - EKG Interpretation EKG results cardiology: personally reviewed (ECG with SB, HR 55. T wave inversions noted in inferior and lateral leads.), other (Telemetry reviewed with average HR previous 12 hours noted to be 57, SB. PVCs and PACs noted. One run of paroxysmal atrial fibrillation noted.) Consult Discharge Plan - Plan Referrals: Eloy Calles DO [Primary Care Provider] - 05/28/17 10:35 am (web request ) <Christelle Sanchez - Last Filed: 05/22/17 15:11> Date of Encounter: 05/22/17 - Attending Attestation I examined this patient and my medical decision-making was reviewed with the [employer]. I agree with the documented findings, disposition and treatment plan as described. Mr. Bearden presents with symptoms of SOB which he describes having prior to his bypass performed in August 2016. Patient appears volume overloaded on exam. BNP elevated at 679, CXR with small pleural effusions. Agree with trial of IV lasix. Echo is pending. Prior EF 60%. Additional workup has demonstrated elevated troponin, peak of 0.65 and an ECG with new TWI mainly observed in the lateral leads. Given these findings and patient's symptoms which appear similar to those he had prior to bypass, we have recommended proceeding with a LHC. The R/B/A of the procedure were described to the patient. He expressed understanding. He would like to proceed with the procedure with an understanding of the risks. Continue heparin gtt, asa, statin. Of note, review of telemetry strips demonstrate one episode of atrial fibrillation. Currently in NSR. He is not on AVN blockers due to history of bradycardia. 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 Assessment and Plan Discussion w patient/family: The assessment and plan as outlined above was discussed with the patient and/or family members who expressed understanding and agreement. All questions were answered. Thank you for involving us in the care of your patient. Please call with any questions. History of Present Illness History of present illness: Mr. Bearden is a 62 year old male All Systems Review: A 10-system review of systems was performed and is negative for pertinent findings except as documented above in the HPI. Physical Examination Vital Signs, Last 4 Hours Temp Pulse Resp BP Pulse Ox 05/22/17 11:28 98.2 F 57 16 136/69 98 Results 05/22/17 00:22 05/22/17 00:22 Lab Results 05/22/17 05/22/17 05/22/17 00:22 00:22 00:22 WBC 11.9 H Hgb 11.3 L Hct 34.0 L Plt Count 312 INR 1.3 APTT 162.5 H* D Sodium 140 Potassium 4.3 Chloride 112 H Carbon Dioxide 19 L BUN 33 H Creatinine 1.44 H Glucose 103 Calcium 8.9 Magnesium 2.0 Total Bilirubin 0.5 AST 52 H ALT 57 H Alkaline Phosphatase 162 H Troponin I 05/22/17 05/22/17 05/22/17 00:22 06:43 08:34 WBC Hgb Hct Plt Count INR APTT 33.6 D Sodium Potassium Chloride Carbon Dioxide BUN Creatinine Glucose Calcium Magnesium Total Bilirubin AST ALT Alkaline Phosphatase Troponin I 0.60 H* 0.54 H* 05/22/17 11:53 WBC Hgb Hct Plt Count INR APTT Sodium Potassium Chloride Carbon Dioxide BUN Creatinine Glucose Calcium Magnesium Total Bilirubin AST ALT Alkaline Phosphatase Troponin I 0.47 H*
[2017-05-22] MEDS ORDERED: Furosemide 40 MG/4 ML VIAL IVP ONE (15:12)
[2017-05-22] MEDS: Insulin LISPRO 300 UNITS/3 ML VIAL SQ SCH ×2 (17:39→22:54)
--- NOTE | 2017-05-22 18:55 | Internal Med Progress Note ---
Date of Encounter: 05/22/17 Time of Encounter: 14:00 - Assessment and plan (1) CHF (congestive heart failure) Current Visit: Yes Status: Acute Assessment and plan: presented with increasing SOB. TTE with EF 60% and moderate diastolic dysfunction. BNP 600. CXR with pleural effusion. 1 time dose IV lasix per Cardiology. Daily weights, strict I&Os Qualifiers: Heart failure type: diastolic Heart failure chronicity: acute Qualified Code(s): I50.31 - Acute diastolic (congestive) heart failure (2) Coronary artery disease Current Visit: No Status: Chronic Assessment and plan: per hx. S/p CABG x3 08/2016 with CHUN to LAD, SVG to diagonal 1, SVG to OM.Serial troponins 0.65, 0.6, 0.54, 0.47. ECG with new T wave inversions inferior and lateral leads. TTE with EF 60%, atypical wall motion consistent with post-op status. NPO after midnight for possible LHC in am. No statin due to elevated LFTs. No BB due to bradycardia. Cardiology following. Cont ASA, heparin gtt Qualifiers: Coronary Disease-Associated Artery/Lesion type: [place] artery [place] vs. transplanted heart: [place] heart Associated angina: without angina Qualified Code(s): I25.10 - Atherosclerotic heart disease of [place] coronary artery without angina pectoris (3) Chronic kidney disease, stage III (moderate) Current Visit: No Status: Chronic Assessment and plan: per hx. Renal function improved from baseline. (4) Diabetes Current Visit: No Status: Chronic Assessment and plan: per hx. Hypoglycemic on 05/22 am. Likely due to being NPO. Hold home insulin for now. Monitor blood sugar Qualifiers: Diabetes mellitus type: type 2 Diabetes mellitus complication status: with circulatory complication Diabetes mellitus complication detail: with peripheral angiopathy with gangrene Diabetes mellitus intermediate insulin use: with long term care pharmacist use Qualified Code(s): E11.52 - Type 2 diabetes mellitus with diabetic peripheral angiopathy with gangrene; Z79.4 - [facility] (current) use of insulin (5) Transaminitis Current Visit: Yes Status: Acute Assessment and plan: LFTs elevated; appears to be elevated since 12/2016 but slightly more elevated. Cont to monitor. Will need to research previous work-up (6) DVT prophylaxis Current Visit: No Status: Acute Assessment and plan: heparin gtt - Subjective Interval history: Seen and examined at bedside, patient is new to me. Information obtained from chart review and patent report. Says he feels better, still having some SOB with exertion. No chest pain - Constitutional Vitals: Temp Pulse Resp BP Pulse Ox 98.1 F 61 16 134/62 97 05/22/17 16:28 05/22/17 16:28 05/22/17 16:28 05/22/17 16:28 05/22/17 16:28 General appearance: Present: A&O X 3, no acute distress - Head Head exam: Present: atraumatic, normocephalic - Eye Eye exam: Present: PERRL, conjuntiva pink, sclera anicteric Pupils: Present: PERRL - Neck Neck exam general surgery: Present: supple, trachea midline. Absent: lymphadenopathy - Respiratory Respiratory exam: Present: CTAB. Absent: accessory muscle use, rales, rhonchi, wheezes - Cardiovascular Cardiovascular exam: Present: RRR, +S1, +S2. Absent: diastolic murmur, gallop, rubs, systolic murmur - GI/Abdominal GI/Abdominal exam: Present: normal bowel sounds, soft, no peritoneal signs. Absent: distended, tenderness - Extremities Exam Extremities exam: Present: pedal edema, warm, radial pulses palpable and symmetrical. Absent: calf tenderness, cyanotic - Neurological Exam Neurological exam: Present: CN II-XII intact, oriented X3, no focal deficits. Absent: pronater drift, facial droop, speech deficit - Skin Skin exam: Present: dry, intact Internal Medicine: Result - Labs CBC & Chem 7: 05/22/17 00:22 05/22/17 00:22 Labs: Short CBC 05/22/17 Range/Units 00:22 WBC 11.9 H (4.3-11.1) K/mcL Hgb 11.3 L (12.9-16.9) g/dL Hct 34.0 L (37.5-50.1) % Plt Count 312 (140-400) K/mcL BMP 05/22/17 00:22 Sodium 140 Potassium 4.3 Chloride 112 H Carbon Dioxide 19 L BUN 33 H Creatinine 1.44 H Glucose 103 Calcium 8.9 Cardiac Enzymes 02/14/18 02/14/18 02/14/18 Range/Units 00:22 06:43 11:53 Troponin I 0.60 H* 0.54 H* 0.47 H* (< 0.04) ng/mL Liver Function 05/22/17 Range/Units 00:22 Total Bilirubin 0.5 (0.3-1.0) mg/dL AST 52 H (13-39) Units/L ALT 57 H (7-52) Units/L Alkaline Phosphatase 162 H (34-104) Units/L Albumin 3.6 (3.5-5.7) g/dL - ABG Interpretation ABG results: PT/INR, D-dimer PT 13.9 Seconds (9.4-12.1) H 05/22/17 00:22 - Impressions Impressions Echocardiogram 05/22/17 23:36 Impressions: LVEF 60%. Normal LV chamber size, wall thickness and function. Moderate left ventricular diastolic dysfunction. Atypical septal motion consistent with post-operative status. Normal right ventricular structure and function. Moderate pulmonary hypertension. Mild aortic regurgitation. Left Ventricular Wall Motion: Rest Echo Findings All wall segments showed normal motion. Findings: Study Quality * Technically adequate exam. ECG Findings * Normal sinus rhythm. Left Ventricle * LVEF 60%. * Normal LV chamber size, wall thickness and function. * Moderate left ventricular diastolic dysfunction. * Atypical septal motion consistent with post-operative status. Right Ventricle * Normal right ventricular structure and function. Left Atrium * Moderately dilated left atrium. Right Atrium * Mildly dilated right atrium. Interatrial Septum * No evidence of PFO by color Doppler. Aortic Valve * Aortic valve not well visualized. * Mild aortic regurgitation. * No aortic stenosis. Mitral Valve * Normal mitral valve structure and function. * No mitral stenosis. * Trace mitral regurgitation. Tricuspid Valve * Normal tricuspid valve structure and function. * Trace tricuspid regurgitation. * Moderate pulmonary hypertension. Pulmonic Valve * Pulmonic valve is not well visualized. * No pulmonic regurgitation. Aorta * Normally sized aortic root. Pericardium * The pericardium appears normal. IVC * Normal IVC dimensions and inspiratory collapse. Pulmonary Artery * Normal visualized portions of the main pulmonary artery. Consult Discharge Plan - Plan Referrals: Eloy Calles DO [Primary Care Provider] - 05/28/17 10:35 am (web request )
[2017-05-22] MEDS: Heparin 25,000 UNIT/500 ML D5W 25,000 UNIT/500 ML BAG IVC SCH (23:01)
[2017-05-23 00:22] LABS: Hematocrit 31.3 % (37.5-50.1); Hemoglobin 10.4 g/dL (12.9-16.9); Mean Corpuscular HGB Conc 33.2 g/dL (31.6-35.5); Mean Corpuscular Hemoglobin 28.3 pg (28.0-33.3); Mean Corpuscular Volume 85.1 fL (83.0-100.0); Mean Platelet Volume 10.3 fL (9.4-12.4); Platelet Count 281 K/mcL (140-400); Red Blood Count 3.68 M/mcL (4.19-5.50); Red Cell Distribution Width 12.9 % (11.5-14.5)
[2017-05-23 00:56] LABS: Activated Partial Thrombo Time 119.7 Seconds (26.0-36.0)
[2017-05-23 01:24] LABS: Heparin anti-factor XA UFH 0.64 IU/mL (0.30-0.70)
[2017-05-23 01:29] LABS: Hemoglobin A1C 9.5 %
[2017-05-23 01:45] LABS: Albumin 3.2 g/dL (3.5-5.7); Bilirubin,Total 0.5 mg/dL (0.3-1.0); Calcium 8.3 mg/dL (8.6-10.3); Globulin 3.1 g/dL (2.4-3.5); Potassium 3.9 mEq/L (3.5-5.1); Total Protein 6.3 g/dL (6.4-8.9)
[2017-05-23] MEDS: Insulin LISPRO 300 UNITS/3 ML VIAL SQ SCH ×4 (07:48→22:01)
[2017-05-23] MEDS: Aspirin Enteric Coated 81 MG Tablet PO SCH (07:51)
[2017-05-23] MEDS: Chlorhexidine Rinse 15 ML MOUTHWASH MM SCH ×2 (07:51→22:02)
[2017-05-23] MEDS: Isosorbide MONOnitrate (24 HR) 60 MG TAB.ER.24H PO SCH (07:51)
[2017-05-23] MEDS: amLODIPine 5 MG TABLET PO SCH (07:51)
--- NOTE | 2017-05-23 10:49 | Nephrology Progress Note ---
Date of Encounter: 05/23/17 Time of Encounter: 10:10 - Assessment and Plan (1) Chronic kidney disease, stage III (moderate) Current Visit: No Status: Chronic CKD 3 in setting of diabetic nephropathy, Baseline creat 1.3-1.6. Today creat 1.7 from 1.44 in setting of Lasix. If LHC not urgent, recommend IV hydration and mucomyst for 24 hours. Prior history of ERIN. Avoid nephrotoxins, I&O, will continue to monitor. Subjective Interval history: Sitting up in bed, NPO for possible LHC. Denies chest pain. Objective - Vital Signs Vital signs: Vital Signs Temp Pulse Resp BP Pulse Ox 05/23/17 07:32 98 05/23/17 07:16 97.6 F 59 17 134/61 98 05/23/17 04:33 97.8 F 61 16 124/67 97 05/22/17 20:07 98.1 F 61 16 133/57 98 05/22/17 16:28 98.1 F 61 16 134/62 97 05/22/17 11:28 98.2 F 57 16 136/69 98 Intake and Output 05/22/17 05/23/17 05/23/17 23:59 07:59 15:59 Intake Total 358.3 / 358.3 425 / 425 Output Total 400 / 400 800 / 800 Balance -41.7 / -41.7 -375 / -375 Intake: IV Fluids 358.3 / 358.3 125 / 125 92 / 92 Heparin 25,000 UNIT/500 ML D5W 358.3 / 358.3 125 / 125 / 92 25,000 unit In 500 ml @ 11 UNIT /KG/HR 19.958 mls/hr IVC .Q24H [facility] Rx#:[id number] Oral 300 / 300 Output: Urine 400 / 400 800 / 800 Other: Weight 93.349 kg Blood Glucose* 260 213 Patient Weight 05/23/17 23:59 Weight 93.349 kg - General Appearance General appearance: Present: well-developed, well-nourished, appears started age , obese EENT: Present: mucous membranes moist Neck: Present: no JVD Respiratory: Present: clear Cardiology: Present: edema, regular rate, regular rhythm Additional Comments: trace LE edema Gastrointestinal: Present: normoactive bowel sounds, no tenderness Integumentary: Present: warm and dry Neurologic: Present: alert and oriented x3 - Lab 05/23/17 00:14 05/23/17 00:14 Most recent lab results Calcium 8.3 mg/dL (8.6-10.3) L 05/23/17 00:14 Magnesium 2.0 mg/dL (1.6-2.6) 05/22/17 00:22 Consult Discharge Plan - Plan Referrals: Eloy Calles DO [Primary Care Provider] - 05/28/17 10:35 am (web request )
--- NOTE | 2017-05-23 11:46 | Cardiology Progress Note ---
Date of Encounter: 05/23/17 Time of Encounter: 10:30 Assessment and Plan (1) CHF (congestive heart failure) Current Visit: Yes Status: Acute Per cardiology: -Suspected diastolic CHF. -BNP 679. -Chest x-ray with small pleural effusion. -Admitted with increased shortness of breath. -Currently net positive 25ml s/p one time lasix yesterday. -Mild pedal edema noted today. -TTE with LVEF preserved, moderate diastolic dysufnction. -Strict i/os, fluid restriction, daily weights. Qualifiers: Heart failure type: diastolic Heart failure chronicity: acute Qualified Code(s): I50.31 - Acute diastolic (congestive) heart failure (2) Elevated troponin Current Visit: Yes Status: Acute Per cardiology: -Troponins 0.65, 0.6, 0.54, 0.47. -On heparin drip. -ECG with new T wave inversions inferior and lateral leads. -Denies chest pain. -TTE pending with LVEF preserved, no segmental wall motion abnormalities. -Plan for LHC. Spoke with KAYLA De Los Santos nephrology who recomended IV hydration and mucomyst for 24 hours prior to LHC due to increase in creatinine. -Discussed and reviewed with pateint. Patient agreeable. -Will make NPO after midnight for possible LHC in am. (3) Coronary artery disease Current Visit: No Status: Chronic Per cardiology: -Known CAD s.p CABG x3 08/2016 with CHUN to LAD, SVG to diagonal 1, SVG to OM. -ON asa, heparin drip. -NOt on statin due to currently elevated LFTs. NOt on beta bridget due to bradycardia. -Will continue to monitor. Qualifiers: Coronary Disease-Associated Artery/Lesion type: [place] artery [place] vs. transplanted heart: [place] heart Associated angina: without angina Qualified Code(s): I25.10 - Atherosclerotic heart disease of [place] coronary artery without angina pectoris (4) PAF (paroxysmal atrial fibrillation) Current Visit: Yes Status: Acute Per cardiology: -Telemetry reviewed with one epiosde of atrial fibrillation, strips reviewed with . -Currently SR. -not on AV kaleigh blockers due to bradycardia. -Denies previous history of PAF. -[id number] score 3 (HTN, DM, vascular disease). Currently on heparin drip. -Continue heparin drip. -Will decide regarding fci anticoagulation pending [facility]. -Will contineu to monitor. Discussion w patient/family: The assessment and plan as outlined above was discussed with the patient who expressed understanding and agreement. All questions were answered. Thank you for involving us in the care of your patient. Please call with any questions. Discussed and reviewed with . Subjective Principal diagnosis: shortness of breath Interval history: Patient states shortness of breath is ok today. Denies chest pain. Objective Vital Signs, Last 4 Hours Temp Pulse Resp BP Pulse Ox 05/23/17 11:26 97.9 F 58 16 129/66 98 General: Conversant, No Apparent Distress HEENT: Atraumatic, Normocephaly, Mucus Membranes Moist Neck: No JVD, Normal carotid pulses Cardiac: Reg Rate and Rhythm, Normal S1 and S2, No Murmur Lungs: Normal Breath Sounds, No Wheeze, Rales, Rhonchi Neuro: Alert and responsive, No focal deficits noted Abdomen: Soft, Non-Tender Skin: No rashes noted on visualized skin Musculoskeletal: No Chest Wall Tenderness Extremities: No Clubbing, No Cyanosis, Normal Pulses, Other (Mild bilateral pedal edema noted. ) Results 05/23/17 00:14 05/23/17 00:14 Lab Results Impressions Echocardiogram 05/22/17 23:36 Impressions: LVEF 60%. Normal LV chamber size, wall thickness and function. Moderate left ventricular diastolic dysfunction. Atypical septal motion consistent with post-operative status. Normal right ventricular structure and function. Moderate pulmonary hypertension. Mild aortic regurgitation. Left Ventricular Wall Motion: Rest Echo Findings All wall segments showed normal motion. Findings: Study Quality * Technically adequate exam. ECG Findings * Normal sinus rhythm. Left Ventricle * LVEF 60%. * Normal LV chamber size, wall thickness and function. * Moderate left ventricular diastolic dysfunction. * Atypical septal motion consistent with post-operative status. Right Ventricle * Normal right ventricular structure and function. Left Atrium * Moderately dilated left atrium. Right Atrium * Mildly dilated right atrium. Interatrial Septum * No evidence of PFO by color Doppler. Aortic Valve * Aortic valve not well visualized. * Mild aortic regurgitation. * No aortic stenosis. Mitral Valve * Normal mitral valve structure and function. * No mitral stenosis. * Trace mitral regurgitation. Tricuspid Valve * Normal tricuspid valve structure and function. * Trace tricuspid regurgitation. * Moderate pulmonary hypertension. Pulmonic Valve * Pulmonic valve is not well visualized. * No pulmonic regurgitation. Aorta * Normally sized aortic root. Pericardium * The pericardium appears normal. IVC * Normal IVC dimensions and inspiratory collapse. Pulmonary Artery * Normal visualized portions of the main pulmonary artery. Active Medications Acetaminophen (Tylenol) 650 mg PO Q6HR PRN PRN Reason: Mild Pain/Fever Stop: 11/20/17 23:34 Al Hydrox/Mg Hydrox/Simethicone (Maalox) 15 ml PO Q6HR PRN PRN Reason: Dyspepsia Stop: 11/20/17 23:34 Amlodipine Besylate (Norvasc) 10 mg PO DAILY HERMILO PRN Reason: Protocol Stop: 11/21/17 09:01 Last Admin: 05/23/17 07:51 Dose: 10 mg Aspirin (Aspirin Ec) [address] [facility] Stop: 11/21/17 09:01 Last Admin: 05/23/17 07:51 Dose: 81 mg Chlorhexidine Gluconate (Chlorhexidine Rinse) 15 ml MM BID HERMILO Stop: 11/21/17 09:01 Last Admin: 05/23/17 07:51 Dose: 15 ml Dextrose/Water (Dextrose 50% (Syg)) 25 ml IVP AD PRN PRN Reason: Hypoglycemia Stop: 11/21/17 08:10 Last Admin: 05/22/17 08:00 Dose: 25 ml Glucagon (Glucagen) 1 mg IM ONCE PRN PRN Reason: Hypoglycemia Stop: 11/21/17 08:10 Glucose (Gluctose) 15 gm PO ONCE PRN PRN Reason: Hypoglycemia Stop: 11/21/17 08:10 Glucose (Gluctose) 30 gm PO ONCE PRN PRN Reason: Hypoglycemia Stop: 11/21/17 08:10 Heparin Sodium (Porcine) (Heparin) 4,000 unit IVP Q6HR PRN PRN Reason: SEE COMMENTS Stop: 11/20/17 22:24 Last Admin: 05/22/17 17:25 Dose: 4,000 unit Heparin Sodium (Porcine) (Heparin) 2,000 unit IVP Q6H PRN PRN Reason: SEE COMMENTS Stop: 11/20/17 22:24 Heparin Sodium/Dextrose (Heparin 25,000 Unit/500 Ml D5w) 25,000 unit in 500 mls @ 19.958 mls/hr IVC .Q24H HERMILO; 11 UNIT/KG/HR PRN Reason: Protocol Stop: 11/20/17 22:31 Last Titration: 05/23/17 09:17 Dose: 13.22 unit/kg/hr, 24 mls/hr Dextrose (Dextrose 5%) 1,000 mls @ 100 mls/hr IVC .Q10H PRN PRN Reason: HYPOGLYCEMIA Stop: 11/21/17 08:10 Insulin Detemir (Levemir) 20 unit SQ DAILY HERMILO Stop: 11/23/17 09:01 Insulin Human Lispro (Humalog) 0 units SQ HS HERMILO PRN Reason: Protocol Stop: 11/21/17 21:01 Last Admin: 05/22/17 22:54 Dose: 4 units Insulin Human Lispro (Humalog) 0 units SQ TIDAC HERMILO PRN Reason: Protocol Stop: 11/21/17 16:31 Last Admin: 05/23/17 07:48 Dose: Not Given Isosorbide Mononitrate (Imdur) [address] [facility] Stop: 11/21/17 09:01 Last Admin: 05/23/17 07:51 Dose: 60 mg Naloxone HCl (Narcan) 0.4 mg IVP Q2MIN PRN PRN Reason: SEE COMMENTS Stop: 11/20/17 23:34 Ondansetron HCl (Zofran) 4 mg IVP Q8HR PRN PRN Reason: Nausea And Vomiting Stop: 11/20/17 23:34 Laboratory Tests 05/21/17 05/22/17 05/22/17 21:49 00:22 00:22 Hgb Creatinine 1.44 H Troponin I 0.65 H* 0.60 H* 05/22/17 05/22/17 05/23/17 06:43 11:53 00:14 Hgb 10.4 L Creatinine Troponin I 0.54 H* 0.47 H* 05/23/17 00:14 Hgb Creatinine 1.71 H Troponin I - Imaging and Cardiology Chest Xray: report reviewed Echo: report reviewed Cardiac cath: report reviewed - EKG Interpretation EKG results cardiology: other (Telemetry reviewed with average HR previous 12 hours noted to be 60, SR. PVCs and PACs noted.) Consult Discharge Plan - Plan Referrals: Eloy Calles DO [Primary Care Provider] - 05/28/17 10:35 am (web request )
[2017-05-23] MEDS: 0.9 % Sodium Chloride 1,000 ML IVC SCH (17:22)
[2017-05-23] MEDS: *HR* Acetylcysteine 20% 600 MG/3 ML ORAL SYRINGE PO SCH ×2 (17:22→23:33)
--- NOTE | 2017-05-23 17:29 | Internal Med Progress Note ---
Date of Encounter: 05/23/17 Time of Encounter: 17:38 - Assessment and plan (1) Coronary artery disease Current Visit: No Status: Chronic Assessment and plan: per hx. S/p CABG x3 08/2016 with CHUN to LAD, SVG to diagonal 1, SVG to OM.Serial troponins 0.65, 0.6, 0.54, 0.47. ECG with new T wave inversions inferior and lateral leads. TTE with EF 60%, atypical wall motion consistent with post-op status. No statin due to elevated LFTs. No BB due to bradycardia. Cardiology following. Cont ASA, heparin gtt. [facility] cath planned 05/24. NPO at midnight. Qualifiers: Coronary Disease-Associated Artery/Lesion type: [place] artery [place] vs. transplanted heart: [place] heart Associated angina: without angina Qualified Code(s): I25.10 - Atherosclerotic heart disease of [place] coronary artery without angina pectoris (2) CHF (congestive heart failure) Current Visit: Yes Status: Acute Assessment and plan: presented with increasing SOB. TTE with EF 60% and moderate diastolic dysfunction. BNP 600. CXR with pleural effusion. 1 time dose IV lasix per Cardiology. Cont daily weights, strict I&Os. Defer further diuresis to Cardiology following Qualifiers: Heart failure type: diastolic Heart failure chronicity: acute Qualified Code(s): I50.31 - Acute diastolic (congestive) heart failure (3) Chronic kidney disease, stage III (moderate) Current Visit: No Status: Chronic Assessment and plan: per hx. Renal function initially improved from baseline however had slight increase in creatinine after IV Lasix. Start IV fluids, Mucomyst in anticipation of [facility] tomorrow morning. Nephrology following (4) Diabetes Current Visit: No Status: Chronic Assessment and plan: per hx. Hypoglycemic on 2/14 am. Likely due to being NPO. Blood sugars normalized. Continue SSI. 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 Denies known liver disease, no hepatitis, no cirrhosis. He only drinks occasionally. LFTs normalized as of 05/23 (6) DVT prophylaxis Current Visit: No Status: Acute Assessment and plan: heparin gtt - Subjective Interval history: Seen and examined at bedside; says he feels better today; has a little shortness of breath but overall improved. No chest pain. He is aware of [facility] planned for tomorrow. - Constitutional Vitals: Temp Pulse Resp BP Pulse Ox 97.9 F 62 16 133/61 97 05/23/17 15:58 05/23/17 15:58 05/23/17 15:58 05/23/17 15:58 05/23/17 15:58 General appearance: Present: A&O X 3, no acute distress - Head Head exam: Present: atraumatic, normocephalic - Eye Eye exam: Present: PERRL, conjuntiva pink, sclera anicteric Pupils: Present: PERRL - Neck Neck exam general surgery: Present: supple, trachea midline. Absent: lymphadenopathy - Respiratory Respiratory exam: Present: CTAB. Absent: accessory muscle use, rales, rhonchi, wheezes - Cardiovascular Cardiovascular exam: Present: RRR, +S1, +S2. Absent: diastolic murmur, gallop, rubs, systolic murmur - GI/Abdominal GI/Abdominal exam: Present: normal bowel sounds, soft, no peritoneal signs. Absent: distended, tenderness - Extremities Exam Extremities exam: Present: pedal edema, warm, radial pulses palpable and symmetrical. Absent: calf tenderness, cyanotic - Neurological Exam Neurological exam: Present: CN II-XII intact, oriented X3, no focal deficits. Absent: pronater drift, facial droop, speech deficit - Skin Skin exam: Present: dry, intact Internal Medicine: Result - Labs CBC & Chem 7: 05/23/17 00:14 05/23/17 00:14 Labs: Short CBC 05/23/17 Range/Units 00:14 WBC 8.7 (4.3-11.1) K/mcL Hgb 10.4 L (12.9-16.9) g/dL Hct 31.3 L (37.5-50.1) % Plt Count 281 (140-400) K/mcL BMP 05/23/17 00:14 Sodium 137 Potassium 3.9 Chloride 108 H Carbon Dioxide 20 L BUN 40 H Creatinine 1.71 H Glucose 308 H Calcium 8.3 L Liver Function 05/23/17 Range/Units 00:14 Total Bilirubin 0.5 (0.3-1.0) mg/dL AST 27 (13-39) Units/L ALT 38 (7-52) Units/L Alkaline Phosphatase 134 H (34-104) Units/L Albumin 3.2 L (3.5-5.7) g/dL - ABG Interpretation ABG results: PT/INR, D-dimer PT 13.9 Seconds (9.4-12.1) H 05/22/17 00:22 Consult Discharge Plan - Plan Referrals: Eloy Calles DO [Primary Care Provider] - 05/28/17 10:35 am (web request )
[2017-05-23] MEDS: Heparin 25,000 UNIT/500 ML D5W 25,000 UNIT/500 ML BAG IVC SCH (22:03)
[2017-05-24] MEDS: 0.9 % Sodium Chloride 1,000 ML IVC SCH ×2 (06:09→19:52)
[2017-05-24] MEDS: Isosorbide MONOnitrate (24 HR) 60 MG TAB.ER.24H PO SCH (08:47)
[2017-05-24] MEDS: Insulin DETEMIR 100 UNIT/ML X5UNITS SQ SCH (08:48)
[2017-05-24] MEDS: *HR* Acetylcysteine 20% 600 MG/3 ML ORAL SYRINGE PO SCH ×2 (08:48→19:54)
[2017-05-24] MEDS: Insulin LISPRO 300 UNITS/3 ML VIAL SQ SCH ×4 (08:50→19:53)
[2017-05-24 10:34] LABS: Hematocrit 29.2 % (37.5-50.1); Hemoglobin 9.5 g/dL (12.9-16.9); Mean Corpuscular HGB Conc 32.5 g/dL (31.6-35.5); Mean Corpuscular Hemoglobin 27.7 pg (28.0-33.3); Mean Corpuscular Volume 85.1 fL (83.0-100.0); Mean Platelet Volume 11.2 fL (9.4-12.4); Platelet Count 246 K/mcL (140-400); Red Blood Count 3.43 M/mcL (4.19-5.50); Red Cell Distribution Width 12.8 % (11.5-14.5)
[2017-05-24 11:07] LABS: Calcium 8.1 mg/dL (8.6-10.3); Potassium 4.1 mEq/L (3.5-5.1)
--- NOTE | 2017-05-24 11:12 | Event Note ---
Date of Encounter: 05/24/17 Time of Encounter: 11:09 Patient seen and examined earlier today. Review of hospital stay discussed. Patient denies any chest pain overnight. TTE demonstrate preserved LV function. Discussed mild troponin elevation and new ECG changes. Cardiac catheterization previously recommended. Risks, benefits, and alternatives discussed. Patient understands and wishes to proceed. Monitor creatinine. Continue aspirin/Imdur therapy. Statin reportedly held secondary to elevated LFTs, beta bridget held due to bradycardia. Further recommendations to follow. Diastolic heart failure discussed. CHF education provided. Currently appears to be euvolemic. Consider resuming home Lasix dose upon discharge if okay with nephrology. Patient back to normal baseline creatinine range. Thanks, Joel Alvarado DO, FACC
--- NOTE | 2017-05-24 11:55 | Nephrology Progress Note ---
Date of Encounter: 05/24/17 Time of Encounter: 11:40 - Assessment and Plan (1) Chronic kidney disease, stage III (moderate) Current Visit: No Status: Chronic CKD 3 in setting of diabetic nephropathy, Baseline creat 1.3-1.6. Today creat 1.57. Pre [facility] IV hydration and mucomyst on board. Prior history of ERIN. Avoid nephrotoxins, I&O, will continue to monitor. Subjective Principal diagnosis: shortness of breath Interval history: Sitting up in bed, reading. Scheduled for [facility] this afternoon. Denies chest pain. Objective - Vital Signs Vital signs: Vital Signs Temp Pulse Resp BP Pulse Ox 05/24/17 11:10 98.4 F 69 19 150/70 97 05/24/17 09:02 98 05/24/17 06:45 98.7 F 67 19 154/77 98 05/24/17 05:42 157/67 05/24/17 03:30 98.2 F 66 20 98 05/24/17 01:16 98.3 F 65 20 118/62 97 05/23/17 19:00 98.6 F 67 19 135/62 98 05/23/17 15:58 97.9 F 62 16 133/61 97 Intake and Output 05/23/17 05/24/17 05/24/17 23:59 07:59 15:59 Intake Total 283.0 / 283.0 1000 / 1000 25 / 25 Output Total 515 / 515 450 / 450 200 / 200 Balance -232.0 / -232.0 550 / 550 -175 / -175 Intake: IV Fluids 283.0 / 283.0 1000 / 1000 0.9 % Sodium Chloride 1,000 ML 1000 / 1000 @ 75 mls/hr IVC .[id number] HERMILO Rx #:[id number] Heparin 25,000 UNIT/500 ML D5W 283.0 / 283.0 25,000 unit In 500 ml @ 11 UNIT /KG/HR 19.958 mls/hr IVC .Q24H HERMILO Rx#:[id number] Oral 25 / 25 Output: Urine 515 / 515 450 / 450 200 / 200 Other: Meal NPO Percent of Meal Consumed 0% Weight 94.574 kg Blood Glucose* 326 263 199 Patient Weight 05/24/17 23:59 Weight 94.574 kg - General Appearance General appearance: Present: well-developed, well-nourished, appears started age EENT: Present: mucous membranes moist Neck: Present: no JVD Respiratory: Present: clear Cardiology: Present: edema (mild), regular rate, regular rhythm Gastrointestinal: Present: normoactive bowel sounds, no tenderness Integumentary: Present: warm and dry Neurologic: Present: alert and oriented x3 - Lab 05/24/17 08:34 05/24/17 08:34 Most recent lab results Calcium 8.1 mg/dL (8.6-10.3) L 05/24/17 08:34 Magnesium 2.0 mg/dL (1.6-2.6) 05/22/17 00:22 Consult Discharge Plan - Plan Referrals: Eloy Calles DO [Primary Care Provider] - 05/28/17 10:35 am (web request )
[2017-05-24] MEDS ORDERED: Heparin 1,000 UNITS/500 mL 500 ML ONE (12:18)
[2017-05-24] MEDS ORDERED: 0.9 % Sodium Chloride 1,000 ML ONE ×2 (12:18→12:39)
[2017-05-24] MEDS ORDERED: *HR* Heparin 10,000 UNIT/10 ML VIAL ONE (12:19)
--- NOTE | 2017-05-24 13:26 | Internal Med Progress Note ---
Date of Encounter: 05/24/17 Time of Encounter: 13:24 - Assessment and plan (1) NSTEMI (non-ST elevated myocardial infarction) Current Visit: Yes Status: Acute Assessment and plan: [employer] following. He remains on a heparin drip. Cardiac meds per cardiology. The patient is on aspirin and Imdur. Not on a beta bridget due to borderline heart rate. This would need to be added once heart rate tolerates. Also may need a statin. Plans for left heart catheterization today. We will follow cardiology's recommendations. (2) Hypertension Current Visit: No Status: Acute Assessment and plan: Continue amlodipine. Qualifiers: Hypertension type: essential hypertension Qualified Code(s): I10 - Essential (primary) hypertension (3) Chronic kidney disease, stage III (moderate) Current Visit: No Status: Chronic Assessment and plan: Nephrology is following. The patient is on Mucomyst and some IV hydration in anticipation for left heart catheterization. Check labs in the morning. (4) Diabetes mellitus Current Visit: No Status: Chronic Assessment and plan: Continues insulin sliding scale and Levemir 20 units. continue Accu-Cheks Qualifiers: Diabetes mellitus type: type 2 Diabetes mellitus complication status: with skin complications Diabetes mellitus complication detail: with foot ulcer Diabetes mellitus half-way insulin use: with half-way use Qualified Code(s) : E11.621 - Type 2 diabetes mellitus with foot ulcer (5) DVT prophylaxis Current Visit: No Status: Acute Assessment and plan: heparin gtt - Subjective Interval history: No acute events. Feels well. Currently on room air. Remains on a heparin drip. Afebrile. The patient is admitted with elevated troponins as well as acute exacerbation of diastolic heart failure. Being followed by cardiology as well as nephrology. Plans for a left heart authorization today. - Constitutional Vitals: Temp Pulse Resp BP Pulse Ox 98.4 F 69 19 150/70 97 05/24/17 11:10 05/24/17 11:10 05/24/17 11:10 05/24/17 11:10 05/24/17 11:10 General appearance: Present: A&O X 3, no acute distress Exam: GEN: NAD CVS: RRR. S1, S2, No m/r/g RESP: CTAB ABD: Soft, NT, ND, +BS EXT: No edema. 2+ DP. No rashes NEURO: Nonfocal Internal Medicine: Result - Labs CBC & Chem 7: 05/24/17 08:34 05/24/17 08:34 Labs: Short CBC 05/24/17 Range/Units 08:34 WBC 6.4 (4.3-11.1) K/mcL Hgb 9.5 L (12.9-16.9) g/dL Hct 29.2 L (37.5-50.1) % Plt Count 246 (140-400) K/mcL BMP 05/24/17 08:34 Sodium 138 Potassium 4.1 Chloride 110 H Carbon Dioxide 20 L BUN 30 H Creatinine 1.51 H Glucose 245 H Calcium 8.1 L - ABG Interpretation ABG results: PT/INR, D-dimer PT 13.9 Seconds (9.4-12.1) H 05/22/17 00:22 Consult Discharge Plan - Plan Referrals: Eloy Calles DO [Primary Care Provider] - 05/28/17 10:35 am (web request )
[2017-05-24] MEDS ORDERED: *HR* Midazolam HCl 2 MG/2 ML VIAL ONE ×2 (14:30→14:46)
--- NOTE | 2017-05-24 14:32 | Pre-Sedation Evaluation ---
Pre-sedation evaluation - Pre-sedation checklist Date of procedure: 05/24/17 Procedure: cardiac cath Recent Vitals: Last Vital Signs Temp 98.4 F 05/24/17 11:10 Pulse 69 05/24/17 11:10 Resp 19 05/24/17 11:10 BP 150/70 05/24/17 11:10 Pulse Ox 97 05/24/17 11:10 H&P (including ROS) documented in medical record: Yes Previous reaction to sedatives/anesthetics: No Dietary Status: NPO after Midnight Airway Assessment: Patient can open mouth completely, TMJ function normal Dentition: full dentition Possible difficult airway: No ASA Classification *see protocol: CLASS III-Severe systemic disease Plan of Care: Pt appropriate candidate for procedure/moderate/conscious sedation , Risks/benefits of procedure/sedation discussed w/ patient/family, If not NPO; Risk of intake outweiged by necessity to perform procedure
[2017-05-24] MEDS ORDERED: ISOVUE-370 200 ML INFUS..BTL IV ONE (14:34)
[2017-05-24] MEDS ORDERED: 0.9 % Sodium Chloride 1,000 ML IVC SCH (15:15)
--- NOTE | 2017-05-24 15:27 | Invasive Diagnostic Lab Proc ---
Name: Tai Bearden Date of Study: 05/24/2017 Date: 1955 Ht: 66.9in Medical Record#: [id number] Age: 62 Wt: 207.23lb Gender: Male BSA: 2.05 Order #: [id number] BMI: 32.53 Physicians Procedure Physician: Pablo Hammond DO Referring MD: Scarlett Calles DO Referring MD: Staff Name Position Time In [facility] Renzo RN Scrub 02:18 PM Alonso Mccarty RN Leadership Development Manager 02:18 PM Elke Warren RT Monitor 02:19 PM Indications Indication Non-Stemi Procedures Performed Procedure L HRT ART/GRFT ANGIO Pre-Procedure Checklist Informed consent is complete signed and on chart. H&P is on chart. ID band is on and ID verified with patient. Patient NPO for procedure The procedure was described for the patient and questions were answered. Blood Pressure: 154/77 ECG is on chart. Rhythm: NSR Plan of Care Patient will tolerate the procedure without complications. Adequate level of comfort will be maintained. Hemodynamics will remain stable Patient will recover from procedure without complications. Respiratory function will be maintained. Cardiac rhythm will remain stable. Patient temperature will be maintained. Patient and/or family have verbalized understanding of the procedure. Patient Education Chief Complaint/Reason for Test: Cardiac Cath Developmental Category: Adult (18-64 years) Developmentally Appropriate for Age: Yes Learning Barriers: None Education Needs: Procedure Education Method: Verbal Information Taught: Cardiac Cath Educational Evaluation: Able to repeat information Intravenous Access Time IV Size Location DC'd Fluid/Drip Rate Units RN 02:08 PM 20g 1 /" Patent On Arrival Rt Hand 0.9NaCl 25 ml/hr Allergies No Known Allergies Vital Signs Time BP (mmHg) HR (bpm) O2 Sat. RR (bpm) LOC 02:11 PM 154 / 77 67 98 % 16 5 = Fully awake and oriented or at pre-proc level 02:20 PM / % 5 = Fully awake and oriented or at pre-proc level 02:20 PM / % 4 = Oriented but drowsy 02:35 PM / % 4 = Oriented but drowsy 02:51 PM / % 4 = Oriented but drowsy 03:08 PM 150 / 80 65 100 % 02:28 PM 148 / 70 64 100 % 12 02:33 PM 146 / 70 64 100 % 02:38 PM 129 / 58 62 100 % 02:44 PM 141 / 69 63 100 % 02:48 PM 151 / 61 61 100 % 25 02:53 PM 146 / 94 65 100 % 02:58 PM 155 / 83 76 100 % 03:03 PM 166 / 73 67 100 % 03:06 PM / % 4 = Oriented but drowsy Procedural Medications Time Medication Dose Units Method Given By 02:27 PM Oxygen 2 L/min nasal cannula Alonso Mccarty RN 02:34 PM Versed 2 mg Intravenous Joni Conrad RN 02:46 PM Versed 1 mg Intravenous Alonso Mccarty RN 02:46 PM Lidocaine 2% 10 ml Subcutaneous Pablo Hammond DO ASA Classification: CLASS III- Severe systemic disease (i.e. prior AMI, diabetes with vascular complications, morbid obesity) Guillermo Score Preprocedure Postprocedure Activity 2- Moves 4 extremities sustained head lift Activity 2- Moves 4 extremities sustained head lift Circulation 2- SBP +/= 20 points of pre-anesthetic level Circulation 2- SBP +/= 20 points of pre-anesthetic level Consciousness 2- Awake and alert oriented x 3 Consciousness 2- Awake and alert oriented x 3 O2 Saturation 2- Able to maintain O2 satruation of 92% on room air O2 Saturation 2- Able to maintain O2 satruation of 92% on room air Respiratory 2- Able to deep breathe and cough well Respiratory 2- Able to deep breathe and cough well Total Score 10 Total Score 10 Contrast Agent: Isovue Diagnostic Contrast: 100 ml Total Contrast: 100 ml Fluoro Dose: 494 mGy Procedure Log Time Note Enter By 02:06 PM CathStat 02:15 PM Case Start 02:18 PM 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 Bilateral groin prepped with Chloraprep by Elke Warren RT, then patient was draped. Skin intact. : PM Physician arrived 14:20 kkallner :20 PM ASA Class CLASS III- Severe systemic disease (i.e. prior AMI, diabetes with vascular complications, morbid obesity) kkallner :20 PM Meet and gurjitet completed kk:20 PM Sign in performed according to hospital policy. :20 PM Procedure start 14:20 :20 PM Time: 14:20 Patient comfortable and pain free: Yes : PM Time: 14:20LOC: 5 = Fully awake and oriented or at pre-proc level kk 02:27 PM Vitals capture started with the following parameters, Patient=Adult, Interval=5 min, Initial Xoimrwqm=987 mmHg, Deflation Rate=5 mmHg, Cuff placed on Right Arm 02: PM Time: 14:27 Oxygen on at 2 L/min per nasal cannula by Alonso Mccarty RN : PM Clinical Presentation: Non-STEMI allner 02:28 PM HR=64 bpm, QRUL=184/70 mmhg, UgJ7=347 %, Resp=12 B/min 02:33 PM HR=64 bpm, SEIQ=183/70 mmhg, KrZ9=617.0 % 02:34 PM Time: 14:34 Versed 2 mg Intravenous Given by Joni Conrad RN 02:35 PM Time: 14:20 Patient comfortable and pain free: Yes :35 PM Time: 14:20LOC: 4 = Oriented but drowsy 02:38 PM Pressure channel 2 zeroed. 02:38 PM HR=62 bpm, RJHZ=762/58 mmhg, NuI5=605 % 02:43 PM Pressure channel 2 zeroed. 02:44 PM HR=63 bpm, BSXB=438/69 mmhg, DdB0=904.0 % 02:46 PM Time: 14:46 Versed 1 mg Intravenous Given by Alonso Mccarty RN maxi 02:46 PM Time: 14:46 10 ml Lidocaine 2% to right groin Subcutaneous Given by Pablo Hammond DO 02:48 PM Micro-Introducer Kit utilized for sheath placement [email or web address] 02:48 PM HR=61 bpm, WCRG=711/61 mmhg, BxP9=339.0 %, Resp=25 B/min 02:51 PM Time: 14:35LOC: 4 = Oriented but drowsy kkallner 02:51 PM Time: 14:35 Patient comfortable and pain free: Yes [email or web address] 02:51 PM Access obtained by percutaneous puncture. 6Fr 10cm Terumo [place] sheath placed in right Femoral artery. [id number] kkallner 02:52 PM 6Fr FR 4 catheter inserted over the wire [facility] kkallner 02:52 PM wire removed kkallner 02:52 PM Catheter selectively placed in left ventricle kkallner 02:52 PM Bolus angiogram of left Ventricle complete: [email or web address] 02:53 PM Recorded Pressure: LV, HR=83, Condition=Condition 1 (Left Ventricle) LV 126/10/22 02:53 PM Recorded Pressure: LV, Ao, HR=62, Condition=Condition 1 (Left Ventricle) LV 151/2/11, (Aorta) Ao 174/34/95 02:53 PM HR=65 bpm, THZD=550/94 mmhg, ZuE0=358 % 02:53 PM SVG to the 1st Diagonal angio performed in multiple views. [email or web address] 02:54 PM SVG to the 1st OM angio performed in multiple views. [email or web address] 02:54 PM Recorded Pressure: Ao, HR=63, Condition=Condition 1 (Aorta) Ao 154/66/100 02:55 PM RCA angiography performed in multiple views. [email or web address] 02:55 PM Recorded Pressure: Ao, HR=65, Condition=Condition 1 (Aorta) Ao 155/68/103 02:57 PM Left TERRY to the LAD angio performed in multiple views. [email or web address] 02:57 PM Catheter removed kkallner 02:58 PM HR=76 bpm, YDDT=687/83 mmhg, BqG2=519.0 % 02:58 PM 6Fr FL 4 catheter inserted over the wire [facility] kkallner 02:58 PM wire removed kkallner 02:59 PM Recorded Pressure: Ao, HR=64, Condition=Condition 1 (Aorta) Ao 139/59/90 02:59 PM LCA angiography performed in multiple views. [email or web address] 03:00 PM Catheter removed kkallner 03:00 PM 6Fr JR 4 [place] Bright-Tip guide catheter was used to cannulate the PCI vessel successfully. reused? No kkallner 03:00 PM wire removed kkallner 03:02 PM RCA angiography performed in multiple views. [email or web address] 03:03 PM HR=67 bpm, BXRZ=149/73 mmhg, MrB6=983.0 % 03:05 PM catheter and wire removed kkallner 03:06 PM Time: 14:51 Patient comfortable and pain free: Yes [email or web address] 03:06 PM Time: 14:51LOC: 4 = Oriented but drowsy kkallner 03:06 PM Bolus angiogram of right Femoral complete: [email or web address] 03:06 PM Procedure completed at 15:06 [email or web address] 03:07 PM Did you address MIGUEL flow and Dominance? Yes [email or web address] 03:07 PM Sign out completed: Radiation Dose 494.47 mGy Fluoro Time: 4.1 Isovue 370 - 200ml contrast 100 ml given by Pablo Hammond DO. Complications: NoneCardiac Rehab Consult needed: NoConfirmed administered medications: Yes [email or web address] 03:07 PM Isovue 370 - 200ml,1 Bottle(s) used. [email or web address] 03:08 PM HR=65 bpm, LTVQ=200/80 mmhg, YlV6=179.0 % 03:10 PM Arterial sheath pulled, Angio-seal closure device used and was Successful [id number] S/N. kkallner 03:10 PM Estimated Blood Loss: minimal kkallner 03:10 PM Post ECG NSR kkallner 03:10 PM Post Blood Pressure 150/80 kkallner 03:10 PM 15:10 Post Pulses Bilateral DP & PT 2+ kkallner 03:11 PM Information taught Cardiac Cath and Angioseal kkallner 03:11 PM Education needs Procedure, Plan of Care, and Responsibilities of Patient in Care [email or web address] 03:11 PM Learning barriers :None kkallner 03:11 PM Education Methods Verbal kkallner 03:11 PM Education evaluation Able to repeat information kkallner 03:11 PM Site status No bleeding/hematoma - Rt Groin as reported by Renzo Scott RN at 15:11 kkallner 03:11 PM Opsite applied kkallner 03:11 PM Report given to RN Pt taken to 2A Room #71. 15:11 kkallner 03:11 PM Plavix, Effient or Brilinta given No kkallner 03:11 PM Delay to floor No kkallner 03:11 PM Patient out of room: 15:11 kkallner 03:11 PM no family at this time kkallner 03:11 PM Complications: None kkallner 03:11 PM Fluoro Time: 4.1 kkallner 03:11 PM Isovue 370 - 200ml contrast 100 ml given by Pablo Hammond DO. kkallner 03:12 PM Radiation Dose 494.47 mGy kkallner 03:15 PM Coronary Dominance: right kkallner 03:15 PM Lesion found in LMCA. Pre Stenosis: 30 Pre MIGUEL Flow: kkallner 03:15 PM Lesion found in Proximal LAD. Pre Stenosis: 95 Pre MIGUEL Flow: kkallner 03:15 PM Lesion found in Mid LAD. Pre Stenosis: 30 Pre MIGUEL Flow: kkallner 03:15 PM Lesion found in 1st Diagonal. Pre Stenosis: 90 Pre MIGUEL Flow: kkallner 03:16 PM Lesion found in Proximal Circumflex. Pre Stenosis: 30 Pre MIGUEL Flow: kkallner 03:16 PM Lesion found in Mid Circumflex. Pre Stenosis: 60 Pre MIGUEL Flow: kkallner 03:17 PM Left Main Coronary Artery with 30% stenosis kkallner 03:17 PM Proximal Left Anterior Descending Coronary Artery with 95% stenosis. If graft is supplying this territory, 0 % stenosis. kkallner 03:17 PM Mid/Distal Left Anterior Descending Coronary Artery and diagonal branches with 90% stenosis. If graft is supplying this area, 0 % stenosis kkallner 03:17 PM Circumflex, Obtuse Marginal, Left Posterior Descending, and Left Posterolateral Coronary Arteries with 60 % stenosis. If graft is supplying this area, 0 % stenosis kkallner 03:17 PM Right Coronary, Right Posterior Descending Arteries with Right Posterolateral and Acute Marginal branches with 100 % stenosis. If graft is supplying this area, 0 % stenosis kkallner 03:17 PM Lesion found in Proximal RCA. Pre Stenosis: 40 Pre MIGUEL Flow: kkallner 03:17 PM Lesion found in Mid RCA. Pre Stenosis: 100 Pre MIGUEL Flow: kkallner 03:19 PM Ramus with 0% stenosis. If graft is supplying this area, 0 % stenosis kkallner 03:21 PM Time: 15:06LOC: 4 = Oriented but drowsy kkallner Complications Complication None None Hemodynamics Pressures Site Systolic/A Wave Diastolic/V Wave Mean LV 126 10 22 LV 151 2 11 AO 174 34 95 AO 154 66 100 AO 155 68 103 AO 139 59 90 Post Procedure Information Blood Pressure: 150/80 mmHg Rhythm: NSR Post procedural instructions were given Closure Device Time Device Success/Fail 05/24/2017 3:13:00 PM Angio-Seal VIP Successful Site Checks Time Location Status Staff Sheath In? Note 03:11 PM Rt Groin No bleeding/hematoma Renzo Scott RN Pulses Time Site Pre-Procedure Post-Procedure Note 05/24/2017 2:08:00 PM Bilateral DP & PT 2+ 3:10:00 PM Bilateral DP & PT 2+ Updated by Elke Warren, RT (R) on 05/24/2017 3:21:27 PM electronically signed on 05/24/2017 3:22:05 PM with status of Final
--- NOTE | 2017-05-24 15:27 | Event Note ---
Date of Encounter: 05/24/17 Time of Encounter: 15:24 - Cardiology Event Note LHC today with no intervention needed. CABG grafts patent. Cardiology will sign off and will set up outpatient follow up. Regarding PAF, had one single episode of PAF during admission. No recurrence noted. Will not start anticoagulation at this time. Will continue to monitor in outpatient setting.
[2017-05-24] MEDS: amLODIPine 5 MG TABLET PO SCH (17:35)
[2017-05-24] MEDS: Aspirin Enteric Coated 81 MG Tablet PO SCH (17:35)
[2017-05-24] MEDS: Chlorhexidine Rinse 15 ML MOUTHWASH MM SCH ×2 (17:35→19:53)
[2017-05-25 05:02] LABS: Basophils % 0.4 %; Eosinophils # 0.1 K/mcL (0.0-0.6); Eosinophils % 1.6 %; Hematocrit 30.2 % (37.5-50.1); Hemoglobin 10.1 g/dL (12.9-16.9); Immature Granulocytes % 0.1 % (0-4); Lymphocytes # 0.8 K/mcL (0.6-4.6); Lymphocytes % 10.8 %; Mean Corpuscular HGB Conc 33.4 g/dL (31.6-35.5); Mean Corpuscular Hemoglobin 28.4 pg (28.0-33.3); Mean Corpuscular Volume 84.8 fL (83.0-100.0); Mean Platelet Volume 10.5 fL (9.4-12.4); Monocytes # 0.6 K/mcL (0.0-1.3); Monocytes % 8.2 %; Neutrophils # 5.9 K/mcL (1.6-8.9); Platelet Count 235 K/mcL (140-400); Red Blood Count 3.56 M/mcL (4.19-5.50); Red Cell Distribution Width 12.8 % (11.5-14.5); Segmented Neutrophils % 78.9 %
[2017-05-25 05:19] LABS: BUN/Creatinine Ratio 18 (6-26); Blood Urea Nitrogen 24 mg/dL (8-23); Calcium 8.5 mg/dL (8.6-10.3); Carbon Dioxide 21 mEq/L (23-29); Chloride 110 mEq/L (98-107); Glucose 242 mg/dL (70-105); Osmolality,Calculated 296 (280-300); Potassium 4.2 mEq/L (3.5-5.1); Sodium 137 mEq/L (136-145); eGFR For African Americans > 60 (> 60); eGFR For Non-African Americans 53 (> 60)
[2017-05-25 07:33] VITALS: BP 162/74
[2017-05-25] MEDS: Chlorhexidine Rinse 15 ML MOUTHWASH MM SCH (08:18)
[2017-05-25] MEDS: Aspirin Enteric Coated 81 MG Tablet PO SCH (08:18)
[2017-05-25] MEDS: amLODIPine 5 MG TABLET PO SCH (08:19)
[2017-05-25] MEDS: Insulin LISPRO 300 UNITS/3 ML VIAL SQ SCH (08:19)
[2017-05-25] MEDS: *HR* Acetylcysteine 20% 600 MG/3 ML ORAL SYRINGE PO SCH (08:19)
[2017-05-25] MEDS: Isosorbide MONOnitrate (24 HR) 60 MG TAB.ER.24H PO SCH (08:19)
--- NOTE | 2017-05-25 08:36 | Nephrology Progress Note ---
Date of Encounter: 05/25/17 Time of Encounter: 08:25 - Assessment and Plan (1) Chronic kidney disease, stage III (moderate) Current Visit: No Status: Chronic CKD 3 in setting of diabetic nephropathy, Baseline creat 1.3-1.6. Today creat 1.36. S/P LHC-no intervention. Avoid nephrotoxins, I&O, will continue to monitor. RFP on Saturday if discharged. Subjective Principal diagnosis: shortness of breath Interval history: Sitting up in bed, reading. S/P LHC-no intervention. Denies chest pain. Objective - Vital Signs Vital signs: Vital Signs Temp Pulse Resp BP Pulse Ox 05/25/17 07:27 98.2 F 76 20 162/74 97 05/25/17 04:07 97.8 F 75 16 156/76 96 05/24/17 23:10 99.5 F 77 16 162/67 98 05/24/17 19:49 98.6 F 67 16 147/70 98 05/24/17 17:38 97.8 F 72 18 166/67 99 05/24/17 11:10 98.4 F 69 19 150/70 97 05/24/17 09:02 98 Intake and Output 05/24/17 05/25/17 05/25/17 23:59 07:59 15:59 Intake Total 1420 / 1420 900 / 900 Output Total 720 / 720 200 / 200 Balance 700 / 700 -200 / -200 900 / 900 Intake: IV Fluids 1000 / 1000 900 / 900 0.9 % Sodium Chloride 1,000 ML 1000 / 1000 900 / 900 @ 75 mls/hr IVC .[id number] [facility] Rx #:[id number] Oral 420 / 420 Output: Urine 720 / 720 200 / 200 Other: Meal sf daisha. pudding Percent of Meal Consumed 100% Stool Size Moderate Stool Consistency soft formed Stool Color Brown # Bowel Movement Diapers 1 Weight 109.089 kg Blood Glucose* 195 194 Patient Weight 05/25/17 23:59 Weight 109.089 kg - General Appearance General appearance: Present: well-developed, well-nourished, appears started age EENT: Present: mucous membranes moist Neck: Present: no JVD Respiratory: Present: clear Cardiology: Present: edema, regular rate, regular rhythm Additional Comments: trace Gastrointestinal: Present: normoactive bowel sounds, no tenderness Integumentary: Present: warm and dry Neurologic: Present: alert and oriented x3 - Lab 05/25/17 04:51 05/25/17 04:51 Most recent lab results Calcium 8.5 mg/dL (8.6-10.3) L 05/25/17 04:51 Magnesium 2.0 mg/dL (1.6-2.6) 05/22/17 00:22 Consult Discharge Plan - Plan Referrals: Eloy Calles DO [Primary Care Provider] - 05/28/17 10:35 am (web request )
[2017-05-25] MEDS: Insulin DETEMIR 100 UNIT/ML X5UNITS SQ SCH (09:20)
[2017-05-25] MEDS: 0.9 % Sodium Chloride 1,000 ML IVC SCH (09:31)
--- NOTE | 2017-05-25 10:23 | Discharge Summary ---
Date of Encounter: 05/25/17 Time of Encounter: 10:21 - Discharge Diagnosis (1) NSTEMI (non-ST elevated myocardial infarction) Priority: Primary Status: Acute (2) Hypertension Priority: Secondary Status: Acute Qualifiers: Hypertension type: essential hypertension Qualified Code(s): I10 - Essential (primary) hypertension (3) Chronic kidney disease, stage III (moderate) Priority: Secondary Status: Chronic (4) Diabetes mellitus Priority: Secondary Status: Chronic Qualifiers: Diabetes mellitus type: type 2 Diabetes mellitus complication status: with skin complications Diabetes mellitus complication detail: with foot ulcer Diabetes mellitus manager intermediate insulin use: with manager intermediate use Qualified Code(s) : E11.621 - Type 2 diabetes mellitus with foot ulcer (5) Acute diastolic heart failure Priority: Primary Status: Acute - Discharge Medications Prescriptions: Furosemide [Lasix] 40 mg PO DAILY #30 tablet Home Medications: Albuterol Sulfate [Ventolin Hfa] 2 puff IH Q4-6H PRN 12/20/16 [History] Insulin Glargine,Hum.rec.anlog [Basaglar Kwikpen U-100] 26 unit SQ BID 12/20/16 [History] Insulin LISPRO [HumaLOG] 0 units SQ TID 12/28/16 [History] Aspirin Enteric Coated [Aspirin EC] 81 mg PO DAILY 05/21/17 [History] Chlorhexidine Rinse 15 ml MM BID 05/21/17 [History] Enalapril Maleate [Vasotec] 5 mg PO DAILY 05/21/17 [History] Furosemide [Lasix] 40 mg PO DAILY #30 tablet 05/25/17 [Rx] Allergies/Adverse Reactions: 3 Allergy/AdvReac Type Severity Reaction Status Date / Time No Known Allergies Allergy Verified 05/21/17 21:04 Procedures/tests Complete & Pending: Procedures Performed prior 72 hours Category Date Time Status CL Cardiac Catheterization [CL] Routine College Admissions Counselor 05/24/17 11:35 Completed EV echocardiogram Routine Y 05/22/17 23:36 Completed Date of admission: 05/21/17 23:33 Primary care physician: Eloy Calles Consults: 05/21/17 23:37 Consult to Cardiology [CONS] Routine Comment: Consulting Provider: Cardiology Benita Reason for Consult: nstemi cabg 08/2016 Time Notified: 23:38 Call Completed: No 05/21/17 23:46 Consult to Nephrology [CONS] Routine Consulting Provider: [facility] Dion RAMON Reason for Consult: ckd Time Notified: 23:46 Call Completed: No 05/23/17 11:44 Consult to Cardiac Rehabilitation-Phase1 [CONS] Routine Comment: Reason for Consult: elevated troponins Call Completed: No - Patient Status Disposition: Home, Self-Care Condition: Fair Overall status at discharge: patient is progressing back to baseline - Discharge Instructions Instructions: Furosemide (By mouth), Myocardial Infarction (DC), Heart Failure (DC), Chronic Obstructive Pulmonary Disease (DC) Follow Up With: Eloy Calles DO [Primary Care Provider] - 05/28/17 10:35 am (web request ) Joel Alvarado DO [Partnered Physician] - (2 weeks) - Diet and Activity Activity: increase activity as tolerated Diet: diabetic diet, low salt diet Hospital course: Mr. Bearden is a 62 year old male with history of CAD CABG of three-vessel May last year. Patient also has history of hypertension, diabetes, high cholesterol , anemia, CkD stage III, COPD. In the last month he was experiencing exertional shortness of breath and very evening of admission he developed chest pain that lasted a few minutes and resolved without nitroglycerin and at that he came into the emergency room emergency room evaluation. troponin level was 0.65 and BNP 679 . Chest x-ray showed small left pleural effusion. The patient was admitted to the hospitalist service with a consult to cardiology. He was put on a heparin drip initially. He was taken for left heart catheterization and showed severe three-vessel coronary artery disease with chronic occlusion of the mid RCA, patent SVG to OM1, CHUN to LAD. The patient was recommended optimal medical therapy. The patient was not started on a statin given mild elevation in LFTs and this will need to be reevaluated as an outpatient with his sr technical sales consultant. He was not started on a bridget given borderline heart rate. I spoke to cardiology and this will be reevaluated in the outpatient setting again.. The patient was seen in the hospital by nephrology as well given his chronic kidney disease and the need for left heart catheterization. He was put on IV fluids and Mucomyst prior to the catheterization. Creatinine remained around baseline post left heart catheterization. Patient was stable for discharge on 05/25/2017 with follow-up with his sr technical sales consultant, estimating engineer, PCP. - Time Spent with Patient Total time spent providing and/or coordinating discharge services: Greater than 30 minutes - Constitutional Vitals: Temp Pulse Resp BP Pulse Ox 98.2 F 76 20 162/74 97 05/25/17 07:27 05/25/17 07:27 05/25/17 07:27 05/25/17 07:27 05/25/17 08:20 General appearance: Present: A&O X 3, no acute distress Exam: GEN: NAD CVS: RRR. S1, S2, No m/r/g RESP: CTAB ABD: Soft, NT, ND, +BS EXT: No edema. 2+ DP. No rashes NEURO: Nonfocal
== END 2017-05-25 11:16 | disposition home or self-care (01) | DRG 190 ==
LOC: EMEROO 20:56 → 2ANU 20:56
PROVIDERS: ADMIT Internal Medicine; ATTEND Internal Medicine

== ENCOUNTER 2017-12-23 11:46 | Observation (INO) ==
[2017-12-23 12:56] LABS: Basophils # 0.1 K/mcL (0.0-0.2); Basophils % 0.7 %; Eosinophils # 0.1 K/mcL (0.0-0.6); Eosinophils % 0.9 %; Hematocrit 38.3 % (37.5-50.1); Immature Granulocytes % 0.1 % (0-4); Lymphocytes # 0.8 K/mcL (0.6-4.6); Lymphocytes % 10.1 %; Mean Corpuscular HGB Conc 33.9 g/dL (31.6-35.5); Mean Corpuscular Hemoglobin 28.6 pg (28.0-33.3); Mean Corpuscular Volume 84.2 fL (83.0-100.0); Mean Platelet Volume 10.4 fL (9.4-12.4); Monocytes # 0.6 K/mcL (0.0-1.3); Monocytes % 7.5 %; Neutrophils # 6.1 K/mcL (1.6-8.9); Platelet Count 253 K/mcL (140-400); Red Blood Count 4.55 M/mcL (4.19-5.50); Red Cell Distribution Width 13.6 % (11.5-14.5); Segmented Neutrophils % 80.7 %
[2017-12-23 13:19] LABS: BUN/Creatinine Ratio 23 (6-26); Blood Urea Nitrogen 30 mg/dL (8-23); Calcium 8.6 mg/dL (8.6-10.3); Carbon Dioxide 23 mEq/L (23-29); Chloride 106 mEq/L (98-107); Glucose 442 mg/dL (70-105); Osmolality,Calculated 301 (280-300); Potassium 4.6 mEq/L (3.5-5.1); Sodium 133 mEq/L (136-145); eGFR For Non-African Americans 54 (> 60)
--- NOTE | 2017-12-23 13:32 | Emergency Department Note ---
Disposition Clinical Impression: Chest pain Disposition: Admitted As Inpatient Condition: Fair Referrals: Eloy Calles DO [Primary Care Provider] - Time of Disposition: 14:15 General Adult HPI - General Chief complaint: ED Shortness of Breath/Dyspnea Stated complaint: CP/JULIANA/Edema Bi-Lateral LE, But feeling better Time Seen by Provider: 12/23/17 12:22 Source: patient Mode of arrival: ambulatory Limitations: no limitations Nursing Notes Reviewed: Yes Vital Signs Reviewed: Yes - History of Present Illness HPI Narrative: Patient is a 62-year-old male with a past medical history of CABG, CK COPD and CHF presents for evaluation of chest pain and dyspnea is been going on for the past 2 days. He states on Saturday he had about an hour long of chest pressure associated with increased dyspnea. He states that the symptoms have improved, however he still has lingering dyspnea. 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 Concerning sign was that he presented with dyspnea initiate initially prior to undergoing the CABG. Pain Scale: 6 - Related Data Home Medications Medication Instructions Recorded Confirmed Albuterol Sulfate [Ventolin Hfa] 2 puff IH Q4-6H PRN 12/20/16 05/21/17 Insulin Glargine,Hum.rec.anlog 26 unit SQ BID 12/20/16 05/21/17 [Basaglar Kwikpen U-100] Insulin LISPRO [HumaLOG] 0 units SQ TID 12/28/16 05/21/17 Aspirin Enteric Coated [Aspirin EC] 81 mg PO DAILY 05/21/17 05/21/17 Chlorhexidine Rinse 15 ml MM BID 05/21/17 05/21/17 Enalapril Maleate [Vasotec] 5 mg PO DAILY 05/21/17 05/21/17 Previous Rx's Medication Instructions Recorded Furosemide [Lasix] 40 mg PO DAILY #30 tablet 05/25/17 Allergies Allergy/AdvReac Type Severity Reaction Status Date / Time No Known Allergies Allergy Verified 05/21/17 21:04 All systems ED: reviewed and negative except as stated. Review of Systems: As Per HPI Constitutional: Denies: fever, chills Cardiovascular: Reports: chest pain, dyspnea on exertion, edema. Denies: palpitations, syncope Respiratory: Reports: dyspnea. Denies: cough, wheezes Gastrointestinal: Denies: abdominal pain, nausea, vomiting Genitourinary: Denies: urgency, dysuria Musculoskeletal: Denies: back pain Past Medical History - Past Medical History Attestation: Yes The following information was validated with the patient. Medical history: Reports: cancer, CHF, COPD, coronary artery disease, diabetes, hyperlipidemia, hypertension, renal disease, other Surgical history: Reports: cancer surgery, coronary bypass (CABG), orthopedic, other, other Psychiatric history: Reports: no psych history - Social History Smoking Status: Never smoker Smokeless Tobacco Status: No Alcohol use: Reports: occasionally Drug use: Reports: none Physical Exam - General Limitations: no limitations General appearance: alert, in no apparent distress Course Vital Signs Temperature 98.7 F 12/23/17 11:59 Pulse Rate 79 12/23/17 11:59 Respiratory Rate 18 12/23/17 11:59 Blood Pressure 207/95 12/23/17 11:59 O2 Sat by Pulse Oximetry 97 12/23/17 11:59 Temperature 98.7 F 12/23/17 12:42 Pulse Rate 72 12/23/17 12:42 Respiratory Rate 18 12/23/17 12:42 Blood Pressure 186/84 12/23/17 12:42 O2 Sat by Pulse Oximetry 99 12/23/17 12:42 Oxygen Delivery Oxygen Delivery Room Air Medical Decision Making - Lab Data Result diagrams: 12/23/17 12:38 12/23/17 12:38 Lab Results 12/23/17 12/23/17 12/23/17 Range/Units 12:38 12:38 12:38 WBC 7.5 (4.3-11.1) K/mcL RBC 4.55 (4.19-5.50) M/mcL Hgb 13.0 (12.9-16.9) g/dL Hct 38.3 (37.5-50.1) % MCV 84.2 (83.0-100.0) fL MCH 28.6 (28.0-33.3) pg MCHC 33.9 (31.6-35.5) g/dL RDW 13.6 (11.5-14.5) % Plt Count 253 (140-400) K/mcL MPV 10.4 (9.4-12.4) fL Immature Gran % 0.1 (0-4) % Seg Neutrophils % 80.7 % Lymphocytes % 10.1 % Monocytes % 7.5 % Eosinophils % 0.9 % Basophils % 0.7 % Neutrophils # 6.1 (1.6-8.9) K/mcL Lymphocytes # 0.8 (0.6-4.6) K/mcL Monocytes # 0.6 (0.0-1.3) K/mcL Eosinophils # 0.1 (0.0-0.6) K/mcL Basophils # 0.1 (0.0-0.2) K/mcL Sodium 133 L (136-145) mEq/L Potassium 4.6 (3.5-5.1) mEq/L Chloride 106 (98-107) mEq/L Carbon Dioxide 23 (23-29) mEq/L BUN 30 H (8-23) mg/dL Creatinine 1.33 H (0.70-1.30) mg/dL Est GFR ( Amer) > 60 (> 60) Est GFR (Non-Af Amer) 54 L (> 60) BUN/Creatinine Ratio 23 (6-26) Glucose 442 H (70-105) mg/dL Calculated Osmolality 301 H (280-300) Lactic Acid 1.6 (0.5-2.2) mmol/L Calcium 8.6 (8.6-10.3) mg/dL Troponin I 0.10 H* (< 0.04) ng/mL B-Natriuretic Peptide (Less than 100) pg/mL 12/23/17 Range/Units 12:38 WBC (4.3-11.1) K/mcL RBC (4.19-5.50) M/mcL Hgb (12.9-16.9) g/dL Hct (37.5-50.1) % MCV (83.0-100.0) fL MCH (28.0-33.3) pg MCHC (31.6-35.5) g/dL RDW (11.5-14.5) % Plt Count (140-400) K/mcL MPV (9.4-12.4) fL Immature Gran % (0-4) % Seg Neutrophils % % Lymphocytes % % Monocytes % % Eosinophils % % Basophils % % Neutrophils # (1.6-8.9) K/mcL Lymphocytes # (0.6-4.6) K/mcL Monocytes # (0.0-1.3) K/mcL Eosinophils # (0.0-0.6) K/mcL Basophils # (0.0-0.2) K/mcL Sodium (136-145) mEq/L Potassium (3.5-5.1) mEq/L Chloride (98-107) mEq/L Carbon Dioxide (23-29) mEq/L BUN (8-23) mg/dL Creatinine (0.70-1.30) mg/dL Est GFR ( Amer) (> 60) Est GFR (Non-Af Amer) (> 60) BUN/Creatinine Ratio (6-26) Glucose (70-105) mg/dL Calculated Osmolality (280-300) Lactic Acid (0.5-2.2) mmol/L Calcium (8.6-10.3) mg/dL Troponin I (< 0.04) ng/mL B-Natriuretic Peptide 882 H (Less than 100) pg/mL Attestation Statement - Attestation Attestation: I, Clarence Jacobson DO, examined this patient [id number] and my medical decision-making was reviewed with Dr. Nico Hobbs, Resident Physician. I agree with the documented findings, disposition and treatment plan as described except to the extent set forth below. Please see my progress notes for details. 62-year-old male presents emergency room with chest pain that started on Saturday and lasted approximately one hour. Patient is asymptomatic at this time. He contacted his cardiology office this morning and the nurse for cardiology is Dr. Elis Medina recommended he come to the emergency room for evaluation. Patient is a proximally 16 months status post 3 vessel CABG completed this facility by Dr. Morales. On presentation here, he is chest pain- free. He is denying any shortness of breath fevers chills nausea vomiting or diarrhea. Denies any headache or vision change. No other complaints or issues on arrival here. 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 Vital signs are reviewed and are stable. Patient is alert he is oriented he speaks in full sentences. Lungs are clear heart is regular abdomen is soft nontender nondistended no guarding or rigidity. He does have swelling up to the bilateral knees consistent with him being noncompliant with his Lasix. Patient will have cardiac evaluation with CBC chemistry troponin EKG and BNP. Chest x-ray will also be added on. Patient will most likely required admission. Is currently on blood thinners appropriately medically treated at this time. Patient is otherwise stable and does not require any emergent intervention at this time. See detailed documentation of the physical exam, medical intervention, medical decision-making and disposition in the resident physician's note. No critical care provider the patient's treatment course at this time. 1400 Patient has negative workup. This time his troponin is chronically elevated. He has not had any chest pain or symptoms while here. Admission process will be completed for increased work of breathing exertional dyspnea and chest pain with no known source of this time. Patient is comfortable with this plan. Hospitalist was contacted had no other recommendations or concerns. Dr. Coffey had no other questions at this time patient will be admitted for continuation of care and evaluation for cardiac related etiology.
[2017-12-23] MEDS ORDERED: Aspirin 325 MG TABLET PO ONE (13:42)
[2017-12-23] MEDS ORDERED: Acetaminophen 325 MG TABLET PO PRN (16:53)
[2017-12-23] MEDS ORDERED: *HR* HYDROcodone/Acet 5/325 mg TABLET PO PRN (16:53)
[2017-12-23] MEDS ORDERED: Naloxone 0.4 MG/ML INJ IVP PRN (16:53)
[2017-12-23] MEDS ORDERED: Dextrose Gel 15 GM/37.5 ML TUBE PO PRN ×2 (16:57)
[2017-12-23] MEDS ORDERED: *HR* Dextrose 50 % in Water (Syg) 50 ML SYRINGE IVP PRN (16:57)
[2017-12-23] MEDS ORDERED: D5% in Water 1,000 ML IVC PRN (16:57)
--- NOTE | 2017-12-23 17:02 | Internal Med Progress Note ---
Hospitalist Progress Note - Encounter Date of Encounter: 12/23/17 Time of Encounter: 17:02 - Exam Vitals: Temp Pulse Resp BP Pulse Ox 98.0 F 64 16 178/98 99 12/23/17 15:54 12/23/17 15:54 12/23/17 15:54 12/23/17 15:54 12/23/17 15:54 - Time Spent with Patient Total time spent is greater than 50% in coordination of care (as documented) at patient's floor/unit and/or counseling patient: Internal Medicine: Result - Labs CBC & Chem 7: 12/23/17 12:38 12/23/17 12:38 Consult Discharge Plan - Plan
--- NOTE | 2017-12-23 18:48 | Internal Med History&Physical ---
Date of Encounter: 12/23/17 Time of Encounter: 16:30 Internal Medicine - H&P: HPI Chief complaint: CP Admitted From: Emergency Dept Plans for Post Hospital Care: Home History of present illness: Mr. Bearden is a 62 year old male past medical history of CABG 3 vessel approximately 16 months ago -diabetes hypertension anemia CKG stage III COPD CHF. Patient presented to the emergency department after experiencing chest pain started on Saturday and lasted approximately one hour. Patient describes pain as as pressure with associated symptoms of shortness of breath. The chest pressure improved and resolved however he continues to experience shortness of breath particularly on exertion. He became concerned because of his previous NV and shortness of breath. 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 On presentation to the emergency department he was chest pain-free done 90 any shortness of breath. Upon further questioning patient does admit that he has not been taking his Lasix over the past month because it interferes with his work. He states he does not have time to go to the bathroom. He does have lower extremity swelling which he says is chronic however it has worsened. He denies any orthopnea. Chest x-ray shows mild left basilar atelectasis lab work shows hyponatremia with sodium 133 troponin is slightly elevated at 0.10 however this seems to be around patient's baseline BNP was 882-is his high blood has been higher in the past. EKG with sinus rhythm first degree appears to be in previous EKGs. He has been admitted for further workup and evaluation. Currently patient denies any chest pain does not appear to be respiratory distress vital signs are stable since time. Past Med Surg Social Fam HX - Past Medical History Medical history: cancer, CHF, COPD, coronary artery disease, diabetes, hyperlipidemia, hypertension, renal disease, other Additional medical history: stage IV renal disease. Type II Diabetes. Bladder cancer Psychiatric history: no psych history - Past Surgical History Surgical History: cancer surgery, coronary bypass (CABG), orthopedic, other, other Additional surgical history: diabetic foot ulcers surgeries, amputated 2nd and 3rd toes of the left foot - Social History Smoking Status: Never smoker Smokeless Tobacco Status: No Alcohol use: occasionally Drug use: none - Family History Brother Family Member Ethnicity: Non- Living Status: Still Living Hx Family Endocrine Disorder: Yes (DM) Father Adopted: No Family Member Ethnicity: Non- Living Status: Hx Family Cardiac Disorders: Yes (Stroke, HTN) Hx Family Respiratory Disorders: No Hx Family Cancer: No Hx Family GI Disorders: Yes (Gastric bypass) Hx Family Endocrine Disorder: Yes (DM) Hx Family Neuromuscular Disorders: Yes Hx Family Neurologic Disorders: Yes (CVA) Hx Family HEENT Disorders: No Hx Family Autoimmune Disorders: No Mother Family Member Ethnicity: Non- Living Status: Hx Family Cardiac Disorders: Yes (Stroke) Hx Family Respiratory Disorders: No Hx Family Cancer: Yes (thyroid) Hx Family GI Disorders: No Hx Family Endocrine Disorder: No Hx Family Neurologic Disorders: Yes (CVA) Internal Medicine - H&P: Meds Albuterol Sulfate [Ventolin Hfa] 2 puff IH Q4-6H PRN 12/20/16 [History] Insulin Glargine,Hum.rec.anlog [Basaglar Kwikpen U-100] 26 unit SQ BID 12/20/16 [History] Insulin LISPRO [HumaLOG] 0 units SQ TID 12/28/16 [History] Aspirin Enteric Coated [Aspirin EC] 81 mg PO DAILY 05/21/17 [History] Enalapril Maleate [Vasotec] 5 mg PO DAILY 05/21/17 [History] Furosemide [Lasix] 40 mg PO DAILY #30 tablet 05/25/17 [Rx] Potassium Chloride 20 meq PO DAILY 12/23/17 [History] 3 Allergy/AdvReac Type Severity Reaction Status Date / Time No Known Allergies Allergy Verified 12/23/17 14:17 All Systems PM: A 10-system review of systems was performed and is negative for pertinent findings except as documented above in the HPI. - Constitutional Constitutional: no chills, no fever(s), no night sweats - EENT Eyes: as per HPI Ears: no ear discharge, no ear pain, no tinnitus Nose, mouth and throat: no dysphagia, no nasal discharge, no neck pain, no sore throat - Cardiovascular Cardiovascular ROS IM: chest pain, dyspnea on exertion, edema, no diaphoresis, no dyspnea, no lightheadedness, no palpitations, no syncope - Respiratory Respiratory: dyspnea on exertion - Gastrointestinal Gastrointestinal: no abdominal pain, no diarrhea, no hematemesis, no hematochezia, no melena, no nausea, no vomiting - Musculoskeletal Musculoskeletal ROS IM: no numbness, no tingling - Integumentary Integumentary IM: no rash, no unusual bruising - Neurological Neurological ROS: no confusion, no convulsions, no focal weakness, no numbness, no tingling, no tremor(s) - Hematologic/Lymphatic Hematologic/Lymphatic: no easy bruising - Constitutional Vitals: Temp Pulse Resp BP Pulse Ox 98.0 F 64 16 178/98 99 12/23/17 15:54 12/23/17 15:54 12/23/17 15:54 12/23/17 15:54 12/23/17 15:54 General appearance: Present: A&O X 3 Exam: see above - Head Head exam: Present: atraumatic, normocephalic - Eye Eye exam: Present: PERRL, conjuntiva pink, sclera anicteric Pupils: Present: PERRL - Neck Neck exam general surgery: Present: supple, trachea midline. Absent: lymphadenopathy - Respiratory Respiratory exam: Present: CTAB. Absent: accessory muscle use, rales, rhonchi, wheezes - Cardiovascular Cardiovascular exam: Present: RRR, +S1, +S2. Absent: diastolic murmur, gallop, rubs, systolic murmur - GI/Abdominal GI/Abdominal exam: Present: normal bowel sounds, soft, no peritoneal signs. Absent: distended, tenderness - Extremities Exam Extremities exam: Present: pedal edema, warm, radial pulses palpable and symmetrical. Absent: calf tenderness, cyanotic - Neurological Exam Neurological exam: Present: CN II-XII intact, oriented X3, no focal deficits. Absent: pronater drift, facial droop, speech deficit - Skin Skin exam: Present: dry, intact Internal Med - H&P Results - Labs CBC & Chem 7: 12/23/17 12:38 12/23/17 12:38 - Assessment and plan (1) Chest pain Current Visit: Yes Status: Acute Assessment and plan: 1 patient presented with complaints of chest pain occurred on Saturday and resolved unknown however he continues to experience any lingering dyspnea. Has a past history of CABG-16 months ago recent cardiac catheterization in May of this year-which did review severe three-vessel coronary disease chronic occlusion of mid RCA patent SVG to OM1 CHUN to LAD. The left ventricle is normal and has normal contractility EF 55%-he was discharged on Lasix 40 mg daily in however patient states he has not been taking his Lasix for the past 2 months because it interferes with his job.-I suspect that dyspnea and chest pain may be related to CHF exacerbation we will Continue to trend troponins Continuous cardiac monitoring We will check echo EKG in a.m. Nitroglycerin as needed for chest pain We will monitor over night-have dayshift reassess decide on cardiology consult in a.m. Qualifiers: Chest pain type: unspecified Qualified Code(s): R07.9 - Chest pain, unspecified (2) CHF (congestive heart failure) Current Visit: No Status: Acute Assessment and plan: 1 patient has EF of 55% he has been noncompliant with his Lasix home dose is 40 mg daily. She does have lower extremity swelling Velarde 0.2+ pitting edema We will place on fluid restriction Resume home Lasix Monitor intake output daily weights Low-sodium diet Qualifiers: Heart failure type: diastolic Heart failure chronicity: acute Qualified Code(s): I50.31 - Acute diastolic (congestive) heart failure (3) Cardiac enzymes elevated Current Visit: No Status: Acute Assessment and plan: 1 this appears to be chronic-we will continue to monitor (4) Hypertension Current Visit: No Status: Acute Assessment and plan: Continue home medications Qualifiers: Hypertension type: essential hypertension Qualified Code(s): I10 - Essential (primary) hypertension (5) Diabetes mellitus Current Visit: No Status: Chronic Assessment and plan: 1 Accu-Cheks before meals at bedtime with fine scale insulin as well as basal Diabetic diet Check A1c in a.m. Qualifiers: Diabetes mellitus type: type 2 Diabetes mellitus senior living insulin use: with manager transit use Diabetes mellitus complication status: with skin complications Diabetes mellitus complication detail: with foot ulcer Qualified Code(s): E11.621 - Type 2 diabetes mellitus with foot ulcer (6) DVT prophylaxis Current Visit: No Status: Acute Assessment and plan: Heparin subcutaneous (7) Chronic kidney disease, stage III (moderate) Current Visit: No Status: Chronic Assessment and plan: 1 creatinine appears to be around baseline 1.3-1.5 we will continue to monitor We will resume Lasix at home dose and monitor creatinine closely Monitor intake output daily weight and avoid nephrotoxins - Time Spent With Patient Total time spent is greater than 50% in coordination of care (as documented) at patient's floor/unit and/or counseling patient:
[2017-12-23] MEDS ORDERED: Nitroglycerin 0.4 MG TAB.SUBL SL PRN (18:58)
[2017-12-23] MEDS: Insulin DETEMIR 100 UNIT/ML X5UNITS SQ SCH (22:01)
[2017-12-23] MEDS: Insulin LISPRO 300 UNITS/3 ML VIAL SQ SCH (22:02)
[2017-12-24] MEDS: Furosemide 40 MG TABLET PO SCH ×2 (00:20→09:53)
[2017-12-24 02:43] LABS: Basophils # 0.1 K/mcL (0.0-0.2); Basophils % 0.6 %; Eosinophils # 0.1 K/mcL (0.0-0.6); Eosinophils % 1.7 %; Hematocrit 36.6 % (37.5-50.1); Hemoglobin 12.2 g/dL (12.9-16.9); Immature Granulocytes % 0.2 % (0-4); Lymphocytes # 1.2 K/mcL (0.6-4.6); Mean Corpuscular HGB Conc 33.3 g/dL (31.6-35.5); Mean Corpuscular Hemoglobin 28.4 pg (28.0-33.3); Mean Corpuscular Volume 85.1 fL (83.0-100.0); Mean Platelet Volume 10.7 fL (9.4-12.4); Monocytes # 0.8 K/mcL (0.0-1.3); Monocytes % 10.3 %; Neutrophils # 5.9 K/mcL (1.6-8.9); Platelet Count 269 K/mcL (140-400); Red Cell Distribution Width 13.5 % (11.5-14.5); Segmented Neutrophils % 72.2 %
[2017-12-24 03:02] LABS: BUN/Creatinine Ratio 23 (6-26); Blood Urea Nitrogen 29 mg/dL (8-23); Calcium 8.4 mg/dL (8.6-10.3); Carbon Dioxide 22 mEq/L (23-29); Chloride 107 mEq/L (98-107); Chol/HDL Ratio 3.6 (0-4.9); Cholesterol 116 mg/dL (< 200); Glucose 158 mg/dL (70-105); HDL Cholesterol 32 mg/dL (40-59); LDL Cholesterol,Calculated 61 mg/dL (0-99); Magnesium 2.2 mg/dL (1.6-2.6); Osmolality,Calculated 291 (280-300); Potassium 4.1 mEq/L (3.5-5.1); Sodium 136 mEq/L (136-145); Triglycerides 114 mg/dL (< 150); eGFR For Non-African Americans 58 (> 60)
[2017-12-24] MEDS: *HR* Heparin 5,000 UNIT/ML VIAL SQ SCH ×2 (06:16→20:28)
[2017-12-24 07:11] LABS: Estimated Average Glucose 246 mg/dl; Hemoglobin A1C 10.2 %
[2017-12-24] MEDS ORDERED: Furosemide 40 MG TABLET PO SCH (09:00)
[2017-12-24] MEDS ORDERED: Perflutren Lipid Microsphere 1.3 ML in 0.9 % Sodium Chloride 8.7 ML IVP ONE ×2 (09:03→09:45)
[2017-12-24] MEDS ORDERED: Perflutren Lipid Microsphere 2 ML VIAL ONE (09:07)
[2017-12-24] MEDS: Insulin LISPRO 300 UNITS/3 ML VIAL SQ SCH ×4 (09:53→20:28)
[2017-12-24] MEDS: Aspirin Enteric Coated 81 MG Tablet PO SCH (09:53)
--- NOTE | 2017-12-24 12:53 | Electrocardiograph Report ---
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
--- NOTE | 2017-12-24 17:07 | Internal Med Progress Note ---
Hospitalist Progress Note - Encounter Date of Encounter: 12/24/17 Time of Encounter: 17:05 - Subjective Interval History: Pt reports having some short episode of CP this morning but that has since resolved. He denies CP at this time. He denies SOB. States LE has been imrpoving. He admits to not taking his Lasix because he was having to go to the rest room a lot. - Exam Vitals: Temp Pulse Resp BP Pulse Ox 98.9 F 73 15 132/69 96 12/24/17 14:41 12/24/17 14:41 12/24/17 14:41 12/24/17 14:41 12/24/17 14:41 Exam: . - Assessment and Plan (1) Chest pain Current Visit: Yes Status: Acute Assessment and Plan: The left ventricle is normal and has normal contractility EF 55%-he was discharged on Lasix 40 mg daily in however patient states he has not been taking his Lasix for the past 2 months because it interferes with his job.-I suspect that dyspnea and chest pain may be related to CHF exacerbation. Troponin trending down. Consulting cardiology to see. Continuous cardiac monitoring Recent Echo done so one not done on this visit. Nitroglycerin as needed for chest pain. Patient presented with complaints of chest pain occurred on saturday and resolved unknown, however he continues to experience any lingering dyspnea. Has a past history of CABG-16 months ago recent cardiac catheterization in May of this year-which did review severe three-vessel coronary disease chronic occlusion of mid RCA patent SVG to OM1 CHUN to LAD. (2) Cardiac enzymes elevated Current Visit: No Status: Acute Assessment and Plan: probably due to chronic CAD. troponin trending down. Patient presented with complaints of chest pain occurred on saturday and resolved unknown, however he continues to experience any lingering dyspnea. Has a past history of CABG-16 months ago recent cardiac catheterization in May of this year-which did review severe three-vessel coronary disease chronic occlusion of mid RCA patent SVG to OM1 CHUN to LAD. (3) Chronic kidney disease, stage III (moderate) Current Visit: No Status: Chronic Assessment and Plan: Cr at baseline. Will continue to monitor renal function. (4) Hypertension Current Visit: No Status: Chronic Assessment and Plan: Zestril (5) Acute diastolic heart failure Current Visit: No Status: Acute Assessment and Plan: Will give one time dose Lasix IV and continue with PO in am. Daily wgts and strict I and O's DVT Prophylaxis: Heparin - Summary of Assessment and Plan Summary of Assessment and Plan: patient presented with complaints of chest pain occurred on Saturday and resolved unknown however he continues to experience any lingering dyspnea. Has a past history of CABG-16 months ago recent cardiac catheterization in May of this year-which did review severe three-vessel coronary disease chronic occlusion of mid RCA patent SVG to OM1 CHUN to LAD. The left ventricle is normal and has normal contractility EF 55%-he was discharged on Lasix 40 mg daily in however patient states he has not been taking his Lasix for the past 2 months because it interferes with his job. - Time Spent with Patient Total time spent is greater than 50% in coordination of care (as documented) at patient's floor/unit and/or counseling patient: 25 - 35 minutes Plan of Care Discussed with: patient Internal Medicine: Result - Labs CBC & Chem 7: 12/24/17 00:31 12/24/17 00:31 Labs: Short CBC 12/24/17 Range/Units 00:31 WBC 8.2 (4.3-11.1) K/mcL Hgb 12.2 L (12.9-16.9) g/dL Hct 36.6 L (37.5-50.1) % Plt Count 269 (140-400) K/mcL Neutrophils # 5.9 (1.6-8.9) K/mcL BMP 12/24/17 00:31 Sodium 136 Potassium 4.1 Chloride 107 Carbon Dioxide 22 L BUN 29 H Creatinine 1.25 Glucose 158 H Calcium 8.4 L Cardiac Enzymes 12/23/17 12/24/17 12/24/17 Range/Units 17:54 00:31 05:32 Troponin I 0.08 H* 0.07 H* 0.07 H* (< 0.04) ng/mL - Impressions Impressions Echocardiogram 12/24/17 16:59 Impressions: LVEF 60%. Definity echo contrast was used. Diastolic dysfunction with elevated filling pressures. RV is mildly dilated with normal function. Moderate mitral regurgitation. Mild-moderate aortic regurgitation. Mild tricuspid regurgitation. No pulmonary hypertension by TR gradient obtained. Left Ventricular Wall Motion: Rest Echo Findings All wall segments showed normal motion. Findings: Study Quality * Technically challenging due to body habitus. ECG Findings * Normal sinus rhythm. Left Ventricle * Diastolic dysfunction with elevated filling pressures. * Normal LV chamber size and wall thickness. * Definity echo contrast was used. * There is no LV thrombus. * LVEF 60%. Right Ventricle * RV is mildly dilated with normal function. Left Atrium * Moderately dilated left atrium. Right Atrium * Mildly dilated right atrium. Mitral Valve * Normal mitral valve structure. * No mitral stenosis. * Moderate mitral regurgitation. Aortic Valve * Mild-moderate aortic regurgitation. * Aortic valve not well visualized. * No aortic stenosis. Tricuspid Valve * Mild tricuspid regurgitation. * Normal tricuspid valve structure. * Estimated RA pressure is 3 mmHg. * Estimated RVSP is 29 mmHg. * No pulmonary hypertension. Pulmonic Valve * Pulmonic valve is not well visualized. * No pulmonic stenosis. * No pulmonic regurgitation. Pulmonary Artery * Pulmonary artery not well visualized. Aorta * Normally sized aortic root. Pericardium * There is no pericardial effusion present. Interatrial Septum * No evidence of PFO by color Doppler. IVC * Normal IVC dimensions and inspiratory collapse. Consult Discharge Plan - Plan Referrals: Eloy Calles DO [Primary Care Provider] - (1) Chest pain Qualifiers: Chest pain type: unspecified Qualified Code(s): R07.9 - Chest pain, unspecified (4) Hypertension Qualifiers: Hypertension type: essential hypertension Qualified Code(s): I10 - Essential (primary) hypertension
[2017-12-24] MEDS ORDERED: Furosemide 40 MG/4 ML VIAL IVP ONE (19:58)
[2017-12-24] MEDS ORDERED: Furosemide 20 MG/2 ML VIAL IVP ONE ×2 (20:05→22:55)
[2017-12-24] MEDS: Insulin DETEMIR 100 UNIT/ML X5UNITS SQ SCH (20:27)
[2017-12-25] MEDS: *HR* Heparin 5,000 UNIT/ML VIAL SQ SCH (05:42)
[2017-12-25] MEDS: Insulin LISPRO 300 UNITS/3 ML VIAL SQ SCH ×2 (07:47→12:09)
[2017-12-25] MEDS: Aspirin Enteric Coated 81 MG Tablet PO SCH (08:02)
[2017-12-25] MEDS: Furosemide 40 MG TABLET PO SCH (08:02)
[2017-12-25 10:22] VITALS: BP 147/78
--- NOTE | 2017-12-25 14:10 | Cardiology Consult Note ---
<Xena Linares - Last Filed: 12/25/17 14:22> Date of Encounter: 12/25/17 Time of Encounter: 12:00 Assessment and Plan (1) Acute diastolic heart failure Status: Acute Per cardiology: -Acute on chronic diastolic CHF. -TTE with LVEF 60%, diastolic dysfunction with elevated filling pressures, RV mildly dilated with normal function, moderate MR, mild-moderate AR, mild TR, no segmental wall motion abnormalities noted. -Reports was not taking lasix as prescribed at home due to difficulty taking frequent bathroom breaks at work. -BNP 882 on admission. -Lasix has been resumed. Net negative 600ml. -Reports symptoms have imrpoved. -CHF education reinforced with patient. -Educated patient to take lasix as prescribed. -Anticipate outpatient follow up. (2) Elevated troponin Status: Acute Per cardiology: -Troponin 0.1, 0.08, 0.07 x2 in the setting of CHF. -Reported some chest tightness that resolved after lasix. -Denies current chest pain. -ECG with no acute ischemic changes. -TTE with LVEF 60%, no segmental wall motion abnormalities noted. -[facility] 05/24/17: patent SVG-OM1, CHUN to LAD; REGIONAL CRA mRCA with lef to right collaterals -NSTEMI II in the setting of CHF. -No cardiac rehab consult warranted. (3) Chest pain Status: Acute Per cardiology: -Reported chest tightness when volume overloaded. -Denies current. -Recent [facility] 05/2017 with 2/2 patent bypass grafts. -Suspect chest pain related to volume overload. Qualifiers: Chest pain type: unspecified Qualified Code(s): R07.9 - Chest pain, unspecified Discussion w patient/family: The assessment and plan as outlined above was discussed with the patient who expressed understanding and agreement. All questions were answered. Thank you for involving us in the care of your patient. Please call with any questions. Discussed and reviewed with . History of Present Illness Consult date: 12/24/17 Requesting physician: Shayy Spence Consult reason: chest pain CHF Chief complaint: shortness of breath History of present illness: Mr. Bearden is a 62 year old male with a relevant past medical history of DM, HTN, HLD, renal insufficiency, CAD s/p CABG, COPD, diastolic CHF who presented to [facility] with complaints of increased shortness of breath. Patient also reported some chest tigthness with deep breathing. Denies current chest tighness. Patient states had worsening peripheral edema. Today, patient states symptoms are much improved. Past Med Surg Social Fam HX - Past Medical History Attestation: Yes The following information was validated with the patient. Source: patient, old records reviewed Medical history: cancer, CHF, COPD, coronary artery disease, diabetes, hyperlipidemia, hypertension, renal disease, other Additional medical history: stage IV renal disease. Type II Diabetes. Bladder cancer Psychiatric history: no psych history - Past Surgical History Surgical History: cancer surgery, coronary bypass (CABG), orthopedic, other, other Additional surgical history: diabetic foot ulcers surgeries, amputated 2nd and 3rd toes of the left foot - Social History Smoking Status: Never smoker Smokeless Tobacco Status: No Alcohol use: occasionally Drug use: none - Family History Brother Family Member Ethnicity: Non- Living Status: Still Living Hx Family Endocrine Disorder: Yes (DM) Father Adopted: No Family Member Ethnicity: Non- Living Status: Hx Family Cardiac Disorders: Yes (Stroke, HTN) Hx Family Respiratory Disorders: No Hx Family Cancer: No Hx Family GI Disorders: Yes (Gastric bypass) Hx Family Endocrine Disorder: Yes (DM) Hx Family Neuromuscular Disorders: Yes Hx Family Neurologic Disorders: Yes (CVA) Hx Family HEENT Disorders: No Hx Family Autoimmune Disorders: No Mother Family Member Ethnicity: Non- Living Status: Hx Family Cardiac Disorders: Yes (Stroke) Hx Family Respiratory Disorders: No Hx Family Cancer: Yes (thyroid) Hx Family GI Disorders: No Hx Family Endocrine Disorder: No Hx Family Neurologic Disorders: Yes (CVA) Medications and Allergies Albuterol Sulfate [Ventolin Hfa] 2 puff IH Q4-6H PRN 12/20/16 [History] Insulin Glargine,Hum.rec.anlog [Basaglar Kwikpen U-100] 26 unit SQ BID 12/20/16 [History] Insulin LISPRO [HumaLOG] 0 units SQ TID 12/28/16 [History] Aspirin Enteric Coated [Aspirin EC] 81 mg PO DAILY 05/21/17 [History] Enalapril Maleate [Vasotec] 5 mg PO DAILY 05/21/17 [History] Furosemide [Lasix] 40 mg PO DAILY #30 tablet 05/25/17 [Rx] Potassium Chloride 20 meq PO DAILY 12/23/17 [History] 3 Allergy/AdvReac Type Severity Reaction Status Date / Time No Known Allergies Allergy Verified 12/23/17 14:17 All Systems Review: The remainder of the systems were reviewed and are negative - Cardiovascular Cardiovascular: as per HPI, chest pain at rest, dyspnea at rest, dyspnea on exertion, leg edema Physical Examination Vital Signs, Last 4 Hours Temp Pulse Resp BP Pulse Ox 12/25/17 10:21 97.9 F 67 16 147/78 97 General: Conversant, No Apparent Distress HEENT: Atraumatic, Normocephaly, Mucus Membranes Moist Neck: No JVD, Normal carotid pulses Cardiac: Reg Rate and Rhythm, Normal S1 and S2, No Murmur Lungs: Normal Breath Sounds, No Wheeze, Rales, Rhonchi Neuro: Alert and responsive, No focal deficits noted Abdomen: Soft, Non-Tender Skin: No rashes noted on visualized skin Musculoskeletal: No Chest Wall Tenderness Extremities: No Clubbing, No Cyanosis, Normal Pulses, Other (Mild bilateral pedal edema noted. ) Results 12/24/17 00:31 12/24/17 00:31 Active Medications Acetaminophen (Tylenol) 650 mg PO Q6HR PRN PRN Reason: Mild Pain/Fever Stop: 06/24/18 16:54 Hydrocodone Bitart/Acetaminophen (Thorp 5-325 Mg) 1 tab PO Q6HR PRN PRN Reason: Moderate Pain Stop: 06/24/18 16:54 Albuterol Sulfate (Albuterol Inhaler) 2 puff IH [id number] PRN PRN Reason: Shortness Of Breath Stop: 06/24/18 16:59 Aspirin (Aspirin Ec) 81 mg PO DAILY HERMILO Stop: 06/25/18 09:01 Last Admin: 12/25/17 08:02 Dose: 81 mg Dextrose/Water (Dextrose 50% (Syg)) 25 ml IVP AD PRN PRN Reason: Hypoglycemia Stop: 06/24/18 16:58 Furosemide (Lasix) 40 mg PO DAILY HERMILO Stop: 06/25/18 00:31 Last Admin: 12/25/17 08:02 Dose: 40 mg Glucagon (Glucagen) 1 mg IM ONCE PRN PRN Reason: Hypoglycemia Stop: 06/24/18 16:58 Glucose (Gluctose) 15 gm PO ONCE PRN PRN Reason: Hypoglycemia Stop: 06/24/18 16:58 Glucose (Gluctose) 30 gm PO ONCE PRN PRN Reason: Hypoglycemia Stop: 06/24/18 16:58 Heparin Sodium (Porcine) (Heparin) 5,000 unit SQ Q12HCO [facility] Stop: 06/25/18 06:01 Last Admin: 12/25/17 05:42 Dose: 5,000 unit Dextrose (Dextrose 5%) 1,000 mls @ 100 mls/hr IVC .Q10H PRN PRN Reason: HYPOGLYCEMIA Stop: 06/24/18 16:58 Insulin Detemir (Levemir) 24 unit 0.25 unit/kg (24 unit) SQ HS [facility] Stop: 06/24/18 21:01 Last Admin: 12/24/17 20:27 Dose: 24 unit Insulin Human Lispro (Humalog) 0 units SQ TIDAC [facility] PRN Reason: Protocol Stop: 06/25/18 07:31 Last Admin: 12/25/17 12:09 Dose: 8 units Insulin Human Lispro (Humalog) 0 units SQ [facility] PRN Reason: Protocol Stop: 06/24/18 21:01 Last Admin: 12/24/17 20:28 Dose: 4 units Lisinopril (Zestril) 10 mg PO DAILY [facility] Stop: 06/25/18 09:01 Last Admin: 12/25/17 08:02 Dose: 10 mg Naloxone HCl (Narcan) 0.4 mg IVP Q2MIN PRN PRN Reason: SEE COMMENTS Stop: 06/24/18 16:54 Nitroglycerin (Nitroglycerin) 0.4 mg SL Q5MIN PRN PRN Reason: Chest Pain Stop: 06/24/18 18:59 Potassium Chloride (Potassium Chloride) 20 meq PO DAILY [facility] Stop: 06/25/18 09:01 Last Admin: 12/25/17 08:02 Dose: 20 meq Laboratory Tests 12/23/17 12/23/17 12/23/17 12:38 12:38 17:54 Hgb Creatinine 1.33 H Troponin I 0.10 H* 0.08 H* B-Natriuretic Peptide 882 H 12/24/17 12/24/17 12/24/17 00:31 00:31 00:31 Hgb 12.2 L Creatinine 1.25 Troponin I 0.07 H* B-Natriuretic Peptide 12/24/17 05:32 Hgb Creatinine Troponin I 0.07 H* B-Natriuretic Peptide - Imaging and Cardiology Chest Xray: report reviewed Echo: report reviewed - EKG Interpretation EKG results cardiology: personally reviewed (ECG with SR, HR 82. ST and T wave abnormality noted, similar to previous ECG), other (Telemetry reviewed with average HR previous 12 hours noted to be 63, SR. PVCs and PACs.) Consult Discharge Plan - Plan Instructions: Heart Failure (DC), Chronic Obstructive Pulmonary Disease (DC) Referrals: Eloy Calles DO [Primary Care Provider] - 12/25/17 3:40 pm < A - Last Filed: 12/25/17 17:45> Date of Encounter: 12/25/17 - Attending Attestation I interviewed and examined the patient independently at the bedside and agree with the cardiology ENVIRONMENTAL EDUCATOR's documentation. CHF exacerbation. Needs diuretics adherence. f/u with Dr Elis Medina. Assessment and Plan Discussion w patient/family: The assessment and plan as outlined above was discussed with the patient and/or family members who expressed understanding and agreement. All questions were answered. Thank you for involving us in the care of your patient. Please call with any questions. History of Present Illness History of present illness: Mr. Bearden is a 62 year old male All Systems Review: The remainder of the systems were reviewed and are negative Results 12/24/17 00:31 12/24/17 00:31
--- NOTE | 2017-12-25 15:09 | Discharge Summary ---
- NOTES TO OUTPATIENT PROVIDER Notes to Outpatient Provider: PCP in 5 to 7 days Orders not resulted at time of discharge: Pending orders 12/24/17 06:00 ECG 12 lead ECG [ECG] AM 0600 Date of Encounter: 12/25/17 Time of Encounter: 15:08 - Discharge Diagnosis (1) Acute diastolic heart failure Priority: Primary Status: Acute Assessment and Plan: Pt had admitted to not taking Lasix at work because he was always having to go to the rest room. Pt is to resume Lasix 40 mg PO QD after discharge. He diuresed well. He did get Lasix IV times one o 2 and PO Lasix was resumed. LE edema has improved. Pt states CP competey resolved. Pt was seen by cardiology and CHF education reinforced. Anticipate outpatient follow up. It appears pt was on beta bridget at some point but according to cardiology hosp note from 05/23/2017, it was discontinued due to pt having issues with bradycardia. Echo Impressions: LVEF 60%. Definity echo contrast was used. Diastolic dysfunction with elevated filling pressures. RV is mildly dilated with normal function. Moderate mitral regurgitation. Mild-moderate aortic regurgitation. Mild tricuspid regurgitation. No pulmonary hypertension by TR gradient obtained. (2) Chest pain Priority: Primary Status: Acute Assessment and Plan: Likely de to volume overload. Resolved. Qualifiers: Chest pain type: unspecified Qualified Code(s): R07.9 - Chest pain, unspecified (3) Cardiac enzymes elevated Priority: Primary Status: Acute Assessment and Plan: slight bump in torponin, likely due to ischemic demand. (4) Chronic kidney disease, stage III (moderate) Priority: Secondary Status: Chronic Assessment and Plan: Cr. 1.25 at discharge. Pt is to follow up with PCP out pt. (5) Hypertension Priority: Secondary Status: Chronic Qualifiers: Hypertension type: essential hypertension Qualified Code(s): I10 - Essential (primary) hypertension (6) Coronary artery disease Priority: Secondary Status: Chronic Assessment and Plan: [facility] 05/24/17: patent SVG-OM1, CHUN to LAD; [employer] mRCA with lef to right collaterals Continue ASA. Per pt, statin was discontinued due to elevated liver enzymes. Qualifiers: Coronary Disease-Associated Artery/Lesion type: [place] artery [place] vs. transplanted heart: [place] heart Associated angina: without angina Qualified Code(s): I25.10 - Atherosclerotic heart disease of [place] coronary artery without angina pectoris Hospital course: Mr. Bearden is a 62 year old male Discharge discussed with: patient - Time Spent with Patient Total time spent providing and/or coordinating discharge services: Greater than 30 minutes - Discharge Medications Home Medications: Albuterol Sulfate [Ventolin Hfa] 2 puff IH Q4-6H PRN 12/20/16 [History] Insulin Glargine,Hum.rec.anlog [Basaglar Kwikpen U-100] 26 unit SQ BID 12/20/16 [History] Insulin LISPRO [HumaLOG] 0 units SQ TID 12/28/16 [History] Aspirin Enteric Coated [Aspirin EC] 81 mg PO DAILY 05/21/17 [History] Enalapril Maleate [Vasotec] 5 mg PO DAILY 05/21/17 [History] Furosemide [Lasix] 40 mg PO DAILY #30 tablet 05/25/17 [Rx] Potassium Chloride 20 meq PO DAILY 12/23/17 [History] Allergies/Adverse Reactions: 3 Allergy/AdvReac Type Severity Reaction Status Date / Time No Known Allergies Allergy Verified 12/23/17 14:17 Date of admission: 12/23/17 15:02 Primary care physician: Eloy Calles Consults: 12/24/17 15:42 Consult to Cardiology [CONS] Routine Comment: Consulting Provider: Cardiology Benita Reason for Consult: chest pain and CHF Call Completed: Yes Discharging clinician: Shayy Spence Anticipated date of discharge: 12/25/17 - Constitutional Vitals: Temp Pulse Resp BP Pulse Ox 97.9 F 67 16 147/78 97 12/25/17 10:21 12/25/17 10:21 12/25/17 10:21 12/25/17 10:21 12/25/17 10:21 General appearance: Present: A&O X 3, no acute distress Exam: . - Head Head exam: Present: atraumatic, normocephalic - Eye Eye exam: Present: PERRL, conjuntiva pink, sclera anicteric Pupils: Present: PERRL - Neck Neck exam general surgery: Present: supple, trachea midline. Absent: lymphadenopathy - Respiratory Respiratory exam: Present: CTAB. Absent: accessory muscle use, rales, rhonchi, wheezes - Cardiovascular Cardiovascular exam: Present: RRR, +S1, +S2. Absent: diastolic murmur, gallop, rubs, systolic murmur - GI/Abdominal GI/Abdominal exam: Present: normal bowel sounds, soft, no peritoneal signs. Absent: distended, tenderness - Extremities Exam Extremities exam: Present: warm, radial pulses palpable and symmetrical. Absent : calf tenderness, cyanotic, pedal edema - Neurological Exam Neurological exam: Present: CN II-XII intact, oriented X3, no focal deficits. Absent: pronater drift, facial droop, speech deficit - Skin Skin exam: Present: dry, intact - Patient Status Disposition: Home, Self-Care Condition: Good Overall status at discharge: patient is back to baseline - Discharge Instructions Instructions: Heart Failure (DC), Chronic Obstructive Pulmonary Disease (DC) Follow Up With: Eloy Calles DO [Primary Care Provider] - 12/25/17 3:40 pm Forms: ED Satisfaction Letter - Diet and Activity Activity: increase activity as tolerated Diet: diabetic diet, low fat, low cholesterol
== END 2017-12-25 15:49 | disposition home or self-care (01) ==
LOC: EMEROOARM 11:46 → 3ANU 11:46
PROVIDERS: ADMIT Student in an Organized Health Care Education/Training Program; ATTEND Student in an Organized Health Care Education/Training Program

== ENCOUNTER 2019-05-02 19:33 | Inpatient (IN) ==
[2019-05-02 20:24] LABS: Basophils # 0.1 K/mcL (0.0-0.2); Basophils % 0.6 %; Eosinophils # 0.1 K/mcL (0.0-0.6); Eosinophils % 0.8 %; Hematocrit 24.4 % (37.5-50.1); Hemoglobin 8.2 g/dL (12.9-16.9); Immature Granulocytes % 0.2 % (0-4); Lymphocytes # 0.8 K/mcL (0.6-4.6); Lymphocytes % 9.7 %; Mean Corpuscular HGB Conc 33.6 g/dL (31.6-35.5); Mean Corpuscular Hemoglobin 29.4 pg (28.0-33.3); Mean Corpuscular Volume 87.5 fL (83.0-100.0); Mean Platelet Volume 10.3 fL (9.4-12.4); Monocytes # 0.5 K/mcL (0.0-1.3); Monocytes % 6.1 %; Neutrophils # 7.1 K/mcL (1.6-8.9); Platelet Count 375 K/mcL (140-400); Red Blood Count 2.79 M/mcL (4.19-5.50); Segmented Neutrophils % 82.6 %; White Blood Count 8.6 K/mcL (4.3-11.1)
[2019-05-02 20:44] LABS: Calcium 8.5 mg/dL (8.6-10.3); Potassium 4.8 mEq/L (3.5-5.1)
[2019-05-02 20:50] LABS: Troponin I 0.73 ng/mL (< 0.04)
[2019-05-02] MEDS ORDERED: Aspirin 81 MG TAB.CHEW PO STA (20:52)
[2019-05-02] MEDS ORDERED: *HR* Heparin 5,000 UNIT/ML VIAL IVP PRN ×2 (20:53)
[2019-05-02] MEDS ORDERED: *HR* Heparin 5,000 UNIT/ML VIAL IVP ONE (20:53)
[2019-05-02] MEDS ORDERED: Heparin 25,000 UNIT/250 ML D5W 25,000 UNIT/250 ML IV.SOLN IVC SCH (21:00)
[2019-05-02 21:32] LABS: INR 1.3; Prothrombin Time 15.3 Seconds (9.4-12.1)
[2019-05-02] MEDS ORDERED: Naloxone 0.4 MG/ML INJ IVP PRN (22:26)
[2019-05-02] MEDS ORDERED: D5% in Water 1,000 ML IVC PRN (22:35)
[2019-05-02] MEDS ORDERED: *HR* Dextrose 50 % in Water (Syg) 50 ML SYRINGE IVP PRN (22:35)
[2019-05-02] MEDS ORDERED: Dextrose Gel 15 GM/37.5 ML TUBE PO PRN ×2 (22:35)
[2019-05-02] MEDS ORDERED: Insulin Human Regular 10 UNIT in 0.9 % Sodium Chloride 10 ML IV ONE (22:36)
[2019-05-02] MEDS: Insulin LISPRO 300 UNITS/3 ML VIAL SQ SCH (23:49)
[2019-05-03 02:35] LABS: Hemoglobin 7.4 g/dL (12.9-16.9); Mean Corpuscular HGB Conc 33.6 g/dL (31.6-35.5); Mean Corpuscular Hemoglobin 28.7 pg (28.0-33.3); Mean Corpuscular Volume 85.3 fL (83.0-100.0); Mean Platelet Volume 10.2 fL (9.4-12.4); Platelet Count 353 K/mcL (140-400); Red Blood Count 2.58 M/mcL (4.19-5.50); Red Cell Distribution Width 14.8 % (11.5-14.5); White Blood Count 8.6 K/mcL (4.3-11.1)
[2019-05-03 02:52] LABS: Calcium 8.4 mg/dL (8.6-10.3); Potassium 4.1 mEq/L (3.5-5.1)
[2019-05-03] MEDS ORDERED: 0.9 % Sodium Chloride 250 ML IVC SCH (03:30)
[2019-05-03] MEDS: Insulin LISPRO 300 UNITS/3 ML VIAL SQ SCH ×3 (06:32→17:30)
[2019-05-03] MEDS: Furosemide 40 MG/4 ML VIAL IVP SCH (08:37)
[2019-05-03] MEDS ORDERED: Perflutren Lipid Microsphere 1.3 ML in 0.9 % Sodium Chloride 8.7 ML IVP ONE (10:28)
[2019-05-03] MEDS ORDERED: Albumin 25% 25gram/100mL 25 GM/100 ML IV.SOLN IVPB ONE (16:00)
[2019-05-03] MEDS ORDERED: Furosemide 40 MG/4 ML VIAL IVP ONE (17:00)
[2019-05-03] MEDS: Insulin DETEMIR 100 UNIT/ML X5UNITS SQ SCH (19:52)
[2019-05-04] MEDS: Insulin LISPRO 300 UNITS/3 ML VIAL SQ SCH ×4 (00:01→18:31)
[2019-05-04 05:26] LABS: Basophils # 0.1 K/mcL (0.0-0.2); Basophils % 0.6 %; Eosinophils # 0.2 K/mcL (0.0-0.6); Eosinophils % 1.9 %; Hematocrit 25.4 % (37.5-50.1); Hemoglobin 8.8 g/dL (12.9-16.9); Immature Granulocytes % 0.3 % (0-4); Lymphocytes # 1.3 K/mcL (0.6-4.6); Lymphocytes % 16.4 %; Mean Corpuscular HGB Conc 34.6 g/dL (31.6-35.5); Mean Corpuscular Hemoglobin 29.3 pg (28.0-33.3); Mean Corpuscular Volume 84.7 fL (83.0-100.0); Mean Platelet Volume 9.9 fL (9.4-12.4); Monocytes # 0.7 K/mcL (0.0-1.3); Monocytes % 9.4 %; Neutrophils # 5.6 K/mcL (1.6-8.9); Platelet Count 332 K/mcL (140-400); Red Cell Distribution Width 15.1 % (11.5-14.5); Segmented Neutrophils % 71.4 %; White Blood Count 7.8 K/mcL (4.3-11.1)
[2019-05-04 05:46] LABS: Calcium 8.1 mg/dL (8.6-10.3); Potassium 3.8 mEq/L (3.5-5.1)
[2019-05-04 05:51] LABS: Troponin I 0.93 ng/mL (< 0.04)
[2019-05-04] MEDS: Furosemide 40 MG/4 ML VIAL IVP SCH (09:30)
[2019-05-04] MEDS: Metoprolol XL (24 HR) Succ 25 MG TAB.ER.24H PO SCH (09:30)
[2019-05-04] MEDS: Isosorbide MONOnitrate (24 HR) 30 MG TAB.ER.24H PO SCH (09:30)
[2019-05-04] MEDS: Insulin DETEMIR 100 UNIT/ML X5UNITS SQ SCH (21:56)
[2019-05-05] MEDS: Insulin LISPRO 300 UNITS/3 ML VIAL SQ SCH ×4 (02:28→18:20)
[2019-05-05 08:06] LABS: Basophils % 0.5 %; Eosinophils # 0.2 K/mcL (0.0-0.6); Hematocrit 26.7 % (37.5-50.1); Hemoglobin 9.2 g/dL (12.9-16.9); Immature Granulocytes % 0.3 % (0-4); Lymphocytes # 1.1 K/mcL (0.6-4.6); Mean Corpuscular HGB Conc 34.5 g/dL (31.6-35.5); Mean Corpuscular Hemoglobin 29.6 pg (28.0-33.3); Mean Corpuscular Volume 85.9 fL (83.0-100.0); Mean Platelet Volume 9.8 fL (9.4-12.4); Monocytes # 0.6 K/mcL (0.0-1.3); Monocytes % 8.4 %; Neutrophils # 5.6 K/mcL (1.6-8.9); Platelet Count 336 K/mcL (140-400); Red Blood Count 3.11 M/mcL (4.19-5.50); Red Cell Distribution Width 14.8 % (11.5-14.5); Segmented Neutrophils % 74.8 %; White Blood Count 7.5 K/mcL (4.3-11.1)
[2019-05-05 08:25] LABS: Calcium 8.1 mg/dL (8.6-10.3)
[2019-05-05] MEDS ORDERED: Insulin NPH/REG 70/30 100 UNIT/ML (x5UNIT) SQ SCH ×2 (09:00→18:00)
[2019-05-05] MEDS: Valsartan 80 MG TABLET PO SCH (10:03)
[2019-05-05] MEDS: Isosorbide MONOnitrate (24 HR) 30 MG TAB.ER.24H PO SCH (10:03)
[2019-05-05] MEDS: Metoprolol XL (24 HR) Succ 25 MG TAB.ER.24H PO SCH (10:04)
[2019-05-05] MEDS: Furosemide 40 MG/4 ML VIAL IVP SCH (10:04)
[2019-05-05] MEDS ORDERED: Propofol 500 MG/50 ML INFUS..BTL ONE (12:50)
[2019-05-05] MEDS ORDERED: Lidocaine -MPF 2% 2 ML VIAL ONE (12:50)
[2019-05-05] MEDS: Insulin DETEMIR 100 UNIT/ML X5UNITS SQ SCH (21:13)
[2019-05-05 22:38] LABS: Hematocrit 29.9 % (37.5-50.1); Hemoglobin 9.9 g/dL (12.9-16.9)
[2019-05-06] MEDS: Insulin LISPRO 300 UNITS/3 ML VIAL SQ SCH ×3 (00:46→11:32)
[2019-05-06 02:06] LABS: Basophils # 0.1 K/mcL (0.0-0.2); Basophils % 0.7 %; Eosinophils # 0.1 K/mcL (0.0-0.6); Eosinophils % 1.9 %; Hematocrit 29.7 % (37.5-50.1); Hemoglobin 9.9 g/dL (12.9-16.9); Immature Granulocytes % 0.3 % (0-4); Lymphocytes % 13.5 %; Mean Corpuscular HGB Conc 33.3 g/dL (31.6-35.5); Mean Corpuscular Hemoglobin 28.7 pg (28.0-33.3); Mean Corpuscular Volume 86.1 fL (83.0-100.0); Mean Platelet Volume 9.7 fL (9.4-12.4); Monocytes # 0.7 K/mcL (0.0-1.3); Monocytes % 9.1 %; Neutrophils # 5.5 K/mcL (1.6-8.9); Platelet Count 362 K/mcL (140-400); Red Blood Count 3.45 M/mcL (4.19-5.50); Red Cell Distribution Width 14.8 % (11.5-14.5); Segmented Neutrophils % 74.5 %; White Blood Count 7.3 K/mcL (4.3-11.1)
[2019-05-06 02:24] LABS: Calcium 8.4 mg/dL (8.6-10.3); Potassium 3.8 mEq/L (3.5-5.1)
[2019-05-06] MEDS: Isosorbide MONOnitrate (24 HR) 30 MG TAB.ER.24H PO SCH (08:01)
[2019-05-06] MEDS: Metoprolol XL (24 HR) Succ 25 MG TAB.ER.24H PO SCH (08:01)
[2019-05-06] MEDS: Valsartan 80 MG TABLET PO SCH (08:01)
[2019-05-06] MEDS: Furosemide 40 MG/4 ML VIAL IVP SCH (08:01)
[2019-05-06] MEDS ORDERED: Propofol 500 MG/50 ML INFUS..BTL ONE (13:04)
[2019-05-06] MEDS ORDERED: Lidocaine -MPF 2% 2 ML VIAL ONE (13:07)
[2019-05-06 14:02] VITALS: BP 147/69
== END 2019-05-06 15:31 | disposition home or self-care (01) | DRG 811 ==
LOC: EMEROOARM 19:33 → 2NENU 19:33 → SUATTDRO 21:37 → 2NENU 22:46 → SUATTDRO 05-04 14:44
PROVIDERS: ADMIT Family Medicine; ATTEND Family Medicine
PROC: ENDOEBX (2019-05-05 13:00)

== ENCOUNTER 2020-09-28 10:13 | Inpatient (IN) ==
[2020-09-28] MEDS ORDERED: Isovue-370 500 ML BOTTLE IVP ONE (11:51)
[2020-09-28] MEDS ORDERED: 0.9 % Sodium Chloride 1,000 ML IVC ONE (12:07)
[2020-09-28 13:12] LABS: Basophils % 0.2 %; Hematocrit 41.2 % (37.5-50.1); Immature Granulocytes % 0.7 % (0-4); Lymphocytes # 0.5 K/mcL (0.6-4.6); Lymphocytes % 2.1 %; Mean Corpuscular HGB Conc 31.6 g/dL (31.6-35.5); Mean Corpuscular Hemoglobin 27.5 pg (28.0-33.3); Mean Corpuscular Volume 87.3 fL (83.0-100.0); Mean Platelet Volume 9.9 fL (9.4-12.4); Monocytes # 1.5 K/mcL (0.0-1.3); Neutrophils # 19.5 K/mcL (1.6-8.9); Platelet Count 316 K/mcL (140-400); Red Blood Count 4.72 M/mcL (4.19-5.50); Red Cell Distribution Width 13.6 % (11.5-14.5); White Blood Count 21.7 K/mcL (4.3-11.1)
[2020-09-28 13:30] LABS: Calcium 8.6 mg/dL (8.6-10.3); Potassium 4.5 mEq/L (3.5-5.1)
[2020-09-28] MEDS ORDERED: Piperacillin/Tazobactam 3.375 GM in 0.9 % Sodium Chloride Mini Bag 100 ML IVPB ONE (15:11)
[2020-09-28] MEDS ORDERED: Clindamycin 900 MG/50 ML 900 MG/50 ML IV.SOLN IVPB ONE (15:18)
[2020-09-28] MEDS ORDERED: *HR* Dextrose 50 % in Water (Vial) 50 ML VIAL IVP PRN (16:16)
[2020-09-28] MEDS ORDERED: *HR* OxyCODONE Immed Rel 5 MG TABLET PO PRN ×2 (16:16→20:22)
[2020-09-28] MEDS ORDERED: Dextrose Gel 15 GM/37.5 ML TUBE PO PRN ×2 (16:16)
[2020-09-28] MEDS ORDERED: Ondansetron 4 MG/2 ML VIAL IVP PRN ×2 (16:16→20:22)
[2020-09-28] MEDS ORDERED: D5% in Water 1,000 ML IVC PRN (16:16)
[2020-09-28] MEDS ORDERED: *HR* HYDROcodone/Acet 5/325 mg TABLET PO PRN (16:16)
[2020-09-28] MEDS ORDERED: Naloxone 0.4 MG/ML INJ IVP PRN (16:16)
[2020-09-28] MEDS ORDERED: Acetaminophen 325 MG TABLET PO PRN (16:16)
[2020-09-28] MEDS ORDERED: Perflutren Lipid Microsphere 1.3 ML in 0.9 % Sodium Chloride 8.7 ML IVP PRN (16:26)
[2020-09-28] MEDS: Vancomycin 1,500 MG/265 ML IV.SOLN IVPB ONE ×2 (16:45→17:17)
[2020-09-28] MEDS ORDERED: *HR* Propofol 200 MG/20 ML VIAL IVP ONE (18:42)
[2020-09-28] MEDS ORDERED: Lidocaine -MPF 2% 2 ML VIAL ONE (18:44)
[2020-09-28 19:05] LABS: Troponin I 0.06 ng/mL (< 0.04)
[2020-09-28] MEDS ORDERED: Famotidine 20 MG/2 ML VIAL ONE (19:17)
[2020-09-28] MEDS ORDERED: Acetaminophen IV 1,000 MG/100 ML BAG IVPB ONE (19:17)
[2020-09-28] MEDS ORDERED: Ondansetron 4 MG/2 ML VIAL ONE (19:28)
[2020-09-28] MEDS ORDERED: *HR* FentaNYL (PF) 100 MCG/2 ML VIAL ONE (19:28)
[2020-09-28 19:44] LABS: Estimated Average Glucose 217 mg/dl; Hemoglobin A1C 9.2 %
[2020-09-28] MEDS ORDERED: Promethazine 6.25 MG in Water for inj. (sterile) 20 ML IVPB PRN (20:22)
[2020-09-28] MEDS ORDERED: *HR* HYDROmorphone PF 0.5 MG/0.5 ML SYRINGE IVP PRN (20:22)
[2020-09-28] MEDS ORDERED: Insulin DETEMIR 100 UNIT/ML X5UNITS SUBQ SCH (21:00)
[2020-09-28] MEDS: Insulin LISPRO 300 UNITS/3 ML VIAL SUBQ SCH (21:27)
[2020-09-28] MEDS: 0.9 % Sodium Chloride 1,000 ML IVC SCH (21:31)
[2020-09-29] MEDS ORDERED: Piperacillin/Tazobactam 3.375 GM in 0.9 % Sodium Chloride Mini Bag 100 ML IVPB SCH
[2020-09-29] MEDS ORDERED: Clindamycin 600 MG/50 ML 600 MG/50 ML IV.SOLN IVPB SCH
[2020-09-29] MEDS: Insulin LISPRO 300 UNITS/3 ML VIAL SUBQ SCH ×4 (01:05→17:21)
[2020-09-29 04:44] LABS: Basophils % 0.2 %; Eosinophils # 0.1 K/mcL (0.0-0.6); Eosinophils % 0.6 %; Immature Granulocytes % 0.4 % (0-4); Lymphocytes % 7.4 %; Mean Corpuscular HGB Conc 31.8 g/dL (31.6-35.5); Mean Corpuscular Hemoglobin 28.1 pg (28.0-33.3); Mean Corpuscular Volume 88.2 fL (83.0-100.0); Mean Platelet Volume 9.8 fL (9.4-12.4); Monocytes # 1.2 K/mcL (0.0-1.3); Monocytes % 8.9 %; Neutrophils # 11.1 K/mcL (1.6-8.9); Platelet Count 271 K/mcL (140-400); Red Blood Count 3.74 M/mcL (4.19-5.50); Red Cell Distribution Width 13.7 % (11.5-14.5); Segmented Neutrophils % 82.5 %; White Blood Count 13.5 K/mcL (4.3-11.1)
[2020-09-29 04:45] LABS: Hemoglobin 10.5 g/dL (12.9-16.9)
[2020-09-29 05:01] LABS: Calcium 7.6 mg/dL (8.6-10.3); Potassium 3.8 mEq/L (3.5-5.1)
[2020-09-29] MEDS ORDERED: Vancomycin 1,500 MG/265 ML IV.SOLN IVPB SCH (06:00)
[2020-09-29] MEDS ORDERED: *HR* Heparin 5,000 UNIT/ML VIAL SQ SCH (06:00)
[2020-09-29] MEDS ORDERED: D5% in Water 1,000 ML IVC PRN (07:09)
[2020-09-29] MEDS ORDERED: Ondansetron 4 MG/2 ML VIAL IVP PRN (07:09)
[2020-09-29] MEDS ORDERED: Naloxone 0.4 MG/ML INJ IVP PRN (07:09)
[2020-09-29] MEDS ORDERED: Acetaminophen 325 MG TABLET PO PRN (07:09)
[2020-09-29] MEDS ORDERED: *HR* OxyCODONE Immed Rel 5 MG TABLET PO PRN (07:09)
[2020-09-29] MEDS ORDERED: *HR* Dextrose 50 % in Water (Vial) 50 ML VIAL IVP PRN (07:09)
[2020-09-29] MEDS ORDERED: *HR* HYDROcodone/Acet 5/325 mg TABLET PO PRN (07:09)
[2020-09-29] MEDS ORDERED: Dextrose Gel 15 GM/37.5 ML TUBE PO PRN ×2 (07:09)
[2020-09-29] MEDS ORDERED: 0.9 % Sodium Chloride 1,000 ML IVC SCH (07:09)
[2020-09-29] MEDS: 0.9 % Sodium Chloride 1,000 ML IVC SCH (07:11)
[2020-09-29] MEDS: Piperacillin/Tazobactam 3.375 GM in 0.9 % Sodium Chloride Mini Bag 100 ML IVPB SCH ×2 (08:40→17:20)
[2020-09-29] MEDS: Clindamycin 600 MG/50 ML 600 MG/50 ML IV.SOLN IVPB SCH ×2 (08:43→15:28)
[2020-09-29] MEDS: Isosorbide MONOnitrate (24 HR) 30 MG TAB.ER.24H PO SCH (08:43)
[2020-09-29] MEDS: *HR* Heparin 5,000 UNIT/ML VIAL SQ SCH ×2 (08:45→17:20)
[2020-09-29] MEDS ORDERED: polyethylene glycoL 3350 17 GM POWD.PACK PO PRN (08:59)
[2020-09-29] MEDS: Metoprolol XL (24 HR) Succ 50 MG TAB.ER.24H PO SCH (09:00)
[2020-09-29] MEDS ORDERED: Insulin DETEMIR 100 UNIT/ML X5UNITS SUBQ SCH (21:00)
[2020-09-30] MEDS: Clindamycin 600 MG/50 ML 600 MG/50 ML IV.SOLN IVPB SCH ×3 (00:14→15:44)
[2020-09-30] MEDS: Insulin LISPRO 300 UNITS/3 ML VIAL SUBQ SCH ×4 (00:37→17:33)
[2020-09-30] MEDS: Piperacillin/Tazobactam 3.375 GM in 0.9 % Sodium Chloride Mini Bag 100 ML IVPB SCH ×3 (01:15→18:20)
[2020-09-30] MEDS ORDERED: Vancomycin 1,500 MG/265 ML IV.SOLN IVPB SCH (06:00)
[2020-09-30 06:07] LABS: Basophils % 0.5 %; Eosinophils # 0.1 K/mcL (0.0-0.6); Eosinophils % 1.6 %; Hemoglobin 9.9 g/dL (12.9-16.9); Immature Granulocytes % 0.4 % (0-4); Lymphocytes # 1.1 K/mcL (0.6-4.6); Mean Corpuscular HGB Conc 31.9 g/dL (31.6-35.5); Mean Corpuscular Hemoglobin 28.2 pg (28.0-33.3); Mean Corpuscular Volume 88.3 fL (83.0-100.0); Monocytes # 0.9 K/mcL (0.0-1.3); Monocytes % 11.6 %; Neutrophils # 5.9 K/mcL (1.6-8.9); Platelet Count 267 K/mcL (140-400); Red Blood Count 3.51 M/mcL (4.19-5.50); Red Cell Distribution Width 14.2 % (11.5-14.5); Segmented Neutrophils % 72.9 %; White Blood Count 8.1 K/mcL (4.3-11.1)
[2020-09-30] MEDS: *HR* Heparin 5,000 UNIT/ML VIAL SQ SCH ×2 (06:47→17:33)
[2020-09-30 06:51] LABS: Calcium 7.4 mg/dL (8.6-10.3); Potassium 4.5 mEq/L (3.5-5.1)
[2020-09-30] MEDS ORDERED: 0.9 % Sodium Chloride 1,000 ML IVC SCH (07:45)
[2020-09-30] MEDS: Isosorbide MONOnitrate (24 HR) 30 MG TAB.ER.24H PO SCH (09:02)
[2020-09-30] MEDS: Metoprolol XL (24 HR) Succ 50 MG TAB.ER.24H PO SCH (09:03)
[2020-09-30] MEDS ORDERED: Lidocaine -MPF 2% 2 ML VIAL ONE (16:21)
[2020-09-30] MEDS ORDERED: *HR* Propofol 200 MG/20 ML VIAL IVP ONE (16:21)
[2020-09-30] MEDS ORDERED: Lidocaine 1% 0 ML ONE (16:24)
[2020-09-30] MEDS ORDERED: Naloxone 0.4 MG/ML INJ IVP PRN ×3 (16:50→18:48)
[2020-09-30] MEDS ORDERED: Albuterol 2.5 MG/3 ML NEBULIZER IH PRN ×2 (16:50→18:48)
[2020-09-30] MEDS ORDERED: Ondansetron 4 MG/2 ML VIAL IVP PRN ×3 (16:50→18:48)
[2020-09-30] MEDS ORDERED: Nitroglycerin 0.4 MG TAB.SUBL SL PRN ×2 (16:50→18:48)
[2020-09-30] MEDS ORDERED: *HR* FentaNYL (PF) 100 MCG/2 ML VIAL IVP PRN ×2 (16:50→18:48)
[2020-09-30] MEDS ORDERED: Bupivacaine-MPF 0.25% 10 ML VIAL ONE (17:16)
[2020-09-30] MEDS ORDERED: EPHEDrine 50 MG/ML VIAL ONE (17:17)
[2020-09-30] MEDS ORDERED: *HR* Vasopressin 20 UNIT/ML VIAL ONE (17:18)
[2020-09-30] MEDS ORDERED: Ondansetron 4 MG/2 ML VIAL ONE (17:44)
[2020-09-30] MEDS ORDERED: polyethylene glycoL 3350 17 GM POWD.PACK PO PRN (18:48)
[2020-09-30] MEDS ORDERED: *HR* HYDROcodone/Acet 5/325 mg TABLET PO PRN (18:48)
[2020-09-30] MEDS ORDERED: Acetaminophen 325 MG TABLET PO PRN (18:48)
[2020-09-30] MEDS ORDERED: D5% in Water 1,000 ML IVC PRN (18:48)
[2020-09-30] MEDS ORDERED: *HR* Dextrose 50 % in Water (Vial) 50 ML VIAL IVP PRN (18:48)
[2020-09-30] MEDS ORDERED: Dextrose Gel 15 GM/37.5 ML TUBE PO PRN ×2 (18:48)
[2020-09-30] MEDS ORDERED: DAPTOmycin 500 MG in 0.9 % Sodium Chloride 100 ML IVPB SCH (19:00)
[2020-09-30] MEDS: Insulin DETEMIR 100 UNIT/ML X5UNITS SUBQ SCH (20:47)
[2020-10-01] MEDS ORDERED: Clindamycin 600 MG/50 ML 600 MG/50 ML IV.SOLN IVPB SCH
[2020-10-01] MEDS ORDERED: Insulin LISPRO 300 UNITS/3 ML VIAL SUBQ SCH
[2020-10-01] MEDS: Piperacillin/Tazobactam 3.375 GM in 0.9 % Sodium Chloride Mini Bag 100 ML IVPB SCH ×3 (02:52→17:53)
[2020-10-01 05:12] LABS: Basophils % 0.4 %; Eosinophils # 0.1 K/mcL (0.0-0.6); Eosinophils % 1.4 %; Hematocrit 29.2 % (37.5-50.1); Hemoglobin 9.3 g/dL (12.9-16.9); Immature Granulocytes % 0.5 % (0-4); Lymphocytes # 1.2 K/mcL (0.6-4.6); Lymphocytes % 14.7 %; Mean Corpuscular HGB Conc 31.8 g/dL (31.6-35.5); Mean Corpuscular Hemoglobin 28.3 pg (28.0-33.3); Mean Corpuscular Volume 88.8 fL (83.0-100.0); Mean Platelet Volume 10.2 fL (9.4-12.4); Monocytes # 0.8 K/mcL (0.0-1.3); Monocytes % 9.6 %; Neutrophils # 5.8 K/mcL (1.6-8.9); Platelet Count 289 K/mcL (140-400); Red Blood Count 3.29 M/mcL (4.19-5.50); Segmented Neutrophils % 73.4 %; White Blood Count 7.9 K/mcL (4.3-11.1)
[2020-10-01 05:30] LABS: Calcium 7.4 mg/dL (8.6-10.3); Potassium 4.5 mEq/L (3.5-5.1)
[2020-10-01] MEDS: *HR* Heparin 5,000 UNIT/ML VIAL SQ SCH ×2 (06:16→17:53)
[2020-10-01] MEDS: Insulin LISPRO 300 UNITS/3 ML VIAL SUBQ SCH ×4 (08:54→21:08)
[2020-10-01] MEDS: Metoprolol XL (24 HR) Succ 50 MG TAB.ER.24H PO SCH (09:06)
[2020-10-01] MEDS: Isosorbide MONOnitrate (24 HR) 30 MG TAB.ER.24H PO SCH (09:07)
[2020-10-01] MEDS: *HR* OxyCODONE Immed Rel 5 MG TABLET PO PRN ×2 (09:27→18:35)
[2020-10-01] MEDS: Insulin DETEMIR 100 UNIT/ML X5UNITS SUBQ SCH (21:07)
[2020-10-01] MEDS ORDERED: Artificial Tears SOLN 15 ML BOTTLE BOTH EYES PRN (21:13)
[2020-10-02] MEDS: Piperacillin/Tazobactam 3.375 GM in 0.9 % Sodium Chloride Mini Bag 100 ML IVPB SCH ×3 (03:52→17:30)
[2020-10-02] MEDS: *HR* Heparin 5,000 UNIT/ML VIAL SQ SCH (06:28)
[2020-10-02 07:02] LABS: Basophils % 0.3 %; Eosinophils # 0.2 K/mcL (0.0-0.6); Eosinophils % 2.2 %; Hematocrit 28.8 % (37.5-50.1); Hemoglobin 9.2 g/dL (12.9-16.9); Immature Granulocytes % 0.3 % (0-4); Lymphocytes # 1.1 K/mcL (0.6-4.6); Lymphocytes % 15.8 %; Mean Corpuscular HGB Conc 31.9 g/dL (31.6-35.5); Mean Corpuscular Hemoglobin 28.1 pg (28.0-33.3); Mean Corpuscular Volume 88.1 fL (83.0-100.0); Mean Platelet Volume 10.4 fL (9.4-12.4); Monocytes # 0.7 K/mcL (0.0-1.3); Monocytes % 10.3 %; Neutrophils # 4.8 K/mcL (1.6-8.9); Platelet Count 306 K/mcL (140-400); Red Blood Count 3.27 M/mcL (4.19-5.50); Red Cell Distribution Width 13.7 % (11.5-14.5); Segmented Neutrophils % 71.1 %; White Blood Count 6.7 K/mcL (4.3-11.1)
[2020-10-02 07:21] LABS: Calcium 7.6 mg/dL (8.6-10.3); Potassium 4.9 mEq/L (3.5-5.1)
[2020-10-02] MEDS: Isosorbide MONOnitrate (24 HR) 30 MG TAB.ER.24H PO SCH (08:09)
[2020-10-02] MEDS: Metoprolol XL (24 HR) Succ 50 MG TAB.ER.24H PO SCH (08:09)
[2020-10-02] MEDS: Insulin LISPRO 300 UNITS/3 ML VIAL SUBQ SCH ×4 (09:54→21:37)
[2020-10-02] MEDS ORDERED: DAPTOmycin 500 MG in 0.9 % Sodium Chloride 100 ML IVPB SCH (18:00)
[2020-10-02] MEDS: Insulin DETEMIR 100 UNIT/ML X5UNITS SUBQ SCH (21:38)
[2020-10-02] MEDS: Apixaban 5 MG TABLET PO SCH (21:38)
[2020-10-03] MEDS: Piperacillin/Tazobactam 3.375 GM in 0.9 % Sodium Chloride Mini Bag 100 ML IVPB SCH ×3 (01:26→17:23)
[2020-10-03 01:34] LABS: Basophils % 0.5 %; Eosinophils # 0.1 K/mcL (0.0-0.6); Eosinophils % 1.7 %; Hematocrit 29.6 % (37.5-50.1); Hemoglobin 9.1 g/dL (12.9-16.9); Immature Granulocytes % 0.9 % (0-4); Lymphocytes # 1.1 K/mcL (0.6-4.6); Lymphocytes % 14.6 %; Mean Corpuscular HGB Conc 30.7 g/dL (31.6-35.5); Mean Corpuscular Hemoglobin 27.2 pg (28.0-33.3); Mean Corpuscular Volume 88.6 fL (83.0-100.0); Mean Platelet Volume 9.8 fL (9.4-12.4); Monocytes # 0.7 K/mcL (0.0-1.3); Monocytes % 8.7 %; Neutrophils # 5.7 K/mcL (1.6-8.9); Platelet Count 319 K/mcL (140-400); Red Blood Count 3.34 M/mcL (4.19-5.50); Red Cell Distribution Width 13.7 % (11.5-14.5); Segmented Neutrophils % 73.6 %; White Blood Count 7.7 K/mcL (4.3-11.1)
[2020-10-03 01:54] LABS: Calcium 7.5 mg/dL (8.6-10.3); Potassium 5.1 mEq/L (3.5-5.1)
[2020-10-03] MEDS: Isosorbide MONOnitrate (24 HR) 30 MG TAB.ER.24H PO SCH (08:14)
[2020-10-03] MEDS: Insulin LISPRO 300 UNITS/3 ML VIAL SUBQ SCH ×4 (08:14→21:18)
[2020-10-03] MEDS: Apixaban 5 MG TABLET PO SCH ×2 (08:15→21:18)
[2020-10-03] MEDS: Metoprolol XL (24 HR) Succ 50 MG TAB.ER.24H PO SCH (08:15)
[2020-10-03] MEDS: Valsartan 160 MG TABLET PO SCH (12:15)
[2020-10-03] MEDS: DAPTOmycin 500 MG in 0.9 % Sodium Chloride 100 ML IVPB SCH (17:21)
[2020-10-03] MEDS: Insulin DETEMIR 100 UNIT/ML X5UNITS SUBQ SCH (21:18)
[2020-10-03] MEDS: Lactobacillus 1 EACH CAP.SPRINK PO SCH (21:19)
[2020-10-04] MEDS: Piperacillin/Tazobactam 3.375 GM in 0.9 % Sodium Chloride Mini Bag 100 ML IVPB SCH ×2 (00:54→09:28)
[2020-10-04 02:35] LABS: Basophils % 0.4 %; Eosinophils # 0.1 K/mcL (0.0-0.6); Eosinophils % 1.1 %; Hematocrit 31.7 % (37.5-50.1); Immature Granulocytes % 0.7 % (0-4); Lymphocytes # 1.1 K/mcL (0.6-4.6); Lymphocytes % 11.3 %; Mean Corpuscular HGB Conc 31.5 g/dL (31.6-35.5); Mean Corpuscular Hemoglobin 27.9 pg (28.0-33.3); Mean Corpuscular Volume 88.3 fL (83.0-100.0); Mean Platelet Volume 9.8 fL (9.4-12.4); Monocytes # 0.8 K/mcL (0.0-1.3); Monocytes % 8.1 %; Neutrophils # 7.6 K/mcL (1.6-8.9); Platelet Count 369 K/mcL (140-400); Red Blood Count 3.59 M/mcL (4.19-5.50); Red Cell Distribution Width 13.6 % (11.5-14.5); Segmented Neutrophils % 78.4 %; White Blood Count 9.7 K/mcL (4.3-11.1)
[2020-10-04 02:56] LABS: Potassium 4.8 mEq/L (3.5-5.1)
[2020-10-04] MEDS: Isosorbide MONOnitrate (24 HR) 30 MG TAB.ER.24H PO SCH (09:28)
[2020-10-04] MEDS: Insulin LISPRO 300 UNITS/3 ML VIAL SUBQ SCH ×4 (09:28→20:59)
[2020-10-04] MEDS: Valsartan 160 MG TABLET PO SCH (09:28)
[2020-10-04] MEDS: Metoprolol XL (24 HR) Succ 50 MG TAB.ER.24H PO SCH (09:28)
[2020-10-04] MEDS: Lactobacillus 1 EACH CAP.SPRINK PO SCH ×2 (09:28→20:15)
[2020-10-04] MEDS: Apixaban 5 MG TABLET PO SCH (09:28)
[2020-10-04] MEDS: metroNIDAZOLE 500 MG TABLET PO SCH ×2 (14:28→20:15)
[2020-10-04] MEDS ORDERED: Heparin 1,000 UNITS/500 mL 500 ML ONE (14:39)
[2020-10-04] MEDS ORDERED: Lidocaine/EPI 1:100k 1% 50 ML VIAL ONE (14:39)
[2020-10-04] MEDS ORDERED: 0.9 % Sodium Chloride 500 ML ONE (15:00)
[2020-10-04] MEDS ORDERED: *HR* FentaNYL (PF) 100 MCG/2 ML VIAL ONE (15:01)
[2020-10-04] MEDS ORDERED: *HR* FentaNYL (PF) 100 MCG/2 ML VIAL IVP ONE (15:05)
[2020-10-04] MEDS: Cefepime HCl 2,000 MG in Water for inj. (sterile) 20 ML IVP SCH (16:45)
[2020-10-04] MEDS: DAPTOmycin 500 MG in 0.9 % Sodium Chloride 100 ML IVPB SCH (16:50)
[2020-10-04] MEDS ORDERED: Cefepime HCl 2,000 MG in 0.9 % Sodium Chloride Mini Bag 100 ML IVPB SCH (18:00)
[2020-10-04] MEDS: *HR* OxyCODONE Immed Rel 5 MG TABLET PO PRN (20:15)
[2020-10-04] MEDS: Insulin DETEMIR 100 UNIT/ML X5UNITS SUBQ SCH (20:58)
[2020-10-05] MEDS: Cefepime HCl 2,000 MG in Water for inj. (sterile) 20 ML IVP SCH (04:54)
[2020-10-05 05:19] LABS: Basophils # 0.1 K/mcL (0.0-0.2); Basophils % 0.5 %; Eosinophils # 0.1 K/mcL (0.0-0.6); Eosinophils % 1.4 %; Hematocrit 30.4 % (37.5-50.1); Hemoglobin 9.5 g/dL (12.9-16.9); Immature Granulocytes % 0.8 % (0-4); Lymphocytes % 9.4 %; Mean Corpuscular HGB Conc 31.3 g/dL (31.6-35.5); Mean Corpuscular Hemoglobin 27.7 pg (28.0-33.3); Mean Corpuscular Volume 88.6 fL (83.0-100.0); Mean Platelet Volume 9.6 fL (9.4-12.4); Monocytes # 0.7 K/mcL (0.0-1.3); Monocytes % 7.1 %; Neutrophils # 8.4 K/mcL (1.6-8.9); Platelet Count 367 K/mcL (140-400); Red Blood Count 3.43 M/mcL (4.19-5.50); Red Cell Distribution Width 13.9 % (11.5-14.5); Segmented Neutrophils % 80.8 %; White Blood Count 10.4 K/mcL (4.3-11.1)
[2020-10-05 05:36] LABS: Potassium 4.9 mEq/L (3.5-5.1)
[2020-10-05] MEDS: metroNIDAZOLE 500 MG TABLET PO SCH (08:01)
[2020-10-05] MEDS: Metoprolol XL (24 HR) Succ 50 MG TAB.ER.24H PO SCH (08:01)
[2020-10-05] MEDS: Lactobacillus 1 EACH CAP.SPRINK PO SCH ×2 (08:01→20:46)
[2020-10-05] MEDS: Valsartan 160 MG TABLET PO SCH (08:01)
[2020-10-05] MEDS: Isosorbide MONOnitrate (24 HR) 30 MG TAB.ER.24H PO SCH (08:01)
[2020-10-05] MEDS: Insulin LISPRO 300 UNITS/3 ML VIAL SUBQ SCH ×4 (08:02→21:45)
[2020-10-05] MEDS: Apixaban 5 MG TABLET PO SCH ×2 (08:15→20:46)
[2020-10-05] MEDS: Piperacillin/Tazobactam 3.375 GM in 0.9 % Sodium Chloride Mini Bag 100 ML IVPB SCH (15:44)
[2020-10-05] MEDS: DAPTOmycin 500 MG in 0.9 % Sodium Chloride 100 ML IVPB SCH (17:39)
[2020-10-05] MEDS: Insulin DETEMIR 100 UNIT/ML X5UNITS SUBQ SCH (21:46)
[2020-10-06] MEDS: Piperacillin/Tazobactam 3.375 GM in 0.9 % Sodium Chloride Mini Bag 100 ML IVPB SCH ×3 (01:19→16:02)
[2020-10-06 05:49] LABS: Basophils % 0.4 %; Eosinophils # 0.1 K/mcL (0.0-0.6); Eosinophils % 0.8 %; Hematocrit 30.7 % (37.5-50.1); Hemoglobin 9.5 g/dL (12.9-16.9); Lymphocytes # 0.8 K/mcL (0.6-4.6); Lymphocytes % 7.9 %; Mean Corpuscular HGB Conc 30.9 g/dL (31.6-35.5); Mean Corpuscular Hemoglobin 27.5 pg (28.0-33.3); Mean Platelet Volume 9.6 fL (9.4-12.4); Monocytes # 0.8 K/mcL (0.0-1.3); Monocytes % 7.7 %; Neutrophils # 8.6 K/mcL (1.6-8.9); Platelet Count 386 K/mcL (140-400); Red Blood Count 3.45 M/mcL (4.19-5.50); Red Cell Distribution Width 13.9 % (11.5-14.5); Segmented Neutrophils % 82.2 %; White Blood Count 10.5 K/mcL (4.3-11.1)
[2020-10-06 05:58] LABS: BUN/Creatinine Ratio 19 (6-26); Blood Urea Nitrogen 27 mg/dL (8-23); Calcium 8.1 mg/dL (8.6-10.3); Carbon Dioxide 19 mEq/L (23-29); Chloride 111 mEq/L (98-107); Glucose 157 mg/dL (70-105); Magnesium 2.1 mg/dL (1.6-2.6); Osmolality,Calculated 288 (280-300); Phosphorous 2.8 mg/dL (2.7-4.5); Potassium 4.4 mEq/L (3.5-5.1); Sodium 135 mEq/L (136-145); eGFR For African Americans > 60 (> 60); eGFR For Non-African Americans 51 (> 60)
[2020-10-06] MEDS: Insulin LISPRO 300 UNITS/3 ML VIAL SUBQ SCH ×4 (08:09→20:53)
[2020-10-06] MEDS: Isosorbide MONOnitrate (24 HR) 30 MG TAB.ER.24H PO SCH (08:10)
[2020-10-06] MEDS: Apixaban 5 MG TABLET PO SCH ×2 (08:10→20:50)
[2020-10-06] MEDS: Metoprolol XL (24 HR) Succ 50 MG TAB.ER.24H PO SCH (08:11)
[2020-10-06] MEDS: Lactobacillus 1 EACH CAP.SPRINK PO SCH ×2 (08:11→20:50)
[2020-10-06] MEDS: Valsartan 160 MG TABLET PO SCH (08:11)
[2020-10-06] MEDS ORDERED: Valsartan 160 MG TABLET PO ONE (09:45)
[2020-10-06] MEDS: amLODIPine 5 MG TABLET PO SCH (10:26)
[2020-10-06] MEDS: Insulin DETEMIR 100 UNIT/ML X5UNITS SUBQ SCH (20:52)
[2020-10-07] MEDS: Piperacillin/Tazobactam 3.375 GM in 0.9 % Sodium Chloride Mini Bag 100 ML IVPB SCH ×3 (00:16→16:25)
[2020-10-07 04:37] LABS: Basophils # 0.1 K/mcL (0.0-0.2); Basophils % 0.5 %; Eosinophils # 0.1 K/mcL (0.0-0.6); Eosinophils % 0.5 %; Hematocrit 29.8 % (37.5-50.1); Hemoglobin 9.5 g/dL (12.9-16.9); Immature Granulocytes % 0.8 % (0-4); Lymphocytes # 0.9 K/mcL (0.6-4.6); Lymphocytes % 7.7 %; Mean Corpuscular HGB Conc 31.9 g/dL (31.6-35.5); Mean Corpuscular Hemoglobin 28.1 pg (28.0-33.3); Mean Corpuscular Volume 88.2 fL (83.0-100.0); Mean Platelet Volume 9.3 fL (9.4-12.4); Monocytes # 0.9 K/mcL (0.0-1.3); Monocytes % 7.8 %; Neutrophils # 9.1 K/mcL (1.6-8.9); Platelet Count 398 K/mcL (140-400); Red Blood Count 3.38 M/mcL (4.19-5.50); Red Cell Distribution Width 14.2 % (11.5-14.5); Segmented Neutrophils % 82.7 %
[2020-10-07 04:57] LABS: Calcium 8.2 mg/dL (8.6-10.3); Magnesium 2.2 mg/dL (1.6-2.6); Potassium 4.4 mEq/L (3.5-5.1)
[2020-10-07] MEDS: Valsartan 160 MG TABLET PO SCH (07:55)
[2020-10-07] MEDS: Apixaban 5 MG TABLET PO SCH ×2 (07:55→21:36)
[2020-10-07] MEDS: Insulin LISPRO 300 UNITS/3 ML VIAL SUBQ SCH ×4 (07:56→21:37)
[2020-10-07] MEDS: Isosorbide MONOnitrate (24 HR) 30 MG TAB.ER.24H PO SCH (07:56)
[2020-10-07] MEDS: Lactobacillus 1 EACH CAP.SPRINK PO SCH ×2 (07:56→21:36)
[2020-10-07] MEDS: amLODIPine 5 MG TABLET PO SCH (07:56)
[2020-10-07] MEDS: Metoprolol XL (24 HR) Succ 50 MG TAB.ER.24H PO SCH (07:56)
[2020-10-07] MEDS: Furosemide 20 MG/2 ML VIAL IVP SCH ×2 (10:44→16:26)
[2020-10-07] MEDS: Insulin DETEMIR 100 UNIT/ML X5UNITS SUBQ SCH (21:36)
[2020-10-08] MEDS: Piperacillin/Tazobactam 3.375 GM in 0.9 % Sodium Chloride Mini Bag 100 ML IVPB SCH ×4 (00:02→23:46)
[2020-10-08 04:50] LABS: Basophils % 0.3 %; Eosinophils % 0.4 %; Hematocrit 31.3 % (37.5-50.1); Hemoglobin 10.1 g/dL (12.9-16.9); Immature Granulocytes % 0.4 % (0-4); Lymphocytes % 8.5 %; Mean Corpuscular HGB Conc 32.3 g/dL (31.6-35.5); Mean Corpuscular Hemoglobin 28.4 pg (28.0-33.3); Mean Corpuscular Volume 87.9 fL (83.0-100.0); Mean Platelet Volume 9.6 fL (9.4-12.4); Monocytes # 0.8 K/mcL (0.0-1.3); Neutrophils # 9.5 K/mcL (1.6-8.9); Platelet Count 435 K/mcL (140-400); Red Blood Count 3.56 M/mcL (4.19-5.50); Red Cell Distribution Width 14.3 % (11.5-14.5); Segmented Neutrophils % 83.4 %; White Blood Count 11.3 K/mcL (4.3-11.1)
[2020-10-08 04:54] LABS: Calcium 8.3 mg/dL (8.6-10.3); Potassium 4.5 mEq/L (3.5-5.1)
[2020-10-08] MEDS: Apixaban 5 MG TABLET PO SCH ×2 (07:53→20:30)
[2020-10-08] MEDS: Furosemide 20 MG/2 ML VIAL IVP SCH ×2 (07:53→16:53)
[2020-10-08] MEDS: Isosorbide MONOnitrate (24 HR) 30 MG TAB.ER.24H PO SCH (07:53)
[2020-10-08] MEDS: Lactobacillus 1 EACH CAP.SPRINK PO SCH ×2 (07:53→20:30)
[2020-10-08] MEDS: Metoprolol XL (24 HR) Succ 50 MG TAB.ER.24H PO SCH (07:53)
[2020-10-08] MEDS: Valsartan 160 MG TABLET PO SCH (07:53)
[2020-10-08] MEDS: amLODIPine 5 MG TABLET PO SCH (07:53)
[2020-10-08] MEDS: Insulin LISPRO 300 UNITS/3 ML VIAL SUBQ SCH ×4 (07:54→20:30)
[2020-10-08] MEDS: Insulin DETEMIR 100 UNIT/ML X5UNITS SUBQ SCH (20:30)
[2020-10-09 02:52] LABS: Basophils % 0.2 %; Eosinophils % 0.1 %; Hematocrit 32.2 % (37.5-50.1); Hemoglobin 10.1 g/dL (12.9-16.9); Immature Granulocytes % 0.4 % (0-4); Lymphocytes # 0.7 K/mcL (0.6-4.6); Lymphocytes % 4.4 %; Mean Corpuscular HGB Conc 31.4 g/dL (31.6-35.5); Mean Corpuscular Hemoglobin 27.7 pg (28.0-33.3); Mean Corpuscular Volume 88.2 fL (83.0-100.0); Mean Platelet Volume 9.7 fL (9.4-12.4); Monocytes % 6.2 %; Neutrophils # 14.6 K/mcL (1.6-8.9); Platelet Count 432 K/mcL (140-400); Red Blood Count 3.65 M/mcL (4.19-5.50); Red Cell Distribution Width 14.3 % (11.5-14.5); Segmented Neutrophils % 88.7 %; White Blood Count 16.4 K/mcL (4.3-11.1)
[2020-10-09 03:09] LABS: Calcium 8.4 mg/dL (8.6-10.3); Magnesium 1.9 mg/dL (1.6-2.6); Phosphorous 2.8 mg/dL (2.7-4.5); Potassium 4.2 mEq/L (3.5-5.1)
[2020-10-09] MEDS: Insulin LISPRO 300 UNITS/3 ML VIAL SUBQ SCH ×4 (08:06→21:34)
[2020-10-09] MEDS: Furosemide 20 MG/2 ML VIAL IVP SCH ×2 (08:18→16:25)
[2020-10-09] MEDS: Piperacillin/Tazobactam 3.375 GM in 0.9 % Sodium Chloride Mini Bag 100 ML IVPB SCH ×3 (08:19→23:52)
[2020-10-09] MEDS: amLODIPine 5 MG TABLET PO SCH (08:20)
[2020-10-09] MEDS: Metoprolol XL (24 HR) Succ 50 MG TAB.ER.24H PO SCH (08:20)
[2020-10-09] MEDS: Lactobacillus 1 EACH CAP.SPRINK PO SCH ×2 (08:20→21:34)
[2020-10-09] MEDS: Apixaban 5 MG TABLET PO SCH ×2 (08:20→21:34)
[2020-10-09] MEDS: Valsartan 160 MG TABLET PO SCH (08:20)
[2020-10-09] MEDS: Isosorbide MONOnitrate (24 HR) 30 MG TAB.ER.24H PO SCH (08:20)
[2020-10-09] MEDS: Insulin DETEMIR 100 UNIT/ML X5UNITS SUBQ SCH (21:34)
[2020-10-10 05:46] LABS: Basophils % 0.1 %; Hematocrit 30.1 % (37.5-50.1); Hemoglobin 9.4 g/dL (12.9-16.9); Immature Granulocytes % 0.4 % (0-4); Lymphocytes # 0.9 K/mcL (0.6-4.6); Lymphocytes % 5.5 %; Mean Corpuscular HGB Conc 31.2 g/dL (31.6-35.5); Mean Corpuscular Hemoglobin 27.6 pg (28.0-33.3); Mean Corpuscular Volume 88.5 fL (83.0-100.0); Mean Platelet Volume 9.8 fL (9.4-12.4); Monocytes # 1.1 K/mcL (0.0-1.3); Monocytes % 6.9 %; Neutrophils # 13.8 K/mcL (1.6-8.9); Platelet Count 379 K/mcL (140-400); Red Cell Distribution Width 14.6 % (11.5-14.5); Segmented Neutrophils % 87.1 %; White Blood Count 15.9 K/mcL (4.3-11.1)
[2020-10-10 05:59] LABS: Calcium 8.3 mg/dL (8.6-10.3); Magnesium 1.8 mg/dL (1.6-2.6); Phosphorous 2.9 mg/dL (2.7-4.5); Potassium 4.2 mEq/L (3.5-5.1)
[2020-10-10] MEDS: Lactobacillus 1 EACH CAP.SPRINK PO SCH ×2 (07:49→20:37)
[2020-10-10] MEDS: Furosemide 20 MG/2 ML VIAL IVP SCH (07:49)
[2020-10-10] MEDS: Apixaban 5 MG TABLET PO SCH ×2 (07:49→20:37)
[2020-10-10] MEDS: Valsartan 160 MG TABLET PO SCH (07:49)
[2020-10-10] MEDS: Metoprolol XL (24 HR) Succ 50 MG TAB.ER.24H PO SCH (07:49)
[2020-10-10] MEDS: Isosorbide MONOnitrate (24 HR) 30 MG TAB.ER.24H PO SCH (07:49)
[2020-10-10] MEDS: Piperacillin/Tazobactam 3.375 GM in 0.9 % Sodium Chloride Mini Bag 100 ML IVPB SCH ×3 (07:50→23:54)
[2020-10-10] MEDS: Insulin LISPRO 300 UNITS/3 ML VIAL SUBQ SCH ×4 (07:51→20:41)
[2020-10-10] MEDS: amLODIPine 5 MG TABLET PO SCH (08:06)
[2020-10-10] MEDS: Insulin DETEMIR 100 UNIT/ML X5UNITS SUBQ SCH (20:41)
[2020-10-11 04:17] LABS: Basophils % 0.2 %; Eosinophils % 0.1 %; Hematocrit 27.9 % (37.5-50.1); Immature Granulocytes % 0.4 % (0-4); Lymphocytes # 0.8 K/mcL (0.6-4.6); Mean Corpuscular HGB Conc 32.3 g/dL (31.6-35.5); Mean Corpuscular Hemoglobin 28.5 pg (28.0-33.3); Mean Corpuscular Volume 88.3 fL (83.0-100.0); Mean Platelet Volume 9.6 fL (9.4-12.4); Monocytes % 6.7 %; Neutrophils # 12.2 K/mcL (1.6-8.9); Platelet Count 335 K/mcL (140-400); Red Blood Count 3.16 M/mcL (4.19-5.50); Red Cell Distribution Width 14.5 % (11.5-14.5); Segmented Neutrophils % 86.6 %; White Blood Count 14.1 K/mcL (4.3-11.1)
[2020-10-11 04:41] LABS: Calcium 8.3 mg/dL (8.6-10.3); Phosphorous 3.3 mg/dL (2.7-4.5); Potassium 4.4 mEq/L (3.5-5.1)
[2020-10-11] MEDS: Apixaban 5 MG TABLET PO SCH ×2 (08:02→20:39)
[2020-10-11] MEDS: Metoprolol XL (24 HR) Succ 50 MG TAB.ER.24H PO SCH (08:02)
[2020-10-11] MEDS: Lactobacillus 1 EACH CAP.SPRINK PO SCH ×2 (08:02→20:39)
[2020-10-11] MEDS: amLODIPine 5 MG TABLET PO SCH (08:02)
[2020-10-11] MEDS: Piperacillin/Tazobactam 3.375 GM in 0.9 % Sodium Chloride Mini Bag 100 ML IVPB SCH ×2 (08:03→16:35)
[2020-10-11] MEDS: Insulin LISPRO 300 UNITS/3 ML VIAL SUBQ SCH ×4 (08:03→20:36)
[2020-10-11] MEDS: Isosorbide MONOnitrate (24 HR) 30 MG TAB.ER.24H PO SCH (08:03)
[2020-10-11] MEDS: Valsartan 160 MG TABLET PO SCH ×2 (08:10→08:12)
[2020-10-11] MEDS ORDERED: Furosemide 20 MG TABLET PO SCH (09:00)
[2020-10-11 18:28] VITALS: BP 131/73
[2020-10-11 19:29] LABS: Adenovirus Not Detected (Not Detect); Bordetella Pertussis Not Detected (Not Detect); Chlamydophila pneumoniae Not Detected (Not Detect); Coronavirus 229E Not Detected (Not Detect); Coronavirus HKU1 Not Detected (Not Detect); Coronavirus NL63 Not Detected (Not Detect); Coronavirus OC43 Not Detected (Not Detect); Human Metapneumovirus Not Detected (Not Detect); Human Rhinovirus/Enterovirus Not Detected (Not Detect); Influenza A Subtype 2009 H1 Not Detected (Not Detect); Influenza B Not Detected (Not Detect); Mycoplasma pneumoniae Not Detected (Not Detect); Parainfluenza Virus 1 Not Detected (Not Detect); Parainfluenza Virus 2 Not Detected (Not Detect); Parainfluenza Virus 3 Not Detected (Not Detect); Parainfluenza Virus 4 Not Detected (Not Detect); Respiratory Syncytial Virus Not Detected (Not Detect); SARS-CoV-2 Not Detected (Not Detect)
[2020-10-11] MEDS: Insulin DETEMIR 100 UNIT/ML X5UNITS SUBQ SCH (20:38)
== END 2020-10-11 21:22 | DRG 853 ==
LOC: EMEROOARM 10:13 → 2ANU 10:13 → SUATTDRO 16:23 → 2ANU 17:54
PROVIDERS: ADMIT Internal Medicine; ATTEND Internal Medicine